=== PATIENT | female | born 1930 | race Caucasian/White ===

== ENCOUNTER 2017-12-24 19:10 | Inpatient (IN) | payer OTHER, MEDICAID ==
[2017-12-24] MEDS ORDERED: Pantoprazole 80 MG in Sodium Chloride 0.9% 100 ML IV ONE (19:31)
--- NOTE | 2017-12-24 19:54 | ED Physician Chart ---
ED Chief Complaint/HPI - Patient Information Date Seen:: 12/24/17 Time Seen:: 19:45 Chief Complaint:: coffee ground emesis History of Present Illness:: coffee ground emesis Allergies:: Allergies Allergy/AdvReac Type Severity Reaction Status Date / Time No Known Allergies Allergy Verified 12/24/17 19:30 Vitals:: Vital Signs - 8 hr 12/24/17 19:45 Temp 98.6 F HR 124 RR 26 BP 199/97 O2 Sat % 95 Historian:: Medical Records Review:: Nurse's Note Reviewed, Transfer documents Reviewed ED Review of Systems - Review of Systems General/Constitutional: No fever, No chills, No weight loss, No weakness, No diaphoresis, No edema, No loss of appetite Skin: No skin lesions, No rash, No bruising Head: No headache, No light-headedness Eyes: No loss of vision, No pain, No diplopia ENT: No earache, No nasal drainage, No sore throat, No tinnitus Neck: No neck pain, No swelling, No thyromegaly, No stiffness, No mass noted Cardio Vascular: No chest pain, No palpitations, No PND, No orthopnea, No edema Pulmonary: No SOB, No cough, No sputum, No wheezing GI: Vomiting, Hematemesis G/U: No dysuria, No frequency, No hematuria Musculoskeletal: No bone or joint pain, No back pain, No muscle pain Endocrine: No polyuria, No polydipsia Psychiatric: No prior psych history, No depression, No anxiety, No suicidal ideation Hematopoietic: No bruising, No lymphadenopathy Allergic/Immuno: No urticaria, No angioedema Neurological: No syncope, No focal symptoms, No weakness, No paresthesia, No headache, No seizure, No dizziness, No confusion, No vertigo ED Past Medical History - Past Medical History Obtainable: No Past Medical History: HTN, DM, Dyslipidemia, Dementia (anemia), Other (muscle weakness) Psychiatricy History: Dementia ED Physical Exam - Physical Examination General/Constitutional: Awake, Well-developed, well-nourished, Alert, No distress, Non-toxic appearing, Ambulatory Head: Atraumatic Eyes: Lids, conjuctiva normal, PERRL, EOMI Skin: Nl inspection, No rash, No skin lesions, No ecchymosis, Well hydrated, No lymphadenopathy ENMT: External ears, nose nl Neck: Nontender, No stridor Other Respiratory comments:: rhonchi in the right lower lung base only. Cardio Vascular: RRR, No murmur, gallop, rubs, NL S1 S2 GI: No tenderness/rebounding/guarding, No organomegaly, No hernia, Normal BS's, Nondistended, No mass/bruits, No McBurney tenderness Extremities: No tenderness or effusion, Full ROM, normal strength in all extremities, No edema Neuro/Psych: Normal motor strength, Mood normal, No focal deficits Misc: Normal back ED Assessment - Assessment General Assessment: sign out given to Dr. Zhou at 7:45 p.m. ED Septic Shock - . Is Septic Shock (SBP<90, OR Lactate>4 mmol\L) present?: No - <6hrs of presentation: Vital Signs: Vital Signs - 8 hr 12/24/17 19:45 Temp 98.6 F HR 124 RR 26 BP 199/97 O2 Sat % 95 ED Reassessment (Disposition) - Reassessment Reassessment Condition:: Unchanged - Diagnosis Diagnosis:: Coffee ground emesis. - Patient Disposition Discharge/Transfer:: Acute Care w/in this hosp Condition at Disposition:: Stable, Unchanged
[2017-12-24 20:03] LABS: HEMATOCRIT 30.5 % (41.0-60); MEAN CORPUSCULAR HEMOGLOBIN 28.8 pg (27.0-31.0); MEAN CORPUSCULAR HGB CONC 32.7 pg (28.0-36.0); MEAN PLATELET VOLUME 9.4 fl; PLATELET COUNT 282 Th/cmm (150-400); RED BLOOD COUNT 3.47 Mil/cmm (3.80-5.20); RED CELL DISTRIBUTION WIDTH 12.7 % (11.5-20.0)
[2017-12-24 20:06] LABS: PROTHROMBIN TIME (TEST) 10.4 SECONDS (9.5-11.5); WHITE BLOOD COUNT 16.1 Th/cmm (4.8-10.8)
[2017-12-24 20:12] LABS: ALKALINE PHOSPHATASE 89 U/L (34-104); ANION GAP 17.5 (7.0-16.0); BILIRUBIN,TOTAL 0.2 mg/dL (0.3-1.0); BUN - UREA NITROGEN 69 mg/dL (7-25); CALCIUM SERUM 9.3 mg/dL (8.6-10.3); CARBON DIOXIDE 24.6 mEq/L (21.0-31.0); CHLORIDE 97 mEq/L (98-107); CREATININE - SERUM 1.2 mg/dL (0.6-1.2); MAGNESIUM 2.2 mg/dL (1.9-2.7); PHOSPHOROUS 3.5 mg/dL (2.5-5.0); POTASSIUM SERUM 5.1 mEq/L (3.5-5.1); SGOT 9 U/L (13-39); SGPT/ALT 8 U/L (7-52); SODIUM SERUM 134 mEq/L (136-145); TOTAL PROTEIN,SERUM 5.9 gm/dL (6.0-8.3)
[2017-12-24 20:16] LABS: GLUCOSE 547 mg/dL (70-105)
[2017-12-24 20:22] LABS: BAND NEUTROPHILE 5 % (0-10); LYMPHOCYTE 8 % (20-50); MONOCYTE 3 % (2-10); NEUTROPHILS 84 % (40-80)
[2017-12-24] MEDS ORDERED: Sodium Chloride 0.9% 1,000 ML IV ONE ×2 (20:23→21:27)
[2017-12-24] MEDS ORDERED: INSULIN HUMAN REGULAR 100 UNITS/ML UNIT IVP ONE (20:26)
[2017-12-24] MEDS ORDERED: INSULIN HUMAN REGULAR 100 UNITS/ML UNIT SUBQ ONE (20:26)
[2017-12-24] MEDS ORDERED: cefTRIAXone 2 GM in Sodium Chloride 0.9% 100 ML IV SCH (20:30)
[2017-12-24] MEDS ORDERED: INSULIN HUMAN REGULAR 100 UNITS/ML UNIT ONE ×2 (21:52→23:06)
[2017-12-24] MEDS: Pantoprazole 80 MG in Sodium Chloride 0.9% 100 ML IV SCH (22:57)
[2017-12-24] MEDS: Azithromycin 500 MG in Sodium Chloride 0.9% 250 ML IV SCH (23:15)
[2017-12-25] MEDS: INSULIN ASPART SLIDING SCALE 100 UNITS/ML UNIT SUBQ SCH ×5 (01:11→23:36)
[2017-12-25 01:18] VITALS: BP 145/65
[2017-12-25] MEDS ORDERED: Pneumococcal Vaccine 0.5 mL Vial IM ONE (03:00)
[2017-12-25 05:10] LABS: ALB/GLOB RATIO 1.1 (1.0-1.8); ALBUMIN 2.9 gm/dL (3.7-5.3); ALKALINE PHOSPHATASE 74 U/L (34-104); ANION GAP 11.9 (7.0-16.0); BILIRUBIN,TOTAL 0.2 mg/dL (0.3-1.0); BUN - UREA NITROGEN 78 mg/dL (7-25); CALCIUM SERUM 8.7 mg/dL (8.6-10.3); CARBON DIOXIDE 26.6 mEq/L (21.0-31.0); CHLORIDE 110 mEq/L (98-107); CHOLESTEROL 124 mg/dL (<200); CREATININE - SERUM 1.1 mg/dL (0.6-1.2); HDL -HIGH DENSITY LIPOPROTEIN 30 mg/dL (23-92); MAGNESIUM 2.3 mg/dL (1.9-2.7); POTASSIUM SERUM 4.5 mEq/L (3.5-5.1); SGOT 8 U/L (13-39); SGPT/ALT 7 U/L (7-52); SODIUM SERUM 144 mEq/L (136-145); TOTAL PROTEIN,SERUM 5.6 gm/dL (6.0-8.3); TRIGLYCERIDES 126 mg/dL (<150)
[2017-12-25 05:18] LABS: HEMATOCRIT 26.3 % (41.0-60); HEMOGLOBIN 8.7 gm/dL (12-16); MEAN CELL VOLUME 88.2 fl (81-100); MEAN CORPUSCULAR HEMOGLOBIN 29.3 pg (27.0-31.0); MEAN CORPUSCULAR HGB CONC 33.3 pg (28.0-36.0); MEAN PLATELET VOLUME 9.5 fl; PLATELET COUNT 241 Th/cmm (150-400); RED BLOOD COUNT 2.98 Mil/cmm (3.80-5.20); RED CELL DISTRIBUTION WIDTH 12.1 % (11.5-20.0)
[2017-12-25 05:27] LABS: WHITE BLOOD COUNT 16.8 Th/cmm (4.8-10.8)
[2017-12-25 05:36] LABS: GLUCOSE 392 mg/dL (70-105)
[2017-12-25] MEDS: Sodium Chloride 0.9% 1,000 ML IV SCH ×2 (06:11→12:20)
[2017-12-25 06:47] LABS: BAND NEUTROPHILE 0 % (0-10); LYMPHOCYTE 16 % (20-50); NEUTROPHILS 78 % (40-80)
[2017-12-25 06:48] LABS: MONOCYTE 6 % (2-10)
--- NOTE | 2017-12-25 08:40 | Diagnostic Imaging Report ---
CT Chest without IV contrast HISTORY: Pneumonia COMPARISON: CT abdomen and pelvis the same day. Technique: Axial images were obtained from the base of the neck to the upper abdomen without IV contrast. Reconstructions were made. Total DLP 276, CTDI 8.4 Findings: Exam is limited due to lack of IV contrast. No evidence of mediastinal lymphadenopathy. Motion also limits exam. Extensive atherosclerosis is noted with coronary artery calcifications. No aneurysm. Heart size is at the upper limits of normal. No pericardial effusion. There is a large retrocardiac hiatal hernia. The lung padilla demonstrate chronic lung changes with hypoventilatory and atelectatic changes. There is focal area of consolidative change involving the posterior aspect of the right lung base. Small focal left basal consolidative changes noted. No pleural effusions. Degenerative changes of the spine are noted with marked scoliosis and rightward convexity of the thoracic spine. IMPRESSION: Focal right posterior basal consolidative changes probably related to pneumonia. Short-term follow-up is recommended to ensure resolution and rule out left leg neoplastic process Additional minimal left basal consolidative changes which may also be related to focal infiltrate/pneumonia. Again follow-up is needed to ensure resolution. Large retrocardiac hiatal hernia Heavy atherosclerotic vascular disease.
--- NOTE | 2017-12-25 08:43 | Diagnostic Imaging Report ---
CT abdomen and pelvis without intravenous contrast Indication: Hematemesis Comparison: CT chest the same day, Technique: Axial images were obtained from the lung bases to the bilateral proximal femurs without IV contrast. Coronal reconstructions were made. total DLP: 4 97, CTDI10.6 FINDINGS: Hypoventilatory and atelectatic changes of the lungs are noted. Evaluation of the solid organs is limited due to lack of IV contrast. Large retrocardiac hiatal hernia is noted. Evaluation of the solid organs is limited due to lack of IV contrast. Exam is also mildly limited due to motion. No focal hepatic or splenic lesions. There is a 4 mm stone along the neck of the gallbladder. No focal pancreatic or adrenal lesions. Exophytic right renal cysts are noted measuring up to 1.1 cm. No hydronephrosis or renal stones. Uterine calcifications are noted. There is marked distal fecal impaction with mass effect upon the uterus and urinary bladder. There is copious amount of stool throughout the colon. Minimal diverticulosis is noted without evidence of diverticulitis. No appendicitis. No free fluid or free air. Heavy atherosclerotic vascular disease is noted. Severe degenerative changes of the spine are noted with severe spinal scoliosis. IMPRESSION: Large retrocardiac hernia. Marked distal fecal impaction with mass effect upon the uterus and urinary bladder. There is also copious stool throughout the colon. Correlate clinically for constipation. Minimal diverticulosis without evidence of diverticulitis 4 mm stone along the gallbladder neck. No evidence of surrounding inflammatory changes. Consider further assessment with ultrasound. Severe degenerative changes and spinal scoliosis Atherosclerotic vascular disease.
[2017-12-25] MEDS: Pantoprazole 80 MG in Sodium Chloride 0.9% 100 ML IV SCH ×2 (09:00→19:42)
[2017-12-25] MEDS: Morphine Sulfate 2 mg/mL 1mL Syr IVP PRN ×2 (10:25→15:45)
--- NOTE | 2017-12-25 10:43 | General Progress Note ---
Subjective - Review of Systems Service Date: 12/25/17 Events since last encounter: 12/25/[address] scan noted need GI evaluation, NGT and esophagram and UGI study to determine degree to hernia incarceration, EGD Objective - Results Result Diagrams: 12/25/17 04:10 12/25/17 04:10 Recent Labs: Laboratory Last Values WBC 16.8 Th/cmm (4.8-10.8) H 12/25/17 04:10 RBC 2.98 Mil/cmm (3.80-5.20) L 12/25/17 04:10 Hgb 8.7 gm/dL (12-16) L 12/25/17 04:10 Hct 26.3 % (41.0-60) L 12/25/17 04:10 MCV 88.2 fl (81-100) 12/25/17 04:10 MCH 29.3 pg (27.0-31.0) 12/25/17 04:10 MCHC Differential 33.3 pg (28.0-36.0) 12/25/17 04:10 RDW 12.1 % (11.5-20.0) 12/25/17 04:10 Plt Count 241 Th/cmm (150-400) 12/25/17 04:10 MPV 9.5 fl 12/25/17 04:10 Add Manual Diff YES 12/25/17 04:10 Neutrophils % SOLVENT MIXER 12/24/17 19:40 Band Neutrophils % 0 % (0-10) 12/25/17 04:10 Lymphocytes % SOLVENT MIXER 12/24/17 19:40 Monocytes % SOLVENT MIXER 12/24/17 19:40 Eosinophils % SOLVENT MIXER 12/24/17 19:40 Basophils % SOLVENT MIXER 12/24/17 19:40 Neutrophils (Manual) 78 % (40-80) 12/25/17 04:10 Lymphocytes 16 % (20-50) L 12/25/17 04:10 Monocytes 6 % (2-10) 12/25/17 04:10 PT 10.4 SECONDS (9.5-11.5) 12/24/17 19:40 INR 1.00 (0.5-1.4) 12/24/17 19:40 PTT (Actin FS) 22.1 SECONDS (26.0-38.0) L 12/24/17 19:40 Sodium 144 mEq/L (136-145) 12/25/17 04:10 Potassium 4.5 mEq/L (3.5-5.1) 12/25/17 04:10 Chloride 110 mEq/L (98-107) H 12/25/17 04:10 Carbon Dioxide 26.6 mEq/L (21.0-31.0) 12/25/17 04:10 Anion Gap 11.9 (7.0-16.0) 12/25/17 04:10 BUN 78 mg/dL (7-25) H 12/25/17 04:10 Creatinine 1.1 mg/dL (0.6-1.2) 12/25/17 04:10 Est GFR ( Amer) TNP 12/25/17 04:10 Est GFR (Non-Af Amer) TNP 12/25/17 04:10 BUN/Creatinine Ratio 70.9 12/25/17 04:10 Glucose 392 mg/dL (70-105) H D 12/25/17 04:10 POC Glucose 304 MG/DL (70 - 105) H 12/25/17 06:07 Whole Bld Lactic Acid 2.46 mmol/L (0.60-1.99) H* 12/25/17 10:07 Calcium 8.7 mg/dL (8.6-10.3) 12/25/17 04:10 Phosphorus 3.5 mg/dL (2.5-5.0) 12/24/17 19:40 Magnesium 2.3 mg/dL (1.9-2.7) 12/25/17 04:10 Total Bilirubin 0.2 mg/dL (0.3-1.0) L 12/25/17 04:10 AST 8 U/L (13-39) L 12/25/17 04:10 ALT 7 U/L (7-52) 12/25/17 04:10 Alkaline Phosphatase 74 U/L (34-104) 12/25/17 04:10 Total Protein 5.6 gm/dL (6.0-8.3) L 12/25/17 04:10 Albumin 2.9 gm/dL (3.7-5.3) L 12/25/17 04:10 Globulin 2.7 gm/dL 12/25/17 04:10 Albumin/Globulin Ratio 1.1 (1.0-1.8) 12/25/17 04:10 Triglycerides 126 mg/dL (<150) 12/25/17 04:10 Cholesterol 124 mg/dL (<200) 12/25/17 04:10 LDL Cholesterol Direct 84 mg/dL (75-193) 12/25/17 04:10 HDL Cholesterol 30 mg/dL (23-92) 12/25/17 04:10 TSH 0.75 uIU/ml (0.34-5.60) 12/25/17 04:10 Blood Type O POSITIVE 12/24/17 19:40 Antibody Screen NEGATIVE 12/24/17 19:40 - Physical Exam Vitals and I&O: Vital Signs Temp 96.9 F 12/25/17 10:00 Pulse 84 12/25/17 10:00 Resp 18 12/25/17 10:00 BP 160/58 12/25/17 10:00 Pulse Ox 100 12/25/17 10:00 Intake & Output 12/24/17 12/25/17 12/25/17 18:59 06:59 18:59 Intake Total 250 Balance 250 Weight (lbs) 64.682 kg Intake: Intake, IV Amount 250 Azithromycin 500 mg In 250 Sodium Chloride 0.9% 250 ml @ 250 mls/hr IV Q24HR [facility] Rx#:[id number] Other: # Voids 2 Stool Characteristics Brown Brown Weight Source Bedscale Active Medications: Current Medications Pantoprazole Sodium 80 mg/ (Sodium Chloride) 100 mls @ 10 mls/hr IV Q10H [facility] Stop: 02/22/18 19:44 Last Admin: 12/24/17 22:57 Dose: 10 mls/hr Azithromycin 500 mg/ Sodium (Chloride) 250 mls @ 250 mls/hr IV Q24HR [facility] Stop: 02/22/18 22:29 Last Infusion: 12/25/17 00:30 Dose: Infused Ceftriaxone Sodium 1 gm/ (Sodium Chloride) 50 mls @ 100 mls/hr IV Q24HR [facility] Stop: 02/23/18 20:59 Sodium Chloride (Nacl 0.9%) 1,000 mls @ 150 mls/hr IV .Q6H40M [facility] Stop: 02/23/18 05:59 Last Admin: 12/25/17 06:11 Dose: 150 mls/hr Insulin Aspart (Novolog Insulin Sliding Scale) 0 units SUBQ Q6HR [facility]; Protocol Stop: 02/23/18 01:14 Last Admin: 12/25/17 06:09 Dose: 9 units Morphine Sulfate (Morphine) 1 mg IVP Q4HR PRN PRN Reason: Pain (Moderate) Stop: 02/23/18 10:04 Assessment/Plan - Problem List Patient Problems: All Active Problems COFFEE GROUND EMESIS (Acute)
--- NOTE | 2017-12-25 11:14 | Diagnostic Imaging Report ---
CHEST X-RAY: AP view INDICATION: aspiration COMPARISON: None FINDINGS: Retrocardiac density is noted. No focal consolidation or effusions. Cardiomegaly is noted with atherosclerosis. Degenerative changes of the spine are noted with scoliosis. IMPRESSION: Retrocardiac density probably representing a large hiatal hernia. Please refer to follow-up CT examination the same day for further details Cardiomegaly and atherosclerotic vascular disease.
[2017-12-25] MEDS ORDERED: Meperidine 25 mg/mL 1mL Syr ONE (11:39)
--- NOTE | 2017-12-25 12:28 | Diagnostic Imaging Report ---
CHEST X-RAY: AP view INDICATION: NG tube placement COMPARISON: Chest x-ray and chest CT on 12/24/2018 FINDINGS: An NG tube is seen curled in a large hiatal hernia. No focal consolidation or effusions. Cardiomegaly is noted with atherosclerosis. IMPRESSION: NG tube curled in the large retrocardiac hiatal hernia. Clinical correlation is needed. No focal consolidation identified.
[2017-12-25] MEDS: D5-0.45NS 1,000 ML IV SCH (13:45)
[2017-12-25] MEDS ORDERED: Probiotic Screen MC PRN (15:30)
[2017-12-25] MEDS: cefTRIAXone 1 GM in Sodium Chloride 0.9% 50 ML IV SCH (20:32)
--- NOTE | 2017-12-25 20:44 | History and Physical ---
History of Present Illness - HPI Chief Complaint: coffee ground emesis HPI: 87 y/o female long-term resident admitted to the ICU due to 1 day hx of coffee ground emesis. In the ER patient was found to have elevated lactic acid, sepsis protocol initiated. Vital Signs: Last Vital Signs Temp 98.3 F 12/25/17 20:00 Pulse 84 12/25/17 20:00 Resp 20 12/25/17 20:00 BP 119/86 12/25/17 20:00 Pulse Ox 100 12/25/17 20:00 Past Medical History Other History: HTN, DM, Dyslipidemia, Dementia (anemia), Other (muscle weakness) Family Medical History - Family Member Mother History Unknown: Yes Social History Smoke: No Alcohol: None Drugs: None Lives: Assisted - Medications Home Medications: Home Medication Medication Instructions Recorded Type Acetaminophen [Tylenol] 650 mg PO Q4H PRN 12/24/17 History Acetaminophen [Tylenol] 650 mg PO Q4H PRN 12/24/17 History Amlodipine Besylate 5 mg PO DAILY 12/24/17 History Ascorbic Acid 500 mg PO DAILY 12/24/17 History Bisacodyl [Dulcolax 10 Mg Supp] 10 mg RC DAILY PRN 12/24/17 History Calcium Carbonate/Vitamin D3 1 each PO DAILY 12/24/17 History [Calcium 500-Vit D3 200 Caplet] Clonidine HCl [Catapres] 0.1 mg PO Q8H PRN 12/24/17 History Clopidogrel [Plavix] 75 mg PO DAILY 12/24/17 History Dextrose [Glucose Gel] 15 gm PO PRN PRN 12/24/17 History Docusate Sodium [Colace] 100 mg PO BID 12/24/17 History Ferrous Sulfate 325 mg PO DAILY 12/24/17 History Fleet Enema 135 ml RC DAILY PRN 12/24/17 History Glucagon,Human Recombinant 1 mg IJ PRN PRN 12/24/17 History [Glucagon Emergency Kit] Insulin Human Regular [NovoLIN R] 0 units SUBQ DAILY 12/24/17 History Isosorbide Mononitrate [Isosorbide 60 mg PO DAILY 12/24/17 History Mononitrate ER] L. Acidophilus/L.bulgaricus 1 each PO DAILY 12/24/17 History [Floranex Granules Packet] Lactulose 20 gm PO BID 12/24/17 History Magnesium Hydroxide [Milk of 30 ml PO DAILY PRN 12/24/17 History Magnesia] Memantine [Namenda] 5 mg PO DAILY 12/24/17 History Metoprolol Tartrate 25 mg PO DAILY 12/24/17 History Multivitamin w/ Minerals 1 tab PO DAILY 12/24/17 History [Theragran M] Mylanta Ultimate Strenght 30 ml PO Q6H PRN 12/24/17 History Nitroglycerin [Nitrostat] 0.4 mg SL Q5MIN PRN 12/24/17 History Pantoprazole [Protonix] 40 mg PO DAILY 12/24/17 History Polyethylene Glycol 3350 17 gm PO DAILY 12/24/17 History Sitagliptin Phosphate [Januvia] 100 mg PO DAILY 12/24/17 History - Allergies Allergies/Adverse Reactions: Allergies Allergy/AdvReac Type Severity Reaction Status Date / Time No Known Allergies Allergy Verified 12/24/17 19:30 Review of Systems - Review of Systems Constitutional: Report: Weakness Eyes: Report: No Significant Respiratory: Report: Cough Cardiovascular: Report: No Significant Gastrointestinal: Report: Vomiting Neurological: Report: Weakness Physical Exam - Physical Exam HEENT: Report: Ears Nose Throat within normal limits Neck: Report: Within normal limits Cardiovascular Systems: Report: Regular, Rate and Rhythm Respiratory: Report: Breath Sounds are within normal limits Abdomen: Report: Non-tender to palpation Extremities: Report: Non-tender to palpation. Skin: Report: Color of skin is within normal limits, Warm, Dry Neuro/Psych: Report: Weakness or sensory loss noted. - Lab Results All Lab Results last 24 hours: Laboratory Results - last 24 hr 12/24/17 12/24/17 12/24/17 22:32 22:36 22:40 WBC RBC Hgb Hct MCV MCH MCHC Differential RDW Plt Count MPV Add Manual Diff Band Neutrophils % Neutrophils (Manual) Lymphocytes Monocytes Sodium Potassium Chloride Carbon Dioxide Anion Gap BUN Creatinine Est GFR ( Amer) Est GFR (Non-Af Amer) BUN/Creatinine Ratio Glucose POC Glucose 485 H* 441 H Whole Bld Lactic Acid 2.89 H* Calcium Magnesium Total Bilirubin AST ALT Alkaline Phosphatase Total Protein Albumin Globulin Albumin/Globulin Ratio Triglycerides Cholesterol LDL Cholesterol Direct HDL Cholesterol TSH 12/25/17 12/25/17 12/25/17 00:09 01:00 04:10 WBC 16.8 H RBC 2.98 L Hgb 8.7 L Hct 26.3 L MCV 88.2 MCH 29.3 MCHC Differential 33.3 RDW 12.1 Plt Count 241 MPV 9.5 Add Manual Diff YES Band Neutrophils % 0 Neutrophils (Manual) 78 Lymphocytes 16 L Monocytes 6 Sodium Potassium Chloride Carbon Dioxide Anion Gap BUN Creatinine Est GFR ( Amer) Est GFR (Non-Af Amer) BUN/Creatinine Ratio Glucose POC Glucose 423 H 403 H Whole Bld Lactic Acid Calcium Magnesium Total Bilirubin AST ALT Alkaline Phosphatase Total Protein Albumin Globulin Albumin/Globulin Ratio Triglycerides Cholesterol LDL Cholesterol Direct HDL Cholesterol TSH 12/25/17 12/25/17 12/25/17 04:10 04:10 06:07 WBC RBC Hgb Hct MCV MCH MCHC Differential RDW Plt Count MPV Add Manual Diff Band Neutrophils % Neutrophils (Manual) Lymphocytes Monocytes Sodium 144 Potassium 4.5 Chloride 110 H Carbon Dioxide 26.6 Anion Gap 11.9 BUN 78 H Creatinine 1.1 Est GFR ( Amer) TNP Est GFR (Non-Af Amer) TNP BUN/Creatinine Ratio 70.9 Glucose 392 H D POC Glucose 304 H Whole Bld Lactic Acid Calcium 8.7 Magnesium 2.3 Total Bilirubin 0.2 L AST 8 L ALT 7 Alkaline Phosphatase 74 Total Protein 5.6 L Albumin 2.9 L Globulin 2.7 Albumin/Globulin Ratio 1.1 Triglycerides 126 Cholesterol 124 LDL Cholesterol Direct 84 HDL Cholesterol 30 TSH 0.75 12/25/17 12/25/17 12/25/17 07:50 10:07 19:06 WBC RBC Hgb Hct MCV MCH MCHC Differential RDW Plt Count MPV Add Manual Diff Band Neutrophils % Neutrophils (Manual) Lymphocytes Monocytes Sodium Potassium Chloride Carbon Dioxide Anion Gap BUN Creatinine Est GFR ( Amer) Est GFR (Non-Af Amer) BUN/Creatinine Ratio Glucose POC Glucose 236 H Whole Bld Lactic Acid 2.88 H* 2.46 H* Calcium Magnesium Total Bilirubin AST ALT Alkaline Phosphatase Total Protein Albumin Globulin Albumin/Globulin Ratio Triglycerides Cholesterol LDL Cholesterol Direct HDL Cholesterol TSH Microbiology 12/24/17 19:40 - Preliminary Blood NO GROWTH AFTER 24 HOURS - Assessment Assessment: Current Active Problems Problem Status Onset COFFEE GROUND EMESIS Acute r/o gi bleed Large hiatal hernia lactic acidosis possible sepsis htn DM Dyslipidemia Dementia - Plan Plan: id consult surgical consult ivabx as ordered gi consult cpm
[2017-12-25] MEDS: Azithromycin 500 MG in Sodium Chloride 0.9% 250 ML IV SCH (21:51)
--- NOTE | 2017-12-25 23:32 | Consultation ---
DATE OF CONSULTATION: 12/25/2017 INFECTIOUS DISEASE CONSULTATION REFERRING PHYSICIAN: Ruiz Mcallister MD REASON FOR CONSULTATION: Sepsis, pneumonia. HISTORY OF PRESENT ILLNESS: The patient is an 87-year-old female with a past medical history of hypertension, muscle weakness, dysphagia, and diabetes mellitus type 2, brought in from [facility] for vomiting coffee-ground emesis. On initial evaluation, the patient's temperature was 98.6 degrees Fahrenheit and WBC count was 16,000. Sepsis workup was performed and lactic acid was elevated. ID consult was called for further evaluation and management. Meanwhile, CT scan of the chest reveal a large hiatal hernia along with bilateral pneumonia. Antibiotic milian, the patient was started on Rocephin and Zithromax. PAST MEDICAL HISTORY: As mentioned above, hypertension, diabetes mellitus type 2, muscle weakness, dysphagia. ALLERGIES: NKDA. MEDICATIONS: As per medication reconciliation sheet. Antibiotic milian, the patient is receiving Rocephin and Zithromax. FAMILY HISTORY: Not available. SOCIAL HISTORY: The patient lives in a nursing facility. No history of smoking, alcohol or drug use. REVIEW OF SYSTEMS: The patient is a poor historian, unable to give any history. The patient might have dementia. PHYSICAL EXAMINATION: VITAL SIGNS: Shows temperature is 96.9, pulse 84, respirations 18, blood pressure 160/58. GENERAL: The patient is comfortable, lying in the bed, not in acute distress. HEENT: Head is normocephalic and atraumatic. Oral cavity moist, pink tongue. Eyes: Pallor is present, no icterus. PERRLA, EOMI. NECK: Supple, no JVD, no carotid bruit. Trachea in midline. CHEST: Bilateral breath sounds. No crackles or wheezing. Decreased breath sounds. HEART: S1, S2 within normal limits. Regular rhythm. No murmur, no gallop. ABDOMEN: Soft, nontender, nondistended. Bowel sounds present. EXTREMITIES: No cyanosis, no clubbing, no edema. NEUROLOGIC: Arousable, but unable to communicate at this time. LABORATORY DATA: Current lab shows WBC count is 16,800, hemoglobin 8.7, hematocrit 26.3, platelets are 241,000, neutrophils 78%, lymphocytes 16%. Sodium 144, potassium 4.5, chloride 110, bicarbonate is 26.6, BUN is 78, creatinine 1.1, glucose is 392. Lactic acid is 2.46. CT scan of the chest, abdomen and pelvis are reviewed and it showed bilateral consolidation and large left retrocardiac hiatal hernia. The patient has a 4 mm stone along the gallbladder neck. No evidence of surrounding inflammatory changes. Marked distal fecal impaction with mass effect. IMPRESSION: 1. Severe sepsis. 2. Pneumonia. 3. Fecal impaction. 4. Gallbladder stone in bladder neck. 5. Diabetes mellitus type 2. 6. Hypertension. 7. Dementia. 8. Anemia. RECOMMENDATIONS: Continue Zithromax. Change Rocephin to Zosyn. Depending on the culture report and available data, define further antibiotic therapy. Thank you, Dr. Mcallister for involving me in taking care of this patient. JOB# [id number] SARAH
[2017-12-26] MEDS: D5-0.45NS 1,000 ML IV SCH ×3 (01:19→17:34)
[2017-12-26 05:09] LABS: HEMATOCRIT 21.1 % (41.0-60); MEAN CORPUSCULAR HGB CONC 33.5 pg (28.0-36.0)
[2017-12-26 05:13] LABS: MEAN CELL VOLUME 87.7 fl (81-100); MEAN CORPUSCULAR HEMOGLOBIN 29.3 pg (27.0-31.0); MEAN PLATELET VOLUME 8.7 fl; PLATELET COUNT 257 Th/cmm (150-400); RED CELL DISTRIBUTION WIDTH 12.7 % (11.5-20.0); WHITE BLOOD COUNT 14.9 Th/cmm (4.8-10.8)
[2017-12-26 05:31] LABS: ALB/GLOB RATIO 1.1 (1.0-1.8); ALBUMIN 2.6 gm/dL (3.7-5.3); ALKALINE PHOSPHATASE 55 U/L (34-104); ANION GAP 9.8 (7.0-16.0); BILIRUBIN,TOTAL 0.2 mg/dL (0.3-1.0); BUN - UREA NITROGEN 45 mg/dL (7-25); CALCIUM SERUM 8.4 mg/dL (8.6-10.3); CARBON DIOXIDE 26.1 mEq/L (21.0-31.0); CHLORIDE 115 mEq/L (98-107); CREATININE - SERUM 1.1 mg/dL (0.6-1.2); GLUCOSE 287 mg/dL (70-105); HEMOGLOBIN 7.1 gm/dL (12-16); MAGNESIUM 2.2 mg/dL (1.9-2.7); PHOSPHOROUS 2.3 mg/dL (2.5-5.0); POTASSIUM SERUM 3.9 mEq/L (3.5-5.1); SGOT 28 U/L (13-39); SGPT/ALT 8 U/L (7-52); SODIUM SERUM 147 mEq/L (136-145)
[2017-12-26 05:38] LABS: INR 1.02 (0.5-1.4); PROTHROMBIN TIME (TEST) 10.6 SECONDS (9.5-11.5)
[2017-12-26 05:58] LABS: BAND NEUTROPHILE 5 % (0-10); BASOPHIL 1 % (0-3); EOSINOPHIL 3 % (0-5); LYMPHOCYTE 27 % (20-50); MONOCYTE 6 % (2-10); NEUTROPHILS 58 % (40-80)
[2017-12-26] MEDS: Pantoprazole 80 MG in Sodium Chloride 0.9% 100 ML IV SCH ×2 (05:58→18:07)
[2017-12-26 05:59] LABS: PLATELET ESTIMATE ADEQUATE (NORMAL)
[2017-12-26] MEDS: INSULIN ASPART SLIDING SCALE 100 UNITS/ML UNIT SUBQ SCH ×3 (06:10→17:35)
[2017-12-26] MEDS ORDERED: Propofol 10 mg/mL 20mL Vial **SURGERY USE ONLY IV ONE (07:40)
[2017-12-26] MEDS ORDERED: Lidocaine 2% Gel 5 mL TP ONE (07:40)
[2017-12-26] MEDS: Lactobacillus Rhamnosus GG 15 Billion CFU CAP.SPRINK PO SCH (09:00)
[2017-12-26] MEDS ORDERED: Albuterol/Ipratropium Neb 3 ML AERS HHN ONE (09:20)
--- NOTE | 2017-12-26 11:54 | Diagnostic Imaging Report ---
CHEST X-RAY: AP view INDICATION: NG tube placement COMPARISON: Chest x-ray 12/25/2017 FINDINGS: NG tube is in place with tip in the stomach. Congestive changes seen small left effusion. Cardiomegaly is noted. Copious stool is seen throughout the colon with distal fecal impaction and gas-filled loops of bowel. IMPRESSION: NG tube within the stomach. Copious stool with gas-filled bowel loops. Distal fecal impaction is noted.. Please correlate clinically for constipation and ileus. Congestive changes and small left effusion. Pneumonia of the left base cannot be excluded.
--- NOTE | 2017-12-26 12:23 | Consultation ---
DATE OF CONSULTATION: 12/26/2017 INPATIENT GASTROINTESTINAL CONSULTATION CONSULTING PHYSICIANS: Dr. Mcallister and Dr. Herrera. REASON FOR CONSULTATION: Coffee-ground emesis and hiatal hernia. HISTORY OF PRESENT ILLNESS: The patient is an 87-year-old female with past medical history significant for hypertension, dysphasia, type 2 diabetes, dementia, permanent resident of a nursing facility, admitted to the hospital for coffee-ground emesis. The patient was witnessed to have vomiting, coffee-ground emesis at her nursing facility and thus was admitted to the hospital. She is not a reliable historian at the moment and is unable to give me much history. She did have a CT scan on admission that showed a large hiatal hernia as well as bilateral pneumonia. The patient has been admitted to the ICU and started on antibiotics. Dr. Herrera has seen the patient of surgery and thinks that she makes a rather poor surgical candidate for hernia repair and thus is asked for an upper endoscopy to further clarify the hernia as well as the NG tube insertion for feeding purposes. PAST MEDICAL HISTORY: Hypertension, type 2 diabetes, dysphagia, hypertension, dementia. PAST SURGICAL HISTORY: Unknown. FAMILY HISTORY: Noncontributory. SOCIAL HISTORY: The patient lives at a nursing facility. There is no documented history of alcoholism, illicit drug use. REVIEW OF SYSTEMS: Not possible given the patient's inability to participate in the interview process. CURRENT MEDICATIONS: Include Tylenol, amlodipine, vitamin C, azithromycin, Dulcolax, ceftriaxone, insulin, lactobacillus, morphine, Protonix. PHYSICAL EXAMINATION: VITAL SIGNS: Blood pressure is 166/71, pulse 104 beats per minute, temperature 97.6, oxygenation is 100%. GENERAL: The patient is lying on her side in bed, alert and oriented x 0. There is no apparent distress. HEAD, EARS, EYES, NOSE AND THROAT: Normocephalic and atraumatic appearing head. Pupils are equal and reactive to light. Extraocular muscles appear to be intact. There are dry mucous membranes. NECK: There is JVD. There is no thyromegaly or lymphadenopathy. CHEST: Crackles are heard bilaterally. CARDIOVASCULAR: S1 and S2 are present, tachycardic. ABDOMEN: Soft and obese. There is no tenderness to palpation. No guarding or rebound. No fluid distention. EXTREMITIES: 1+ pitting edema bilaterally. Pulses are not present. SKIN: There is no obvious jaundice. LABORATORY DATA: White blood cell count is 14.9, hemoglobin 7.1, platelet count is 257. INR is 1.02. Sodium is 147, BUN 45, creatinine 1.1. Total bilirubin 0.2, AST 28, ALT 8. IMAGING REPORTS: Abdomen and pelvis CT scan was performed and shows large retrocardiac hernia as well as bilateral pneumonia, distal fecal impaction, diverticulosis. IMPRESSION: This is an 87-year-old female with dementia, hypertension, dysphagia and hiatal hernia, admitted to the hospital with pneumonia and coffee-ground emesis. 1. Coffee-ground emesis. 2. Anemia. 3. Hiatal hernia. 4. Dementia. 5. Hypertension and dysphagia. DISCUSSION: It is likely that the patient's hiatal hernia contributed to the coffee-ground emesis that was observed at the nursing facility. An upper endoscopy is indicated for further evaluation and possible therapeutic options. Upper endoscopy would not be able to fix this hernia however and this would only need to be done surgically if the patient is a surgical candidate. We will plan for EGD for clarification on the hernia and any possible active bleeding. Additionally, if the patient has a distal fecal impaction, she likely should have enemas to help clear this, which may also contribute to the patient's nausea and vomiting. RECOMMENDATIONS: 1. We will plan for EGD with the anesthesia support. 2. We will also plan to insert an NG tube at the time of the EGD as the nursing staff has been unable to insert an NG tube at bedside given coiling in the hernia. 3. Protonix drip at the current time, this can be adjusted after the procedure. 4. Feeding can be started through the NG tube if it is confirmed to be in place after the procedure. 5. Antibiotics as per ID. 6. Correction of the hiatal hernia as per Dr. Herrera. 7. Tap water enemas given distal fecal impaction. Thank you for allowing me participate in her care. Please call with any further questions. JOB# [id number]
[2017-12-26] MEDS: Morphine Sulfate 2 mg/mL 1mL Syr IVP PRN (12:24)
--- NOTE | 2017-12-26 12:31 | Internal Medicine Prog Note ---
Internal Medicine Subjective - Subjective Patient seen and examined:: chart reviewed Patient is:: other (weak) Per staff patient has:: no adverse event, tolerating meds Internal Medicine Objective - Results Result Diagrams: 12/26/17 04:45 12/26/17 04:45 Recent Labs: Laboratory Last Values WBC 14.9 Th/cmm (4.8-10.8) H 12/26/17 04:45 RBC 2.40 Mil/cmm (3.80-5.20) L 12/26/17 04:45 Hgb 7.1 gm/dL (12-16) L* 12/26/17 04:45 Hct 21.1 % (41.0-60) L 12/26/17 04:45 MCV 87.7 fl (81-100) 12/26/17 04:45 MCH 29.3 pg (27.0-31.0) 12/26/17 04:45 MCHC Differential 33.5 pg (28.0-36.0) 12/26/17 04:45 RDW 12.7 % (11.5-20.0) 12/26/17 04:45 Plt Count 257 Th/cmm (150-400) 12/26/17 04:45 MPV 8.7 fl 12/26/17 04:45 Add Manual Diff YES 12/26/17 04:45 Neutrophils % DECK OFFICER 12/24/17 19:40 Band Neutrophils % 5 % (0-10) 12/26/17 04:45 Lymphocytes % DECK OFFICER 12/24/17 19:40 Monocytes % DECK OFFICER 12/24/17 19:40 Eosinophils % DECK OFFICER 12/24/17 19:40 Basophils % DECK OFFICER 12/24/17 19:40 Neutrophils (Manual) 58 % (40-80) 12/26/17 04:45 Lymphocytes 27 % (20-50) 12/26/17 04:45 Monocytes 6 % (2-10) 12/26/17 04:45 Eosinophils 3 % (0-5) 12/26/17 04:45 Basophils 1 % (0-3) 12/26/17 04:45 Platelet Estimate ADEQUATE (NORMAL) 12/26/17 04:45 PT 10.6 SECONDS (9.5-11.5) 12/26/17 04:45 INR 1.02 (0.5-1.4) 12/26/17 04:45 PTT (Actin FS) 22.1 SECONDS (26.0-38.0) L 12/24/17 19:40 Sodium 147 mEq/L (136-145) H 12/26/17 04:45 Potassium 3.9 mEq/L (3.5-5.1) 12/26/17 04:45 Chloride 115 mEq/L (98-107) H 12/26/17 04:45 Carbon Dioxide 26.1 mEq/L (21.0-31.0) 12/26/17 04:45 Anion Gap 9.8 (7.0-16.0) 12/26/17 04:45 BUN 45 mg/dL (7-25) H 12/26/17 04:45 Creatinine 1.1 mg/dL (0.6-1.2) 12/26/17 04:45 Est GFR ( Amer) TNP 12/26/17 04:45 Est GFR (Non-Af Amer) TNP 12/26/17 04:45 BUN/Creatinine Ratio 40.9 12/26/17 04:45 Glucose 287 mg/dL (70-105) H 12/26/17 04:45 POC Glucose 270 MG/DL (70 - 105) H 12/26/17 06:09 Whole Bld Lactic Acid 2.46 mmol/L (0.60-1.99) H* 12/25/17 10:07 Calcium 8.4 mg/dL (8.6-10.3) L 12/26/17 04:45 Phosphorus 2.3 mg/dL (2.5-5.0) L 12/26/17 04:45 Magnesium 2.2 mg/dL (1.9-2.7) 12/26/17 04:45 Total Bilirubin 0.2 mg/dL (0.3-1.0) L 12/26/17 04:45 AST 28 U/L (13-39) 12/26/17 04:45 ALT 8 U/L (7-52) 12/26/17 04:45 Alkaline Phosphatase 55 U/L (34-104) 12/26/17 04:45 Total Protein 5.0 gm/dL (6.0-8.3) L 12/26/17 04:45 Albumin 2.6 gm/dL (3.7-5.3) L 12/26/17 04:45 Globulin 2.4 gm/dL 12/26/17 04:45 Albumin/Globulin Ratio 1.1 (1.0-1.8) 12/26/17 04:45 Triglycerides 126 mg/dL (<150) 12/25/17 04:10 Cholesterol 124 mg/dL (<200) 12/25/17 04:10 LDL Cholesterol Direct 84 mg/dL (75-193) 12/25/17 04:10 HDL Cholesterol 30 mg/dL (23-92) 12/25/17 04:10 TSH 0.75 uIU/ml (0.34-5.60) 12/25/17 04:10 Blood Type O POSITIVE 12/24/17 19:40 Antibody Screen NEGATIVE 12/24/17 19:40 - Physical Exam Vitals and I&O: Vital Signs Temp 97.6 F 12/26/17 08:00 Pulse 111 12/26/17 11:00 Resp 16 12/26/17 11:00 BP 148/55 12/26/17 11:00 Pulse Ox 100 12/26/17 11:00 Intake & Output 12/25/17 12/26/17 12/26/17 18:59 06:59 18:59 Intake Total 1022.5 1968.333 420.333 Output Total 600 850 Balance 422.5 1118.333 420.333 Weight (lbs) 65.005 kg 65.181 kg Intake: Intake, IV Amount 1022.5 1968.333 420.333 Azithromycin 500 mg In 250 Sodium Chloride 0.9% 250 ml @ 250 mls/hr IV Q24HR [facility] Rx#:[id number] D5-0.45NS 1,000 ml @ 100 1468.333 400 mls/hr IV .Q10H [facility] Rx#: [id number] Pantoprazole 80 mg In 100 200 20.333 Sodium Chloride 0.9% 100 ml @ 10 mls/hr IV Q10H [facility] Rx#:[id number] Sodium Chloride 0.9% 1, 922.5 000 ml @ 150 mls/hr IV . Q6H40M [facility] Rx#:[id number] cefTRIAXone 1 gm In 50 Sodium Chloride 0.9% 50 ml @ 100 mls/hr IV Q24HR [facility] Rx#:[id number] Output: Urine 600 850 Other: # Bowel Movements 1 Stool Characteristics Brown Weight Source Bedscale Bedscale Active Medications: Current Medications Acetaminophen (Tylenol) 650 mg PO Q4HR PRN PRN Reason: MILD PAIN 1-3 Stop: 02/23/18 17:58 Acetaminophen (Tylenol) 650 mg PO Q4HR PRN PRN Reason: TEMP >100.4 Stop: 02/23/18 17:58 Amlodipine Besylate (Norvasc) 5 mg PO DAILY [facility] Stop: 02/24/18 08:59 Ascorbic Acid (Vitamin C) 500 mg PO DAILY [facility] Stop: 02/24/18 08:59 Bisacodyl (Dulcolax 10 Mg Supp) 10 mg RC DAILY PRN PRN Reason: IF MOM INEFFECTIVE Stop: 02/23/18 17:58 Pantoprazole Sodium 80 mg/ (Sodium Chloride) 100 mls @ 10 mls/hr IV Q10H [facility] Stop: 02/22/18 19:44 Last Infusion: 12/26/17 10:00 Dose: 10 mls/hr Azithromycin 500 mg/ Sodium (Chloride) 250 mls @ 250 mls/hr IV Q24HR [facility] Stop: 02/22/18 22:29 Last Infusion: 12/25/17 22:51 Dose: Infused Ceftriaxone Sodium 1 gm/ (Sodium Chloride) 50 mls @ 100 mls/hr IV Q24HR [facility] Stop: 02/23/18 20:59 Last Infusion: 12/25/17 21:03 Dose: Infused Dextrose/Sodium Chloride (D5-0.45ns) 1,000 mls @ 100 mls/hr IV .Q10H [facility] Stop: 02/23/18 13:44 Last Admin: 12/26/17 11:39 Dose: 100 mls/hr Insulin Aspart (Novolog Insulin Sliding Scale) 0 units SUBQ Q6HR [facility]; Protocol Stop: 02/23/18 01:14 Last Admin: 12/26/17 06:10 Dose: Not Given Lactobacillus Rhamnosus (Culturelle 15b) 1 each PO DAILY [facility] Stop: 02/24/18 08:59 Miscellaneous (Probiotic Screen) 1 ea MC PRN PRN PRN Reason: PROTOCOL Stop: 02/23/18 15:29 Morphine Sulfate (Morphine) 1 mg IVP Q4HR PRN PRN Reason: Pain (Moderate) Stop: 02/23/18 10:04 Last Admin: 12/26/17 12:24 Dose: 1 mg General: weak HEENT: NC/AT Neck: Supple Lungs: CTAB Cardiovascular: Normal S1, Normal S2 Abdomen: non-tender Extremities: clear, edema Neurological: no change Internal Medicine Assmt/Plan - Assessment Assessment: Current Active Problems Problem Status Onset COFFEE GROUND EMESIS Acute r/o gi bleed Large hiatal hernia lactic acidosis possible sepsis htn DM Dyslipidemia Dementia - Plan Plan: id consult surgical consult ivabx as ordered gi consult cpm Nutritional Asmnt/Malnutr-PDOC - Dietary Evaluation Malnutrition Findings (Please click <Entered> for more info): Nutritional Asmnt/Malnutrition Start: 12/25/17 15: 21 Text: Status: Complete Freq: Protocol: Document 12/25/17 15:22 ESTIVENBRITANY (Rec: 12/25/17 15:44 ARSH [id number]) Nutritional Asmnt/Malnutrition Patient General Information Nutritional Screening High Risk Diagnosis sepsis, dehydration, pneumonia Pertinent Medical Hx/Surgical Hx HTN, DM, dyslipidemia, dementia, anemia, muscle weakness Subjective Information Pt receiving care from RN at time of visit. Per nurse notes , pt had coffee ground emesis, NGT was unable to be inserted d/t large retro cardiac hiatal hernia, and will have EGD tomorrow. Spoke w/ BELA Duran by phone who verfied the nurse notes and states pt will continue to be NPO. Current Diet Order/ Nutrition Support NPO Pertinent Medications D5-0.45ns, novolog, culturelle , pantoprazole Pertinent Labs 12/25: glucose 392, Na 144, Cl 110, BUN 78, Alb 2.9, POC 304 -423 12/24: glucose 547, Na 134, Cl 97, BUN 69, Alb 3.0, POC 441- 485 Nutritional Hx/Data Height 1.63 m Height (Calculated Centimeters) 162.6 Current Weight (lbs) 64.682 kg Weight (Calculated Kilograms) 64.7 Weight (Calculated Grams) 60733.3 [place] Body Weight 120 lb Body Mass Index (BMI) 24.5 Weight Status Approriate GI Symptoms GI Symptoms Nausea Vomitting Last BM none noted Difficult in: None Food Allergies No Skin Integrity/Comment: saji, pasquale 13 Current %PO Negligible < 25% Estimated Nutritional Goals BEE in Kcals: Using Current wt Calories/Kcals/Kg 30-35 Kcals Calculated 9769-3958 Protein: Using Current wt Protein g/k.2-1.5 Protein Calculated 78-97 g Fluid: ml per MD Nutritional Problem 2. Problem Problem Altered nutrition related lab values Etiology dehydration, endocrine dysfunction Signs/Symptoms: Cl 110, BUN 78, glucose 392, POC 304-423 1. Problem Problem Increased nutrient needs Etiology metabolic stress Signs/Symptoms: dx of sepsis and pneumonia Malnutrition Related to Morbid Obesity Malnutrition related to morbid obesity No Intervention/Recommendation Comments 1. Monitor NPO status and advance diet when medically appropriate 2. Consider alternative nutrition route if pt unable to tolerate PO intake 3. Monitor wt, nutrition related labs, and skin integrity 4. F/U as high risk in 2-3 days, 12/27- Expected Outcomes/Goals Expected Outcomes/Goals 1. Pt to start oral intake or alternate nutrition route if necessary 2. Wt stability, skin to remain intact, nutrition related labs to approach normal limits Reveiwed by Yesenia Jennings RD
--- NOTE | 2017-12-26 12:35 | Operative Report ---
DATE OF SURGERY: 12/26/2017 PROCEDURE PERFORMED: EGD with biopsy, EGD with control of bleeding, and EGD with NG tube insertion. ENDOSCOPIST: Grover Remy M.D. PREOPERATIVE DIAGNOSES: Hiatal hernia, coffee-ground emesis, dysphagia. POSTOPERATIVE DIAGNOSES: Hiatal hernia, possible Holland's erosions versus ulcer within the hernia sac, status post clips. INDICATION: The patient is an 87-year-old female admitted from her nursing facility for coffee-ground emesis as well as pneumonia. NG tube was tried to be inserted at bedside, but it was coiling in the hiatal hernia and this EGD is desired for both evaluation of the coffee ground emesis and insert an NG tube. CONSENT: Informed consent was obtained from the patient's conservator. The risks and benefits of the procedure were discussed including but not limited to infection, bleeding, perforation, need for surgery, cardiopulmonary complications, missed pathology and . The patient's healthcare proxy indicate that they understood these risks, which go for the procedure and signed the consent form. ANESTHESIA: Anesthesia was provided by the anesthesiologist in the main operating room. Intubation was not performed during this procedure. PROCEDURE IN DETAIL: The patient was hooked up to the appropriate monitoring devices including blood pressure, pulse and pulse oximetry. An IV was in place. Anesthesia was then administered by an anesthesiologist. The patient was in the left lateral decubitus position and a mouthpiece inserted and secured. Next, a gastroscope introduced in the mouth and guided under direct visualization into the esophagus, stomach and duodenum. The scope was slowly and carefully withdrawn, making sure to examine mucosa and careful and systematic fashion. Retroflexion was performed in the stomach prior to scope straightening and withdrawal from the body. No obvious sign of complication was observed within the procedure. FINDINGS: ESOPHAGUS: The diaphragmatic pinch was located at 43 cm from the incisors while the endogastric fold was located at 35 cm from the incisors. This indicates a 7-8 cm hiatal hernia. Within the hernia sac itself, there did appear to be a tear or possible ulcer. This may be from previous NG tube insertion attempts. I did clip this with 2 clips and seemed to close the defect. There was no active bleeding at the end of the clipping. Additionally, I was able to endoscopically place an NG tube into the stomach. This was difficult and the NG tube had to be snared and then guided endoscopically through the hernia sac, which was quite large end of the stomach. At the end of the procedure, the NG tube was within the stomach. STOMACH: There is no ulcer or mass lesion within the stomach. The GE junction showed Hill grade 4 anatomy on retroflexed view. A biopsy was taken from the antrum for CRISTIN testing. DUODENUM: The duodenal bulb and second portion appeared endoscopically normal. IMPRESSION: 1. A 7-8 cm hiatal hernia, which had a mucosal tear that was clipped. 2. Insertion of an NG tube endoscopically into the stomach. RECOMMENDATIONS: 1. We can start the feedings, although I would prefer to get a KUB to confirm the NG tube is in the stomach after the procedure and the patient returned to her room. 2. Continue the Protonix drip for one more day and then can be adjusted to twice daily dosing. 3. If the patient does not regain ability to swallow in the future, we may consider a G-tube insertion as I do not think this could be possible given the anatomy of what I saw today on this EGD. 4. Defer correction of the patient's hernia to Dr. James if the patient is a surgical candidate. Thank you for allowing me to participate in her care. Please call with any further questions. JOB# [id number]
[2017-12-26] MEDS: Albuterol/Ipratropium Neb 3 ML AERS HHN SCH ×3 (14:46→22:38)
[2017-12-26] MEDS: cefTRIAXone 1 GM in Sodium Chloride 0.9% 50 ML IV SCH (21:34)
[2017-12-26] MEDS: Azithromycin 500 MG in Sodium Chloride 0.9% 250 ML IV SCH (22:59)
--- NOTE | 2017-12-26 23:33 | Infectious Disease Prog Note ---
Infectious Disease Subjective - Review of Systems Service Date: 12/26/17 Subjective: NO new change, no fever. Infectious Disease Objective - Results Result Diagrams: 12/26/17 04:45 12/26/17 04:45 Recent Labs: Laboratory Last Values WBC 14.9 Th/cmm (4.8-10.8) H 12/26/17 04:45 RBC 2.40 Mil/cmm (3.80-5.20) L 12/26/17 04:45 Hgb 7.1 gm/dL (12-16) L* 12/26/17 04:45 Hct 21.1 % (41.0-60) L 12/26/17 04:45 MCV 87.7 fl (81-100) 12/26/17 04:45 MCH 29.3 pg (27.0-31.0) 12/26/17 04:45 MCHC Differential 33.5 pg (28.0-36.0) 12/26/17 04:45 RDW 12.7 % (11.5-20.0) 12/26/17 04:45 Plt Count 257 Th/cmm (150-400) 12/26/17 04:45 MPV 8.7 fl 12/26/17 04:45 Add Manual Diff YES 12/26/17 04:45 Neutrophils % [employer] PROGRAM DIRECTOR 12/24/17 19:40 Band Neutrophils % 5 % (0-10) 12/26/17 04:45 Lymphocytes % AFTER SCHOOL PROGRAM DIRECTOR 12/24/17 19:40 Monocytes % AFTER SCHOOL PROGRAM DIRECTOR 12/24/17 19:40 Eosinophils % AFTER SCHOOL PROGRAM DIRECTOR 12/24/17 19:40 Basophils % AFTER SCHOOL PROGRAM DIRECTOR 12/24/17 19:40 Neutrophils (Manual) 58 % (40-80) 12/26/17 04:45 Lymphocytes 27 % (20-50) 12/26/17 04:45 Monocytes 6 % (2-10) 12/26/17 04:45 Eosinophils 3 % (0-5) 12/26/17 04:45 Basophils 1 % (0-3) 12/26/17 04:45 Platelet Estimate ADEQUATE (NORMAL) 12/26/17 04:45 PT 10.6 SECONDS (9.5-11.5) 12/26/17 04:45 INR 1.02 (0.5-1.4) 12/26/17 04:45 PTT (Actin FS) 22.1 SECONDS (26.0-38.0) L 12/24/17 19:40 Sodium 147 mEq/L (136-145) H 12/26/17 04:45 Potassium 3.9 mEq/L (3.5-5.1) 12/26/17 04:45 Chloride 115 mEq/L (98-107) H 12/26/17 04:45 Carbon Dioxide 26.1 mEq/L (21.0-31.0) 12/26/17 04:45 Anion Gap 9.8 (7.0-16.0) 12/26/17 04:45 BUN 45 mg/dL (7-25) H 12/26/17 04:45 Creatinine 1.1 mg/dL (0.6-1.2) 12/26/17 04:45 Est GFR ( Amer) TNP 12/26/17 04:45 Est GFR (Non-Af Amer) TNP 12/26/17 04:45 BUN/Creatinine Ratio 40.9 12/26/17 04:45 Glucose 287 mg/dL (70-105) H 12/26/17 04:45 POC Glucose 314 MG/DL (70 - 105) H 12/26/17 17:00 Whole Bld Lactic Acid 2.46 mmol/L (0.60-1.99) H* 12/25/17 10:07 Calcium 8.4 mg/dL (8.6-10.3) L 12/26/17 04:45 Phosphorus 2.3 mg/dL (2.5-5.0) L 12/26/17 04:45 Magnesium 2.2 mg/dL (1.9-2.7) 12/26/17 04:45 Total Bilirubin 0.2 mg/dL (0.3-1.0) L 12/26/17 04:45 AST 28 U/L (13-39) 12/26/17 04:45 ALT 8 U/L (7-52) 12/26/17 04:45 Alkaline Phosphatase 55 U/L (34-104) 12/26/17 04:45 Total Protein 5.0 gm/dL (6.0-8.3) L 12/26/17 04:45 Albumin 2.6 gm/dL (3.7-5.3) L 12/26/17 04:45 Globulin 2.4 gm/dL 12/26/17 04:45 Albumin/Globulin Ratio 1.1 (1.0-1.8) 12/26/17 04:45 Triglycerides 126 mg/dL (<150) 12/25/17 04:10 Cholesterol 124 mg/dL (<200) 12/25/17 04:10 LDL Cholesterol Direct 84 mg/dL (75-193) 12/25/17 04:10 HDL Cholesterol 30 mg/dL (23-92) 12/25/17 04:10 TSH 0.75 uIU/ml (0.34-5.60) 12/25/17 04:10 Blood Type O POSITIVE 12/24/17 19:40 Antibody Screen NEGATIVE 12/24/17 19:40 - Physical Exam Vitals and I&O: Vital Signs Temp 98.3 F 12/26/17 20:00 Pulse 98 12/26/17 22:38 Resp 13 12/26/17 22:38 BP 151/59 12/26/17 22:00 Pulse Ox 97 12/26/17 22:38 Intake & Output 12/26/17 12/26/17 12/27/17 06:59 18:59 06:59 Intake Total 1968.333 500.000 50 Output Total 850 1000 Balance 1118.333 -500.000 50 Weight (lbs) 65.181 kg 64.864 kg Intake: Intake, IV Amount 1968.333 500.000 50 Azithromycin 500 mg In 250 Sodium Chloride 0.9% 250 ml @ 250 mls/hr IV Q24HR [facility] Rx#:[id number] D5-0.45NS 1,000 ml @ 100 1468.333 400 mls/hr IV .Q10H [facility] Rx#: [id number] Pantoprazole 80 mg In 200 100.000 Sodium Chloride 0.9% 100 ml @ 10 mls/hr IV Q10H [facility] Rx#:[id number] cefTRIAXone 1 gm In 50 50 Sodium Chloride 0.9% 50 ml @ 100 mls/hr IV Q24HR [facility] Rx#:[id number] Output: Urine 850 1000 Other: # Bowel Movements 2 Weight Source Bedscale Bedscale Active Medications: Current Medications Acetaminophen (Tylenol) 650 mg PO Q4HR PRN PRN Reason: MILD PAIN 1-3 Stop: 02/23/18 17:58 Acetaminophen (Tylenol) 650 mg PO Q4HR PRN PRN Reason: TEMP >100.4 Stop: 02/23/18 17:58 Albuterol/Ipratropium (Duoneb Neb) 3 ml HHN Q4HRT [facility] Stop: 02/24/18 14:59 Last Admin: 12/26/17 22:38 Dose: 3 ml Amlodipine Besylate (Norvasc) 5 mg PO DAILY [facility] Stop: 02/24/18 08:59 Last Admin: 12/26/17 09:00 Dose: Not Given Ascorbic Acid (Vitamin C) 500 mg PO DAILY [facility] Stop: 02/24/18 08:59 Last Admin: 12/26/17 09:00 Dose: Not Given Bisacodyl (Dulcolax 10 Mg Supp) 10 mg RC DAILY PRN PRN Reason: IF MOM INEFFECTIVE Stop: 02/23/18 17:58 Pantoprazole Sodium 80 mg/ (Sodium Chloride) 100 mls @ 10 mls/hr IV Q10H [facility] Stop: 02/22/18 19:44 Last Admin: 12/26/17 18:07 Dose: 10 mls/hr Azithromycin 500 mg/ Sodium (Chloride) 250 mls @ 250 mls/hr IV Q24HR [facility] Stop: 02/22/18 22:29 Last Admin: 12/26/17 22:59 Dose: 250 mls/hr Ceftriaxone Sodium 1 gm/ (Sodium Chloride) 50 mls @ 100 mls/hr IV Q24HR [facility] Stop: 02/23/18 20:59 Last Infusion: 12/26/17 22:05 Dose: Infused Dextrose/Sodium Chloride (D5-0.45ns) 1,000 mls @ 50 mls/hr IV .Q20H [facility] Stop: 02/24/18 17:29 Last Admin: 12/26/17 17:34 Dose: 50 mls/hr Insulin Aspart (Novolog Insulin Sliding Scale) 0 units SUBQ Q6HR [facility]; Protocol Stop: 02/23/18 01:14 Last Admin: 12/26/17 17:35 Dose: 9 units Lactobacillus Rhamnosus (Culturelle 15b) 1 each PO DAILY [facility] Stop: 02/24/18 08:59 Last Admin: 12/26/17 09:00 Dose: Not Given Miscellaneous (Probiotic Screen) 1 ea MC PRN PRN PRN Reason: PROTOCOL Stop: 02/23/18 15:29 Morphine Sulfate (Morphine) 1 mg IVP Q4HR PRN PRN Reason: Pain (Moderate) Stop: 02/23/18 10:04 Last Admin: 12/26/17 12:24 Dose: 1 mg Mupirocin (Bactroban Oint) 1 appl NS BID [facility] Stop: 12/31/17 17:01 General: no acute distress, well developed, well nourished HEENT: atraumatic, normocephalic, PERRLA Neck: supple, no thyromegaly Cardiovascular: S1S2, regular Lungs: clear to auscultation bilaterally, clear to percussion Abdomen: soft, no tender, no distended Extremities: no cyanosis, no clubbing, no edema Neurological: awake, alert, oriented Skin: intact Infectious Disease Assmt/Plan - Problem List Patient Problems: All Active Problems COFFEE GROUND EMESIS (Acute) - Assessment Assessment: 1. Severe sepsis. 2. Pneumonia. 3. Fecal impaction. 4. Gallbladder stone at bladder neck. 5. Diabetes mellitus type 2. 6. Hypertension. 7. Dementia. 8. Anemia. 9. Large hiatal hernia. 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 11. GI bleed 2/2 PUD. - Plan Plan: Conintue zosyn and zithromax Start vancomycin IV Bactroban nasal ointment. Nutritional Asmnt/Malnutr-PDOC - Dietary Evaluation Malnutrition Findings (Please click <Entered> for more info): Nutritional Asmnt/Malnutrition Start: 12/25/17 15: 21 Text: Status: Complete Freq: Protocol: Document 12/25/17 15:22 ARSH (Rec: 12/25/17 15:44 ARSH [email or web address]) Nutritional Asmnt/Malnutrition Patient General Information Nutritional Screening High Risk Diagnosis sepsis, dehydration, pneumonia Pertinent Medical Hx/Surgical Hx HTN, DM, dyslipidemia, dementia, anemia, muscle weakness Subjective Information Pt receiving care from RN at time of visit. Per nurse notes , pt had coffee ground emesis, NGT was unable to be inserted d/t large retro cardiac hiatal hernia, and will have EGD tomorrow. Spoke w/ BELA Duran by phone who verfied the nurse notes and states pt will continue to be NPO. Current Diet Order/ Nutrition Support NPO Pertinent Medications D5-0.45ns, novolog, culturelle , pantoprazole Pertinent Labs 12/25: glucose 392, Na 144, Cl 110, BUN 78, Alb 2.9, POC 304 -423 12/24: glucose 547, Na 134, Cl 97, BUN 69, Alb 3.0, POC 441- 485 Nutritional Hx/Data Height 1.63 m Height (Calculated Centimeters) 162.6 Current Weight (lbs) 64.682 kg Weight (Calculated Kilograms) 64.7 Weight (Calculated Grams) 49177.3 [place] Body Weight 120 lb Body Mass Index (BMI) 24.5 Weight Status Approriate GI Symptoms GI Symptoms Nausea Vomitting Last BM none noted Difficult in: None Food Allergies No Skin Integrity/Comment: intact, pasquale 13 Current %PO Negligible < 25% Estimated Nutritional Goals BEE in Kcals: Using Current wt Calories/Kcals/Kg 30-35 Kcals Calculated 3620-2026 Protein: Using Current wt Protein g/k.2-1.5 Protein Calculated 78-97 g Fluid: ml per MD Nutritional Problem 2. Problem Problem Altered nutrition related lab values Etiology dehydration, endocrine dysfunction Signs/Symptoms: Cl 110, BUN 78, glucose 392, POC 304-423 1. Problem Problem Increased nutrient needs Etiology metabolic stress Signs/Symptoms: dx of sepsis and pneumonia Malnutrition Related to Morbid Obesity Malnutrition related to morbid obesity No Intervention/Recommendation Comments 1. Monitor NPO status and advance diet when medically appropriate 2. Consider alternative nutrition route if pt unable to tolerate PO intake 3. Monitor wt, nutrition related labs, and skin integrity 4. F/U as high risk in 2-3 days, 12/27- Expected Outcomes/Goals Expected Outcomes/Goals 1. Pt to start oral intake or alternate nutrition route if necessary 2. Wt stability, skin to remain intact, nutrition related labs to approach normal limits Reveiwed by Yesenia Jennings RD
--- NOTE | 2017-12-26 23:53 | Infectious Disease Prog Note ---
Infectious Disease Subjective - Review of Systems Service Date: 12/26/17 Events since last encounter: EGD performed today. Subjective: NO new change, no fever. Infectious Disease Objective - Results Result Diagrams: 12/26/17 04:45 12/26/17 04:45 Recent Labs: Laboratory Last Values WBC 14.9 Th/cmm (4.8-10.8) H 12/26/17 04:45 RBC 2.40 Mil/cmm (3.80-5.20) L 12/26/17 04:45 Hgb 7.1 gm/dL (12-16) L* 12/26/17 04:45 Hct 21.1 % (41.0-60) L 12/26/17 04:45 MCV 87.7 fl (81-100) 12/26/17 04:45 MCH 29.3 pg (27.0-31.0) 12/26/17 04:45 MCHC Differential 33.5 pg (28.0-36.0) 12/26/17 04:45 RDW 12.7 % (11.5-20.0) 12/26/17 04:45 Plt Count 257 Th/cmm (150-400) 12/26/17 04:45 MPV 8.7 fl 12/26/17 04:45 Add Manual Diff YES 12/26/17 04:45 Neutrophils % CASE RESOURCE MANAGER 12/24/17 19:40 Band Neutrophils % 5 % (0-10) 12/26/17 04:45 Lymphocytes % CASE RESOURCE MANAGER 12/24/17 19:40 Monocytes % CASE RESOURCE MANAGER 12/24/17 19:40 Eosinophils % CASE RESOURCE MANAGER 12/24/17 19:40 Basophils % CASE RESOURCE MANAGER 12/24/17 19:40 Neutrophils (Manual) 58 % (40-80) 12/26/17 04:45 Lymphocytes 27 % (20-50) 12/26/17 04:45 Monocytes 6 % (2-10) 12/26/17 04:45 Eosinophils 3 % (0-5) 12/26/17 04:45 Basophils 1 % (0-3) 12/26/17 04:45 Platelet Estimate ADEQUATE (NORMAL) 12/26/17 04:45 PT 10.6 SECONDS (9.5-11.5) 12/26/17 04:45 INR 1.02 (0.5-1.4) 12/26/17 04:45 PTT (Actin FS) 22.1 SECONDS (26.0-38.0) L 12/24/17 19:40 Sodium 147 mEq/L (136-145) H 12/26/17 04:45 Potassium 3.9 mEq/L (3.5-5.1) 12/26/17 04:45 Chloride 115 mEq/L (98-107) H 12/26/17 04:45 Carbon Dioxide 26.1 mEq/L (21.0-31.0) 12/26/17 04:45 Anion Gap 9.8 (7.0-16.0) 12/26/17 04:45 BUN 45 mg/dL (7-25) H 12/26/17 04:45 Creatinine 1.1 mg/dL (0.6-1.2) 12/26/17 04:45 Est GFR ( Amer) TNP 12/26/17 04:45 Est GFR (Non-Af Amer) TNP 12/26/17 04:45 BUN/Creatinine Ratio 40.9 12/26/17 04:45 Glucose 287 mg/dL (70-105) H 12/26/17 04:45 POC Glucose 314 MG/DL (70 - 105) H 12/26/17 17:00 Whole Bld Lactic Acid 2.46 mmol/L (0.60-1.99) H* 12/25/17 10:07 Calcium 8.4 mg/dL (8.6-10.3) L 12/26/17 04:45 Phosphorus 2.3 mg/dL (2.5-5.0) L 12/26/17 04:45 Magnesium 2.2 mg/dL (1.9-2.7) 12/26/17 04:45 Total Bilirubin 0.2 mg/dL (0.3-1.0) L 12/26/17 04:45 AST 28 U/L (13-39) 12/26/17 04:45 ALT 8 U/L (7-52) 12/26/17 04:45 Alkaline Phosphatase 55 U/L (34-104) 12/26/17 04:45 Total Protein 5.0 gm/dL (6.0-8.3) L 12/26/17 04:45 Albumin 2.6 gm/dL (3.7-5.3) L 12/26/17 04:45 Globulin 2.4 gm/dL 12/26/17 04:45 Albumin/Globulin Ratio 1.1 (1.0-1.8) 12/26/17 04:45 Triglycerides 126 mg/dL (<150) 12/25/17 04:10 Cholesterol 124 mg/dL (<200) 12/25/17 04:10 LDL Cholesterol Direct 84 mg/dL (75-193) 12/25/17 04:10 HDL Cholesterol 30 mg/dL (23-92) 12/25/17 04:10 TSH 0.75 uIU/ml (0.34-5.60) 12/25/17 04:10 Blood Type O POSITIVE 12/24/17 19:40 Antibody Screen NEGATIVE 12/24/17 19:40 - Physical Exam Vitals and I&O: Vital Signs Temp 98.3 F 12/26/17 20:00 Pulse 98 12/26/17 22:38 Resp 13 12/26/17 22:38 BP 151/59 12/26/17 22:00 Pulse Ox 97 12/26/17 22:38 Intake & Output 12/26/17 12/26/17 12/27/17 06:59 18:59 06:59 Intake Total 1968.333 500.000 50 Output Total 850 1000 Balance 1118.333 -500.000 50 Weight (lbs) 65.181 kg 64.864 kg Intake: Intake, IV Amount 1968.333 500.000 50 Azithromycin 500 mg In 250 Sodium Chloride 0.9% 250 ml @ 250 mls/hr IV Q24HR [facility] Rx#:[id number] D5-0.45NS 1,000 ml @ 100 1468.333 400 mls/hr IV .Q10H [facility] Rx#: [id number] Pantoprazole 80 mg In 200 100.000 Sodium Chloride 0.9% 100 ml @ 10 mls/hr IV Q10H [facility] Rx#:[id number] cefTRIAXone 1 gm In 50 50 Sodium Chloride 0.9% 50 ml @ 100 mls/hr IV Q24HR [facility] Rx#:[id number] Output: Urine 850 1000 Other: # Bowel Movements 2 Weight Source Bedscale Bedscale Active Medications: Current Medications Acetaminophen (Tylenol) 650 mg PO Q4HR PRN PRN Reason: MILD PAIN 1-3 Stop: 02/23/18 17:58 Acetaminophen (Tylenol) 650 mg PO Q4HR PRN PRN Reason: TEMP >100.4 Stop: 02/23/18 17:58 Albuterol/Ipratropium (Duoneb Neb) 3 ml HHN Q4HRT [facility] Stop: 02/24/18 14:59 Last Admin: 12/26/17 22:38 Dose: 3 ml Amlodipine Besylate (Norvasc) 5 mg PO DAILY [facility] Stop: 02/24/18 08:59 Last Admin: 12/26/17 09:00 Dose: Not Given Ascorbic Acid (Vitamin C) 500 mg PO DAILY [facility] Stop: 02/24/18 08:59 Last Admin: 12/26/17 09:00 Dose: Not Given Bisacodyl (Dulcolax 10 Mg Supp) 10 mg RC DAILY PRN PRN Reason: IF MOM INEFFECTIVE Stop: 02/23/18 17:58 Pantoprazole Sodium 80 mg/ (Sodium Chloride) 100 mls @ 10 mls/hr IV Q10H [facility] Stop: 02/22/18 19:44 Last Admin: 12/26/17 18:07 Dose: 10 mls/hr Azithromycin 500 mg/ Sodium (Chloride) 250 mls @ 250 mls/hr IV Q24HR [facility] Stop: 02/22/18 22:29 Last Admin: 12/26/17 22:59 Dose: 250 mls/hr Ceftriaxone Sodium 1 gm/ (Sodium Chloride) 50 mls @ 100 mls/hr IV Q24HR [facility] Stop: 02/23/18 20:59 Last Infusion: 12/26/17 22:05 Dose: Infused Dextrose/Sodium Chloride (D5-0.45ns) 1,000 mls @ 50 mls/hr IV .Q20H [facility] Stop: 02/24/18 17:29 Last Admin: 12/26/17 17:34 Dose: 50 mls/hr Insulin Aspart (Novolog Insulin Sliding Scale) 0 units SUBQ Q6HR [facility]; Protocol Stop: 02/23/18 01:14 Last Admin: 12/26/17 17:35 Dose: 9 units Lactobacillus Rhamnosus (Culturelle 15b) 1 each PO DAILY [facility] Stop: 02/24/18 08:59 Last Admin: 12/26/17 09:00 Dose: Not Given Miscellaneous (Probiotic Screen) 1 ea MC PRN PRN PRN Reason: PROTOCOL Stop: 02/23/18 15:29 Miscellaneous (Vancomycin Iv Per Pharmacy) 1 ea MC PRN [facility] Stop: 02/24/18 23:44 Morphine Sulfate (Morphine) 1 mg IVP Q4HR PRN PRN Reason: Pain (Moderate) Stop: 02/23/18 10:04 Last Admin: 12/26/17 12:24 Dose: 1 mg Mupirocin (Bactroban Oint) 1 appl NS BID [facility] Stop: 12/31/17 17:01 General: no acute distress, well developed, well nourished HEENT: atraumatic, normocephalic, PERRLA, EOMI Neck: supple, no thyromegaly Cardiovascular: S1S2, regular Lungs: clear to percussion, rhonchi Abdomen: soft, no tender, no distended, no mass Extremities: no cyanosis, no clubbing, no edema Neurological: awake, other (unable to communicate.) Skin: intact Infectious Disease Assmt/Plan - Problem List Patient Problems: All Active Problems COFFEE GROUND EMESIS (Acute) - Assessment Assessment: 1. Severe sepsis. 2. Pneumonia. 3. Fecal impaction. 4. Gallbladder stone at bladder neck. 5. Diabetes mellitus type 2. 6. Hypertension. 7. Dementia. 8. Anemia. 9. Large hiatal hernia. 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 11. GI bleed 2/2 PUD. - Plan Plan: Continue zosyn and zithromax Start vancomycin IV Bactroban nasal ointment. Nutritional Asmnt/Malnutr-PDOC - Dietary Evaluation Malnutrition Findings (Please click <Entered> for more info): Nutritional Asmnt/Malnutrition Start: 12/25/17 15: 21 Text: Status: Complete Freq: Protocol: Document 12/25/17 15:22 ARSH (Rec: 12/25/17 15:44 ARSH [email or web address]) Nutritional Asmnt/Malnutrition Patient General Information Nutritional Screening High Risk Diagnosis sepsis, dehydration, pneumonia Pertinent Medical Hx/Surgical Hx HTN, DM, dyslipidemia, dementia, anemia, muscle weakness Subjective Information Pt receiving care from RN at time of visit. Per nurse notes , pt had coffee ground emesis, NGT was unable to be inserted d/t large retro cardiac hiatal hernia, and will have EGD tomorrow. Spoke w/ BELA Duran by phone who verfied the nurse notes and states pt will continue to be NPO. Current Diet Order/ Nutrition Support NPO Pertinent Medications D5-0.45ns, novolog, culturelle , pantoprazole Pertinent Labs 12/25: glucose 392, Na 144, Cl 110, BUN 78, Alb 2.9, POC 304 -423 12/24: glucose 547, Na 134, Cl 97, BUN 69, Alb 3.0, POC 441- 485 Nutritional Hx/Data Height 1.63 m Height (Calculated Centimeters) 162.6 Current Weight (lbs) 64.682 kg Weight (Calculated Kilograms) 64.7 Weight (Calculated Grams) 20865.3 [place] Body Weight 120 lb Body Mass Index (BMI) 24.5 Weight Status Approriate GI Symptoms GI Symptoms Nausea Vomitting Last BM none noted Difficult in: None Food Allergies No Skin Integrity/Comment: intact, pasquale 13 Current %PO Negligible < 25% Estimated Nutritional Goals BEE in Kcals: Using Current wt Calories/Kcals/Kg 30-35 Kcals Calculated 6685-2136 Protein: Using Current wt Protein g/k.2-1.5 Protein Calculated 78-97 g Fluid: ml per MD Nutritional Problem 2. Problem Problem Altered nutrition related lab values Etiology dehydration, endocrine dysfunction Signs/Symptoms: Cl 110, BUN 78, glucose 392, POC 304-423 1. Problem Problem Increased nutrient needs Etiology metabolic stress Signs/Symptoms: dx of sepsis and pneumonia Malnutrition Related to Morbid Obesity Malnutrition related to morbid obesity No Intervention/Recommendation Comments 1. Monitor NPO status and advance diet when medically appropriate 2. Consider alternative nutrition route if pt unable to tolerate PO intake 3. Monitor wt, nutrition related labs, and skin integrity 4. F/U as high risk in 2-3 days, 12/27- Expected Outcomes/Goals Expected Outcomes/Goals 1. Pt to start oral intake or alternate nutrition route if necessary 2. Wt stability, skin to remain intact, nutrition related labs to approach normal limits Reveiwed by Yesenia Jennings RD
[2017-12-27] MEDS: INSULIN ASPART SLIDING SCALE 100 UNITS/ML UNIT SUBQ SCH ×4 (00:05→18:35)
[2017-12-27] MEDS: Pantoprazole 80 MG in Sodium Chloride 0.9% 100 ML IV SCH ×3 (03:35→22:07)
[2017-12-27] MEDS: Albuterol/Ipratropium Neb 3 ML AERS HHN SCH ×4 (03:36→15:11)
[2017-12-27] MEDS: Morphine Sulfate 2 mg/mL 1mL Syr IVP PRN ×2 (06:06→11:40)
[2017-12-27 06:52] LABS: MEAN CELL VOLUME 88.1 fl (81-100); MEAN CORPUSCULAR HGB CONC 32.9 pg (28.0-36.0); PLATELET COUNT 254 Th/cmm (150-400); RED BLOOD COUNT 2.21 Mil/cmm (3.80-5.20); RED CELL DISTRIBUTION WIDTH 13.2 % (11.5-20.0); WHITE BLOOD COUNT 13.9 Th/cmm (4.8-10.8)
[2017-12-27 07:06] LABS: HEMATOCRIT 19.5 % (41.0-60); HEMOGLOBIN 6.4 gm/dL (12-16)
[2017-12-27 07:07] LABS: ALB/GLOB RATIO 1.1 (1.0-1.8); ALBUMIN 2.6 gm/dL (3.7-5.3); ALKALINE PHOSPHATASE 65 U/L (34-104); ANION GAP 13.5 (7.0-16.0); BILIRUBIN,TOTAL 0.2 mg/dL (0.3-1.0); BUN - UREA NITROGEN 31 mg/dL (7-25); CALCIUM SERUM 8.4 mg/dL (8.6-10.3); CARBON DIOXIDE 22.1 mEq/L (21.0-31.0); CHLORIDE 114 mEq/L (98-107); CREATININE - SERUM 1.1 mg/dL (0.6-1.2); GLUCOSE 316 mg/dL (70-105); POTASSIUM SERUM 3.6 mEq/L (3.5-5.1); SGOT 40 U/L (13-39); SGPT/ALT 13 U/L (7-52); SODIUM SERUM 146 mEq/L (136-145)
[2017-12-27] MEDS ORDERED: Diltiazem 5 mg/mL 5mL Vial IVP STA (07:10)
[2017-12-27] MEDS ORDERED: Diltiazem 5 mg/mL 5mL Vial IVP ONE (07:21)
--- NOTE | 2017-12-27 07:51 | GI Progress Note ---
Subjective - Review of Systems Service Date: 12/27/17 Subjective: Hgb dropped this morning, although nothing actively bleeding. Remains confused Objective - Results Result Diagrams: 12/27/17 06:10 12/27/17 06:10 Recent Labs: Laboratory Last Values WBC 13.9 Th/cmm (4.8-10.8) H 12/27/17 06:10 RBC 2.21 Mil/cmm (3.80-5.20) L 12/27/17 06:10 Hgb 6.4 gm/dL (12-16) L* 12/27/17 06:10 Hct 19.5 % (41.0-60) L* 12/27/17 06:10 MCV 88.1 fl (81-100) 12/27/17 06:10 MCH 29.0 pg (27.0-31.0) 12/27/17 06:10 MCHC Differential 32.9 pg (28.0-36.0) 12/27/17 06:10 RDW 13.2 % (11.5-20.0) 12/27/17 06:10 Plt Count 254 Th/cmm (150-400) 12/27/17 06:10 MPV 9.0 fl 12/27/17 06:10 Add Manual Diff YES 12/26/17 04:45 Neutrophils % 77.8 % (40.0-80.0) 12/27/17 06:10 Band Neutrophils % 5 % (0-10) 12/26/17 04:45 Lymphocytes % 14.7 % (20.0-50.0) L 12/27/17 06:10 Monocytes % 6.7 % (2.0-10.0) 12/27/17 06:10 Eosinophils % 0.5 % (0.0-5.0) 12/27/17 06:10 Basophils % 0.3 % (0.0-2.0) 12/27/17 06:10 Neutrophils (Manual) 58 % (40-80) 12/26/17 04:45 Lymphocytes 27 % (20-50) 12/26/17 04:45 Monocytes 6 % (2-10) 12/26/17 04:45 Eosinophils 3 % (0-5) 12/26/17 04:45 Basophils 1 % (0-3) 12/26/17 04:45 Platelet Estimate ADEQUATE (NORMAL) 12/26/17 04:45 PT 10.6 SECONDS (9.5-11.5) 12/26/17 04:45 INR 1.02 (0.5-1.4) 12/26/17 04:45 PTT (Actin FS) 22.1 SECONDS (26.0-38.0) L 12/24/17 19:40 Sodium 146 mEq/L (136-145) H 12/27/17 06:10 Potassium 3.6 mEq/L (3.5-5.1) 12/27/17 06:10 Chloride 114 mEq/L (98-107) H 12/27/17 06:10 Carbon Dioxide 22.1 mEq/L (21.0-31.0) 12/27/17 06:10 Anion Gap 13.5 (7.0-16.0) 12/27/17 06:10 BUN 31 mg/dL (7-25) H 12/27/17 06:10 Creatinine 1.1 mg/dL (0.6-1.2) 12/27/17 06:10 Est GFR ( Amer) TNP 12/27/17 06:10 Est GFR (Non-Af Amer) TNP 12/27/17 06:10 BUN/Creatinine Ratio 28.2 12/27/17 06:10 Glucose 316 mg/dL (70-105) H 12/27/17 06:10 POC Glucose 289 MG/DL (70 - 105) H 12/27/17 05:51 Whole Bld Lactic Acid 2.46 mmol/L (0.60-1.99) H* 12/25/17 10:07 Calcium 8.4 mg/dL (8.6-10.3) L 12/27/17 06:10 Phosphorus 2.3 mg/dL (2.5-5.0) L 12/26/17 04:45 Magnesium 2.2 mg/dL (1.9-2.7) 12/26/17 04:45 Total Bilirubin 0.2 mg/dL (0.3-1.0) L 12/27/17 06:10 AST 40 U/L (13-39) H 12/27/17 06:10 ALT 13 U/L (7-52) 12/27/17 06:10 Alkaline Phosphatase 65 U/L (34-104) 12/27/17 06:10 Total Protein 5.0 gm/dL (6.0-8.3) L 12/27/17 06:10 Albumin 2.6 gm/dL (3.7-5.3) L 12/27/17 06:10 Globulin 2.4 gm/dL 12/27/17 06:10 Albumin/Globulin Ratio 1.1 (1.0-1.8) 12/27/17 06:10 Triglycerides 126 mg/dL (<150) 12/25/17 04:10 Cholesterol 124 mg/dL (<200) 12/25/17 04:10 LDL Cholesterol Direct 84 mg/dL (75-193) 12/25/17 04:10 HDL Cholesterol 30 mg/dL (23-92) 12/25/17 04:10 TSH 0.75 uIU/ml (0.34-5.60) 12/25/17 04:10 Blood Type O POSITIVE 12/24/17 19:40 Antibody Screen NEGATIVE 12/24/17 19:40 - Physical Exam Vitals and I&O: Vital Signs Temp 97.7 F 12/27/17 04:00 Pulse 165 12/27/17 07:25 Resp 22 12/27/17 07:15 BP 146/74 12/27/17 06:00 Pulse Ox 96 12/27/17 07:15 Intake & Output 12/26/17 12/27/17 12/27/17 18:59 06:59 18:59 Intake Total 500.000 644.667 Output Total 1000 Balance -500.000 644.667 Weight (lbs) 64.864 kg Intake: Intake, IV Amount 500.000 644.667 Azithromycin 500 mg In 250 Sodium Chloride 0.9% 250 ml @ 250 mls/hr IV Q24HR [facility] Rx#:[id number] D5-0.45NS 1,000 ml @ 100 400 mls/hr IV .Q10H [facility] Rx#: [id number] Pantoprazole 80 mg In 100.000 94.667 Sodium Chloride 0.9% 100 ml @ 10 mls/hr IV Q10H [facility] Rx#:[id number] cefTRIAXone 1 gm In 50 Sodium Chloride 0.9% 50 ml @ 100 mls/hr IV Q24HR [facility] Rx#:[id number] Output: Urine 1000 Other: # Bowel Movements 2 Weight Source Bedscale Active Medications: Current Medications Acetaminophen (Tylenol) 650 mg PO Q4HR PRN PRN Reason: MILD PAIN 1-3 Stop: 02/23/18 17:58 Acetaminophen (Tylenol) 650 mg PO Q4HR PRN PRN Reason: TEMP >100.4 Stop: 02/23/18 17:58 Albuterol/Ipratropium (Duoneb Neb) 3 ml HHN Q4HRT [facility] Stop: 02/24/18 14:59 Last Admin: 12/27/17 07:16 Dose: Not Given Amlodipine Besylate (Norvasc) 5 mg PO DAILY [facility] Stop: 02/24/18 08:59 Last Admin: 12/26/17 09:00 Dose: Not Given Ascorbic Acid (Vitamin C) 500 mg PO DAILY [facility] Stop: 02/24/18 08:59 Last Admin: 12/26/17 09:00 Dose: Not Given Bisacodyl (Dulcolax 10 Mg Supp) 10 mg RC DAILY PRN PRN Reason: IF MOM INEFFECTIVE Stop: 02/23/18 17:58 Pantoprazole Sodium 80 mg/ (Sodium Chloride) 100 mls @ 10 mls/hr IV Q10H [facility] Stop: 02/22/18 19:44 Last Admin: 12/27/17 03:35 Dose: 10 mls/hr Azithromycin 500 mg/ Sodium (Chloride) 250 mls @ 250 mls/hr IV Q24HR [facility] Stop: 02/22/18 22:29 Last Infusion: 12/27/17 00:00 Dose: Infused Ceftriaxone Sodium 1 gm/ (Sodium Chloride) 50 mls @ 100 mls/hr IV Q24HR [facility] Stop: 02/23/18 20:59 Last Infusion: 12/26/17 22:05 Dose: Infused Dextrose/Sodium Chloride (D5-0.45ns) 1,000 mls @ 50 mls/hr IV .Q20H [facility] Stop: 02/24/18 17:29 Last Admin: 12/26/17 17:34 Dose: 50 mls/hr Insulin Aspart (Novolog Insulin Sliding Scale) 0 units SUBQ Q6HR [facility]; Protocol Stop: 02/23/18 01:14 Last Admin: 12/27/17 06:03 Dose: 7 units Lactobacillus Rhamnosus (Culturelle 15b) 1 each PO DAILY [facility] Stop: 02/24/18 08:59 Last Admin: 12/26/17 09:00 Dose: Not Given Lorazepam (Ativan) 1 mg IVP Q4HR PRN; Protocol PRN Reason: Agitation Stop: 02/25/18 07:12 Miscellaneous (Probiotic Screen) 1 ea PRN PRN PRN Reason: PROTOCOL Stop: 02/23/18 15:29 Miscellaneous (Vancomycin Iv Per Pharmacy) 1 ea MC PRN [facility] Stop: 02/24/18 23:44 Morphine Sulfate (Morphine) 1 mg IVP Q4HR PRN PRN Reason: Pain (Moderate) Stop: 02/23/18 10:04 Last Admin: 12/27/17 06:06 Dose: 1 mg Mupirocin (Bactroban Oint) 1 appl NS BID [facility] Stop: 12/31/17 17:01 General: Alert HEENT: Atraumatic Neck: Supple Cardiovascular: no Regular rate Abdomen: Bowel sounds, Soft, no Tender, no Hepatomegaly, no Splenomegaly, no Distended, no Rebound Assessment/Plan - Problem List Patient Problems: All Active Problems COFFEE GROUND EMESIS (Acute) - Assessment Assessment: # Coffee ground emesis # hiatal hernia # Pneumonia # Severe sepsis # Fecal impaction EGD on 12/26 showed 7cm hiatal hernia, with evidence of mucosal tear there from previous NG tube insertion attempts. 2 clips placed to this area. With some difficulty, an NG tube was endoscopically placed into the stomach. No stomach ulcer or mass. Hgb down today, possibly reflecting bleeding she incurred during EGD on 12/26. Plan: - transfuse 2u pRBC now. Post transfusion CBC - cont PPI drip - NPO until more stable - cont IVF - cont Abx - 500cc tap water enema q12 for fecal impaction - can consider G tube insertion in the future, but she would need to be more stable for this from a respiratory standpoint
--- NOTE | 2017-12-27 09:18 | Diagnostic Imaging Report ---
CHEST X-RAY: AP view INDICATION: Shortness of breath COMPARISON: 12/26/2017 FINDINGS: NG tube is visualized to the stomach with distal tip not seen. Congestive changes are seen with small effusions. Cardiomegaly is noted atherosclerosis. Retrocardiac hiatal hernia is noted. IMPRESSION: Congestive changes and small effusions. Pneumonia of the lung bases cannot be excluded. Cardiomegaly and atherosclerotic vascular disease. Retrocardiac hiatal hernia.
[2017-12-27] MEDS: Lactobacillus Rhamnosus GG 15 Billion CFU CAP.SPRINK PO SCH (09:42)
--- NOTE | 2017-12-27 09:43 | Consultation ---
DATE OF CONSULTATION: 12/26/[address] Mcallister for this consultation. This is an 87-year-old female who presented with hematemesis, underwent EGD, showed hiatal hernia and some ulceration. According to nursing staff, the patient is having some shortness of breath and congestion and wheezing, has improved after suctioning and breathing treatment, oxygen supplementation, doing a little bit better now, some congestion on and off. No other history can be obtained at this time. PAST MEDICAL HISTORY: Dysphagia, hypertension, diabetes, dyslipidemia, dementia. REVIEW OF SYSTEMS: Unable to obtain because of the patient's condition. PHYSICAL EXAMINATION: GENERAL: The patient is lethargic, not in acute distress, congested on and off. VITAL SIGNS: Temperature 97.7, pulse 111, respirations 22, blood pressure 114/32, saturation 95%. HEENT: Atraumatic, normocephalic. Pupils react to light and accommodation. Ears, nose and throat normal. NECK: Supple. No JVD. CHEST: There is rhonchi in bases. HEART: Regular in rate and rhythm. ABDOMEN: Soft. EXTREMITIES: No edema. LABORATORY AND DIAGNOSTIC DATA: Chest x-ray has infiltrate in the left lower lobe area. Some fecal impaction on the KUB. CT chest area critical in nature. Other labs: The WBC is 14.9, hemoglobin 7.1, hematocrit 21.1, platelets is 257. Sodium 147, potassium 3.9, BUN is 45, creatinine 1.1. IMPRESSION: An 87-year-old female with: 1. Hematemesis/hiatal hernia. 2. Aspiration pneumonia. 3. Respiratory failure. 4. Some bronchospasm. 5. Dysphagia. PLAN: 1. I would hold off on feeding for now. 2. Start feeding tomorrow. 3. Aggressive IV fluids. 4. Nebulizer treatments. 5. Follow up chest x-ray. I will follow the patient with you. Thank you very much for this consultation. JOB# [id number] MTDD
--- NOTE | 2017-12-27 10:55 | Consultation ---
DATE OF CONSULTATION: 12/24/2017 SURGICAL CONSULT REFERRING PHYSICIAN: Dr. Mcallister. REASON FOR CONSULTATION: Hematemesis. Thank you for referring this patient to me. The chart is reviewed as the patient is unable to give any information and this is the only source available. She came in because of coffee-ground emesis. Past history includes hypertension, type 2 diabetes, dysphagia, and dementia. The laboratory studies showed hemoglobin very low at 7.1 and the chemistry: Blood sugar was high at 287, BUN at 45, protein low at 2.8. Liver function tests normal. She underwent a CT scan of the abdomen and this showed large retrocardiac hiatal hernia with most of the gastric content above the diaphragm. Attempt at placement of NG tube was unsuccessful and GI evaluation was done by Dr. Remy who did EGD on her, which showed a large part of the stomach in the chest. He was able to place an NG tube. Following discussion with him, he plans to do possible PEG placement and after wait of several weeks, might introduce a jejunostomy tube. Otherwise, the patient is a very poor surgical candidate and unless pushed into the surgery, would recommend outlined plan by GI websphere consultant. [facility]# [id number]
[2017-12-27] MEDS ORDERED: Fleet Enema 135 mL RC ONE (11:18)
[2017-12-27 11:40] LABS: LYMPHOCYTE 19 % (20-50); MONOCYTE 6 % (2-10); NEUTROPHILS 75 % (40-80)
[2017-12-27 11:41] LABS: ANISOCYTOSIS 1+; PLATELET ESTIMATE ADEQUATE (NORMAL)
--- NOTE | 2017-12-27 12:57 | Infectious Disease Prog Note ---
Infectious Disease Subjective - Review of Systems Service Date: 12/27/17 Events since last encounter: low HB , blood transfusion provided. Tachycardia, cardizem drip started. Protnix drip conitued. Subjective: NO fever. Infectious Disease Objective - Results Result Diagrams: 12/27/17 06:10 12/27/17 06:10 Recent Labs: Laboratory Last Values WBC 13.9 Th/cmm (4.8-10.8) H 12/27/17 06:10 RBC 2.21 Mil/cmm (3.80-5.20) L 12/27/17 06:10 Hgb 6.4 gm/dL (12-16) L* 12/27/17 06:10 Hct 19.5 % (41.0-60) L* 12/27/17 06:10 MCV 88.1 fl (81-100) 12/27/17 06:10 MCH 29.0 pg (27.0-31.0) 12/27/17 06:10 MCHC Differential 32.9 pg (28.0-36.0) 12/27/17 06:10 RDW 13.2 % (11.5-20.0) 12/27/17 06:10 Plt Count 254 Th/cmm (150-400) 12/27/17 06:10 MPV 9.0 fl 12/27/17 06:10 Add Manual Diff YES 12/27/17 06:10 Neutrophils % [employer]IR [employer] 12/27/17 06:10 Band Neutrophils % 5 % (0-10) 12/26/17 04:45 Lymphocytes % [employer] 12/27/17 06:10 Monocytes % [employer] 12/27/17 06:10 Eosinophils % [employer]IR [employer] 12/27/17 06:10 Basophils % [employer] 12/27/17 06:10 Neutrophils (Manual) 75 % (40-80) 12/27/17 06:10 Lymphocytes 19 % (20-50) L 12/27/17 06:10 Monocytes 6 % (2-10) 12/27/17 06:10 Eosinophils 3 % (0-5) 12/26/17 04:45 Basophils 1 % (0-3) 12/26/17 04:45 Platelet Estimate ADEQUATE (NORMAL) 12/27/17 06:10 Anisocytosis 1+ 12/27/17 06:10 PT 10.6 SECONDS (9.5-11.5) 12/26/17 04:45 INR 1.02 (0.5-1.4) 12/26/17 04:45 PTT (Actin FS) 22.1 SECONDS (26.0-38.0) L 12/24/17 19:40 Sodium 146 mEq/L (136-145) H 12/27/17 06:10 Potassium 3.6 mEq/L (3.5-5.1) 12/27/17 06:10 Chloride 114 mEq/L (98-107) H 12/27/17 06:10 Carbon Dioxide 22.1 mEq/L (21.0-31.0) 12/27/17 06:10 Anion Gap 13.5 (7.0-16.0) 12/27/17 06:10 BUN 31 mg/dL (7-25) H 12/27/17 06:10 Creatinine 1.1 mg/dL (0.6-1.2) 12/27/17 06:10 Est GFR ( Amer) TNP 12/27/17 06:10 Est GFR (Non-Af Amer) TNP 12/27/17 06:10 BUN/Creatinine Ratio 28.2 12/27/17 06:10 Glucose 316 mg/dL (70-105) H 12/27/17 06:10 POC Glucose 234 MG/DL (70 - 105) H 12/27/17 11:44 Whole Bld Lactic Acid 2.46 mmol/L (0.60-1.99) H* 12/25/17 10:07 Calcium 8.4 mg/dL (8.6-10.3) L 12/27/17 06:10 Phosphorus 2.3 mg/dL (2.5-5.0) L 12/26/17 04:45 Magnesium 2.2 mg/dL (1.9-2.7) 12/26/17 04:45 Total Bilirubin 0.2 mg/dL (0.3-1.0) L 12/27/17 06:10 AST 40 U/L (13-39) H 12/27/17 06:10 ALT 13 U/L (7-52) 12/27/17 06:10 Alkaline Phosphatase 65 U/L (34-104) 12/27/17 06:10 Total Protein 5.0 gm/dL (6.0-8.3) L 12/27/17 06:10 Albumin 2.6 gm/dL (3.7-5.3) L 12/27/17 06:10 Globulin 2.4 gm/dL 12/27/17 06:10 Albumin/Globulin Ratio 1.1 (1.0-1.8) 12/27/17 06:10 Triglycerides 126 mg/dL (<150) 12/25/17 04:10 Cholesterol 124 mg/dL (<200) 12/25/17 04:10 LDL Cholesterol Direct 84 mg/dL (75-193) 12/25/17 04:10 HDL Cholesterol 30 mg/dL (23-92) 12/25/17 04:10 TSH 0.75 uIU/ml (0.34-5.60) 12/25/17 04:10 Blood Type O POSITIVE 12/24/17 19:40 Antibody Screen NEGATIVE 12/24/17 19:40 Crossmatch See Detail 12/24/17 19:40 - Physical Exam Vitals and I&O: Vital Signs Temp 98.2 F 12/27/17 12:00 Pulse 85 12/27/17 12:15 Resp 26 12/27/17 12:00 BP 113/72 12/27/17 12:15 Pulse Ox 99 12/27/17 12:00 Intake & Output 12/26/17 12/27/17 12/27/17 18:59 06:59 18:59 Intake Total 500.000 644.667 69.167 Output Total 1000 350 Balance -500.000 644.667 -280.833 Weight (lbs) 64.864 kg 67.449 kg Intake: Intake, IV Amount 500.000 644.667 69.167 Azithromycin 500 mg In 250 Sodium Chloride 0.9% 250 ml @ 250 mls/hr IV Q24HR [facility] Rx#:[id number] D5-0.45NS 1,000 ml @ 100 400 mls/hr IV .Q10H [facility] Rx#: [id number] Pantoprazole 80 mg In 100.000 94.667 69.167 Sodium Chloride 0.9% 100 ml @ 10 mls/hr IV Q10H [facility] Rx#:[id number] cefTRIAXone 1 gm In 50 Sodium Chloride 0.9% 50 ml @ 100 mls/hr IV Q24HR [facility] Rx#:[id number] Output: Urine 1000 350 Other: # Bowel Movements 2 0 Weight Source Bedscale Bedscale Active Medications: Current Medications Acetaminophen (Tylenol) 650 mg PO Q4HR PRN PRN Reason: MILD PAIN 1-3 Stop: 02/23/18 17:58 Acetaminophen (Tylenol) 650 mg PO Q4HR PRN PRN Reason: TEMP >100.4 Stop: 02/23/18 17:58 Acetylcysteine (Mucomyst 20%) 3 ml HHN Q4HRT [facility] Stop: 02/25/18 14:59 Albuterol/Ipratropium (Duoneb Neb) 3 ml HHN Q4HRT [facility] Stop: 02/24/18 14:59 Last Admin: 12/27/17 10:57 Dose: 3 ml Amlodipine Besylate (Norvasc) 5 mg PO DAILY [facility] Stop: 02/24/18 08:59 Last Admin: 12/27/17 09:43 Dose: Not Given Ascorbic Acid (Vitamin C) 500 mg PO DAILY [facility] Stop: 02/24/18 08:59 Last Admin: 12/27/17 09:43 Dose: Not Given Bisacodyl (Dulcolax 10 Mg Supp) 10 mg RC DAILY PRN PRN Reason: IF MOM INEFFECTIVE Stop: 02/23/18 17:58 Pantoprazole Sodium 80 mg/ (Sodium Chloride) 100 mls @ 10 mls/hr IV Q10H [facility] Stop: 02/22/18 19:44 Last Admin: 12/27/17 10:30 Dose: 10 mls/hr Azithromycin 500 mg/ Sodium (Chloride) 250 mls @ 250 mls/hr IV Q24HR [facility] Stop: 02/22/18 22:29 Last Infusion: 12/27/17 00:00 Dose: Infused Dextrose/Sodium Chloride (D5-0.45ns) 1,000 mls @ 50 mls/hr IV .Q20H [facility] Stop: 02/24/18 17:29 Last Admin: 12/26/17 17:34 Dose: 50 mls/hr Diltiazem HCl 125 mg/ Dextrose 100 mls @ 0 mls/hr IV Q8H PRN; Protocol PRN Reason: blood pressure Stop: 02/25/18 07:48 Last Admin: 12/27/17 09:00 Dose: 6.25 mg/hr, 5 mls/hr Vancomycin HCl 1 gm/ Sodium (Chloride) 250 mls @ 165 mls/hr IV Q24H [facility] Stop: 02/25/18 09:59 Last Admin: 12/27/17 09:55 Dose: 165 mls/hr Piperacillin Sod/Tazobactam (Sod 2.25 gm/ Sodium Chloride) 50 mls @ 100 mls/hr IV Q6H [facility] Stop: 02/25/18 13:59 Insulin Aspart (Novolog Insulin Sliding Scale) 0 units SUBQ Q6HR [facility]; Protocol Stop: 02/23/18 01:14 Last Admin: 12/27/17 11:46 Dose: 5 units Lactobacillus Rhamnosus (Culturelle 15b) 1 each PO DAILY [facility] Stop: 02/24/18 08:59 Last Admin: 12/27/17 09:42 Dose: Not Given Lorazepam (Ativan) 1 mg IVP Q4HR PRN; Protocol PRN Reason: Agitation Stop: 02/25/18 07:12 Last Admin: 12/27/17 09:00 Dose: 1 mg Miscellaneous (Probiotic Screen) 1 ea PRN PRN PRN Reason: PROTOCOL Stop: 02/23/18 15:29 Miscellaneous (Vancomycin Iv Per Pharmacy) 1 ea MC PRN [facility] Stop: 02/24/18 23:44 Miscellaneous (Zosyn Iv Per Pharmacy) 1 ea PRN PRN PRN Reason: PROTOCOL Stop: 02/25/18 12:03 Morphine Sulfate (Morphine) 1 mg IVP Q4HR PRN PRN Reason: Pain (Moderate) Stop: 02/23/18 10:04 Last Admin: 12/27/17 11:40 Dose: 1 mg Mupirocin (Bactroban Oint) 1 appl NS BID [facility] Stop: 12/31/17 17:01 Last Admin: 12/27/17 09:44 Dose: 1 appl General: no acute distress, well developed, well nourished HEENT: atraumatic, normocephalic, PERRLA, EOMI Neck: supple, no thyromegaly Cardiovascular: S1S2, regular Lungs: clear to auscultation bilaterally, clear to percussion Abdomen: soft, no tender, no distended, no mass Extremities: no cyanosis, no clubbing, no edema Neurological: awake Skin: intact Infectious Disease Assmt/Plan - Problem List Patient Problems: All Active Problems COFFEE GROUND EMESIS (Acute) - Assessment Assessment: 1. Severe sepsis. 2. Pneumonia. 3. Fecal impaction. 4. Gallbladder stone at bladder neck. 5. Diabetes mellitus type 2. 6. Hypertension. 7. Dementia. 8. Anemia. 9. Large hiatal hernia. 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 11. GI bleed 2/2 PUD. 12. SVT - Plan Plan: Continue zosyn and zithromax Continue vancomycin IV Bactroban nasal ointment. Nutritional Asmnt/Malnutr-PDOC - Dietary Evaluation Malnutrition Findings (Please click <Entered> for more info): Nutritional Asmnt/Malnutrition Start: 12/25/17 15: 21 Text: Status: Complete Freq: Protocol: Document 12/25/17 15:22 ESTIVENBRITANY (Rec: 12/25/17 15:44 [email or web address] [email or web address]) Nutritional Asmnt/Malnutrition Patient General Information Nutritional Screening High Risk Diagnosis sepsis, dehydration, pneumonia Pertinent Medical Hx/Surgical Hx HTN, DM, dyslipidemia, dementia, anemia, muscle weakness Subjective Information Pt receiving care from RN at time of visit. Per nurse notes , pt had coffee ground emesis, NGT was unable to be inserted d/t large retro cardiac hiatal hernia, and will have EGD tomorrow. Spoke w/ BELA Duran by phone who verfied the nurse notes and states pt will continue to be NPO. Current Diet Order/ Nutrition Support NPO Pertinent Medications D5-0.45ns, novolog, culturelle , pantoprazole Pertinent Labs 12/25: glucose 392, Na 144, Cl 110, BUN 78, Alb 2.9, POC 304 -423 12/24: glucose 547, Na 134, Cl 97, BUN 69, Alb 3.0, POC 441- 485 Nutritional Hx/Data Height 1.63 m Height (Calculated Centimeters) 162.6 Current Weight (lbs) 64.682 kg Weight (Calculated Kilograms) 64.7 Weight (Calculated Grams) 80128.3 [place] Body Weight 120 lb Body Mass Index (BMI) 24.5 Weight Status Approriate GI Symptoms GI Symptoms Nausea Vomitting Last BM none noted Difficult in: None Food Allergies No Skin Integrity/Comment: intact, pasquale 13 Current %PO Negligible < 25% Estimated Nutritional Goals BEE in Kcals: Using Current wt Calories/Kcals/Kg 30-35 Kcals Calculated 6987-5992 Protein: Using Current wt Protein g/k.2-1.5 Protein Calculated 78-97 g Fluid: ml per MD Nutritional Problem 2. Problem Problem Altered nutrition related lab values Etiology dehydration, endocrine dysfunction Signs/Symptoms: Cl 110, BUN 78, glucose 392, POC 304-423 1. Problem Problem Increased nutrient needs Etiology metabolic stress Signs/Symptoms: dx of sepsis and pneumonia Malnutrition Related to Morbid Obesity Malnutrition related to morbid obesity No Intervention/Recommendation Comments 1. Monitor NPO status and advance diet when medically appropriate 2. Consider alternative nutrition route if pt unable to tolerate PO intake 3. Monitor wt, nutrition related labs, and skin integrity 4. F/U as high risk in 2-3 days, 12/27- Expected Outcomes/Goals Expected Outcomes/Goals 1. Pt to start oral intake or alternate nutrition route if necessary 2. Wt stability, skin to remain intact, nutrition related labs to approach normal limits Reveiwed by Yesenia Jennings RD
[2017-12-27] MEDS: D5-0.45NS 1,000 ML IV SCH (13:50)
[2017-12-27] MEDS: Piperacillin/Tazobact 2.25 gm in 0.9% NS 50 ML IV SCH ×2 (14:00→20:15)
[2017-12-27 17:23] LABS: pH 7.19 (7.35-7.45)
[2017-12-27 18:45] LABS: % BASOPHILS 0.3 % (0.0-2.0); % EOSINOPHILS 0.2 % (0.0-5.0); % LYMPHOCYTES 11.9 % (20.0-50.0); % MONOCYTES 9.2 % (2.0-10.0); % NEUTROPHILS 78.4 % (40.0-80.0); LYMPHOCYTE ABSOLUTE 1.9 Th/cmm (1.5-3.0); MEAN CELL VOLUME 87.5 fl (81-100); MEAN CORPUSCULAR HEMOGLOBIN 28.6 pg (27.0-31.0); MEAN CORPUSCULAR HGB CONC 32.7 pg (28.0-36.0); MEAN PLATELET VOLUME 8.9 fl; MONOCYTE ABSOLUTE 1.4 Th/cmm (0.3-1.0); NEUTROPHILE ABSOLUTE 12.4 Th/cmm (1.8-8.0); PLATELET COUNT 254 Th/cmm (150-400); RED BLOOD COUNT 3.29 Mil/cmm (3.80-5.20); RED CELL DISTRIBUTION WIDTH 13.6 % (11.5-20.0)
[2017-12-27 18:55] LABS: HEMATOCRIT 28.8 % (41.0-60); HEMOGLOBIN 9.4 gm/dL (12-16); WHITE BLOOD COUNT 15.7 Th/cmm (4.8-10.8)
[2017-12-27 19:57] LABS: ALLEN TEST Positive; pH 7.36 (7.35-7.45)
[2017-12-27] MEDS: Chlorhexidine Gluconate 0.12% 15mL Mouthwash MM SCH (20:16)
[2017-12-27] MEDS: Azithromycin 500 MG in Sodium Chloride 0.9% 250 ML IV SCH (22:14)
[2017-12-28] MEDS: Albuterol/Ipratropium Neb 3 ML AERS HHN SCH ×7 (00:30→23:20)
[2017-12-28] MEDS: INSULIN ASPART SLIDING SCALE 100 UNITS/ML UNIT SUBQ SCH ×4 (00:58→17:44)
[2017-12-28] MEDS: D5-0.45NS 1,000 ML IV SCH ×2 (01:02→10:25)
[2017-12-28] MEDS: Piperacillin/Tazobact 2.25 gm in 0.9% NS 50 ML IV SCH ×4 (02:13→20:40)
[2017-12-28 04:42] LABS: % BASOPHILS 0.1 % (0.0-2.0); % EOSINOPHILS 0.5 % (0.0-5.0); % LYMPHOCYTES 12.9 % (20.0-50.0); % MONOCYTES 6.6 % (2.0-10.0); % NEUTROPHILS 79.9 % (40.0-80.0); EOSINOPHILE ABSOLUTE 0.1 Th/cmm (0.1-0.4); HEMATOCRIT 27.1 % (41.0-60); HEMOGLOBIN 9.2 gm/dL (12-16); LYMPHOCYTE ABSOLUTE 2.4 Th/cmm (1.5-3.0); MEAN CELL VOLUME 86.8 fl (81-100); MEAN CORPUSCULAR HEMOGLOBIN 29.3 pg (27.0-31.0); MEAN CORPUSCULAR HGB CONC 33.8 pg (28.0-36.0); MEAN PLATELET VOLUME 8.9 fl; MONOCYTE ABSOLUTE 1.2 Th/cmm (0.3-1.0); PLATELET COUNT 222 Th/cmm (150-400); RED BLOOD COUNT 3.12 Mil/cmm (3.80-5.20); RED CELL DISTRIBUTION WIDTH 13.5 % (11.5-20.0)
[2017-12-28 05:22] LABS: WHITE BLOOD COUNT 18.7 Th/cmm (4.8-10.8)
[2017-12-28 05:26] LABS: ALB/GLOB RATIO 1.1 (1.0-1.8); ALBUMIN 2.5 gm/dL (3.7-5.3); ALKALINE PHOSPHATASE 63 U/L (34-104); ANION GAP 13.1 (7.0-16.0); BILIRUBIN,TOTAL 0.5 mg/dL (0.3-1.0); BUN - UREA NITROGEN 34 mg/dL (7-25); CALCIUM SERUM 8.3 mg/dL (8.6-10.3); CARBON DIOXIDE 21.3 mEq/L (21.0-31.0); CHLORIDE 116 mEq/L (98-107); CREATININE - SERUM 1.5 mg/dL (0.6-1.2); GLUCOSE 293 mg/dL (70-105); PHOSPHOROUS 2.1 mg/dL (2.5-5.0); POTASSIUM SERUM 3.4 mEq/L (3.5-5.1); SGOT 35 U/L (13-39); SGPT/ALT 13 U/L (7-52); SODIUM SERUM 147 mEq/L (136-145); TOTAL PROTEIN,SERUM 4.7 gm/dL (6.0-8.3)
[2017-12-28] MEDS ORDERED: Potassium Phosphate 20 MMOLE in Sodium Chloride 0.9% 250 ML IV ONE (07:32)
--- NOTE | 2017-12-28 07:59 | GI Progress Note ---
Subjective - Review of Systems Service Date: 12/28/17 Subjective: Intubated yesterday for continued respiratory distress, no further GI bleed Objective - Results Result Diagrams: 12/28/17 04:05 12/28/17 04:05 Recent Labs: Laboratory Last Values WBC 18.7 Th/cmm (4.8-10.8) H 12/28/17 04:05 RBC 3.12 Mil/cmm (3.80-5.20) L 12/28/17 04:05 Hgb 9.2 gm/dL (12-16) L 12/28/17 04:05 Hct 27.1 % (41.0-60) L 12/28/17 04:05 MCV 86.8 fl (81-100) 12/28/17 04:05 MCH 29.3 pg (27.0-31.0) 12/28/17 04:05 MCHC Differential 33.8 pg (28.0-36.0) 12/28/17 04:05 RDW 13.5 % (11.5-20.0) 12/28/17 04:05 Plt Count 222 Th/cmm (150-400) 12/28/17 04:05 MPV 8.9 fl 12/28/17 04:05 Add Manual Diff YES 12/27/17 06:10 Neutrophils % 79.9 % (40.0-80.0) 12/28/17 04:05 Band Neutrophils % 5 % (0-10) 12/26/17 04:45 Lymphocytes % 12.9 % (20.0-50.0) L 12/28/17 04:05 Monocytes % 6.6 % (2.0-10.0) 12/28/17 04:05 Eosinophils % 0.5 % (0.0-5.0) 12/28/17 04:05 Basophils % 0.1 % (0.0-2.0) 12/28/17 04:05 Neutrophils (Manual) 75 % (40-80) 12/27/17 06:10 Lymphocytes 19 % (20-50) L 12/27/17 06:10 Monocytes 6 % (2-10) 12/27/17 06:10 Eosinophils 3 % (0-5) 12/26/17 04:45 Basophils 1 % (0-3) 12/26/17 04:45 Platelet Estimate ADEQUATE (NORMAL) 12/27/17 06:10 Anisocytosis 1+ 12/27/17 06:10 PT 10.6 SECONDS (9.5-11.5) 12/26/17 04:45 INR 1.02 (0.5-1.4) 12/26/17 04:45 PTT (Actin FS) 22.1 SECONDS (26.0-38.0) L 12/24/17 19:40 Specimen Source Arterial 12/27/17 17:39 Sample Site Right Radial 12/27/17 17:39 pH 7.36 (7.35-7.45) 12/27/17 17:39 pCO2 41.0 mmHg (35.0-45.0) 12/27/17 17:39 pO2 227.0 mmHg (80.0-100.0) H 12/27/17 17:39 HCO3 23.3 mEq/L (20.0-26.0) 12/27/17 17:39 Base Excess -2.2 mEq/L (-3.0-3.0) 12/27/17 17:39 O2 Saturation 100.0 % (92.0-100.0) 12/27/17 17:39 Pradeep Test Positive 12/27/17 17:39 Vent Rate 18 12/27/17 17:39 Inspired O2 100 12/27/17 17:39 Tidal Volume 450 12/27/17 17:39 PEEP 5 12/27/17 17:39 Pressure (ins/psv/peep) NA 12/27/17 17:39 Critical Value SC 12/27/17 17:39 Sodium 147 mEq/L (136-145) H 12/28/17 04:05 Potassium 3.4 mEq/L (3.5-5.1) L 12/28/17 04:05 Chloride 116 mEq/L (98-107) H 12/28/17 04:05 Carbon Dioxide 21.3 mEq/L (21.0-31.0) 12/28/17 04:05 Anion Gap 13.1 (7.0-16.0) 12/28/17 04:05 BUN 34 mg/dL (7-25) H 12/28/17 04:05 Creatinine 1.5 mg/dL (0.6-1.2) H 12/28/17 04:05 Est GFR ( Amer) TNP 12/28/17 04:05 Est GFR (Non-Af Amer) TNP 12/28/17 04:05 BUN/Creatinine Ratio 22.7 12/28/17 04:05 Glucose 293 mg/dL (70-105) H 12/28/17 04:05 POC Glucose 204 MG/DL (70 - 105) H 12/28/17 07:33 Whole Bld Lactic Acid 2.46 mmol/L (0.60-1.99) H* 12/25/17 10:07 Calcium 8.3 mg/dL (8.6-10.3) L 12/28/17 04:05 Phosphorus 2.1 mg/dL (2.5-5.0) L 12/28/17 04:05 Magnesium 2.2 mg/dL (1.9-2.7) 12/26/17 04:45 Total Bilirubin 0.5 mg/dL (0.3-1.0) 12/28/17 04:05 AST 35 U/L (13-39) 12/28/17 04:05 ALT 13 U/L (7-52) 12/28/17 04:05 Alkaline Phosphatase 63 U/L (34-104) 12/28/17 04:05 Total Protein 4.7 gm/dL (6.0-8.3) L 12/28/17 04:05 Albumin 2.5 gm/dL (3.7-5.3) L 12/28/17 04:05 Globulin 2.2 gm/dL 12/28/17 04:05 Albumin/Globulin Ratio 1.1 (1.0-1.8) 12/28/17 04:05 Triglycerides 126 mg/dL (<150) 12/25/17 04:10 Cholesterol 124 mg/dL (<200) 12/25/17 04:10 LDL Cholesterol Direct 84 mg/dL (75-193) 12/25/17 04:10 HDL Cholesterol 30 mg/dL (23-92) 12/25/17 04:10 TSH 0.75 uIU/ml (0.34-5.60) 12/25/17 04:10 Helicobacter pylori Ab NEGATIVE (NEGATIVE) 12/26/17 08:35 Blood Type O POSITIVE 12/24/17 19:40 Antibody Screen NEGATIVE 12/24/17 19:40 Crossmatch See Detail 12/24/17 19:40 - Physical Exam Vitals and I&O: Vital Signs Temp 98.4 F 12/28/17 06:00 Pulse 85 12/28/17 06:45 Resp 18 12/28/17 06:42 BP 157/59 12/28/17 06:45 Pulse Ox 100 12/28/17 06:42 Intake & Output 12/27/17 12/28/17 12/28/17 18:59 06:59 18:59 Intake Total 2249.167 1381.167 Output Total 550 200 Balance 4987.291 3857.167 -200 Weight (lbs) 67.812 kg 68.13 kg Intake: Intake, IV Amount 4492.696 8360.167 Azithromycin 500 mg In 250 Sodium Chloride 0.9% 250 ml @ 250 mls/hr IV Q24HR [facility] Rx#:[id number] D5-0.45NS 1,000 ml @ 50 1000 845 mls/hr IV .Q20H [facility] Rx#: [id number] Pantoprazole 80 mg In 69.167 186.167 Sodium Chloride 0.9% 100 ml @ 10 mls/hr IV Q10H [facility] Rx#:[id number] Piperacillin Sodium/ 50 100 Tazobact 2.25 gm In Sodium Chloride 0.9% 50 ml @ 100 mls/hr IV Q6H [facility] Rx#:[id number] Vancomycin HCl 1 gm In 250 Sodium Chloride 0.9% 250 ml @ 165 mls/hr IV Q24H [facility] Rx#:[id number] Blood Product 500 Other 380 Output: Urine 550 200 Other: # Bowel Movements 0 1 Weight Source Bedscale Bedscale Active Medications: Current Medications Acetaminophen (Tylenol) 650 mg PO Q4HR PRN PRN Reason: MILD PAIN 1-3 Stop: 02/23/18 17:58 Acetaminophen (Tylenol) 650 mg PO Q4HR PRN PRN Reason: TEMP >100.4 Stop: 02/23/18 17:58 Acetylcysteine (Mucomyst 20%) 3 ml HHN Q4HRT [facility] Stop: 02/25/18 14:59 Last Admin: 12/28/17 06:42 Dose: 3 ml Albuterol/Ipratropium (Duoneb Neb) 3 ml HHN Q4HRT [facility] Stop: 02/24/18 14:59 Last Admin: 12/28/17 06:42 Dose: 3 ml Amlodipine Besylate (Norvasc) 5 mg PO DAILY [facility] Stop: 02/24/18 08:59 Last Admin: 12/27/17 09:43 Dose: Not Given Ascorbic Acid (Vitamin C) 500 mg PO DAILY [facility] Stop: 02/24/18 08:59 Last Admin: 12/27/17 09:43 Dose: Not Given Bisacodyl (Dulcolax 10 Mg Supp) 10 mg RC DAILY PRN PRN Reason: IF MOM INEFFECTIVE Stop: 02/23/18 17:58 Chlorhexidine Gluconate (Peridex) 15 ml MM 0800,2000 [facility] Stop: 02/25/18 19:59 Last Admin: 12/27/17 20:16 Dose: 15 ml Azithromycin 500 mg/ Sodium (Chloride) 250 mls @ 250 mls/hr IV Q24HR [facility] Stop: 02/22/18 22:29 Last Infusion: 12/27/17 23:23 Dose: Infused Dextrose/Sodium Chloride (D5-0.45ns) 1,000 mls @ 50 mls/hr IV .Q20H [facility] Stop: 02/24/18 17:29 Last Infusion: 12/28/17 06:44 Dose: 50 mls/hr Diltiazem HCl 125 mg/ Dextrose 100 mls @ 0 mls/hr IV Q8H PRN; Protocol PRN Reason: blood pressure Stop: 02/25/18 07:48 Last Admin: 12/27/17 09:00 Dose: 6.25 mg/hr, 5 mls/hr Vancomycin HCl 1 gm/ Sodium (Chloride) 250 mls @ 165 mls/hr IV Q24H [facility] Stop: 02/25/18 09:59 Last Infusion: 12/27/17 11:30 Dose: Infused Piperacillin Sod/Tazobactam (Sod 2.25 gm/ Sodium Chloride) 50 mls @ 100 mls/hr IV Q6H [facility] Stop: 02/25/18 13:59 Last Infusion: 12/28/17 02:45 Dose: Infused Potassium Phosphate 20 mmole/ (Sodium Chloride) 256.6667 mls @ 42.5 mls/hr IV X1 ONE Stop: 12/28/17 13:34 Insulin Aspart (Novolog Insulin Sliding Scale) 0 units SUBQ Q6HR [facility]; Protocol Stop: 02/23/18 01:14 Last Admin: 12/28/17 07:36 Dose: 5 units Lactobacillus Rhamnosus (Culturelle 15b) 1 each PO DAILY [facility] Stop: 02/24/18 08:59 Last Admin: 12/27/17 09:42 Dose: Not Given Lorazepam (Ativan) 1 mg IVP Q4HR PRN; Protocol PRN Reason: Agitation Stop: 02/25/18 07:12 Last Admin: 12/28/17 03:24 Dose: 1 mg Miscellaneous (Probiotic Screen) 1 ea PRN PRN PRN Reason: PROTOCOL Stop: 02/23/18 15:29 Miscellaneous (Vancomycin Iv Per Pharmacy) 1 ea [facility] PRN [facility] Stop: 02/24/18 23:44 Miscellaneous (Zosyn Iv Per Pharmacy) 1 ea PRN PRN PRN Reason: PROTOCOL Stop: 02/25/18 12:03 Morphine Sulfate (Morphine) 1 mg IVP Q4HR PRN PRN Reason: Pain (Moderate) Stop: 02/23/18 10:04 Last Admin: 12/27/17 11:40 Dose: 1 mg Mupirocin (Bactroban Oint) 1 appl NS BID [facility] Stop: 12/31/17 17:01 Last Admin: 12/27/17 16:22 Dose: 1 appl Pantoprazole Sodium (Protonix) 40 mg IVP BID [facility] Stop: 02/26/18 08:59 Polyethylene Glycol (Miralax) 17 gm PO BID [facility] Stop: 02/26/18 08:59 General: Alert HEENT: Atraumatic Neck: Supple Cardiovascular: no Regular rate Abdomen: Bowel sounds, Soft, no Tender, no Hepatomegaly, no Splenomegaly, no Distended, no Rebound Assessment/Plan - Problem List Patient Problems: All Active Problems COFFEE GROUND EMESIS (Acute) - Assessment Assessment: # Coffee ground emesis # hiatal hernia # Pneumonia # Severe sepsis # Fecal impaction EGD on 12/26 showed 7cm hiatal hernia, with evidence of mucosal tear there from previous NG tube insertion attempts. 2 clips placed to this area. With some difficulty, an NG tube was endoscopically placed into the stomach. No stomach ulcer or mass. Now intubated, but no longer having GI bleed. Fecal impaction noted on KUB. Plan: - start NG tube feeding with glucerna, titrate up to goal slowly - change ppi drip to bid - tap water enema q 12, and miralax bid po - cont IVF - cont Abx - can consider G tube insertion in the future, but she would need to be more stable for this from a respiratory standpoint
[2017-12-28] MEDS: Chlorhexidine Gluconate 0.12% 15mL Mouthwash MM SCH ×2 (08:05→20:39)
[2017-12-28] MEDS: Lactobacillus Rhamnosus GG 15 Billion CFU CAP.SPRINK PO SCH (08:11)
[2017-12-28] MEDS: Pantoprazole 80 MG in Sodium Chloride 0.9% 100 ML IV SCH (08:30)
--- NOTE | 2017-12-28 08:39 | Internal Medicine Prog Note ---
Internal Medicine Subjective - Subjective Patient seen and examined:: chart reviewed Patient is:: other (weak Intubated for continued respiratory distress) Per staff patient has:: no adverse event, tolerating meds Internal Medicine Objective - Results Result Diagrams: 12/28/17 04:05 12/28/17 04:05 Recent Labs: Laboratory Last Values WBC 18.7 Th/cmm (4.8-10.8) H 12/28/17 04:05 RBC 3.12 Mil/cmm (3.80-5.20) L 12/28/17 04:05 Hgb 9.2 gm/dL (12-16) L 12/28/17 04:05 Hct 27.1 % (41.0-60) L 12/28/17 04:05 MCV 86.8 fl (81-100) 12/28/17 04:05 MCH 29.3 pg (27.0-31.0) 12/28/17 04:05 MCHC Differential 33.8 pg (28.0-36.0) 12/28/17 04:05 RDW 13.5 % (11.5-20.0) 12/28/17 04:05 Plt Count 222 Th/cmm (150-400) 12/28/17 04:05 MPV 8.9 fl 12/28/17 04:05 Add Manual Diff YES 12/27/17 06:10 Neutrophils % 79.9 % (40.0-80.0) 12/28/17 04:05 Band Neutrophils % 5 % (0-10) 12/26/17 04:45 Lymphocytes % 12.9 % (20.0-50.0) L 12/28/17 04:05 Monocytes % 6.6 % (2.0-10.0) 12/28/17 04:05 Eosinophils % 0.5 % (0.0-5.0) 12/28/17 04:05 Basophils % 0.1 % (0.0-2.0) 12/28/17 04:05 Neutrophils (Manual) 75 % (40-80) 12/27/17 06:10 Lymphocytes 19 % (20-50) L 12/27/17 06:10 Monocytes 6 % (2-10) 12/27/17 06:10 Eosinophils 3 % (0-5) 12/26/17 04:45 Basophils 1 % (0-3) 12/26/17 04:45 Platelet Estimate ADEQUATE (NORMAL) 12/27/17 06:10 Anisocytosis 1+ 12/27/17 06:10 PT 10.6 SECONDS (9.5-11.5) 12/26/17 04:45 INR 1.02 (0.5-1.4) 12/26/17 04:45 PTT (Actin FS) 22.1 SECONDS (26.0-38.0) L 12/24/17 19:40 Specimen Source Arterial 12/27/17 17:39 Sample Site Right Radial 12/27/17 17:39 pH 7.36 (7.35-7.45) 12/27/17 17:39 pCO2 41.0 mmHg (35.0-45.0) 12/27/17 17:39 pO2 227.0 mmHg (80.0-100.0) H 12/27/17 17:39 HCO3 23.3 mEq/L (20.0-26.0) 12/27/17 17:39 Base Excess -2.2 mEq/L (-3.0-3.0) 12/27/17 17:39 O2 Saturation 100.0 % (92.0-100.0) 12/27/17 17:39 Pradeep Test Positive 12/27/17 17:39 Vent Rate 18 12/27/17 17:39 Inspired O2 100 12/27/17 17:39 Tidal Volume 450 12/27/17 17:39 PEEP 5 12/27/17 17:39 Pressure (ins/psv/peep) NA 12/27/17 17:39 Critical Value SC 12/27/17 17:39 Sodium 147 mEq/L (136-145) H 12/28/17 04:05 Potassium 3.4 mEq/L (3.5-5.1) L 12/28/17 04:05 Chloride 116 mEq/L (98-107) H 12/28/17 04:05 Carbon Dioxide 21.3 mEq/L (21.0-31.0) 12/28/17 04:05 Anion Gap 13.1 (7.0-16.0) 12/28/17 04:05 BUN 34 mg/dL (7-25) H 12/28/17 04:05 Creatinine 1.5 mg/dL (0.6-1.2) H 12/28/17 04:05 Est GFR ( Amer) TNP 12/28/17 04:05 Est GFR (Non-Af Amer) TNP 12/28/17 04:05 BUN/Creatinine Ratio 22.7 12/28/17 04:05 Glucose 293 mg/dL (70-105) H 12/28/17 04:05 POC Glucose 204 MG/DL (70 - 105) H 12/28/17 07:33 Whole Bld Lactic Acid 2.46 mmol/L (0.60-1.99) H* 12/25/17 10:07 Calcium 8.3 mg/dL (8.6-10.3) L 12/28/17 04:05 Phosphorus 2.1 mg/dL (2.5-5.0) L 12/28/17 04:05 Magnesium 2.2 mg/dL (1.9-2.7) 12/26/17 04:45 Total Bilirubin 0.5 mg/dL (0.3-1.0) 12/28/17 04:05 AST 35 U/L (13-39) 12/28/17 04:05 ALT 13 U/L (7-52) 12/28/17 04:05 Alkaline Phosphatase 63 U/L (34-104) 12/28/17 04:05 Total Protein 4.7 gm/dL (6.0-8.3) L 12/28/17 04:05 Albumin 2.5 gm/dL (3.7-5.3) L 12/28/17 04:05 Globulin 2.2 gm/dL 12/28/17 04:05 Albumin/Globulin Ratio 1.1 (1.0-1.8) 12/28/17 04:05 Triglycerides 126 mg/dL (<150) 12/25/17 04:10 Cholesterol 124 mg/dL (<200) 12/25/17 04:10 LDL Cholesterol Direct 84 mg/dL (75-193) 12/25/17 04:10 HDL Cholesterol 30 mg/dL (23-92) 12/25/17 04:10 TSH 0.75 uIU/ml (0.34-5.60) 12/25/17 04:10 Helicobacter pylori Ab NEGATIVE (NEGATIVE) 12/26/17 08:35 Blood Type O POSITIVE 12/24/17 19:40 Antibody Screen NEGATIVE 12/24/17 19:40 Crossmatch See Detail 12/24/17 19:40 - Physical Exam Vitals and I&O: Vital Signs Temp 98.4 F 12/28/17 06:00 Pulse 83 12/28/17 08:11 Resp 18 12/28/17 06:42 BP 147/64 12/28/17 08:11 Pulse Ox 100 12/28/17 06:42 Intake & Output 12/27/17 12/28/17 12/28/17 18:59 06:59 18:59 Intake Total 2249.167 1381.167 13.833 Output Total 550 200 Balance 9303.411 5929.167 -186.167 Weight (lbs) 67.812 kg 68.13 kg Intake: Intake, IV Amount 6077.332 7332.167 13.833 Azithromycin 500 mg In 250 Sodium Chloride 0.9% 250 ml @ 250 mls/hr IV Q24HR [facility] Rx#:[id number] D5-0.45NS 1,000 ml @ 50 1000 845 mls/hr IV .Q20H [facility] Rx#: [id number] Pantoprazole 80 mg In 69.167 186.167 13.833 Sodium Chloride 0.9% 100 ml @ 10 mls/hr IV Q10H [facility] Rx#:[id number] Piperacillin Sodium/ 50 100 Tazobact 2.25 gm In Sodium Chloride 0.9% 50 ml @ 100 mls/hr IV Q6H [facility] Rx#:[id number] Vancomycin HCl 1 gm In 250 Sodium Chloride 0.9% 250 ml @ 165 mls/hr IV Q24H [facility] Rx#:[id number] Blood Product 500 Other 380 Output: Urine 550 200 Other: # Bowel Movements 0 1 Weight Source Bedscale Bedscale Active Medications: Current Medications Acetaminophen (Tylenol) 650 mg PO Q4HR PRN PRN Reason: MILD PAIN 1-3 Stop: 02/23/18 17:58 Acetaminophen (Tylenol) 650 mg PO Q4HR PRN PRN Reason: TEMP >100.4 Stop: 02/23/18 17:58 Acetylcysteine (Mucomyst 20%) 3 ml HHN Q4HRT [facility] Stop: 02/25/18 14:59 Last Admin: 12/28/17 06:42 Dose: 3 ml Albuterol/Ipratropium (Duoneb Neb) 3 ml HHN Q4HRT [facility] Stop: 02/24/18 14:59 Last Admin: 12/28/17 06:42 Dose: 3 ml Amlodipine Besylate (Norvasc) 5 mg PO DAILY [facility] Stop: 02/24/18 08:59 Last Admin: 12/28/17 08:11 Dose: 5 mg Ascorbic Acid (Vitamin C) 500 mg PO DAILY [facility] Stop: 02/24/18 08:59 Last Admin: 12/28/17 08:11 Dose: 500 mg Bisacodyl (Dulcolax 10 Mg Supp) 10 mg RC DAILY PRN PRN Reason: IF MOM INEFFECTIVE Stop: 02/23/18 17:58 Chlorhexidine Gluconate (Peridex) 15 ml MM 0800,1999 [facility] Stop: 02/25/18 19:59 Last Admin: 12/28/17 08:05 Dose: 15 ml Azithromycin 500 mg/ Sodium (Chloride) 250 mls @ 250 mls/hr IV Q24HR [facility] Stop: 02/22/18 22:29 Last Infusion: 12/27/17 23:23 Dose: Infused Dextrose/Sodium Chloride (D5-0.45ns) 1,000 mls @ 50 mls/hr IV .Q20H [facility] Stop: 02/24/18 17:29 Last Infusion: 12/28/17 06:44 Dose: 50 mls/hr Diltiazem HCl 125 mg/ Dextrose 100 mls @ 0 mls/hr IV Q8H PRN; Protocol PRN Reason: blood pressure Stop: 02/25/18 07:48 Last Admin: 12/27/17 09:00 Dose: 6.25 mg/hr, 5 mls/hr Vancomycin HCl 1 gm/ Sodium (Chloride) 250 mls @ 165 mls/hr IV Q24H [facility] Stop: 02/25/18 09:59 Last Infusion: 12/27/17 11:30 Dose: Infused Piperacillin Sod/Tazobactam (Sod 2.25 gm/ Sodium Chloride) 50 mls @ 100 mls/hr IV Q6H [facility] Stop: 02/25/18 13:59 Last Admin: 12/28/17 08:03 Dose: 100 mls/hr Potassium Phosphate 20 mmole/ (Sodium Chloride) 256.6667 mls @ 42.5 mls/hr IV X1 ONE Stop: 12/28/17 13:34 Last Admin: 12/28/17 08:02 Dose: 42.5 mls/hr Insulin Aspart (Novolog Insulin Sliding Scale) 0 units SUBQ Q6HR [facility]; Protocol Stop: 02/23/18 01:14 Last Admin: 12/28/17 07:36 Dose: 5 units Lactobacillus Rhamnosus (Culturelle 15b) 1 each PO DAILY [facility] Stop: 02/24/18 08:59 Last Admin: 12/28/17 08:11 Dose: 1 each Lorazepam (Ativan) 1 mg IVP Q4HR PRN; Protocol PRN Reason: Agitation Stop: 02/25/18 07:12 Last Admin: 12/28/17 08:29 Dose: 1 mg Miscellaneous (Probiotic Screen) 1 ea PRN PRN PRN Reason: PROTOCOL Stop: 02/23/18 15:29 Miscellaneous (Vancomycin Iv Per Pharmacy) 1 [facility] PRN [facility] Stop: 02/24/18 23:44 Miscellaneous (Zosyn Iv Per Pharmacy) 1 [facility] PRN PRN PRN Reason: PROTOCOL Stop: 02/25/18 12:03 Morphine Sulfate (Morphine) 1 mg IVP Q4HR PRN PRN Reason: Pain (Moderate) Stop: 02/23/18 10:04 Last Admin: 12/27/17 11:40 Dose: 1 mg Mupirocin (Bactroban Oint) 1 appl NS BID [facility] Stop: 12/31/17 17:01 Last Admin: 12/28/17 08:13 Dose: 1 appl Pantoprazole Sodium (Protonix) 40 mg IVP BID [facility] Stop: 02/26/18 08:59 Polyethylene Glycol (Miralax) 17 gm PO BID [facility] Stop: 02/26/18 08:59 General: weak HEENT: NC/AT Neck: Supple Lungs: CTAB Cardiovascular: Normal S1, Normal S2 Abdomen: non-tender Extremities: clear, edema Neurological: no change Internal Medicine Assmt/Plan - Assessment Assessment: Current Active Problems Problem Status Onset COFFEE GROUND EMESIS Acute r/o gi bleed Large hiatal hernia lactic acidosis possible sepsis htn DM Dyslipidemia Dementia - Plan Plan: id consult surgical consult ivabx as ordered gi consult cpm Nutritional Asmnt/Malnutr-PDOC - Dietary Evaluation Malnutrition Findings (Please click <Entered> for more info): Nutritional Asmnt/Malnutrition Start: 12/25/17 15: 21 Text: Status: Complete Freq: Protocol: Document 12/25/17 15:22 ARSH (Rec: 12/25/17 15:44 [email or web address] [email or web address]) Nutritional Asmnt/Malnutrition Patient General Information Nutritional Screening High Risk Diagnosis sepsis, dehydration, pneumonia Pertinent Medical Hx/Surgical Hx HTN, DM, dyslipidemia, dementia, anemia, muscle weakness Subjective Information Pt receiving care from RN at time of visit. Per nurse notes , pt had coffee ground emesis, NGT was unable to be inserted d/t large retro cardiac hiatal hernia, and will have EGD tomorrow. Spoke w/ BELA Duran by phone who verfied the nurse notes and states pt will continue to be NPO. Current Diet Order/ Nutrition Support NPO Pertinent Medications D5-0.45ns, novolog, culturelle , pantoprazole Pertinent Labs 12/25: glucose 392, Na 144, Cl 110, BUN 78, Alb 2.9, POC 304 -423 12/24: glucose 547, Na 134, Cl 97, BUN 69, Alb 3.0, POC 441- 485 Nutritional Hx/Data Height 1.63 m Height (Calculated Centimeters) 162.6 Current Weight (lbs) 64.682 kg Weight (Calculated Kilograms) 64.7 Weight (Calculated Grams) 43489.3 [place] Body Weight 120 lb Body Mass Index (BMI) 24.5 Weight Status Approriate GI Symptoms GI Symptoms Nausea Vomitting Last BM none noted Difficult in: None Food Allergies No Skin Integrity/Comment: saji, pasquale 13 Current %PO Negligible < 25% Estimated Nutritional Goals BEE in Kcals: Using Current wt Calories/Kcals/Kg 30-35 Kcals Calculated 6325-9969 Protein: Using Current wt Protein g/k.2-1.5 Protein Calculated 78-97 g Fluid: ml per MD Nutritional Problem 2. Problem Problem Altered nutrition related lab values Etiology dehydration, endocrine dysfunction Signs/Symptoms: Cl 110, BUN 78, glucose 392, POC 304-423 1. Problem Problem Increased nutrient needs Etiology metabolic stress Signs/Symptoms: dx of sepsis and pneumonia Malnutrition Related to Morbid Obesity Malnutrition related to morbid obesity No Intervention/Recommendation Comments 1. Monitor NPO status and advance diet when medically appropriate 2. Consider alternative nutrition route if pt unable to tolerate PO intake 3. Monitor wt, nutrition related labs, and skin integrity 4. F/U as high risk in 2-3 days, 12/27- Expected Outcomes/Goals Expected Outcomes/Goals 1. Pt to start oral intake or alternate nutrition route if necessary 2. Wt stability, skin to remain intact, nutrition related labs to approach normal limits Reveiwed by Yesenia Jennings RD
--- NOTE | 2017-12-28 08:39 | Diagnostic Imaging Report ---
Exam: Portable chest x-ray HISTORY: Intubation. Prior exam of 12/26 2017 I needs: Portable semierect examination of the chest reviewed the study demonstrates endotracheal tube in the right mainstem bronchus should be pulled back 9 cm. There is evidence of basilar pneumonia superimposed small left pleural effusion. Mediastinal structures midline the heart is enlarged. The aortic arch calcified. IMPRESSION: Endotracheal tube in the right mainstem bronchus should be pulled back at least 9 cm. Right lower lobe pneumonia Peribronchial infiltrate left base with left pleural effusion. NG tube passes into the stomach.
--- NOTE | 2017-12-28 08:40 | Diagnostic Imaging Report ---
Exam: Portable chest x-ray HISTORY: Repositioning of the endotracheal tube Prior exam: Same day earlier Findings: Portable examination of the chest at 0801 hours reviewed compared to prior study same day earlier demonstrates repositioning of endotracheal tube with the tip of the tube 3 cm above the yolie. IMPRESSION: Satisfactory position endotracheal tube 3 cm above the yolie.
[2017-12-28] MEDS: POLYETHYLENE GLYCOL 3350 17 GM PACK PO SCH ×2 (09:50→16:20)
--- NOTE | 2017-12-28 10:26 | General Progress Note ---
Subjective - Review of Systems Events since last encounter: 12/28/17 started on NGT feedings Objective - Results Result Diagrams: 12/28/17 04:05 12/28/17 04:05 Recent Labs: Laboratory Last Values WBC 18.7 Th/cmm (4.8-10.8) H 12/28/17 04:05 RBC 3.12 Mil/cmm (3.80-5.20) L 12/28/17 04:05 Hgb 9.2 gm/dL (12-16) L 12/28/17 04:05 Hct 27.1 % (41.0-60) L 12/28/17 04:05 MCV 86.8 fl (81-100) 12/28/17 04:05 MCH 29.3 pg (27.0-31.0) 12/28/17 04:05 MCHC Differential 33.8 pg (28.0-36.0) 12/28/17 04:05 RDW 13.5 % (11.5-20.0) 12/28/17 04:05 Plt Count 222 Th/cmm (150-400) 12/28/17 04:05 MPV 8.9 fl 12/28/17 04:05 Add Manual Diff YES 12/27/17 06:10 Neutrophils % 79.9 % (40.0-80.0) 12/28/17 04:05 Band Neutrophils % 5 % (0-10) 12/26/17 04:45 Lymphocytes % 12.9 % (20.0-50.0) L 12/28/17 04:05 Monocytes % 6.6 % (2.0-10.0) 12/28/17 04:05 Eosinophils % 0.5 % (0.0-5.0) 12/28/17 04:05 Basophils % 0.1 % (0.0-2.0) 12/28/17 04:05 Neutrophils (Manual) 75 % (40-80) 12/27/17 06:10 Lymphocytes 19 % (20-50) L 12/27/17 06:10 Monocytes 6 % (2-10) 12/27/17 06:10 Eosinophils 3 % (0-5) 12/26/17 04:45 Basophils 1 % (0-3) 12/26/17 04:45 Platelet Estimate ADEQUATE (NORMAL) 12/27/17 06:10 Anisocytosis 1+ 12/27/17 06:10 PT 10.6 SECONDS (9.5-11.5) 12/26/17 04:45 INR 1.02 (0.5-1.4) 12/26/17 04:45 PTT (Actin FS) 22.1 SECONDS (26.0-38.0) L 12/24/17 19:40 Specimen Source Arterial 12/27/17 17:39 Sample Site Right Radial 12/27/17 17:39 pH 7.36 (7.35-7.45) 12/27/17 17:39 pCO2 41.0 mmHg (35.0-45.0) 12/27/17 17:39 pO2 227.0 mmHg (80.0-100.0) H 12/27/17 17:39 HCO3 23.3 mEq/L (20.0-26.0) 12/27/17 17:39 Base Excess -2.2 mEq/L (-3.0-3.0) 12/27/17 17:39 O2 Saturation 100.0 % (92.0-100.0) 12/27/17 17:39 Pradeep Test Positive 12/27/17 17:39 Vent Rate 18 12/27/17 17:39 Inspired O2 100 12/27/17 17:39 Tidal Volume 450 12/27/17 17:39 PEEP 5 12/27/17 17:39 Pressure (ins/psv/peep) NA 12/27/17 17:39 Critical Value SC 12/27/17 17:39 Sodium 147 mEq/L (136-145) H 12/28/17 04:05 Potassium 3.4 mEq/L (3.5-5.1) L 12/28/17 04:05 Chloride 116 mEq/L (98-107) H 12/28/17 04:05 Carbon Dioxide 21.3 mEq/L (21.0-31.0) 12/28/17 04:05 Anion Gap 13.1 (7.0-16.0) 12/28/17 04:05 BUN 34 mg/dL (7-25) H 12/28/17 04:05 Creatinine 1.5 mg/dL (0.6-1.2) H 12/28/17 04:05 Est GFR ( Amer) TNP 12/28/17 04:05 Est GFR (Non-Af Amer) TNP 12/28/17 04:05 BUN/Creatinine Ratio 22.7 12/28/17 04:05 Glucose 293 mg/dL (70-105) H 12/28/17 04:05 POC Glucose 204 MG/DL (70 - 105) H 12/28/17 07:33 Whole Bld Lactic Acid 2.46 mmol/L (0.60-1.99) H* 12/25/17 10:07 Calcium 8.3 mg/dL (8.6-10.3) L 12/28/17 04:05 Phosphorus 2.1 mg/dL (2.5-5.0) L 12/28/17 04:05 Magnesium 2.2 mg/dL (1.9-2.7) 12/26/17 04:45 Total Bilirubin 0.5 mg/dL (0.3-1.0) 12/28/17 04:05 AST 35 U/L (13-39) 12/28/17 04:05 ALT 13 U/L (7-52) 12/28/17 04:05 Alkaline Phosphatase 63 U/L (34-104) 12/28/17 04:05 Total Protein 4.7 gm/dL (6.0-8.3) L 12/28/17 04:05 Albumin 2.5 gm/dL (3.7-5.3) L 12/28/17 04:05 Globulin 2.2 gm/dL 12/28/17 04:05 Albumin/Globulin Ratio 1.1 (1.0-1.8) 12/28/17 04:05 Triglycerides 126 mg/dL (<150) 12/25/17 04:10 Cholesterol 124 mg/dL (<200) 12/25/17 04:10 LDL Cholesterol Direct 84 mg/dL (75-193) 12/25/17 04:10 HDL Cholesterol 30 mg/dL (23-92) 12/25/17 04:10 TSH 0.75 uIU/ml (0.34-5.60) 12/25/17 04:10 Helicobacter pylori Ab NEGATIVE (NEGATIVE) 12/26/17 08:35 Blood Type O POSITIVE 12/24/17 19:40 Antibody Screen NEGATIVE 12/24/17 19:40 Crossmatch See Detail 11/19/18 19:40 - Physical Exam Vitals and I&O: Vital Signs Temp 98.4 F 12/28/17 06:00 Pulse 82 12/28/17 09:40 Resp 18 12/28/17 06:42 BP 147/64 12/28/17 08:11 Pulse Ox 100 12/28/17 09:40 Intake & Output 12/27/17 12/28/17 12/28/17 18:59 06:59 18:59 Intake Total 2249.167 1381.167 13.833 Output Total 550 200 Balance 2046.106 3026.167 -186.167 Weight (lbs) 67.812 kg 68.13 kg Intake: Intake, IV Amount 1906.587 3994.167 13.833 Azithromycin 500 mg In 250 Sodium Chloride 0.9% 250 ml @ 250 mls/hr IV Q24HR [facility] Rx#:[id number] D5-0.45NS 1,000 ml @ 50 1000 845 mls/hr IV .Q20H [facility] Rx#: [id number] Pantoprazole 80 mg In 69.167 186.167 13.833 Sodium Chloride 0.9% 100 ml @ 10 mls/hr IV Q10H [facility] Rx#:[id number] Piperacillin Sodium/ 50 100 Tazobact 2.25 gm In Sodium Chloride 0.9% 50 ml @ 100 mls/hr IV Q6H [facility] Rx#:[id number] Vancomycin HCl 1 gm In 250 Sodium Chloride 0.9% 250 ml @ 165 mls/hr IV Q24H [facility] Rx#:[id number] Blood Product 500 Other 380 Output: Urine 550 200 Other: # Bowel Movements 0 1 Weight Source Bedscale Bedscale Active Medications: Current Medications Acetaminophen (Tylenol) 650 mg PO Q4HR PRN PRN Reason: MILD PAIN 1-3 Stop: 02/23/18 17:58 Acetaminophen (Tylenol) 650 mg PO Q4HR PRN PRN Reason: TEMP >100.4 Stop: 02/23/18 17:58 Acetylcysteine (Mucomyst 20%) 3 ml HHN Q4HRT [facility] Stop: 02/25/18 14:59 Last Admin: 12/28/17 06:42 Dose: 3 ml Albuterol/Ipratropium (Duoneb Neb) 3 ml HHN Q4HRT [facility] Stop: 02/24/18 14:59 Last Admin: 12/28/17 06:42 Dose: 3 ml Amlodipine Besylate (Norvasc) 5 mg PO DAILY [facility] Stop: 02/24/18 08:59 Last Admin: 12/28/17 08:11 Dose: 5 mg Ascorbic Acid (Vitamin C) 500 mg PO DAILY [facility] Stop: 02/24/18 08:59 Last Admin: 12/28/17 08:11 Dose: 500 mg Bisacodyl (Dulcolax 10 Mg Supp) 10 mg RC DAILY PRN PRN Reason: IF MOM INEFFECTIVE Stop: 02/23/18 17:58 Chlorhexidine Gluconate (Peridex) 15 ml MM 0800,1999 [facility] Stop: 02/25/18 19:59 Last Admin: 12/28/17 08:05 Dose: 15 ml Azithromycin 500 mg/ Sodium (Chloride) 250 mls @ 250 mls/hr IV Q24HR [facility] Stop: 02/22/18 22:29 Last Infusion: 12/27/17 23:23 Dose: Infused Dextrose/Sodium Chloride (D5-0.45ns) 1,000 mls @ 50 mls/hr IV .Q20H [facility] Stop: 02/24/18 17:29 Last Infusion: 12/28/17 06:44 Dose: 50 mls/hr Diltiazem HCl 125 mg/ Dextrose 100 mls @ 0 mls/hr IV Q8H PRN; Protocol PRN Reason: blood pressure Stop: 02/25/18 07:48 Last Admin: 12/27/17 09:00 Dose: 6.25 mg/hr, 5 mls/hr Vancomycin HCl 1 gm/ Sodium (Chloride) 250 mls @ 165 mls/hr IV Q24H [facility] Stop: 02/25/18 09:59 Last Admin: 12/28/17 10:25 Dose: 165 mls/hr Piperacillin Sod/Tazobactam (Sod 2.25 gm/ Sodium Chloride) 50 mls @ 100 mls/hr IV Q6H [facility] Stop: 02/25/18 13:59 Last Admin: 12/28/17 08:03 Dose: 100 mls/hr Potassium Phosphate 20 mmole/ (Sodium Chloride) 256.6667 mls @ 42.5 mls/hr IV X1 ONE Stop: 12/28/17 13:34 Last Admin: 12/28/17 08:02 Dose: 42.5 mls/hr Insulin Aspart (Novolog Insulin Sliding Scale) 0 units SUBQ Q6HR [facility]; Protocol Stop: 02/23/18 01:14 Last Admin: 12/28/17 07:36 Dose: 5 units Lactobacillus Rhamnosus (Culturelle 15b) 1 each PO DAILY [facility] Stop: 02/24/18 08:59 Last Admin: 12/28/17 08:11 Dose: 1 each Lorazepam (Ativan) 1 mg IVP Q4HR PRN; Protocol PRN Reason: Agitation Stop: 02/25/18 07:12 Last Admin: 12/28/17 08:29 Dose: 1 mg Miscellaneous (Probiotic Screen) 1 ea PRN PRN PRN Reason: PROTOCOL Stop: 02/23/18 15:29 Miscellaneous (Vancomycin Iv Per Pharmacy) 1 ea PRN [facility] Stop: 02/24/18 23:44 Miscellaneous (Zosyn Iv Per Pharmacy) 1 [facility] PRN PRN PRN Reason: PROTOCOL Stop: 02/25/18 12:03 Morphine Sulfate (Morphine) 1 mg IVP Q4HR PRN PRN Reason: Pain (Moderate) Stop: 02/23/18 10:04 Last Admin: 12/27/17 11:40 Dose: 1 mg Mupirocin (Bactroban Oint) 1 appl NS BID [facility] Stop: 12/31/17 17:01 Last Admin: 12/28/17 08:13 Dose: 1 appl Pantoprazole Sodium (Protonix) 40 mg IVP BID [facility] Stop: 02/26/18 08:59 Polyethylene Glycol (Miralax) 17 gm PO BID [facility] Stop: 02/26/18 08:59 General: Alert HEENT: Atraumatic Neck: Supple Cardiovascular: no Regular rate Abdomen: Bowel sounds, Soft, no Tender, no Hepatomegaly, no Splenomegaly, no Distended, no Rebound Assessment/Plan - Problem List Patient Problems: All Active Problems COFFEE GROUND EMESIS (Acute) Nutritional Asmnt/Malnutr-PDOC - Dietary Evaluation Malnutrition Findings (Please click <Entered> for more info): Nutritional Asmnt/Malnutrition Start: 12/25/17 15: 21 Text: Status: Complete Freq: Protocol: Document 12/25/17 15:22 ARSH (Rec: 12/25/17 15:44 [email or web address]) Nutritional Asmnt/Malnutrition Patient General Information Nutritional Screening High Risk Diagnosis sepsis, dehydration, pneumonia Pertinent Medical Hx/Surgical Hx HTN, DM, dyslipidemia, dementia, anemia, muscle weakness Subjective Information Pt receiving care from RN at time of visit. Per nurse notes , pt had coffee ground emesis, NGT was unable to be inserted d/t large retro cardiac hiatal hernia, and will have EGD tomorrow. Spoke w/ RN Renee by phone who verfied the nurse notes and states pt will continue to be NPO. Current Diet Order/ Nutrition Support NPO Pertinent Medications D5-0.45ns, novolog, culturelle , pantoprazole Pertinent Labs 12/25: glucose 392, Na 144, Cl 110, BUN 78, Alb 2.9, POC 304 -423 12/24: glucose 547, Na 134, Cl 97, BUN 69, Alb 3.0, POC 441- 485 Nutritional Hx/Data Height 1.63 m Height (Calculated Centimeters) 162.6 Current Weight (lbs) 64.682 kg Weight (Calculated Kilograms) 64.7 Weight (Calculated Grams) 64546.3 [place] Body Weight 120 lb Body Mass Index (BMI) 24.5 Weight Status Approriate GI Symptoms GI Symptoms Nausea Vomitting Last BM none noted Difficult in: None Food Allergies No Skin Integrity/Comment: pasquale lennon 13 Current %PO Negligible < 25% Estimated Nutritional Goals BEE in Kcals: Using Current wt Calories/Kcals/Kg 30-35 Kcals Calculated 9405-9569 Protein: Using Current wt Protein g/k.2-1.5 Protein Calculated 78-97 g Fluid: ml per MD Nutritional Problem 2. Problem Problem Altered nutrition related lab values Etiology dehydration, endocrine dysfunction Signs/Symptoms: Cl 110, BUN 78, glucose 392, POC 304-423 1. Problem Problem Increased nutrient needs Etiology metabolic stress Signs/Symptoms: dx of sepsis and pneumonia Malnutrition Related to Morbid Obesity Malnutrition related to morbid obesity No Intervention/Recommendation Comments 1. Monitor NPO status and advance diet when medically appropriate 2. Consider alternative nutrition route if pt unable to tolerate PO intake 3. Monitor wt, nutrition related labs, and skin integrity 4. F/U as high risk in 2-3 days, 12/27- Expected Outcomes/Goals Expected Outcomes/Goals 1. Pt to start oral intake or alternate nutrition route if necessary 2. Wt stability, skin to remain intact, nutrition related labs to approach normal limits Reveiwed by Yesenia Jennings RD
[2017-12-28] MEDS: Morphine Sulfate 2 mg/mL 1mL Syr IVP PRN (10:58)
[2017-12-28] MEDS: Azithromycin 500 MG in Sodium Chloride 0.9% 250 ML IV SCH (22:45)
[2017-12-29] MEDS: INSULIN ASPART SLIDING SCALE 100 UNITS/ML UNIT SUBQ SCH ×4 (01:00→17:32)
[2017-12-29] MEDS: Piperacillin/Tazobact 2.25 gm in 0.9% NS 50 ML IV SCH ×4 (02:10→20:57)
[2017-12-29] MEDS: Albuterol/Ipratropium Neb 3 ML AERS HHN SCH ×6 (03:00→23:20)
[2017-12-29 05:15] LABS: % BASOPHILS 0.6 % (0.0-2.0); % EOSINOPHILS 0.5 % (0.0-5.0); % LYMPHOCYTES 11.4 % (20.0-50.0); % MONOCYTES 6.7 % (2.0-10.0); % NEUTROPHILS 80.8 % (40.0-80.0); BASOPHILE ABSOLUTE 0.1 Th/cumm (0-0.2); EOSINOPHILE ABSOLUTE 0.1 Th/cmm (0.1-0.4); HEMATOCRIT 27.4 % (41.0-60); HEMOGLOBIN 9.2 gm/dL (12-16); LYMPHOCYTE ABSOLUTE 1.9 Th/cmm (1.5-3.0); MEAN CELL VOLUME 88.9 fl (81-100); MEAN CORPUSCULAR HEMOGLOBIN 29.8 pg (27.0-31.0); MEAN CORPUSCULAR HGB CONC 33.5 pg (28.0-36.0); MEAN PLATELET VOLUME 9.1 fl; MONOCYTE ABSOLUTE 1.1 Th/cmm (0.3-1.0); NEUTROPHILE ABSOLUTE 13.5 Th/cmm (1.8-8.0); PLATELET COUNT 195 Th/cmm (150-400); RED BLOOD COUNT 3.09 Mil/cmm (3.80-5.20); RED CELL DISTRIBUTION WIDTH 13.4 % (11.5-20.0)
[2017-12-29 05:16] LABS: WHITE BLOOD COUNT 16.7 Th/cmm (4.8-10.8)
[2017-12-29] MEDS: D5-0.45NS 1,000 ML IV SCH (05:41)
[2017-12-29 07:09] LABS: ANION GAP 13.5 (7.0-16.0); BUN - UREA NITROGEN 37 mg/dL (7-25); CALCIUM SERUM 8.1 mg/dL (8.6-10.3); CARBON DIOXIDE 20.1 mEq/L (21.0-31.0); CHLORIDE 116 mEq/L (98-107); CREATININE - SERUM 1.6 mg/dL (0.6-1.2); GLUCOSE 288 mg/dL (70-105); PHOSPHOROUS 2.8 mg/dL (2.5-5.0); POTASSIUM SERUM 3.6 mEq/L (3.5-5.1); SODIUM SERUM 146 mEq/L (136-145)
--- NOTE | 2017-12-29 07:44 | GI Progress Note ---
Subjective - Review of Systems Service Date: 12/29/17 Subjective: No new events, had BM yesterday with enema Objective - Results Result Diagrams: 12/29/17 04:35 12/29/17 04:35 Recent Labs: Laboratory Last Values WBC 16.7 Th/cmm (4.8-10.8) H 12/29/17 04:35 RBC 3.09 Mil/cmm (3.80-5.20) L 12/29/17 04:35 Hgb 9.2 gm/dL (12-16) L 12/29/17 04:35 Hct 27.4 % (41.0-60) L 12/29/17 04:35 MCV 88.9 fl (81-100) 12/29/17 04:35 MCH 29.8 pg (27.0-31.0) 12/29/17 04:35 MCHC Differential 33.5 pg (28.0-36.0) 12/29/17 04:35 RDW 13.4 % (11.5-20.0) 12/29/17 04:35 Plt Count 195 Th/cmm (150-400) 12/29/17 04:35 MPV 9.1 fl 12/29/17 04:35 Add Manual Diff YES 12/27/17 06:10 Neutrophils % 80.8 % (40.0-80.0) H 12/29/17 04:35 Band Neutrophils % 5 % (0-10) 12/26/17 04:45 Lymphocytes % 11.4 % (20.0-50.0) L 12/29/17 04:35 Monocytes % 6.7 % (2.0-10.0) 12/29/17 04:35 Eosinophils % 0.5 % (0.0-5.0) 12/29/17 04:35 Basophils % 0.6 % (0.0-2.0) 12/29/17 04:35 Neutrophils (Manual) 75 % (40-80) 12/27/17 06:10 Lymphocytes 19 % (20-50) L 12/27/17 06:10 Monocytes 6 % (2-10) 12/27/17 06:10 Eosinophils 3 % (0-5) 12/26/17 04:45 Basophils 1 % (0-3) 12/26/17 04:45 Platelet Estimate ADEQUATE (NORMAL) 12/27/17 06:10 Anisocytosis 1+ 12/27/17 06:10 PT 10.6 SECONDS (9.5-11.5) 12/26/17 04:45 INR 1.02 (0.5-1.4) 12/26/17 04:45 PTT (Actin FS) 22.1 SECONDS (26.0-38.0) L 12/24/17 19:40 Specimen Source Arterial 12/27/17 17:39 Sample Site Right Radial 12/27/17 17:39 pH 7.36 (7.35-7.45) 12/27/17 17:39 pCO2 41.0 mmHg (35.0-45.0) 12/27/17 17:39 pO2 227.0 mmHg (80.0-100.0) H 12/27/17 17:39 HCO3 23.3 mEq/L (20.0-26.0) 12/27/17 17:39 Base Excess -2.2 mEq/L (-3.0-3.0) 12/27/17 17:39 O2 Saturation 100.0 % (92.0-100.0) 12/27/17 17:39 Pradeep Test Positive 12/27/17 17:39 Vent Rate 18 12/27/17 17:39 Inspired O2 100 12/27/17 17:39 Tidal Volume 450 12/27/17 17:39 PEEP 5 12/27/17 17:39 Pressure (ins/psv/peep) NA 12/27/17 17:39 Critical Value SC 12/27/17 17:39 Sodium 146 mEq/L (136-145) H 12/29/17 04:35 Potassium 3.6 mEq/L (3.5-5.1) 12/29/17 04:35 Chloride 116 mEq/L (98-107) H 12/29/17 04:35 Carbon Dioxide 20.1 mEq/L (21.0-31.0) L 12/29/17 04:35 Anion Gap 13.5 (7.0-16.0) 12/29/17 04:35 BUN 37 mg/dL (7-25) H 12/29/17 04:35 Creatinine 1.6 mg/dL (0.6-1.2) H 12/29/17 04:35 Est GFR ( Amer) TNP 12/29/17 04:35 Est GFR (Non-Af Amer) TNP 12/29/17 04:35 BUN/Creatinine Ratio 23.1 12/29/17 04:35 Glucose 288 mg/dL (70-105) H 12/29/17 04:35 POC Glucose 269 MG/DL (70 - 105) H 12/29/17 06:38 Whole Bld Lactic Acid 2.46 mmol/L (0.60-1.99) H* 12/25/17 10:07 Calcium 8.1 mg/dL (8.6-10.3) L 12/29/17 04:35 Phosphorus 2.8 mg/dL (2.5-5.0) 12/29/17 04:35 Magnesium 2.2 mg/dL (1.9-2.7) 12/26/17 04:45 Total Bilirubin 0.5 mg/dL (0.3-1.0) 12/28/17 04:05 AST 35 U/L (13-39) 12/28/17 04:05 ALT 13 U/L (7-52) 12/28/17 04:05 Alkaline Phosphatase 63 U/L (34-104) 12/28/17 04:05 Total Protein 4.7 gm/dL (6.0-8.3) L 12/28/17 04:05 Albumin 2.5 gm/dL (3.7-5.3) L 12/28/17 04:05 Globulin 2.2 gm/dL 12/28/17 04:05 Albumin/Globulin Ratio 1.1 (1.0-1.8) 12/28/17 04:05 Triglycerides 126 mg/dL (<150) 12/25/17 04:10 Cholesterol 124 mg/dL (<200) 12/25/17 04:10 LDL Cholesterol Direct 84 mg/dL (75-193) 12/25/17 04:10 HDL Cholesterol 30 mg/dL (23-92) 12/25/17 04:10 TSH 0.75 uIU/ml (0.34-5.60) 12/25/17 04:10 Helicobacter pylori Ab NEGATIVE (NEGATIVE) 12/26/17 08:35 Blood Type O POSITIVE 12/24/17 19:40 Antibody Screen NEGATIVE 12/24/17 19:40 Crossmatch See Detail 12/24/17 19:40 - Physical Exam Vitals and I&O: Vital Signs Temp 98.4 F 12/29/17 06:00 Pulse 91 12/29/17 07:09 Resp 22 12/29/17 06:00 BP 161/69 12/29/17 06:00 Pulse Ox 98 12/29/17 07:09 Intake & Output 12/28/17 12/29/17 12/29/17 18:59 06:59 18:59 Intake Total 289.562 8024.333 510 Output Total 400 250 Balance 039.666 6613.333 260 Weight (lbs) 68.294 kg 75.342 kg Intake: Intake, IV Amount 598.137 5781.333 Azithromycin 500 mg In 250 Sodium Chloride 0.9% 250 ml @ 250 mls/hr IV Q24HR [facility] Rx#:[id number] D5-0.45NS 1,000 ml @ 50 184.167 963.333 mls/hr IV .Q20H [facility] Rx#: [id number] Pantoprazole 80 mg In 13.833 Sodium Chloride 0.9% 100 ml @ 10 mls/hr IV Q10H [facility] Rx#:[id number] Piperacillin Sodium/ 100 50 Tazobact 2.25 gm In Sodium Chloride 0.9% 50 ml @ 100 mls/hr IV Q6H [facility] Rx#:[id number] Vancomycin HCl 1 gm In 250 Sodium Chloride 0.9% 250 ml @ 165 mls/hr IV Q24H [facility] Rx#:[id number] Tube Feeding 160 360 Other 250 150 Output: Urine 400 250 Other: # Bowel Movements 1 0 Stool Characteristics Soft Liquid Weight Source Bedscale Bedscale Active Medications: Current Medications Acetaminophen (Tylenol) 650 mg PO Q4HR PRN PRN Reason: MILD PAIN 1-3 Stop: 02/23/18 17:58 Acetaminophen (Tylenol) 650 mg PO Q4HR PRN PRN Reason: TEMP >100.4 Stop: 02/23/18 17:58 Acetylcysteine (Mucomyst 20%) 3 ml HHN Q4HRT [facility] Stop: 02/25/18 14:59 Last Admin: 12/29/17 07:09 Dose: 3 ml Albuterol/Ipratropium (Duoneb Neb) 3 ml HHN Q4HRT [facility] Stop: 02/24/18 14:59 Last Admin: 12/29/17 07:09 Dose: 3 ml Amlodipine Besylate (Norvasc) 5 mg PO DAILY [facility] Stop: 02/24/18 08:59 Last Admin: 12/28/17 08:11 Dose: 5 mg Ascorbic Acid (Vitamin C) 500 mg PO DAILY [facility] Stop: 02/24/18 08:59 Last Admin: 12/28/17 08:11 Dose: 500 mg Bisacodyl (Dulcolax 10 Mg Supp) 10 mg RC DAILY PRN PRN Reason: IF MOM INEFFECTIVE Stop: 02/23/18 17:58 Chlorhexidine Gluconate (Peridex) 15 ml MM 0800,2000 [facility] Stop: 02/25/18 19:59 Last Admin: 12/28/17 20:39 Dose: 15 ml Azithromycin 500 mg/ Sodium (Chloride) 250 mls @ 250 mls/hr IV Q24HR [facility] Stop: 02/22/18 22:29 Last Infusion: 12/28/17 23:45 Dose: Infused Dextrose/Sodium Chloride (D5-0.45ns) 1,000 mls @ 50 mls/hr IV .Q20H [facility] Stop: 02/24/18 17:29 Last Admin: 12/29/17 05:41 Dose: 50 mls/hr Diltiazem HCl 125 mg/ Dextrose 100 mls @ 0 mls/hr IV Q8H PRN; Protocol PRN Reason: blood pressure Stop: 02/25/18 07:48 Last Admin: 12/27/17 09:00 Dose: 6.25 mg/hr, 5 mls/hr Vancomycin HCl 1 gm/ Sodium (Chloride) 250 mls @ 165 mls/hr IV Q24H [facility] Stop: 02/25/18 09:59 Last Infusion: 12/28/17 12:00 Dose: Infused Piperacillin Sod/Tazobactam (Sod 2.25 gm/ Sodium Chloride) 50 mls @ 100 mls/hr IV Q6H [facility] Stop: 02/25/18 13:59 Last Admin: 12/29/17 02:10 Dose: 100 mls/hr Insulin Aspart (Novolog Insulin Sliding Scale) 0 units SUBQ Q6HR [facility]; Protocol Stop: 02/23/18 01:14 Last Admin: 12/29/17 06:48 Dose: 7 units Lactobacillus Rhamnosus (Culturelle 15b) 1 each PO DAILY [facility] Stop: 02/24/18 08:59 Last Admin: 12/28/17 08:11 Dose: 1 each Lorazepam (Ativan) 1 mg IVP Q4HR PRN; Protocol PRN Reason: Agitation Stop: 02/25/18 07:12 Last Admin: 12/28/17 08:29 Dose: 1 mg Miscellaneous (Probiotic Screen) 1 ea PRN PRN PRN Reason: PROTOCOL Stop: 02/23/18 15:29 Miscellaneous (Vancomycin Iv Per Pharmacy) 1 ea [facility] PRN [facility] Stop: 02/24/18 23:44 Miscellaneous (Zosyn Iv Per Pharmacy) 1 ea PRN PRN PRN Reason: PROTOCOL Stop: 02/25/18 12:03 Morphine Sulfate (Morphine) 1 mg IVP Q4HR PRN PRN Reason: Pain (Moderate) Stop: 02/23/18 10:04 Last Admin: 12/28/17 10:58 Dose: 1 mg Mupirocin (Bactroban Oint) 1 appl NS BID [facility] Stop: 12/31/17 17:01 Last Admin: 12/28/17 16:22 Dose: 1 appl Pantoprazole Sodium (Protonix) 40 mg IVP BID [facility] Stop: 02/26/18 08:59 Last Admin: 12/28/17 16:20 Dose: 40 mg Polyethylene Glycol (Miralax) 17 gm PO BID [facility] Stop: 02/26/18 08:59 Last Admin: 12/28/17 16:20 Dose: 17 gm General: Alert HEENT: Atraumatic Neck: Supple Cardiovascular: no Regular rate Abdomen: Bowel sounds, Soft, no Tender, no Hepatomegaly, no Splenomegaly, no Distended, no Rebound Assessment/Plan - Problem List Patient Problems: All Active Problems COFFEE GROUND EMESIS (Acute) - Assessment Assessment: # Coffee ground emesis # hiatal hernia # Pneumonia # Severe sepsis # Fecal impaction EGD on 12/26 showed 7cm hiatal hernia, with evidence of mucosal tear there from previous NG tube insertion attempts. 2 clips placed to this area. With some difficulty, an NG tube was endoscopically placed into the stomach. No stomach ulcer or mass. Now intubated, but no longer having GI bleed. Fecal impaction noted on KUB. Plan: - start NG tube feeding with glucerna, titrate up to goal slowly - change ppi drip to bid - tap water enema q 12, and miralax bid po - cont IVF - cont Abx - can consider G tube insertion in the future. Can do this next week while she is intubated - KATIB
[2017-12-29 07:55] LABS: pH 7.46 (7.35-7.45)
[2017-12-29] MEDS: POLYETHYLENE GLYCOL 3350 17 GM PACK PO SCH ×2 (08:42→17:29)
[2017-12-29] MEDS: Lactobacillus Rhamnosus GG 15 Billion CFU CAP.SPRINK PO SCH (08:42)
[2017-12-29] MEDS: Chlorhexidine Gluconate 0.12% 15mL Mouthwash MM SCH ×2 (08:43→21:00)
--- NOTE | 2017-12-29 09:28 | Diagnostic Imaging Report ---
Exam: KUB of the abdomen HISTORY constipation Findings: 2 views of the abdomen reviewed. The study demonstrates nonspecific bowel gas pattern. There is evidence for fecal impaction in the rectum.. Severe deformity of the lower lumbar spine appreciated. NG tube is in stomach. IMPRESSION: Nonspecific bowel gas pattern. Large amount of fecal content in the rectum.
--- NOTE | 2017-12-29 09:30 | Diagnostic Imaging Report ---
Exam: Chest x-ray HISTORY shortness of breath. COMPARISON: 12/28 2017 Findings: Frontal examination of the chest was reviewed compared to prior study the early demonstrates left lower lobe pneumonia. The costophrenic angles are clear bony thorax intact. Endotracheal tube NG tube unchanged position. The aortic arch calcified. Bony thorax is intact. IMPRESSION: Mild left basilar infiltrate.
--- NOTE | 2017-12-29 16:01 | Progress Notes ---
DATE: 12/29/2017 SUBJECTIVE: The patient was seen in ICU. The patient is currently orally intubated. The patient is asleep, easily arousable. Otherwise, the patient appears to be in no acute distress. OBJECTIVE: VITAL SIGNS: Temperature 97.3, heart rate of 93, blood pressure 122/56, 97% oxygen saturation, respiration of 20. HEENT: Head is atraumatic and normocephalic. Eyes: Bilateral conjunctivae are clear, but pupils are equally round and reactive. NECK: Supple. No JVD. CARDIOVASCULAR: S1 and S2, without murmur. PULMONARY: Decreased breath sounds with fine scattered rhonchi. GASTROINTESTINAL: Soft and nontender without guarding. Hypoactive bowel sounds. MUSCULOSKELETAL: No clubbing. No cyanosis. Positive muscle weakness. ASSESSMENT: 1. Sepsis. 2. Pneumonia. 3. Hiatal hernia. 4. Status post EGD. PLAN: We will continue current antibiotics. We will try to wean off patient from ventilator. The patient may be a good candidate for G-tube insertion. Treatment plans were discussed with the patient's nurse. Treatment plans were discussed with Dr. Mcallister. JOB# [id number]
--- NOTE | 2017-12-29 16:12 | Infectious Disease Prog Note ---
Infectious Disease Subjective - Review of Systems Service Date: 12/29/17 Events since last encounter: Patient was very congested and her saturation was dropping. She went into respiratory failure and intubated orally, and put on ventilator day before yesterday. Subjective: NO fever. Infectious Disease Objective - Results Result Diagrams: 12/29/17 04:35 12/29/17 04:35 Recent Labs: Laboratory Last Values WBC 16.7 Th/cmm (4.8-10.8) H 12/29/17 04:35 RBC 3.09 Mil/cmm (3.80-5.20) L 12/29/17 04:35 Hgb 9.2 gm/dL (12-16) L 12/29/17 04:35 Hct 27.4 % (41.0-60) L 12/29/17 04:35 MCV 88.9 fl (81-100) 12/29/17 04:35 MCH 29.8 pg (27.0-31.0) 12/29/17 04:35 MCHC Differential 33.5 pg (28.0-36.0) 12/29/17 04:35 RDW 13.4 % (11.5-20.0) 12/29/17 04:35 Plt Count 195 Th/cmm (150-400) 12/29/17 04:35 MPV 9.1 fl 12/29/17 04:35 Add Manual Diff YES 12/27/17 06:10 Neutrophils % 80.8 % (40.0-80.0) H 12/29/17 04:35 Band Neutrophils % 5 % (0-10) 12/26/17 04:45 Lymphocytes % 11.4 % (20.0-50.0) L 12/29/17 04:35 Monocytes % 6.7 % (2.0-10.0) 12/29/17 04:35 Eosinophils % 0.5 % (0.0-5.0) 12/29/17 04:35 Basophils % 0.6 % (0.0-2.0) 12/29/17 04:35 Neutrophils (Manual) 75 % (40-80) 12/27/17 06:10 Lymphocytes 19 % (20-50) L 12/27/17 06:10 Monocytes 6 % (2-10) 12/27/17 06:10 Eosinophils 3 % (0-5) 12/26/17 04:45 Basophils 1 % (0-3) 12/26/17 04:45 Platelet Estimate ADEQUATE (NORMAL) 12/27/17 06:10 Anisocytosis 1+ 12/27/17 06:10 PT 10.6 SECONDS (9.5-11.5) 12/26/17 04:45 INR 1.02 (0.5-1.4) 12/26/17 04:45 PTT (Actin FS) 22.1 SECONDS (26.0-38.0) L 12/24/17 19:40 Specimen Source Arterial 12/29/17 07:35 Sample Site RB 12/29/17 07:35 pH 7.46 (7.35-7.45) H 12/29/17 07:35 pCO2 34.0 mmHg (35.0-45.0) L 12/29/17 07:35 pO2 62.0 mmHg (80.0-100.0) L 12/29/17 07:35 HCO3 25.5 mEq/L (20.0-26.0) 12/29/17 07:35 Base Excess 0.8 mEq/L (-3.0-3.0) 12/29/17 07:35 O2 Saturation 93.0 % (92.0-100.0) 12/29/17 07:35 Pradeep Test N/A 12/29/17 07:35 Vent Rate 18 12/29/17 07:35 Inspired O2 28 12/29/17 07:35 Tidal Volume 450 12/29/17 07:35 PEEP 5 12/29/17 07:35 Pressure (ins/psv/peep) N/A 12/29/17 07:35 Critical Value DM 12/29/17 07:35 Sodium 146 mEq/L (136-145) H 12/29/17 04:35 Potassium 3.6 mEq/L (3.5-5.1) 12/29/17 04:35 Chloride 116 mEq/L (98-107) H 12/29/17 04:35 Carbon Dioxide 20.1 mEq/L (21.0-31.0) L 12/29/17 04:35 Anion Gap 13.5 (7.0-16.0) 12/29/17 04:35 BUN 37 mg/dL (7-25) H 12/29/17 04:35 Creatinine 1.6 mg/dL (0.6-1.2) H 12/29/17 04:35 Est GFR ( Amer) TNP 12/29/17 04:35 Est GFR (Non-Af Amer) TNP 12/29/17 04:35 BUN/Creatinine Ratio 23.1 12/29/17 04:35 Glucose 288 mg/dL (70-105) H 12/29/17 04:35 POC Glucose 260 MG/DL (70 - 105) H 12/29/17 11:49 Whole Bld Lactic Acid 2.46 mmol/L (0.60-1.99) H* 12/25/17 10:07 Calcium 8.1 mg/dL (8.6-10.3) L 12/29/17 04:35 Phosphorus 2.8 mg/dL (2.5-5.0) 12/29/17 04:35 Magnesium 2.2 mg/dL (1.9-2.7) 12/26/17 04:45 Total Bilirubin 0.5 mg/dL (0.3-1.0) 12/28/17 04:05 AST 35 U/L (13-39) 12/28/17 04:05 ALT 13 U/L (7-52) 12/28/17 04:05 Alkaline Phosphatase 63 U/L (34-104) 12/28/17 04:05 Total Protein 4.7 gm/dL (6.0-8.3) L 12/28/17 04:05 Albumin 2.5 gm/dL (3.7-5.3) L 12/28/17 04:05 Globulin 2.2 gm/dL 12/28/17 04:05 Albumin/Globulin Ratio 1.1 (1.0-1.8) 12/28/17 04:05 Triglycerides 126 mg/dL (<150) 12/25/17 04:10 Cholesterol 124 mg/dL (<200) 12/25/17 04:10 LDL Cholesterol Direct 84 mg/dL (75-193) 12/25/17 04:10 HDL Cholesterol 30 mg/dL (23-92) 12/25/17 04:10 TSH 0.75 uIU/ml (0.34-5.60) 12/25/17 04:10 Vancomycin Trough 19.0 ug/mL (5-10) H 12/29/17 10:16 Helicobacter pylori Ab NEGATIVE (NEGATIVE) 12/26/17 08:35 Blood Type O POSITIVE 12/24/17 19:40 Antibody Screen NEGATIVE 12/24/17 19:40 Crossmatch See Detail 12/24/17 19:40 - Physical Exam Vitals and I&O: Vital Signs Temp 98.2 F 12/29/17 14:00 Pulse 100 12/29/17 15:51 Resp 24 12/29/17 15:00 BP 161/67 12/29/17 15:00 Pulse Ox 99 12/29/17 15:35 Intake & Output 12/28/17 12/29/17 12/29/17 18:59 06:59 18:59 Intake Total 724.067 6689.333 610 Output Total 400 250 Balance 208.180 5501.333 360 Weight (lbs) 68.294 kg 75.342 kg Intake: Intake, IV Amount 881.603 3507.333 100 Azithromycin 500 mg In 250 Sodium Chloride 0.9% 250 ml @ 250 mls/hr IV Q24HR [facility] Rx#:[id number] D5-0.45NS 1,000 ml @ 50 184.167 963.333 mls/hr IV .Q20H [facility] Rx#: [id number] Pantoprazole 80 mg In 13.833 Sodium Chloride 0.9% 100 ml @ 10 mls/hr IV Q10H [facility] Rx#:[id number] Piperacillin Sodium/ 100 100 100 Tazobact 2.25 gm In Sodium Chloride 0.9% 50 ml @ 100 mls/hr IV Q6H [facility] Rx#:[id number] Vancomycin HCl 1 gm In 250 Sodium Chloride 0.9% 250 ml @ 165 mls/hr IV Q24H [facility] Rx#:[id number] Tube Feeding 160 360 Other 250 150 Output: Urine 400 250 Other: # Bowel Movements 1 0 Stool Characteristics Soft Liquid Weight Source Bedscale Bedscale Active Medications: Current Medications Acetaminophen (Tylenol) 650 mg PO Q4HR PRN PRN Reason: MILD PAIN 1-3 Stop: 02/23/18 17:58 Acetaminophen (Tylenol) 650 mg PO Q4HR PRN PRN Reason: TEMP >100.4 Stop: 02/23/18 17:58 Acetylcysteine (Mucomyst 20%) 3 ml HHN Q4HRT [facility] Stop: 02/25/18 14:59 Last Admin: 12/29/17 15:35 Dose: 3 ml Albuterol/Ipratropium (Duoneb Neb) 3 ml HHN Q4HRT [facility] Stop: 02/24/18 14:59 Last Admin: 12/29/17 15:35 Dose: 3 ml Amlodipine Besylate (Norvasc) 5 mg PO DAILY [facility] Stop: 02/24/18 08:59 Last Admin: 12/29/17 08:42 Dose: 5 mg Ascorbic Acid (Vitamin C) 500 mg PO DAILY [facility] Stop: 02/24/18 08:59 Last Admin: 12/29/17 08:42 Dose: 500 mg Bisacodyl (Dulcolax 10 Mg Supp) 10 mg RC DAILY PRN PRN Reason: IF MOM INEFFECTIVE Stop: 02/23/18 17:58 Chlorhexidine Gluconate (Peridex) 15 ml MM 0800,2000 [facility] Stop: 02/25/18 19:59 Last Admin: 12/29/17 08:43 Dose: 15 ml Azithromycin 500 mg/ Sodium (Chloride) 250 mls @ 250 mls/hr IV Q24HR [facility] Stop: 02/22/18 22:29 Last Infusion: 12/28/17 23:45 Dose: Infused Dextrose/Sodium Chloride (D5-0.45ns) 1,000 mls @ 50 mls/hr IV .Q20H [facility] Stop: 02/24/18 17:29 Last Admin: 12/29/17 05:41 Dose: 50 mls/hr Diltiazem HCl 125 mg/ Dextrose 100 mls @ 0 mls/hr IV Q8H PRN; Protocol PRN Reason: blood pressure Stop: 02/25/18 07:48 Last Admin: 12/27/17 09:00 Dose: 6.25 mg/hr, 5 mls/hr Piperacillin Sod/Tazobactam (Sod 2.25 gm/ Sodium Chloride) 50 mls @ 100 mls/hr IV Q6H [facility] Stop: 02/25/18 13:59 Last Infusion: 12/29/17 14:30 Dose: Infused Vancomycin HCl 0.75 gm/ Sodium (Chloride) 250 mls @ 165 mls/hr IV Q24H [facility] Stop: 02/28/18 09:59 Insulin Aspart (Novolog Insulin Sliding Scale) 0 units SUBQ Q6HR [facility]; Protocol Stop: 02/23/18 01:14 Last Admin: 12/29/17 12:31 Dose: 7 units Lactobacillus Rhamnosus (Culturelle 15b) 1 each PO DAILY [facility] Stop: 02/24/18 08:59 Last Admin: 12/29/17 08:42 Dose: 1 each Lorazepam (Ativan) 1 mg IVP Q4HR PRN; Protocol PRN Reason: Agitation Stop: 02/25/18 07:12 Last Admin: 12/28/17 08:29 Dose: 1 mg Miscellaneous (Probiotic Screen) 1 ea PRN PRN PRN Reason: PROTOCOL Stop: 02/23/18 15:29 Miscellaneous (Vancomycin Iv Per Pharmacy) 1 ea PRN [facility] Stop: 02/24/18 23:44 Miscellaneous (Zosyn Iv Per Pharmacy) 1 ea PRN PRN PRN Reason: PROTOCOL Stop: 02/25/18 12:03 Morphine Sulfate (Morphine) 1 mg IVP Q4HR PRN PRN Reason: Pain (Moderate) Stop: 02/23/18 10:04 Last Admin: 12/28/17 10:58 Dose: 1 mg Mupirocin (Bactroban Oint) 1 appl NS BID [facility] Stop: 12/31/17 17:01 Last Admin: 12/29/17 09:00 Dose: 1 appl Pantoprazole Sodium (Protonix) 40 mg IVP BID [facility] Stop: 02/26/18 08:59 Last Admin: 12/29/17 08:42 Dose: 40 mg Polyethylene Glycol (Miralax) 17 gm PO BID [facility] Stop: 02/26/18 08:59 Last Admin: 12/29/17 08:42 Dose: 17 gm General: no acute distress, well developed, well nourished, other (Intubated orally. on the ventilator support.) HEENT: atraumatic, normocephalic, PERRLA, EOMI Neck: supple, no thyromegaly Cardiovascular: S1S2, regular Lungs: clear to auscultation bilaterally, clear to percussion Abdomen: soft, no tender, no distended Extremities: no cyanosis, no clubbing, no edema Neurological: other (confused) Skin: intact Infectious Disease Assmt/Plan - Problem List Patient Problems: All Active Problems COFFEE GROUND EMESIS (Acute) - Assessment Assessment: 1. Severe sepsis. 2. Pneumonia. 3. Fecal impaction. 4. Gallbladder stone at bladder neck. 5. Diabetes mellitus type 2. 6. Hypertension. 7. Dementia. 8. Anemia. 9. Large hiatal hernia. 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 11. GI bleed 2/2 PUD. 12. SVT 12. VDRF. - Plan Plan: Continue zosyn and dc zithromax. Continue vancomycin IV Bactroban nasal ointment. Nutritional Asmnt/Malnutr-PDOC - Dietary Evaluation Malnutrition Findings (Please click <Entered> for more info): Nutritional Asmnt/Malnutrition Start: 12/25/17 15: 21 Text: Status: Complete Freq: Protocol: Document 12/25/17 15:22 ESTIVENBRITANY (Rec: 12/25/17 15:44 [email or web address] [email or web address]) Nutritional Asmnt/Malnutrition Patient General Information Nutritional Screening High Risk Diagnosis sepsis, dehydration, pneumonia Pertinent Medical Hx/Surgical Hx HTN, DM, dyslipidemia, dementia, anemia, muscle weakness Subjective Information Pt receiving care from RN at time of visit. Per nurse notes , pt had coffee ground emesis, NGT was unable to be inserted d/t large retro cardiac hiatal hernia, and will have EGD tomorrow. Spoke w/ BELA Duran by phone who verfied the nurse notes and states pt will continue to be NPO. Current Diet Order/ Nutrition Support NPO Pertinent Medications D5-0.45ns, novolog, culturelle , pantoprazole Pertinent Labs 12/25: glucose 392, Na 144, Cl 110, BUN 78, Alb 2.9, POC 304 -423 12/24: glucose 547, Na 134, Cl 97, BUN 69, Alb 3.0, POC 441- 485 Nutritional Hx/Data Height 1.63 m Height (Calculated Centimeters) 162.6 Current Weight (lbs) 64.682 kg Weight (Calculated Kilograms) 64.7 Weight (Calculated Grams) 52636.3 [place] Body Weight 120 lb Body Mass Index (BMI) 24.5 Weight Status Approriate GI Symptoms GI Symptoms Nausea Vomitting Last BM none noted Difficult in: None Food Allergies No Skin Integrity/Comment: intact, pasquale 13 Current %PO Negligible < 25% Estimated Nutritional Goals BEE in Kcals: Using Current wt Calories/Kcals/Kg 30-35 Kcals Calculated 5881-0976 Protein: Using Current wt Protein g/k.2-1.5 Protein Calculated 78-97 g Fluid: ml per MD Nutritional Problem 2. Problem Problem Altered nutrition related lab values Etiology dehydration, endocrine dysfunction Signs/Symptoms: Cl 110, BUN 78, glucose 392, POC 304-423 1. Problem Problem Increased nutrient needs Etiology metabolic stress Signs/Symptoms: dx of sepsis and pneumonia Malnutrition Related to Morbid Obesity Malnutrition related to morbid obesity No Intervention/Recommendation Comments 1. Monitor NPO status and advance diet when medically appropriate 2. Consider alternative nutrition route if pt unable to tolerate PO intake 3. Monitor wt, nutrition related labs, and skin integrity 4. F/U as high risk in 2-3 days, 12/27- Expected Outcomes/Goals Expected Outcomes/Goals 1. Pt to start oral intake or alternate nutrition route if necessary 2. Wt stability, skin to remain intact, nutrition related labs to approach normal limits Reveiwed by Yesenia Jennings RD
[2017-12-29] MEDS: Azithromycin 500 MG in Sodium Chloride 0.9% 250 ML IV SCH (22:31)
[2017-12-30] MEDS: INSULIN ASPART SLIDING SCALE 100 UNITS/ML UNIT SUBQ SCH ×5 (00:14→23:53)
[2017-12-30] MEDS: Piperacillin/Tazobact 2.25 gm in 0.9% NS 50 ML IV SCH ×4 (01:59→20:00)
[2017-12-30] MEDS: Albuterol/Ipratropium Neb 3 ML AERS HHN SCH ×6 (02:16→23:01)
[2017-12-30] MEDS: D5-0.45NS 1,000 ML IV SCH (06:14)
[2017-12-30 07:50] LABS: % BASOPHILS 0.8 % (0.0-2.0); % EOSINOPHILS 1.1 % (0.0-5.0); % LYMPHOCYTES 12.2 % (20.0-50.0); % MONOCYTES 4.7 % (2.0-10.0); % NEUTROPHILS 81.2 % (40.0-80.0); BASOPHILE ABSOLUTE 0.1 Th/cumm (0-0.2); EOSINOPHILE ABSOLUTE 0.2 Th/cmm (0.1-0.4); HEMATOCRIT 25.8 % (41.0-60); HEMOGLOBIN 8.5 gm/dL (12-16); LYMPHOCYTE ABSOLUTE 1.9 Th/cmm (1.5-3.0); MEAN CELL VOLUME 87.6 fl (81-100); MEAN CORPUSCULAR HEMOGLOBIN 28.8 pg (27.0-31.0); MEAN CORPUSCULAR HGB CONC 32.9 pg (28.0-36.0); MEAN PLATELET VOLUME 8.9 fl; MONOCYTE ABSOLUTE 0.7 Th/cmm (0.3-1.0); NEUTROPHILE ABSOLUTE 12.3 Th/cmm (1.8-8.0); PLATELET COUNT 170 Th/cmm (150-400); RED BLOOD COUNT 2.94 Mil/cmm (3.80-5.20); RED CELL DISTRIBUTION WIDTH 13.3 % (11.5-20.0)
[2017-12-30 08:05] LABS: WHITE BLOOD COUNT 15.2 Th/cmm (4.8-10.8)
[2017-12-30 08:19] LABS: ALB/GLOB RATIO 1.1 (1.0-1.8); ALBUMIN 2.3 gm/dL (3.7-5.3); ALKALINE PHOSPHATASE 70 U/L (34-104); ANION GAP 12.2 (7.0-16.0); BILIRUBIN,TOTAL 0.4 mg/dL (0.3-1.0); BUN - UREA NITROGEN 37 mg/dL (7-25); CALCIUM SERUM 7.7 mg/dL (8.6-10.3); CARBON DIOXIDE 20.9 mEq/L (21.0-31.0); CHLORIDE 116 mEq/L (98-107); CREATININE - SERUM 1.6 mg/dL (0.6-1.2); GLUCOSE 329 mg/dL (70-105); POTASSIUM SERUM 4.1 mEq/L (3.5-5.1); SGOT 11 U/L (13-39); SGPT/ALT 9 U/L (7-52); SODIUM SERUM 145 mEq/L (136-145); TOTAL PROTEIN,SERUM 4.4 gm/dL (6.0-8.3)
--- NOTE | 2017-12-30 08:24 | GI Progress Note ---
Subjective - Review of Systems Service Date: 12/30/17 Subjective: Large stool yesterday after enema, no bleeding Objective - Results Result Diagrams: 12/30/17 07:42 12/30/17 07:42 Recent Labs: Laboratory Last Values WBC 15.2 Th/cmm (4.8-10.8) H 12/30/17 07:42 RBC 2.94 Mil/cmm (3.80-5.20) L 12/30/17 07:42 Hgb 8.5 gm/dL (12-16) L 12/30/17 07:42 Hct 25.8 % (41.0-60) L 12/30/17 07:42 MCV 87.6 fl (81-100) 12/30/17 07:42 MCH 28.8 pg (27.0-31.0) 12/30/17 07:42 MCHC Differential 32.9 pg (28.0-36.0) 12/30/17 07:42 RDW 13.3 % (11.5-20.0) 12/30/17 07:42 Plt Count 170 Th/cmm (150-400) 12/30/17 07:42 MPV 8.9 fl 12/30/17 07:42 Add Manual Diff YES 12/27/17 06:10 Neutrophils % 81.2 % (40.0-80.0) H 12/30/17 07:42 Band Neutrophils % 5 % (0-10) 12/26/17 04:45 Lymphocytes % 12.2 % (20.0-50.0) L 12/30/17 07:42 Monocytes % 4.7 % (2.0-10.0) 12/30/17 07:42 Eosinophils % 1.1 % (0.0-5.0) 12/30/17 07:42 Basophils % 0.8 % (0.0-2.0) 12/30/17 07:42 Neutrophils (Manual) 75 % (40-80) 12/27/17 06:10 Lymphocytes 19 % (20-50) L 12/27/17 06:10 Monocytes 6 % (2-10) 12/27/17 06:10 Eosinophils 3 % (0-5) 12/26/17 04:45 Basophils 1 % (0-3) 12/26/17 04:45 Platelet Estimate ADEQUATE (NORMAL) 12/27/17 06:10 Anisocytosis 1+ 12/27/17 06:10 PT 10.6 SECONDS (9.5-11.5) 12/26/17 04:45 INR 1.02 (0.5-1.4) 12/26/17 04:45 PTT (Actin FS) 22.1 SECONDS (26.0-38.0) L 12/24/17 19:40 Specimen Source Arterial 12/29/17 07:35 Sample Site RB 12/29/17 07:35 pH 7.46 (7.35-7.45) H 12/29/17 07:35 pCO2 34.0 mmHg (35.0-45.0) L 12/29/17 07:35 pO2 62.0 mmHg (80.0-100.0) L 12/29/17 07:35 HCO3 25.5 mEq/L (20.0-26.0) 12/29/17 07:35 Base Excess 0.8 mEq/L (-3.0-3.0) 12/29/17 07:35 O2 Saturation 93.0 % (92.0-100.0) 12/29/17 07:35 Pradeep Test N/A 12/29/17 07:35 Vent Rate 18 12/29/17 07:35 Inspired O2 28 12/29/17 07:35 Tidal Volume 450 12/29/17 07:35 PEEP 5 12/29/17 07:35 Pressure (ins/psv/peep) N/A 12/29/17 07:35 Critical Value DM 12/29/17 07:35 Sodium 145 mEq/L (136-145) 12/30/17 07:42 Potassium 4.1 mEq/L (3.5-5.1) 12/30/17 07:42 Chloride 116 mEq/L (98-107) H 12/30/17 07:42 Carbon Dioxide 20.9 mEq/L (21.0-31.0) L 12/30/17 07:42 Anion Gap 12.2 (7.0-16.0) 12/30/17 07:42 BUN 37 mg/dL (7-25) H 12/30/17 07:42 Creatinine 1.6 mg/dL (0.6-1.2) H 12/30/17 07:42 Est GFR ( Amer) TNP 11/25/18 07:42 Est GFR (Non-Af Amer) TNP 12/30/17 07:42 BUN/Creatinine Ratio 23.1 12/30/17 07:42 Glucose 329 mg/dL (70-105) H 12/30/17 07:42 POC Glucose 311 MG/DL (70 - 105) H 12/30/17 06:06 Whole Bld Lactic Acid 2.46 mmol/L (0.60-1.99) H* 12/25/17 10:07 Calcium 7.7 mg/dL (8.6-10.3) L 12/30/17 07:42 Phosphorus 2.8 mg/dL (2.5-5.0) 12/29/17 04:35 Magnesium 2.2 mg/dL (1.9-2.7) 12/26/17 04:45 Total Bilirubin 0.4 mg/dL (0.3-1.0) 12/30/17 07:42 AST 11 U/L (13-39) L 12/30/17 07:42 ALT 9 U/L (7-52) 12/30/17 07:42 Alkaline Phosphatase 70 U/L (34-104) 12/30/17 07:42 B-Natriuretic Peptide 1250.0 pg/mL (5.0-100.0) H 12/30/17 07:42 Total Protein 4.4 gm/dL (6.0-8.3) L 12/30/17 07:42 Albumin 2.3 gm/dL (3.7-5.3) L 12/30/17 07:42 Globulin 2.1 gm/dL 12/30/17 07:42 Albumin/Globulin Ratio 1.1 (1.0-1.8) 12/30/17 07:42 Triglycerides 126 mg/dL (<150) 12/25/17 04:10 Cholesterol 124 mg/dL (<200) 12/25/17 04:10 LDL Cholesterol Direct 84 mg/dL (75-193) 12/25/17 04:10 HDL Cholesterol 30 mg/dL (23-92) 12/25/17 04:10 TSH 0.75 uIU/ml (0.34-5.60) 12/25/17 04:10 Vancomycin Trough 19.0 ug/mL (5-10) H 12/29/17 10:16 Helicobacter pylori Ab NEGATIVE (NEGATIVE) 12/26/17 08:35 Blood Type O POSITIVE 12/24/17 19:40 Antibody Screen NEGATIVE 12/24/17 19:40 Crossmatch See Detail 12/24/17 19:40 - Physical Exam Vitals and I&O: Vital Signs Temp 98.1 F 12/30/17 06:00 Pulse 78 12/30/17 06:58 Resp 18 12/30/17 06:00 BP 163/53 12/30/17 06:00 Pulse Ox 100 12/30/17 06:58 Intake & Output 12/29/17 12/30/17 12/30/17 18:59 06:59 18:59 Intake Total 1230 1900 Output Total 500 225 Balance 730 1675 Weight (lbs) 75.296 kg 75.523 kg Intake: Intake, IV Amount 100 1350 Azithromycin 500 mg In 250 Sodium Chloride 0.9% 250 ml @ 250 mls/hr IV Q24HR [facility] Rx#:[id number] D5-0.45NS 1,000 ml @ 50 1000 mls/hr IV .Q20H [facility] Rx#: [id number] Piperacillin Sodium/ 100 100 Tazobact 2.25 gm In Sodium Chloride 0.9% 50 ml @ 100 mls/hr IV Q6H [facility] Rx#:[id number] Tube Feeding 780 490 Other 350 60 Output: Urine 500 225 Other: # Bowel Movements 1 0 Stool Characteristics Hard Weight Source Bedscale Bedscale Active Medications: Current Medications Acetaminophen (Tylenol) 650 mg PO Q4HR PRN PRN Reason: MILD PAIN 1-3 Stop: 02/23/18 17:58 Acetaminophen (Tylenol) 650 mg PO Q4HR PRN PRN Reason: TEMP >100.4 Stop: 02/23/18 17:58 Acetylcysteine (Mucomyst 20%) 3 ml HHN Q4HRT [facility] Stop: 02/25/18 14:59 Last Admin: 12/30/17 06:57 Dose: 3 ml Albuterol/Ipratropium (Duoneb Neb) 3 ml HHN Q4HRT [facility] Stop: 02/24/18 14:59 Last Admin: 12/30/17 06:57 Dose: 3 ml Amlodipine Besylate (Norvasc) 5 mg PO DAILY [facility] Stop: 02/24/18 08:59 Last Admin: 12/29/17 08:42 Dose: 5 mg Ascorbic Acid (Vitamin C) 500 mg PO DAILY [facility] Stop: 02/24/18 08:59 Last Admin: 12/29/17 08:42 Dose: 500 mg Bisacodyl (Dulcolax 10 Mg Supp) 10 mg RC DAILY PRN PRN Reason: IF MOM INEFFECTIVE Stop: 02/23/18 17:58 Chlorhexidine Gluconate (Peridex) 15 ml MM 0800,1999 [facility] Stop: 02/25/18 19:59 Last Admin: 12/29/17 21:00 Dose: 15 ml Azithromycin 500 mg/ Sodium (Chloride) 250 mls @ 250 mls/hr IV Q24HR [facility] Stop: 02/22/18 22:29 Last Infusion: 12/29/17 23:36 Dose: Infused Dextrose/Sodium Chloride (D5-0.45ns) 1,000 mls @ 50 mls/hr IV .Q20H [facility] Stop: 02/24/18 17:29 Last Admin: 12/30/17 06:14 Dose: 50 mls/hr Diltiazem HCl 125 mg/ Dextrose 100 mls @ 0 mls/hr IV Q8H PRN; Protocol PRN Reason: blood pressure Stop: 02/25/18 07:48 Last Admin: 12/27/17 09:00 Dose: 6.25 mg/hr, 5 mls/hr Piperacillin Sod/Tazobactam (Sod 2.25 gm/ Sodium Chloride) 50 mls @ 100 mls/hr IV Q6H [facility] Stop: 02/25/18 13:59 Last Infusion: 12/30/17 02:30 Dose: Infused Vancomycin HCl 0.75 gm/ Sodium (Chloride) 250 mls @ 165 mls/hr IV Q24H [facility] Stop: 02/28/18 09:59 Insulin Aspart (Novolog Insulin Sliding Scale) 0 units SUBQ Q6HR [facility]; Protocol Stop: 02/23/18 01:14 Last Admin: 12/30/17 06:13 Dose: 9 units Lactobacillus Rhamnosus (Culturelle 15b) 1 each PO DAILY [facility] Stop: 02/24/18 08:59 Last Admin: 12/29/17 08:42 Dose: 1 each Lorazepam (Ativan) 1 mg IVP Q4HR PRN; Protocol PRN Reason: Agitation Stop: 02/25/18 07:12 Last Admin: 12/28/17 08:29 Dose: 1 mg Miscellaneous (Probiotic Screen) 1 ea PRN PRN PRN Reason: PROTOCOL Stop: 02/23/18 15:29 Miscellaneous (Vancomycin Iv Per Pharmacy) 1 ea PRN [facility] Stop: 02/24/18 23:44 Miscellaneous (Zosyn Iv Per Pharmacy) 1 ea PRN PRN PRN Reason: PROTOCOL Stop: 02/25/18 12:03 Morphine Sulfate (Morphine) 1 mg IVP Q4HR PRN PRN Reason: Pain (Moderate) Stop: 02/23/18 10:04 Last Admin: 12/28/17 10:58 Dose: 1 mg Mupirocin (Bactroban Oint) 1 appl NS BID [facility] Stop: 12/31/17 17:01 Last Admin: 12/29/17 17:29 Dose: 1 appl Pantoprazole Sodium (Protonix) 40 mg IVP BID [facility] Stop: 02/26/18 08:59 Last Admin: 12/29/17 17:29 Dose: 40 mg Polyethylene Glycol (Miralax) 17 gm PO BID [facility] Stop: 02/26/18 08:59 Last Admin: 12/29/17 17:29 Dose: 17 gm General: Alert HEENT: Atraumatic Neck: Supple Cardiovascular: no Regular rate Abdomen: Bowel sounds, Soft, no Tender, no Hepatomegaly, no Splenomegaly, no Distended, no Rebound Assessment/Plan - Problem List Patient Problems: All Active Problems COFFEE GROUND EMESIS (Acute) - Assessment Assessment: # Coffee ground emesis # hiatal hernia # Pneumonia # Severe sepsis # Fecal impaction EGD on 12/26 showed 7cm hiatal hernia, with evidence of mucosal tear there from previous NG tube insertion attempts. 2 clips placed to this area. With some difficulty, an NG tube was endoscopically placed into the stomach. No stomach ulcer or mass. Now intubated, but no longer having GI bleed. Fecal impaction noted on KUB, but pt did have large stool on 12/29 with enema Plan: - start NG tube feeding with glucerna, titrate up to goal slowly - change ppi drip to bid - tap water enema q 12, and miralax bid po - cont IVF - cont Abx - Plan for G tube insertion on 01/01 in AM - KUB today. If still impacted, will get another tap water enema
[2017-12-30] MEDS: Lactobacillus Rhamnosus GG 15 Billion CFU CAP.SPRINK PO SCH (08:28)
[2017-12-30] MEDS: POLYETHYLENE GLYCOL 3350 17 GM PACK PO SCH ×2 (08:28→17:03)
[2017-12-30] MEDS: Chlorhexidine Gluconate 0.12% 15mL Mouthwash MM SCH ×2 (08:39→20:07)
--- NOTE | 2017-12-30 09:50 | Diagnostic Imaging Report ---
Exam: KUB of the abdomen HISTORY constipation. Findings: Frontal examination the abdomen was reviewed. The study demonstrates severe scoliosis of lumbar spine. NG tube in stomach. There is no evidence for fecal impaction. The bowel gas is nonspecific. IMPRESSION: No evidence for fecal impaction.
--- NOTE | 2017-12-30 09:54 | Diagnostic Imaging Report ---
Exam: Portable chest x-ray HISTORY: Shortness of breath. Findings: Portable upright examination of the chest at 0911 hours reviewed the study compared to prior examination day earlier essentially unchanged in appearance with slightly better aeration left base Endotracheal tube and NG tube unchanged position. Mediastinal structures midline the heart is not enlarged. The costophrenic angles are clear. Mild atelectasis left base appreciated. IMPRESSION: Improved aeration left base mild left basilar atelectasis.
--- NOTE | 2017-12-30 11:27 | Internal Medicine Prog Note ---
Internal Medicine Subjective - Subjective Patient seen and examined:: chart reviewed Patient is:: other (weak , in no distress ,as per gi no ative bleeding) Per staff patient has:: no adverse event, tolerating meds Internal Medicine Objective - Results Result Diagrams: 12/30/17 07:42 12/30/17 07:42 Recent Labs: Laboratory Last Values WBC 15.2 Th/cmm (4.8-10.8) H 12/30/17 07:42 RBC 2.94 Mil/cmm (3.80-5.20) L 12/30/17 07:42 Hgb 8.5 gm/dL (12-16) L 12/30/17 07:42 Hct 25.8 % (41.0-60) L 12/30/17 07:42 MCV 87.6 fl (81-100) 12/30/17 07:42 MCH 28.8 pg (27.0-31.0) 12/30/17 07:42 MCHC Differential 32.9 pg (28.0-36.0) 12/30/17 07:42 RDW 13.3 % (11.5-20.0) 12/30/17 07:42 Plt Count 170 Th/cmm (150-400) 12/30/17 07:42 MPV 8.9 fl 12/30/17 07:42 Add Manual Diff YES 12/27/17 06:10 Neutrophils % 81.2 % (40.0-80.0) H 12/30/17 07:42 Band Neutrophils % 5 % (0-10) 12/26/17 04:45 Lymphocytes % 12.2 % (20.0-50.0) L 12/30/17 07:42 Monocytes % 4.7 % (2.0-10.0) 12/30/17 07:42 Eosinophils % 1.1 % (0.0-5.0) 12/30/17 07:42 Basophils % 0.8 % (0.0-2.0) 12/30/17 07:42 Neutrophils (Manual) 75 % (40-80) 12/27/17 06:10 Lymphocytes 19 % (20-50) L 12/27/17 06:10 Monocytes 6 % (2-10) 12/27/17 06:10 Eosinophils 3 % (0-5) 12/26/17 04:45 Basophils 1 % (0-3) 12/26/17 04:45 Platelet Estimate ADEQUATE (NORMAL) 12/27/17 06:10 Anisocytosis 1+ 12/27/17 06:10 PT 10.6 SECONDS (9.5-11.5) 12/26/17 04:45 INR 1.02 (0.5-1.4) 12/26/17 04:45 PTT (Actin FS) 22.1 SECONDS (26.0-38.0) L 12/24/17 19:40 Specimen Source Arterial 12/29/17 07:35 Sample Site RB 12/29/17 07:35 pH 7.46 (7.35-7.45) H 12/29/17 07:35 pCO2 34.0 mmHg (35.0-45.0) L 12/29/17 07:35 pO2 62.0 mmHg (80.0-100.0) L 12/29/17 07:35 HCO3 25.5 mEq/L (20.0-26.0) 12/29/17 07:35 Base Excess 0.8 mEq/L (-3.0-3.0) 12/29/17 07:35 O2 Saturation 93.0 % (92.0-100.0) 12/29/17 07:35 Pradeep Test N/A 12/29/17 07:35 Vent Rate 18 12/29/17 07:35 Inspired O2 28 12/29/17 07:35 Tidal Volume 450 12/29/17 07:35 PEEP 5 12/29/17 07:35 Pressure (ins/psv/peep) N/A 12/29/17 07:35 Critical Value DM 12/29/17 07:35 Sodium 145 mEq/L (136-145) 12/30/17 07:42 Potassium 4.1 mEq/L (3.5-5.1) 12/30/17 07:42 Chloride 116 mEq/L (98-107) H 12/30/17 07:42 Carbon Dioxide 20.9 mEq/L (21.0-31.0) L 12/30/17 07:42 Anion Gap 12.2 (7.0-16.0) 12/30/17 07:42 BUN 37 mg/dL (7-25) H 12/30/17 07:42 Creatinine 1.6 mg/dL (0.6-1.2) H 12/30/17 07:42 Est GFR ( Amer) TNP 12/30/17 07:42 Est GFR (Non-Af Amer) TNP 12/30/17 07:42 BUN/Creatinine Ratio 23.1 12/30/17 07:42 Glucose 329 mg/dL (70-105) H 12/30/17 07:42 POC Glucose 311 MG/DL (70 - 105) H 12/30/17 06:06 Whole Bld Lactic Acid 2.46 mmol/L (0.60-1.99) H* 12/25/17 10:07 Calcium 7.7 mg/dL (8.6-10.3) L 12/30/17 07:42 Phosphorus 2.8 mg/dL (2.5-5.0) 12/29/17 04:35 Magnesium 2.2 mg/dL (1.9-2.7) 12/26/17 04:45 Total Bilirubin 0.4 mg/dL (0.3-1.0) 12/30/17 07:42 AST 11 U/L (13-39) L 12/30/17 07:42 ALT 9 U/L (7-52) 12/30/17 07:42 Alkaline Phosphatase 70 U/L (34-104) 12/30/17 07:42 B-Natriuretic Peptide 1250.0 pg/mL (5.0-100.0) H 12/30/17 07:42 Total Protein 4.4 gm/dL (6.0-8.3) L 12/30/17 07:42 Albumin 2.3 gm/dL (3.7-5.3) L 12/30/17 07:42 Globulin 2.1 gm/dL 12/30/17 07:42 Albumin/Globulin Ratio 1.1 (1.0-1.8) 12/30/17 07:42 Triglycerides 126 mg/dL (<150) 12/25/17 04:10 Cholesterol 124 mg/dL (<200) 12/25/17 04:10 LDL Cholesterol Direct 84 mg/dL (75-193) 12/25/17 04:10 HDL Cholesterol 30 mg/dL (23-92) 12/25/17 04:10 TSH 0.75 uIU/ml (0.34-5.60) 12/25/17 04:10 Vancomycin Trough 19.0 ug/mL (5-10) H 12/29/17 10:16 Helicobacter pylori Ab NEGATIVE (NEGATIVE) 12/26/17 08:35 Blood Type O POSITIVE 12/24/17 19:40 Antibody Screen NEGATIVE 12/24/17 19:40 Crossmatch See Detail 12/24/17 19:40 - Physical Exam Vitals and I&O: Vital Signs Temp 98.2 F 12/30/17 10:00 Pulse 71 12/30/17 11:00 Resp 18 12/30/17 11:00 BP 162/43 12/30/17 11:00 Pulse Ox 99 12/30/17 11:00 Intake & Output 12/29/17 12/30/17 12/30/17 18:59 06:59 18:59 Intake Total 1230 1900 50 Output Total 500 225 Balance 730 1675 50 Weight (lbs) 75.296 kg 75.523 kg Intake: Intake, IV Amount 100 1350 50 Azithromycin 500 mg In 250 Sodium Chloride 0.9% 250 ml @ 250 mls/hr IV Q24HR [facility] Rx#:[id number] D5-0.45NS 1,000 ml @ 50 1000 mls/hr IV .Q20H [facility] Rx#: [id number] Piperacillin Sodium/ 100 100 50 Tazobact 2.25 gm In Sodium Chloride 0.9% 50 ml @ 100 mls/hr IV Q6H [facility] Rx#:[id number] Tube Feeding 780 490 Other 350 60 Output: Urine 500 225 Other: # Bowel Movements 1 0 Stool Characteristics Hard Weight Source Bedscale Bedscale Active Medications: Current Medications Acetaminophen (Tylenol) 650 mg PO Q4HR PRN PRN Reason: MILD PAIN 1-3 Stop: 02/23/18 17:58 Acetaminophen (Tylenol) 650 mg PO Q4HR PRN PRN Reason: TEMP >100.4 Stop: 02/23/18 17:58 Acetylcysteine (Mucomyst 20%) 3 ml HHN Q4HRT [facility] Stop: 02/25/18 14:59 Last Admin: 12/30/17 06:57 Dose: 3 ml Albuterol/Ipratropium (Duoneb Neb) 3 ml HHN Q4HRT [facility] Stop: 02/24/18 14:59 Last Admin: 12/30/17 06:57 Dose: 3 ml Amlodipine Besylate (Norvasc) 5 mg PO DAILY [facility] Stop: 02/24/18 08:59 Last Admin: 12/30/17 08:28 Dose: 5 mg Ascorbic Acid (Vitamin C) 500 mg PO DAILY [facility] Stop: 02/24/18 08:59 Last Admin: 12/30/17 08:27 Dose: 500 mg Bisacodyl (Dulcolax 10 Mg Supp) 10 mg RC DAILY PRN PRN Reason: IF MOM INEFFECTIVE Stop: 02/23/18 17:58 Chlorhexidine Gluconate (Peridex) 15 ml MM 0800,2000 [facility] Stop: 02/25/18 19:59 Last Admin: 12/30/17 08:39 Dose: 15 ml Azithromycin 500 mg/ Sodium (Chloride) 250 mls @ 250 mls/hr IV Q24HR [facility] Stop: 02/22/18 22:29 Last Infusion: 12/29/17 23:36 Dose: Infused Dextrose/Sodium Chloride (D5-0.45ns) 1,000 mls @ 50 mls/hr IV .Q20H [facility] Stop: 02/24/18 17:29 Last Admin: 12/30/17 06:14 Dose: 50 mls/hr Diltiazem HCl 125 mg/ Dextrose 100 mls @ 0 mls/hr IV Q8H PRN; Protocol PRN Reason: blood pressure Stop: 02/25/18 07:48 Last Admin: 12/27/17 09:00 Dose: 6.25 mg/hr, 5 mls/hr Piperacillin Sod/Tazobactam (Sod 2.25 gm/ Sodium Chloride) 50 mls @ 100 mls/hr IV Q6H [facility] Stop: 02/25/18 13:59 Last Infusion: 12/30/17 09:00 Dose: Infused Vancomycin HCl 0.75 gm/ Sodium (Chloride) 250 mls @ 165 mls/hr IV Q24H [facility] Stop: 02/28/18 09:59 Last Admin: 12/30/17 10:49 Dose: 165 mls/hr Insulin Aspart (Novolog Insulin Sliding Scale) 0 units SUBQ Q6HR [facility]; Protocol Stop: 02/23/18 01:14 Last Admin: 12/30/17 06:13 Dose: 9 units Lactobacillus Rhamnosus (Culturelle 15b) 1 each PO DAILY [facility] Stop: 02/24/18 08:59 Last Admin: 12/30/17 08:28 Dose: 1 each Lorazepam (Ativan) 1 mg IVP Q4HR PRN; Protocol PRN Reason: Agitation Stop: 02/25/18 07:12 Last Admin: 12/28/17 08:29 Dose: 1 mg Miscellaneous (Probiotic Screen) 1 ea PRN PRN PRN Reason: PROTOCOL Stop: 02/23/18 15:29 Miscellaneous (Vancomycin Iv Per Pharmacy) 1 ea MC PRN GIOVANNA Stop: 02/24/18 23:44 Miscellaneous (Zosyn Iv Per Pharmacy) 1 ea PRN PRN PRN Reason: PROTOCOL Stop: 02/25/18 12:03 Morphine Sulfate (Morphine) 1 mg IVP Q4HR PRN PRN Reason: Pain (Moderate) Stop: 02/23/18 10:04 Last Admin: 12/28/17 10:58 Dose: 1 mg Mupirocin (Bactroban Oint) 1 appl NS BID [facility] Stop: 12/31/17 17:01 Last Admin: 12/30/17 08:28 Dose: 1 appl Pantoprazole Sodium (Protonix) 40 mg IVP BID [facility] Stop: 02/26/18 08:59 Last Admin: 12/30/17 08:27 Dose: 40 mg Polyethylene Glycol (Miralax) 17 gm PO BID [facility] Stop: 02/26/18 08:59 Last Admin: 12/30/17 08:28 Dose: 17 gm General: weak HEENT: NC/AT Neck: Supple Lungs: CTAB Cardiovascular: Normal S1, Normal S2 Abdomen: non-tender Extremities: clear, edema Neurological: no change Internal Medicine Assmt/Plan - Assessment Assessment: Current Active Problems Problem Status Onset COFFEE GROUND EMESIS Acute r/o gi bleed Large hiatal hernia lactic acidosis possible sepsis htn DM Dyslipidemia Dementia - Plan Plan: id consult surgical consult ivabx as ordered gi consult cpm Nutritional Asmnt/Malnutr-PDOC - Dietary Evaluation Malnutrition Findings (Please click <Entered> for more info): Nutritional Asmnt/Malnutrition Start: 12/25/17 15: 21 Text: Status: Complete Freq: Protocol: Document 12/25/17 15:22 DYANG (Rec: 12/25/17 15:44 [email or web address]) Nutritional Asmnt/Malnutrition Patient General Information Nutritional Screening High Risk Diagnosis sepsis, dehydration, pneumonia Pertinent Medical Hx/Surgical Hx HTN, DM, dyslipidemia, dementia, anemia, muscle weakness Subjective Information Pt receiving care from RN at time of visit. Per nurse notes , pt had coffee ground emesis, NGT was unable to be inserted d/t large retro cardiac hiatal hernia, and will have EGD tomorrow. Spoke w/ RN Renee by phone who verfied the nurse notes and states pt will continue to be NPO. Current Diet Order/ Nutrition Support NPO Pertinent Medications D5-0.45ns, novolog, culturelle , pantoprazole Pertinent Labs 12/25: glucose 392, Na 144, Cl 110, BUN 78, Alb 2.9, POC 304 -423 12/24: glucose 547, Na 134, Cl 97, BUN 69, Alb 3.0, POC 441- 485 Nutritional Hx/Data Height 1.63 m Height (Calculated Centimeters) 162.6 Current Weight (lbs) 64.682 kg Weight (Calculated Kilograms) 64.7 Weight (Calculated Grams) [address].3 [place] Body Weight 120 lb Body Mass Index (BMI) 24.5 Weight Status Approriate GI Symptoms GI Symptoms Nausea Vomitting Last BM none noted Difficult in: None Food Allergies No Skin Integrity/Comment: pasquale lennon 13 Current %PO Negligible < 25% Estimated Nutritional Goals BEE in Kcals: Using Current wt Calories/Kcals/Kg 30-35 Kcals Calculated 0695-7273 Protein: Using Current wt Protein g/k.2-1.5 Protein Calculated 78-97 g Fluid: ml per MD Nutritional Problem 2. Problem Problem Altered nutrition related lab values Etiology dehydration, endocrine dysfunction Signs/Symptoms: Cl 110, BUN 78, glucose 392, POC 304-423 1. Problem Problem Increased nutrient needs Etiology metabolic stress Signs/Symptoms: dx of sepsis and pneumonia Malnutrition Related to Morbid Obesity Malnutrition related to morbid obesity No Intervention/Recommendation Comments 1. Monitor NPO status and advance diet when medically appropriate 2. Consider alternative nutrition route if pt unable to tolerate PO intake 3. Monitor wt, nutrition related labs, and skin integrity 4. F/U as high risk in 2-3 days, 12/27- Expected Outcomes/Goals Expected Outcomes/Goals 1. Pt to start oral intake or alternate nutrition route if necessary 2. Wt stability, skin to remain intact, nutrition related labs to approach normal limits Reveiwed by Yesenia Jennings RD
[2017-12-30] MEDS: Azithromycin 500 MG in Sodium Chloride 0.9% 250 ML IV SCH (22:23)
[2017-12-30] MEDS: Morphine Sulfate 2 mg/mL 1mL Syr IVP PRN (23:56)
[2017-12-31] MEDS: Piperacillin/Tazobact 2.25 gm in 0.9% NS 50 ML IV SCH ×4 (02:00→20:22)
[2017-12-31] MEDS: Albuterol/Ipratropium Neb 3 ML AERS HHN SCH ×6 (03:12→22:45)
--- NOTE | 2017-12-31 04:56 | Consultation ---
DATE OF CONSULTATION: 12/30/2017 HISTORY OF PRESENT ILLNESS: This 87-year-old female was seen and examined on date 12/30/2017. The patient was admitted here to ICU with the GI bleeding and having coffee-ground emesis, has had history of GI bleeding in the past. There is no history available from the patient. The patient also had respiratory failure, was intubated. Right now, she is in ICU on ventilator. She also has a history of diabetes type 2, hypertension, hyperlipidemia, were as found to meet sepsis. Lactic acid was high. She has history of large hiatal hernia and dementia. She was also found to be in sinus tachycardia. When she was admitted, diabetes was out of control. There is no other history available from the patient as the patient is vented and has dementia from the chart that obtained. FAMILY HISTORY: Not significant. SOCIAL HISTORY: The patient is not a smoker, does not drink alcohol, no drug abuse. REVIEW OF SYSTEMS: Not available from the patient. PHYSICAL EXAMINATION: VITAL SIGNS: Heart rate was 89, blood pressure was 137/49. The patient in sinus, respirations 18, O2 saturation 98%, temperature 98.5. SKIN: Normal. HEAD: Normocephalic. EYES: Conjunctivae were pink. There is no icterus in the eyes. Pupils reactive to light. NECK: There were no increased jugular venous distention, no thyromegaly, no lymphadenopathy. Carotids equal both sides. CHEST: Bilaterally symmetrical, moved well with respiration. Respiratory movements equal both sides. Trachea is central. There is note to percussion. Breath sounds, few basilar rales. Occasional rhonchi. CARDIOVASCULAR SYSTEM: PMI not well localized and no positional thrill. No parasternal heave. S1 normal, S2 physiologic. There were no S3, no rub. ABDOMEN: Soft, no tenderness, no rigidity, no guarding, no organomegaly. Bowel sounds normal. There was no rebound. EXTREMITIES: No calf tenderness. Peripheral pulses diminished. EKG shows sinus tachycardia, possible LVH. LABORATORY DATA: On looking at the lab, WBC count was 15.2, hemoglobin 8.5, hematocrit 25.8. BNP was 1250. Sodium 145, potassium 4.1, chloride 116, CO2 of 20.9, glucose 329, BUN 37, creatinine 1.6, SGOT 31, SGPT 9, alkaline phosphatase 70. Last blood gases done that was on 12/25/2017, pH was 7.190, pCO2 of 67, pO2 of 43. The patient received 2 units of packed cells also. Cholesterol was 124, triglyceride 126, HDL 30, LDL 84, magnesium 2.3. TSH 0.75. Last lactic acid on was 2.89. INR was 1, PTT 22.1. IMPRESSION: Sinus tachycardia; respiratory failure, on vent; gastrointestinal bleeding; anemia, status post transfusion; diabetes type 2; hyperlipidemia; hypertension; sepsis; lactic acidosis; large hiatal hernia and dementia and chronic kidney disease, plus we will continue present management. Her BUN is also high along the mucosa. CAD ____ is high, but part of the BUN elevation related to gastrointestinal bleed, may be primary doctor might get a renal ultrasound to evaluate for chronic kidney problems. Her blood pressure seems to be under control. Sinus tachycardia is probably related to being on ventilator as well as anemia. Other problem is ongoing sepsis. We should repeat lactic acid. He is already on IV antibiotics and to keep a close watch on BMP and magnesium and may be a small dose of diuretic with a very close watch on BMP may be beneficial to the patient, may be echocardiogram if not done recently should be done also. We will follow with you, probably Dr. Lazo will be following from the morning. JOB# [id number]
[2017-12-31 05:09] LABS: % BASOPHILS 0.5 % (0.0-2.0); % EOSINOPHILS 0.8 % (0.0-5.0); % MONOCYTES 5.3 % (2.0-10.0); % NEUTROPHILS 85.4 % (40.0-80.0); BASOPHILE ABSOLUTE 0.1 Th/cumm (0-0.2); EOSINOPHILE ABSOLUTE 0.1 Th/cmm (0.1-0.4); HEMATOCRIT 26.2 % (41.0-60); HEMOGLOBIN 8.6 gm/dL (12-16); LYMPHOCYTE ABSOLUTE 1.3 Th/cmm (1.5-3.0); MEAN CELL VOLUME 87.2 fl (81-100); MEAN CORPUSCULAR HEMOGLOBIN 28.8 pg (27.0-31.0); MEAN PLATELET VOLUME 9.5 fl; MONOCYTE ABSOLUTE 0.9 Th/cmm (0.3-1.0); NEUTROPHILE ABSOLUTE 13.7 Th/cmm (1.8-8.0); PLATELET COUNT 187 Th/cmm (150-400); RED BLOOD COUNT 3.01 Mil/cmm (3.80-5.20); RED CELL DISTRIBUTION WIDTH 13.3 % (11.5-20.0)
[2017-12-31 05:14] LABS: WHITE BLOOD COUNT 16.1 Th/cmm (4.8-10.8)
[2017-12-31 05:27] LABS: ANION GAP 14.3 (7.0-16.0); BUN - UREA NITROGEN 37 mg/dL (7-25); CARBON DIOXIDE 23.8 mEq/L (21.0-31.0); CHLORIDE 112 mEq/L (98-107); CREATININE - SERUM 1.7 mg/dL (0.6-1.2); GLUCOSE 399 mg/dL (70-105); POTASSIUM SERUM 4.1 mEq/L (3.5-5.1); SODIUM SERUM 146 mEq/L (136-145)
[2017-12-31 05:57] LABS: BAND NEUTROPHILE 3 % (0-10); EOSINOPHIL 1 % (0-5); LYMPHOCYTE 18 % (20-50); MONOCYTE 3 % (2-10); NEUTROPHILS 75 % (40-80); PLATELET ESTIMATE ADEQUATE (NORMAL)
[2017-12-31] MEDS: INSULIN ASPART SLIDING SCALE 100 UNITS/ML UNIT SUBQ SCH ×3 (06:55→18:28)
[2017-12-31] MEDS: POLYETHYLENE GLYCOL 3350 17 GM PACK PO SCH ×2 (08:24→17:05)
[2017-12-31] MEDS: Lactobacillus Rhamnosus GG 15 Billion CFU CAP.SPRINK PO SCH (08:24)
[2017-12-31] MEDS: Morphine Sulfate 2 mg/mL 1mL Syr IVP PRN ×3 (08:24→20:22)
--- NOTE | 2017-12-31 08:32 | Diagnostic Imaging Report ---
Portable chest x-ray HISTORY: Shortness of breath Patient is rotated. The heart appears enlarged. Endotracheal tube tip is approximately 2.5 cm above the yolie. No definite focal pulmonary parenchymal processes. IMPRESSION: 1. No definite focal pulmonary parenchymal processes 2. Cardiomegaly 3. Endotracheal tube placement as noted above
[2017-12-31] MEDS: Chlorhexidine Gluconate 0.12% 15mL Mouthwash MM SCH ×2 (08:35→20:23)
[2017-12-31] MEDS ORDERED: Atorvastatin Calcium 10 MG TAB PO SCH (09:00)
--- NOTE | 2017-12-31 09:03 | GI Progress Note ---
Subjective - Review of Systems Service Date: 12/31/17 Subjective: More awake today, no further BM Objective - Results Result Diagrams: 12/31/17 04:45 12/31/17 04:45 Recent Labs: Laboratory Last Values WBC 16.1 Th/cmm (4.8-10.8) H 12/31/17 04:45 RBC 3.01 Mil/cmm (3.80-5.20) L 12/31/17 04:45 Hgb 8.6 gm/dL (12-16) L 12/31/17 04:45 Hct 26.2 % (41.0-60) L 12/31/17 04:45 MCV 87.2 fl (81-100) 12/31/17 04:45 MCH 28.8 pg (27.0-31.0) 12/31/17 04:45 MCHC Differential 33.0 pg (28.0-36.0) 12/31/17 04:45 RDW 13.3 % (11.5-20.0) 12/31/17 04:45 Plt Count 187 Th/cmm (150-400) 12/31/17 04:45 MPV 9.5 fl 12/31/17 04:45 Add Manual Diff YES 12/27/17 06:10 Neutrophils % 85.4 % (40.0-80.0) H 12/31/17 04:45 Band Neutrophils % 3 % (0-10) 12/31/17 04:45 Lymphocytes % 8.0 % (20.0-50.0) L 12/31/17 04:45 Monocytes % 5.3 % (2.0-10.0) 12/31/17 04:45 Eosinophils % 0.8 % (0.0-5.0) 12/31/17 04:45 Basophils % 0.5 % (0.0-2.0) 12/31/17 04:45 Neutrophils (Manual) 75 % (40-80) 12/31/17 04:45 Lymphocytes 18 % (20-50) L 12/31/17 04:45 Monocytes 3 % (2-10) 12/31/17 04:45 Eosinophils 1 % (0-5) 12/31/17 04:45 Basophils 1 % (0-3) 12/26/17 04:45 Platelet Estimate ADEQUATE (NORMAL) 12/31/17 04:45 Anisocytosis 1+ 12/27/17 06:10 PT 10.6 SECONDS (9.5-11.5) 12/26/17 04:45 INR 1.02 (0.5-1.4) 12/26/17 04:45 PTT (Actin FS) 22.1 SECONDS (26.0-38.0) L 12/24/17 19:40 Specimen Source Arterial 12/29/17 07:35 Sample Site RB 12/29/17 07:35 pH 7.46 (7.35-7.45) H 12/29/17 07:35 pCO2 34.0 mmHg (35.0-45.0) L 12/29/17 07:35 pO2 62.0 mmHg (80.0-100.0) L 12/29/17 07:35 HCO3 25.5 mEq/L (20.0-26.0) 12/29/17 07:35 Base Excess 0.8 mEq/L (-3.0-3.0) 12/29/17 07:35 O2 Saturation 93.0 % (92.0-100.0) 12/29/17 07:35 Pradeep Test N/A 12/29/17 07:35 Vent Rate 18 12/29/17 07:35 Inspired O2 28 12/29/17 07:35 Tidal Volume 450 12/29/17 07:35 PEEP 5 12/29/17 07:35 Pressure (ins/psv/peep) N/A 12/29/17 07:35 Critical Value DM 12/29/17 07:35 Sodium 146 mEq/L (136-145) H 12/31/17 04:45 Potassium 4.1 mEq/L (3.5-5.1) 12/31/17 04:45 Chloride 112 mEq/L (98-107) H 12/31/17 04:45 Carbon Dioxide 23.8 mEq/L (21.0-31.0) 12/31/17 04:45 Anion Gap 14.3 (7.0-16.0) 12/31/17 04:45 BUN 37 mg/dL (7-25) H 12/31/17 04:45 Creatinine 1.7 mg/dL (0.6-1.2) H 12/31/17 04:45 Est GFR ( Amer) TNP 12/31/17 04:45 Est GFR (Non-Af Amer) TNP 12/31/17 04:45 BUN/Creatinine Ratio 21.8 12/31/17 04:45 Glucose 399 mg/dL (70-105) H 12/31/17 04:45 POC Glucose 379 MG/DL (70 - 105) H 12/31/17 06:41 Whole Bld Lactic Acid 2.46 mmol/L (0.60-1.99) H* 12/25/17 10:07 Calcium 8.0 mg/dL (8.6-10.3) L 12/31/17 04:45 Phosphorus 2.8 mg/dL (2.5-5.0) 12/29/17 04:35 Magnesium 2.2 mg/dL (1.9-2.7) 12/26/17 04:45 Total Bilirubin 0.4 mg/dL (0.3-1.0) 12/30/17 07:42 AST 11 U/L (13-39) L 12/30/17 07:42 ALT 9 U/L (7-52) 12/30/17 07:42 Alkaline Phosphatase 70 U/L (34-104) 12/30/17 07:42 B-Natriuretic Peptide 1390.0 pg/mL (5.0-100.0) H 12/31/17 04:45 Total Protein 4.4 gm/dL (6.0-8.3) L 12/30/17 07:42 Albumin 2.3 gm/dL (3.7-5.3) L 12/30/17 07:42 Globulin 2.1 gm/dL 12/30/17 07:42 Albumin/Globulin Ratio 1.1 (1.0-1.8) 12/30/17 07:42 Triglycerides 126 mg/dL (<150) 12/25/17 04:10 Cholesterol 124 mg/dL (<200) 12/25/17 04:10 LDL Cholesterol Direct 84 mg/dL (75-193) 12/25/17 04:10 HDL Cholesterol 30 mg/dL (23-92) 12/25/17 04:10 TSH 0.75 uIU/ml (0.34-5.60) 12/25/17 04:10 Vancomycin Trough 19.0 ug/mL (5-10) H 12/29/17 10:16 Helicobacter pylori Ab NEGATIVE (NEGATIVE) 12/26/17 08:35 Blood Type O POSITIVE 12/24/17 19:40 Antibody Screen NEGATIVE 12/24/17 19:40 Crossmatch See Detail 12/24/17 19:40 - Physical Exam Vitals and I&O: Vital Signs Temp 98.5 F 12/31/17 04:00 Pulse 95 12/31/17 08:23 Resp 28 12/31/17 06:00 BP 150/48 12/31/17 08:37 Pulse Ox 100 12/31/17 07:38 Intake & Output 12/30/17 12/31/17 12/31/17 18:59 06:59 18:59 Intake Total 1050 950 Output Total 1400 750 Balance -350 200 Weight (lbs) 78.562 kg 74.843 kg Intake: Intake, IV Amount 350 350 Azithromycin 500 mg In 250 Sodium Chloride 0.9% 250 ml @ 250 mls/hr IV Q24HR [facility] Rx#:[id number] Piperacillin Sodium/ 100 100 Tazobact 2.25 gm In Sodium Chloride 0.9% 50 ml @ 100 mls/hr IV Q6H [facility] Rx#:[id number] Vancomycin HCl 0.75 gm In 250 Sodium Chloride 0.9% 250 ml @ 165 mls/hr IV Q24H [facility] Rx#:[id number] Oral 0 Tube Feeding 500 500 Other 200 100 Output: Urine 1400 750 Other: # Bowel Movements 0 Weight Source Bedscale Bedscale Active Medications: Current Medications Acetaminophen (Tylenol) 650 mg PO Q4HR PRN PRN Reason: MILD PAIN 1-3 Stop: 02/23/18 17:58 Acetaminophen (Tylenol) 650 mg PO Q4HR PRN PRN Reason: TEMP >100.4 Stop: 02/23/18 17:58 Acetylcysteine (Mucomyst 20%) 3 ml HHN Q4HRT [facility] Stop: 02/25/18 14:59 Last Admin: 12/31/17 07:37 Dose: 3 ml Albuterol/Ipratropium (Duoneb Neb) 3 ml HHN Q4HRT [facility] Stop: 02/24/18 14:59 Last Admin: 12/31/17 07:36 Dose: 3 ml Amlodipine Besylate (Norvasc) 5 mg PO DAILY [facility] Stop: 02/24/18 08:59 Last Admin: 12/31/17 08:23 Dose: 5 mg Ascorbic Acid (Vitamin C) 500 mg PO DAILY [facility] Stop: 02/24/18 08:59 Last Admin: 12/31/17 08:23 Dose: 500 mg Atorvastatin Calcium (Lipitor) 10 mg PO HS [facility]; Protocol Stop: 03/01/18 20:59 Bisacodyl (Dulcolax 10 Mg Supp) 10 mg RC DAILY PRN PRN Reason: IF MOM INEFFECTIVE Stop: 02/23/18 17:58 Chlorhexidine Gluconate (Peridex) 15 ml MM 08,1999 [facility] Stop: 02/25/18 19:59 Last Admin: 12/31/17 08:35 Dose: 15 ml Azithromycin 500 mg/ Sodium (Chloride) 250 mls @ 250 mls/hr IV Q24HR [facility] Stop: 02/22/18 22:29 Last Infusion: 12/30/17 23:23 Dose: Infused Diltiazem HCl 125 mg/ Dextrose 100 mls @ 0 mls/hr IV Q8H PRN; Protocol PRN Reason: blood pressure Stop: 02/25/18 07:48 Last Admin: 12/27/17 09:00 Dose: 6.25 mg/hr, 5 mls/hr Piperacillin Sod/Tazobactam (Sod 2.25 gm/ Sodium Chloride) 50 mls @ 100 mls/hr IV Q6H [facility] Stop: 02/25/18 13:59 Last Admin: 12/31/17 08:26 Dose: 100 mls/hr Vancomycin HCl 0.75 gm/ Sodium (Chloride) 250 mls @ 165 mls/hr IV Q24H [facility] Stop: 02/28/18 09:59 Last Infusion: 12/30/17 12:20 Dose: Infused Insulin Aspart (Novolog Insulin Sliding Scale) 0 units SUBQ Q6HR [facility]; Protocol Stop: 02/23/18 01:14 Last Admin: 12/31/17 06:55 Dose: 11 units Lactobacillus Rhamnosus (Culturelle 15b) 1 each PO DAILY [facility] Stop: 02/24/18 08:59 Last Admin: 12/31/17 08:24 Dose: 1 each Lorazepam (Ativan) 1 mg IVP Q4HR PRN; Protocol PRN Reason: Agitation Stop: 02/25/18 07:12 Last Admin: 12/28/17 08:29 Dose: 1 mg Miscellaneous (Probiotic Screen) 1 ea MC PRN PRN PRN Reason: PROTOCOL Stop: 02/23/18 15:29 Miscellaneous (Vancomycin Iv Per Pharmacy) 1 ea MC PRN GIOVANNA Stop: 02/24/18 23:44 Miscellaneous (Zosyn Iv Per Pharmacy) 1 ea MC PRN PRN PRN Reason: PROTOCOL Stop: 02/25/18 12:03 Morphine Sulfate (Morphine) 1 mg IVP Q4HR PRN PRN Reason: Pain (Moderate) Stop: 02/23/18 10:04 Last Admin: 12/31/17 08:24 Dose: 1 mg Mupirocin (Bactroban Oint) 1 appl NS BID [facility] Stop: 12/31/17 17:01 Last Admin: 12/31/17 08:39 Dose: 1 appl Pantoprazole Sodium (Protonix) 40 mg IVP BID [facility] Stop: 02/26/18 08:59 Last Admin: 12/31/17 08:23 Dose: 40 mg Polyethylene Glycol (Miralax) 17 gm PO BID GIOVAN[facility] Stop: 02/26/18 08:59 Last Admin: 12/31/17 08:24 Dose: 17 gm General: Alert HEENT: Atraumatic Neck: Supple Cardiovascular: no Regular rate Abdomen: Bowel sounds, Soft, no Tender, no Hepatomegaly, no Splenomegaly, no Distended, no Rebound Assessment/Plan - Problem List Patient Problems: All Active Problems COFFEE GROUND EMESIS (Acute) - Assessment Assessment: # Coffee ground emesis # hiatal hernia # Pneumonia # Severe sepsis # Fecal impaction EGD on 12/26 showed 7cm hiatal hernia, with evidence of mucosal tear there from previous NG tube insertion attempts. 2 clips placed to this area. With some difficulty, an NG tube was endoscopically placed into the stomach. No stomach ulcer or mass. Now intubated, but no longer having GI bleed. Fecal impaction noted on KUB, but pt did have large stool on 12/29 with enema. Plan: - cont ppi bid - cont IVF - cont Abx - Plan for G tube insertion on 01/01 in AM. This may be challenging given large hernia - KUB today given abdomen appears distended - NPO midnight
--- NOTE | 2017-12-31 10:25 | Diagnostic Imaging Report ---
KUB abdominal film HISTORY: Pain, constipation The exam demonstrates nondilated large and slightly dilated small bowel. Overall appearance is nonspecific. No free intraperitoneal air. Severe scoliosis throughout the spine. Nasogastric tube projects over the mid abdomen. IMPRESSION: Nonspecific bowel gas pattern
--- NOTE | 2017-12-31 10:58 | Infectious Disease Prog Note ---
Infectious Disease Subjective - Review of Systems Service Date: 12/31/17 Subjective: NO fever. intubated orally, on the vent support. Infectious Disease Objective - Results Result Diagrams: 12/31/17 04:45 12/31/17 04:45 Recent Labs: Laboratory Last Values WBC 16.1 Th/cmm (4.8-10.8) H 12/31/17 04:45 RBC 3.01 Mil/cmm (3.80-5.20) L 12/31/17 04:45 Hgb 8.6 gm/dL (12-16) L 12/31/17 04:45 Hct 26.2 % (41.0-60) L 12/31/17 04:45 MCV 87.2 fl (81-100) 12/31/17 04:45 MCH 28.8 pg (27.0-31.0) 12/31/17 04:45 MCHC Differential 33.0 pg (28.0-36.0) 12/31/17 04:45 RDW 13.3 % (11.5-20.0) 12/31/17 04:45 Plt Count 187 Th/cmm (150-400) 12/31/17 04:45 MPV 9.5 fl 12/31/17 04:45 Add Manual Diff YES 12/27/17 06:10 Neutrophils % 85.4 % (40.0-80.0) H 12/31/17 04:45 Band Neutrophils % 3 % (0-10) 12/31/17 04:45 Lymphocytes % 8.0 % (20.0-50.0) L 12/31/17 04:45 Monocytes % 5.3 % (2.0-10.0) 12/31/17 04:45 Eosinophils % 0.8 % (0.0-5.0) 12/31/17 04:45 Basophils % 0.5 % (0.0-2.0) 12/31/17 04:45 Neutrophils (Manual) 75 % (40-80) 12/31/17 04:45 Lymphocytes 18 % (20-50) L 12/31/17 04:45 Monocytes 3 % (2-10) 12/31/17 04:45 Eosinophils 1 % (0-5) 12/31/17 04:45 Basophils 1 % (0-3) 12/26/17 04:45 Platelet Estimate ADEQUATE (NORMAL) 12/31/17 04:45 Anisocytosis 1+ 12/27/17 06:10 PT 10.6 SECONDS (9.5-11.5) 12/26/17 04:45 INR 1.02 (0.5-1.4) 12/26/17 04:45 PTT (Actin FS) 22.1 SECONDS (26.0-38.0) L 12/24/17 19:40 Specimen Source Arterial 12/29/17 07:35 Sample Site RB 12/29/17 07:35 pH 7.46 (7.35-7.45) H 12/29/17 07:35 pCO2 34.0 mmHg (35.0-45.0) L 12/29/17 07:35 pO2 62.0 mmHg (80.0-100.0) L 12/29/17 07:35 HCO3 25.5 mEq/L (20.0-26.0) 12/29/17 07:35 Base Excess 0.8 mEq/L (-3.0-3.0) 12/29/17 07:35 O2 Saturation 93.0 % (92.0-100.0) 12/29/17 07:35 Pradeep Test N/A 12/29/17 07:35 Vent Rate 18 12/29/17 07:35 Inspired O2 28 12/29/17 07:35 Tidal Volume 450 12/29/17 07:35 PEEP 5 12/29/17 07:35 Pressure (ins/psv/peep) N/A 12/29/17 07:35 Critical Value DM 12/29/17 07:35 Sodium 146 mEq/L (136-145) H 12/31/17 04:45 Potassium 4.1 mEq/L (3.5-5.1) 12/31/17 04:45 Chloride 112 mEq/L (98-107) H 12/31/17 04:45 Carbon Dioxide 23.8 mEq/L (21.0-31.0) 12/31/17 04:45 Anion Gap 14.3 (7.0-16.0) 12/31/17 04:45 BUN 37 mg/dL (7-25) H 12/31/17 04:45 Creatinine 1.7 mg/dL (0.6-1.2) H 12/31/17 04:45 Est GFR ( Amer) TNP 12/31/17 04:45 Est GFR (Non-Af Amer) TNP 12/31/17 04:45 BUN/Creatinine Ratio 21.8 12/31/17 04:45 Glucose 399 mg/dL (70-105) H 12/31/17 04:45 POC Glucose 379 MG/DL (70 - 105) H 12/31/17 06:41 Whole Bld Lactic Acid 2.46 mmol/L (0.60-1.99) H* 12/25/17 10:07 Calcium 8.0 mg/dL (8.6-10.3) L 12/31/17 04:45 Phosphorus 2.8 mg/dL (2.5-5.0) 12/29/17 04:35 Magnesium 2.2 mg/dL (1.9-2.7) 12/26/17 04:45 Total Bilirubin 0.4 mg/dL (0.3-1.0) 12/30/17 07:42 AST 11 U/L (13-39) L 12/30/17 07:42 ALT 9 U/L (7-52) 12/30/17 07:42 Alkaline Phosphatase 70 U/L (34-104) 12/30/17 07:42 B-Natriuretic Peptide 1390.0 pg/mL (5.0-100.0) H 12/31/17 04:45 Total Protein 4.4 gm/dL (6.0-8.3) L 12/30/17 07:42 Albumin 2.3 gm/dL (3.7-5.3) L 12/30/17 07:42 Globulin 2.1 gm/dL 12/30/17 07:42 Albumin/Globulin Ratio 1.1 (1.0-1.8) 12/30/17 07:42 Triglycerides 126 mg/dL (<150) 12/25/17 04:10 Cholesterol 124 mg/dL (<200) 12/25/17 04:10 LDL Cholesterol Direct 84 mg/dL (75-193) 12/25/17 04:10 HDL Cholesterol 30 mg/dL (23-92) 12/25/17 04:10 TSH 0.75 uIU/ml (0.34-5.60) 12/25/17 04:10 Vancomycin Trough 15.3 ug/mL (5-10) H 12/31/17 09:30 Helicobacter pylori Ab NEGATIVE (NEGATIVE) 12/26/17 08:35 Blood Type O POSITIVE 12/24/17 19:40 Antibody Screen NEGATIVE 12/24/17 19:40 Crossmatch See Detail 12/24/17 19:40 - Physical Exam Vitals and I&O: Vital Signs Temp 98.5 F 12/31/17 08:00 Pulse 95 12/31/17 10:00 Resp 26 12/31/17 10:00 BP 183/76 12/31/17 10:00 Pulse Ox 96 12/31/17 10:00 Intake & Output 12/30/17 12/31/17 12/31/17 18:59 06:59 18:59 Intake Total 1050 950 Output Total 1400 750 Balance -350 200 Weight (lbs) 78.562 kg 74.843 kg Intake: Intake, IV Amount 350 350 Azithromycin 500 mg In 250 Sodium Chloride 0.9% 250 ml @ 250 mls/hr IV Q24HR [facility] Rx#:[id number] Piperacillin Sodium/ 100 100 Tazobact 2.25 gm In Sodium Chloride 0.9% 50 ml @ 100 mls/hr IV Q6H [facility] Rx#:[id number] Vancomycin HCl 0.75 gm In 250 Sodium Chloride 0.9% 250 ml @ 165 mls/hr IV Q24H [facility] Rx#:[id number] Oral 0 Tube Feeding 500 500 Other 200 100 Output: Urine 1400 750 Other: # Bowel Movements 0 Weight Source Bedscale Bedscale Active Medications: Current Medications Acetaminophen (Tylenol) 650 mg PO Q4HR PRN PRN Reason: MILD PAIN 1-3 Stop: 02/23/18 17:58 Acetaminophen (Tylenol) 650 mg PO Q4HR PRN PRN Reason: TEMP >100.4 Stop: 02/23/18 17:58 Acetylcysteine (Mucomyst 20%) 3 ml HHN Q4HRT [facility] Stop: 02/25/18 14:59 Last Admin: 12/31/17 07:37 Dose: 3 ml Albuterol/Ipratropium (Duoneb Neb) 3 ml HHN Q4HRT [facility] Stop: 02/24/18 14:59 Last Admin: 12/31/17 07:36 Dose: 3 ml Amlodipine Besylate (Norvasc) 5 mg PO DAILY [facility] Stop: 02/24/18 08:59 Last Admin: 12/31/17 08:23 Dose: 5 mg Ascorbic Acid (Vitamin C) 500 mg PO DAILY [facility] Stop: 02/24/18 08:59 Last Admin: 12/31/17 08:23 Dose: 500 mg Atorvastatin Calcium (Lipitor) 10 mg PO HS [facility]; Protocol Stop: 03/01/18 20:59 Bisacodyl (Dulcolax 10 Mg Supp) 10 mg RC DAILY PRN PRN Reason: IF MOM INEFFECTIVE Stop: 02/23/18 17:58 Chlorhexidine Gluconate (Peridex) 15 ml MM 0800,1999 [facility] Stop: 02/25/18 19:59 Last Admin: 12/31/17 08:35 Dose: 15 ml Azithromycin 500 mg/ Sodium (Chloride) 250 mls @ 250 mls/hr IV Q24HR [facility] Stop: 02/22/18 22:29 Last Infusion: 12/30/17 23:23 Dose: Infused Diltiazem HCl 125 mg/ Dextrose 100 mls @ 0 mls/hr IV Q8H PRN; Protocol PRN Reason: blood pressure Stop: 02/25/18 07:48 Last Admin: 12/27/17 09:00 Dose: 6.25 mg/hr, 5 mls/hr Piperacillin Sod/Tazobactam (Sod 2.25 gm/ Sodium Chloride) 50 mls @ 100 mls/hr IV Q6H [facility] Stop: 02/25/18 13:59 Last Admin: 12/31/17 08:26 Dose: 100 mls/hr Vancomycin HCl 0.75 gm/ Sodium (Chloride) 250 mls @ 165 mls/hr IV Q24H [facility] Stop: 02/28/18 09:59 Last Admin: 12/31/17 10:50 Dose: 165 mls/hr Insulin Aspart (Novolog Insulin Sliding Scale) 0 units SUBQ Q6HR [facility]; Protocol Stop: 02/23/18 01:14 Last Admin: 12/31/17 06:55 Dose: 11 units Lactobacillus Rhamnosus (Culturelle 15b) 1 each PO DAILY [facility] Stop: 02/24/18 08:59 Last Admin: 12/31/17 08:24 Dose: 1 each Lorazepam (Ativan) 1 mg IVP Q4HR PRN; Protocol PRN Reason: Agitation Stop: 02/25/18 07:12 Last Admin: 12/28/17 08:29 Dose: 1 mg Miscellaneous (Probiotic Screen) 1 ea PRN PRN PRN Reason: PROTOCOL Stop: 02/23/18 15:29 Miscellaneous (Vancomycin Iv Per Pharmacy) 1 ea MC PRN GIOVANNA Stop: 02/24/18 23:44 Miscellaneous (Zosyn Iv Per Pharmacy) 1 ea PRN PRN PRN Reason: PROTOCOL Stop: 02/25/18 12:03 Morphine Sulfate (Morphine) 1 mg IVP Q4HR PRN PRN Reason: Pain (Moderate) Stop: 02/23/18 10:04 Last Admin: 12/31/17 08:24 Dose: 1 mg Mupirocin (Bactroban Oint) 1 appl NS BID [facility] Stop: 12/31/17 17:01 Last Admin: 12/31/17 08:39 Dose: 1 appl Pantoprazole Sodium (Protonix) 40 mg IVP BID [facility] Stop: 02/26/18 08:59 Last Admin: 12/31/17 08:23 Dose: 40 mg Polyethylene Glycol (Miralax) 17 gm PO BID [facility] Stop: 02/26/18 08:59 Last Admin: 12/31/17 08:24 Dose: 17 gm General: no acute distress, well developed, well nourished HEENT: atraumatic, normocephalic, PERRLA, EOMI Neck: supple, no thyromegaly Cardiovascular: S1S2, regular Lungs: clear to auscultation bilaterally, clear to percussion Abdomen: soft, no tender, no distended Extremities: no cyanosis, no clubbing, no edema Neurological: awake, alert, oriented Skin: intact Infectious Disease Assmt/Plan - Problem List Patient Problems: All Active Problems COFFEE GROUND EMESIS (Acute) - Assessment Assessment: 1. Severe sepsis. 2. Pneumonia. 3. Fecal impaction. 4. Gallbladder stone at bladder neck. 5. Diabetes mellitus type 2. 6. Hypertension. 7. Dementia. 8. Anemia. 9. Large hiatal hernia. 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 11. GI bleed 2/2 PUD. 12. SVT 12. VDRF. - Plan Plan: Continue zosyn. Continue vancomycin IV Bactroban nasal ointment. Nutritional Asmnt/Malnutr-PDOC - Dietary Evaluation Malnutrition Findings (Please click <Entered> for more info): Nutritional Asmnt/Malnutrition Start: 12/25/17 15: 21 Text: Status: Complete Freq: Protocol: Document 12/25/17 15:22 ARSH (Rec: 12/25/17 15:44 [email or web address]) Nutritional Asmnt/Malnutrition Patient General Information Nutritional Screening High Risk Diagnosis sepsis, dehydration, pneumonia Pertinent Medical Hx/Surgical Hx HTN, DM, dyslipidemia, dementia, anemia, muscle weakness Subjective Information Pt receiving care from RN at time of visit. Per nurse notes , pt had coffee ground emesis, NGT was unable to be inserted d/t large retro cardiac hiatal hernia, and will have EGD tomorrow. Spoke w/ BELA Duran by phone who verfied the nurse notes and states pt will continue to be NPO. Current Diet Order/ Nutrition Support NPO Pertinent Medications D5-0.45ns, novolog, culturelle , pantoprazole Pertinent Labs 12/25: glucose 392, Na 144, Cl 110, BUN 78, Alb 2.9, POC 304 -423 12/24: glucose 547, Na 134, Cl 97, BUN 69, Alb 3.0, POC 441- 485 Nutritional Hx/Data Height 1.63 m Height (Calculated Centimeters) 162.6 Current Weight (lbs) 64.682 kg Weight (Calculated Kilograms) 64.7 Weight (Calculated Grams) 08619.3 [place] Body Weight 120 lb Body Mass Index (BMI) 24.5 Weight Status Approriate GI Symptoms GI Symptoms Nausea Vomitting Last BM none noted Difficult in: None Food Allergies No Skin Integrity/Comment: intact, pasquale 13 Current %PO Negligible < 25% Estimated Nutritional Goals BEE in Kcals: Using Current wt Calories/Kcals/Kg 30-35 Kcals Calculated 1857-5411 Protein: Using Current wt Protein g/k.2-1.5 Protein Calculated 78-97 g Fluid: ml per MD Nutritional Problem 2. Problem Problem Altered nutrition related lab values Etiology dehydration, endocrine dysfunction Signs/Symptoms: Cl 110, BUN 78, glucose 392, POC 304-423 1. Problem Problem Increased nutrient needs Etiology metabolic stress Signs/Symptoms: dx of sepsis and pneumonia Malnutrition Related to Morbid Obesity Malnutrition related to morbid obesity No Intervention/Recommendation Comments 1. Monitor NPO status and advance diet when medically appropriate 2. Consider alternative nutrition route if pt unable to tolerate PO intake 3. Monitor wt, nutrition related labs, and skin integrity 4. F/U as high risk in 2-3 days, 12/27- Expected Outcomes/Goals Expected Outcomes/Goals 1. Pt to start oral intake or alternate nutrition route if necessary 2. Wt stability, skin to remain intact, nutrition related labs to approach normal limits Reveiwed by Yesenia Jennings RD
--- NOTE | 2017-12-31 15:41 | Cardiology ---
12/31/[address] Mcallister. PROCEDURE: Echocardiogram. M-MODE ECHOCARDIOGRAM: Mitral valve, anterior leaflet of mitral valve shows normal excursion, EF velocity. Posterior leaflet of the mitral valve shows normal excursion. Left ventricular posterior wall shows increased thickness, normal excursion. Interventricular septum shows increased thickness, normal excursion, hypertrophy of the left ventricle, ejection fraction 60%. Left atrium normal. Aortic root shows normal dimension, normal excursion of aortic leaflets. CONCLUSION: Hypertrophy of the left ventricle, ejection fraction 60%. 2D ECHO: Long axis view showed normal sized left ventricle with hypertrophy of the left ventricle. Left atrium normal. Aortic root shows normal dimension, normal excursion of aortic leaflets. Short axis view of mitral valve normal. Short axis view of aortic valve normal. Apical four chamber view shows normal sized left ventricle with hypertrophy of the left ventricle. Left atrium normal. Right ventricular cavity, right atrium normal, no pericardial effusion. CONCLUSION: Hypertrophy of the left ventricle, ejection fraction 60%. Doppler study shows severe mitral regurgitation, moderate tricuspid regurgitation, moderate pulmonary regurgitation, right ventricular systolic pressure 72 mmHg with severe pulmonary hypertension. JOB# [id number]
[2017-12-31] MEDS: Atorvastatin Calcium 10 MG TAB PO SCH (20:22)
[2018-01-01] MEDS: D5-0.45NS 1,000 ML IV SCH (00:15)
[2018-01-01] MEDS: INSULIN ASPART SLIDING SCALE 100 UNITS/ML UNIT SUBQ SCH ×4 (00:17→19:03)
[2018-01-01] MEDS: Morphine Sulfate 2 mg/mL 1mL Syr IVP PRN ×2 (02:07→17:13)
[2018-01-01] MEDS: Piperacillin/Tazobact 2.25 gm in 0.9% NS 50 ML IV SCH ×4 (02:07→20:25)
[2018-01-01] MEDS: Albuterol/Ipratropium Neb 3 ML AERS HHN SCH ×6 (03:30→23:06)
[2018-01-01 04:45] LABS: % BASOPHILS 0.5 % (0.0-2.0); BASOPHILE ABSOLUTE 0.1 Th/cumm (0-0.2); EOSINOPHILE ABSOLUTE 0.5 Th/cmm (0.1-0.4); HEMOGLOBIN 8.5 gm/dL (12-16); NEUTROPHILE ABSOLUTE 10.2 Th/cmm (1.8-8.0); RED CELL DISTRIBUTION WIDTH 13.7 % (11.5-20.0)
[2018-01-01 04:49] LABS: % EOSINOPHILS 3.8 % (0.0-5.0); % LYMPHOCYTES 13.7 % (20.0-50.0); HEMATOCRIT 25.3 % (41.0-60); LYMPHOCYTE ABSOLUTE 1.9 Th/cmm (1.5-3.0); MEAN CELL VOLUME 87.3 fl (81-100); MEAN CORPUSCULAR HEMOGLOBIN 29.4 pg (27.0-31.0); MEAN CORPUSCULAR HGB CONC 33.7 pg (28.0-36.0); PLATELET COUNT 196 Th/cmm (150-400); RED BLOOD COUNT 2.89 Mil/cmm (3.80-5.20); WHITE BLOOD COUNT 13.7 Th/cmm (4.8-10.8)
[2018-01-01 05:25] LABS: ANION GAP 14.1 (7.0-16.0); BUN - UREA NITROGEN 34 mg/dL (7-25); CALCIUM SERUM 8.4 mg/dL (8.6-10.3); CARBON DIOXIDE 26.4 mEq/L (21.0-31.0); CHLORIDE 110 mEq/L (98-107); CREATININE - SERUM 1.7 mg/dL (0.6-1.2); POTASSIUM SERUM 3.5 mEq/L (3.5-5.1); SODIUM SERUM 147 mEq/L (136-145)
[2018-01-01 05:26] LABS: GLUCOSE 172 mg/dL (70-105)
[2018-01-01] MEDS: Chlorhexidine Gluconate 0.12% 15mL Mouthwash MM SCH (08:10)
[2018-01-01] MEDS ORDERED: Propofol 10 mg/mL 20mL Vial **SURGERY USE ONLY IV ONE (08:30)
[2018-01-01 08:47] LABS: ALLEN TEST PASS; pH 7.53 (7.35-7.45)
--- NOTE | 2018-01-01 08:59 | Diagnostic Imaging Report ---
CHEST X-RAY: AP view INDICATION: Shortness of breath COMPARISON: 12/31/2017 FINDINGS: Support devices are stable. Cardiomegaly is noted with atherosclerosis. Small effusions are noted. IMPRESSION: Small bilateral effusions. Faint infiltrates of the lung bases cannot be excluded. Cardiomegaly and atherosclerotic vascular disease.
[2018-01-01] MEDS: Lactobacillus Rhamnosus GG 15 Billion CFU CAP.SPRINK PO SCH (09:00)
[2018-01-01] MEDS: POLYETHYLENE GLYCOL 3350 17 GM PACK PO SCH ×2 (09:00→17:14)
--- NOTE | 2018-01-01 09:53 | Operative Report ---
DATE OF SURGERY: 01/01/2018 PROCEDURE PERFORMED: EGD with G-tube placement. ENDOSCOPIST: Grover Remy M.D. PREOPERATIVE DIAGNOSES: Dysphagia, aspiration pneumonia. POSTOPERATIVE DIAGNOSIS: G-tube placement. INDICATION: The patient is an 87-year-old female who has been admitted to the hospital for about a week now with aspiration pneumonia and coffee-ground emesis. She was found to have a large hiatal hernia about 6-7 cm that was bleeding with an ulcer within the hernia sac. At the time of the endoscopy, two clips were placed along this ulcer and an NG tube was placed into the stomach endoscopically as bedside NG tube placement was not successful. Since that time, the patient was intubated and has been improving from a pneumonia standpoint and now GI has asked for a G-tube given the dysphagia and aspiration pneumonia, initially suffered, this is reasonable given the size of the hiatal hernia, I doubt the patient has much of a swallowing ability at this point. If she does regain her swallowing function later on, the G-tube can be removed. Consent was obtained from the patient's daughter. CONSENT: Informed consent was obtained from the patient's daughter. The risks and benefits of the procedure were discussed include but not limited to infection, bleeding, perforation, need for surgery, cardiopulmonary complications, missed pathology, G-tube related bleeding, G-tube insertion related bowel perforation, premature G-tube removal by the patient, and . The patient's daughter indicated her understanding of these risks, wished to go forward with the procedure, and signed a consent form. ANESTHESIA: Propofol was admitted by anesthesiologist, Dr. Lara, who is at bedside during the procedure in ICU. PROCEDURE IN DETAIL: The patient was hooked up the appropriate monitoring devices at bedside in the ICU including blood pressure, pulse, and pulse oximetry. An IV was in place. Oxygen was delivered via the patient's endotracheal tube throughout the procedure and anesthesia was administered by Dr. Lara of anesthesia. The patient was in the supine position. A mouthpiece was inserted and secured. Next, a gastroscope was introduced into the mouth and guided under direct visualization into the esophagus, stomach, and duodenum. Again seen in the esophagus, was a 5-6 cm hiatal hernia. The diaphragmatic pinch was at 41 cm while the end of gastric fold was at 35 cm. The two endoclips that were placed previously were still in place within the hernia sac itself and there was no active bleeding. At this point, the NG tube was removed within the stomach. There was no ulcer or mass lesion and the duodenum appeared endoscopically normal as well. An appropriate position for the G-tube was then found along the lesser curve of the gastric body, which was confirmed by transillumination as well as single poke method providing good 1:1 correlation on the gastric mucosa. A 22 gauge needle was then used to inject subcutaneous lidocaine into this area. The same needle was then used to puncture the stomach under direct visualization from the scope without much resistance observed. A small incision was made along the skin here and a trocar was placed through the incision and directly observed to puncture the stomach without any resistance. At this point, the trocar was secured in place using a snare device and the needle was removed. A guidewire was inserted through the trocar and grasped with the snare. The guidewire and the scope were then pulled out of the patient's mouth and a 20-Turkish G-tube was affixed securely to the guidewire. Using standard pull technique, the guidewire and G-tube were then pulled back down through the mouth, through the esophagus, and snugged to the abdominal wall. Antibiotic ointment was put onto the skin at this point and the external bumper was put in the correct location. The scope was reintroduced into the mouth and guided under direct visualization into the esophagus and stomach and confirmed the appropriate location of the internal bumper along the lesser curve of the gastric body. This bumper freely moved and twisted upon manipulation. At this point, the procedure was complete and the scope was withdrawn. Of note, the patient did receive Zosyn prior to the procedure start. RECOMMENDATIONS: 1. The new G-tube can be used immediately for medications and water flushes. 2. Tube feeds can be started in 8 hours with the previous feed formula. The feeds can be started at 10 mL an hour and increase by 10 mL per hour until goal rate is reached. 3. Hold for any gastric residual greater than 100 mL. 4. Flush the G-tube with 100 mL of water every 6 hours. 5. Abdominal binder is recommended. 6. If the patient does regain her swallowing function enough to the point where she may not need this G-tube, it can be removed in 4 weeks' time. Thank you for allowing me to participate in this patient's care. Please call with any further questions. JOB# [id number]
--- NOTE | 2018-01-01 11:06 | General Progress Note ---
Subjective - Review of Systems Events since last encounter: 01/01/18 PEG placement Objective - Results Result Diagrams: 01/01/18 04:20 01/01/18 04:20 Recent Labs: Laboratory Last Values WBC 13.7 Th/cmm (4.8-10.8) H 01/01/18 04:20 RBC 2.89 Mil/cmm (3.80-5.20) L 01/01/18 04:20 Hgb 8.5 gm/dL (12-16) L 01/01/18 04:20 Hct 25.3 % (41.0-60) L 01/01/18 04:20 MCV 87.3 fl (81-100) 01/01/18 04:20 MCH 29.4 pg (27.0-31.0) 01/01/18 04:20 MCHC Differential 33.7 pg (28.0-36.0) 01/01/18 04:20 RDW 13.7 % (11.5-20.0) 01/01/18 04:20 Plt Count 196 Th/cmm (150-400) 01/01/18 04:20 MPV 9.0 fl 01/01/18 04:20 Add Manual Diff YES 12/27/17 06:10 Neutrophils % 75.0 % (40.0-80.0) 01/01/18 04:20 Band Neutrophils % 3 % (0-10) 12/31/17 04:45 Lymphocytes % 13.7 % (20.0-50.0) L 01/01/18 04:20 Monocytes % 7.0 % (2.0-10.0) 01/01/18 04:20 Eosinophils % 3.8 % (0.0-5.0) 01/01/18 04:20 Basophils % 0.5 % (0.0-2.0) 01/01/18 04:20 Neutrophils (Manual) 75 % (40-80) 12/31/17 04:45 Lymphocytes 18 % (20-50) L 12/31/17 04:45 Monocytes 3 % (2-10) 12/31/17 04:45 Eosinophils 1 % (0-5) 12/31/17 04:45 Basophils 1 % (0-3) 12/26/17 04:45 Platelet Estimate ADEQUATE (NORMAL) 12/31/17 04:45 Anisocytosis 1+ 11/22/18 06:10 PT 10.6 SECONDS (9.5-11.5) 12/26/17 04:45 INR 1.02 (0.5-1.4) 12/26/17 04:45 PTT (Actin FS) 22.1 SECONDS (26.0-38.0) L 12/24/17 19:40 Specimen Source Arterial 01/01/18 08:36 Sample Site Right Radial 01/01/18 08:36 pH 7.53 (7.35-7.45) H 01/01/18 08:36 pCO2 35.0 mmHg (35.0-45.0) 01/01/18 08:36 pO2 78.0 mmHg (80.0-100.0) L 01/01/18 08:36 HCO3 29.9 mEq/L (20.0-26.0) H 01/01/18 08:36 Base Excess 6.4 mEq/L (-3.0-3.0) H 01/01/18 08:36 O2 Saturation 97.0 % (92.0-100.0) 01/01/18 08:36 Pradeep Test PASS 01/01/18 08:36 Vent Rate 6 01/01/18 08:36 Inspired O2 28 01/01/18 08:36 Tidal Volume 450 01/01/18 08:36 PEEP 5 01/01/18 08:36 Pressure (ins/psv/peep) 10 01/01/18 08:36 Critical Value RN 01/01/18 08:36 Sodium 147 mEq/L (136-145) H 01/01/18 04:20 Potassium 3.5 mEq/L (3.5-5.1) 01/01/18 04:20 Chloride 110 mEq/L (98-107) H 01/01/18 04:20 Carbon Dioxide 26.4 mEq/L (21.0-31.0) 01/01/18 04:20 Anion Gap 14.1 (7.0-16.0) 01/01/18 04:20 BUN 34 mg/dL (7-25) H 01/01/18 04:20 Creatinine 1.7 mg/dL (0.6-1.2) H 01/01/18 04:20 Est GFR ( Amer) TNP 01/01/18 04:20 Est GFR (Non-Af Amer) TNP 01/01/18 04:20 BUN/Creatinine Ratio 20.0 01/01/18 04:20 Glucose 172 mg/dL (70-105) H D 01/01/18 04:20 POC Glucose 194 MG/DL (70 - 105) H 01/01/18 06:37 Whole Bld Lactic Acid 2.46 mmol/L (0.60-1.99) H* 12/25/17 10:07 Calcium 8.4 mg/dL (8.6-10.3) L 01/01/18 04:20 Phosphorus 2.8 mg/dL (2.5-5.0) 12/29/17 04:35 Magnesium 2.2 mg/dL (1.9-2.7) 12/26/17 04:45 Total Bilirubin 0.4 mg/dL (0.3-1.0) 12/30/17 07:42 AST 11 U/L (13-39) L 12/30/17 07:42 ALT 9 U/L (7-52) 12/30/17 07:42 Alkaline Phosphatase 70 U/L (34-104) 12/30/17 07:42 B-Natriuretic Peptide 1920.0 pg/mL (5.0-100.0) H 01/01/18 04:20 Total Protein 4.4 gm/dL (6.0-8.3) L 12/30/17 07:42 Albumin 2.3 gm/dL (3.7-5.3) L 12/30/17 07:42 Globulin 2.1 gm/dL 12/30/17 07:42 Albumin/Globulin Ratio 1.1 (1.0-1.8) 12/30/17 07:42 Triglycerides 126 mg/dL (<150) 12/25/17 04:10 Cholesterol 124 mg/dL (<200) 12/25/17 04:10 LDL Cholesterol Direct 84 mg/dL (75-193) 12/25/17 04:10 HDL Cholesterol 30 mg/dL (23-92) 12/25/17 04:10 TSH 0.75 uIU/ml (0.34-5.60) 12/25/17 04:10 Vancomycin Trough 15.3 ug/mL (5-10) H 12/31/17 09:30 Helicobacter pylori Ab NEGATIVE (NEGATIVE) 12/26/17 08:35 Blood Type O POSITIVE 12/24/17 19:40 Antibody Screen NEGATIVE 12/24/17 19:40 Crossmatch See Detail 12/24/17 19:40 - Physical Exam Vitals and I&O: Vital Signs Temp 97.5 F 01/01/18 10:00 Pulse 79 01/01/18 10:00 Resp 25 01/01/18 10:00 BP 146/70 01/01/18 10:00 Pulse Ox 100 01/01/18 10:00 Intake & Output 12/31/17 01/01/18 01/01/18 18:59 06:59 18:59 Intake Total 830 682.667 50 Output Total 1550 900 Balance -720 -217.333 50 Weight (lbs) 74.843 kg 75.614 kg Intake: Intake, IV Amount 350 362.667 50 D5-0.45NS 1,000 ml @ 40 262.667 mls/hr IV .Q24H [facility] Rx#: [id number] Piperacillin Sodium/ 100 100 50 Tazobact 2.25 gm In Sodium Chloride 0.9% 50 ml @ 100 mls/hr IV Q6H [facility] Rx#:[id number] Vancomycin HCl 0.75 gm In 250 Sodium Chloride 0.9% 250 ml @ 165 mls/hr IV Q24H [facility] Rx#:[id number] Oral 120 Tube Feeding 360 200 Other 120 Output: Urine 1550 900 Other: # Bowel Movements 0 1 Stool Characteristics Soft Formed Weight Source Bedscale Bedscale Active Medications: Current Medications Acetaminophen (Tylenol) 650 mg PO Q4HR PRN PRN Reason: MILD PAIN 1-3 Stop: 02/23/18 17:58 Acetaminophen (Tylenol) 650 mg PO Q4HR PRN PRN Reason: TEMP >100.4 Stop: 02/23/18 17:58 Acetylcysteine (Mucomyst 20%) 3 ml HHN Q4HRT [facility] Stop: 02/25/18 14:59 Last Admin: 01/01/18 07:09 Dose: 3 ml Albuterol/Ipratropium (Duoneb Neb) 3 ml HHN Q4HRT [facility] Stop: 02/24/18 14:59 Last Admin: 01/01/18 07:09 Dose: 3 ml Amlodipine Besylate (Norvasc) 5 mg PO DAILY [facility] Stop: 02/24/18 08:59 Last Admin: 01/01/18 09:00 Dose: Not Given Ascorbic Acid (Vitamin C) 500 mg PO DAILY [facility] Stop: 02/24/18 08:59 Last Admin: 01/01/18 09:00 Dose: Not Given Atorvastatin Calcium (Lipitor) 10 mg PO HS [facility]; Protocol Stop: 03/01/18 20:59 Last Admin: 12/31/17 20:22 Dose: 10 mg Bisacodyl (Dulcolax 10 Mg Supp) 10 mg RC DAILY PRN PRN Reason: IF MOM INEFFECTIVE Stop: 02/23/18 17:58 Chlorhexidine Gluconate (Peridex) 15 ml MM 0800,1999 [facility] Stop: 02/25/18 19:59 Last Admin: 01/01/18 08:10 Dose: 15 ml Furosemide (Lasix) 40 mg IVP DAILY [facility] Stop: 03/02/18 08:59 Last Admin: 01/01/18 08:04 Dose: 40 mg Diltiazem HCl 125 mg/ Dextrose 100 mls @ 0 mls/hr IV Q8H PRN; Protocol PRN Reason: blood pressure Stop: 02/25/18 07:48 Last Admin: 12/27/17 09:00 Dose: 6.25 mg/hr, 5 mls/hr Piperacillin Sod/Tazobactam (Sod 2.25 gm/ Sodium Chloride) 50 mls @ 100 mls/hr IV Q6H [facility] Stop: 02/25/18 13:59 Last Infusion: 01/01/18 08:35 Dose: Infused Dextrose/Sodium Chloride (D5-0.45ns) 1,000 mls @ 40 mls/hr IV .Q24H [facility] Stop: 03/02/18 00:00 Last Infusion: 01/01/18 06:49 Dose: 40 mls/hr Vancomycin HCl 1.25 gm/ Sodium (Chloride) 250 mls @ 165 mls/hr IV Q36H [facility] Stop: 03/02/18 08:59 Last Admin: 01/01/18 10:18 Dose: 165 mls/hr Insulin Aspart (Novolog Insulin Sliding Scale) 0 units SUBQ Q6HR [facility]; Protocol Stop: 02/23/18 01:14 Last Admin: 01/01/18 07:47 Dose: 3 units Lactobacillus Rhamnosus (Culturelle 15b) 1 each PO DAILY [facility] Stop: 02/24/18 08:59 Last Admin: 01/01/18 09:00 Dose: Not Given Lorazepam (Ativan) 1 mg IVP Q4HR PRN; Protocol PRN Reason: Agitation Stop: 02/25/18 07:12 Last Admin: 12/28/17 08:29 Dose: 1 mg Miscellaneous (Probiotic Screen) 1 ea PRN PRN PRN Reason: PROTOCOL Stop: 02/23/18 15:29 Miscellaneous (Vancomycin Iv Per Pharmacy) 1 ea PRN GIOVANNA Stop: 02/24/18 23:44 Miscellaneous (Zosyn Iv Per Pharmacy) 1 ea PRN PRN PRN Reason: PROTOCOL Stop: 02/25/18 12:03 Morphine Sulfate (Morphine) 1 mg IVP Q4HR PRN PRN Reason: Pain (Moderate) Stop: 02/23/18 10:04 Last Admin: 01/01/18 02:07 Dose: 1 mg Pantoprazole Sodium (Protonix) 40 mg IVP BID [facility] Stop: 02/26/18 08:59 Last Admin: 01/01/18 08:04 Dose: 40 mg Polyethylene Glycol (Miralax) 17 gm PO BID [facility] Stop: 02/26/18 08:59 Last Admin: 01/01/18 09:00 Dose: Not Given General: Alert HEENT: Atraumatic Neck: Supple Cardiovascular: no Regular rate Abdomen: Bowel sounds, Soft, no Tender, no Hepatomegaly, no Splenomegaly, no Distended, no Rebound - Procedures Procedures: Procedures Procedure Code Date EXCISION OF STOMACH, PYLORUS, ENDO, DIAGN [id number] 12/24/17 INSERTION OF FEEDING DEVICE INTO STOMACH, ENDO [id number] 12/24/17 RESPIRATORY VENTILATION, GREATER THAN 96 CONSECUTIVE HOURS [id number] 12/24/17 Assessment/Plan - Problem List Patient Problems: All Active Problems COFFEE GROUND EMESIS (Acute) Nutritional Asmnt/Malnutr-PDOC - Dietary Evaluation Malnutrition Findings (Please click <Entered> for more info): Nutritional Asmnt/Malnutrition Start: 12/25/17 15: 21 Text: Status: Complete Freq: Protocol: Document 12/25/17 15:22 DYANG (Rec: 12/25/17 15:44 [email or web address]) Nutritional Asmnt/Malnutrition Patient General Information Nutritional Screening High Risk Diagnosis sepsis, dehydration, pneumonia Pertinent Medical Hx/Surgical Hx HTN, DM, dyslipidemia, dementia, anemia, muscle weakness Subjective Information Pt receiving care from RN at time of visit. Per nurse notes , pt had coffee ground emesis, NGT was unable to be inserted d/t large retro cardiac hiatal hernia, and will have EGD tomorrow. Spoke w/ RN Renee by phone who verfied the nurse notes and states pt will continue to be NPO. Current Diet Order/ Nutrition Support NPO Pertinent Medications D5-0.45ns, novolog, culturelle , pantoprazole Pertinent Labs 12/25: glucose 392, Na 144, Cl 110, BUN 78, Alb 2.9, POC 304 -423 12/24: glucose 547, Na 134, Cl 97, BUN 69, Alb 3.0, POC 441- 485 Nutritional Hx/Data Height 1.63 m Height (Calculated Centimeters) 162.6 Current Weight (lbs) 64.682 kg Weight (Calculated Kilograms) 64.7 Weight (Calculated Grams) 45123.3 Check Body Weight 120 lb Body Mass Index (BMI) 24.5 Weight Status Approriate GI Symptoms GI Symptoms Nausea Vomitting Last BM none noted Difficult in: None Food Allergies No Skin Integrity/Comment: pasquale lennon 13 Current %PO Negligible < 25% Estimated Nutritional Goals BEE in Kcals: Using Current wt Calories/Kcals/Kg 30-35 Kcals Calculated 0190-5263 Protein: Using Current wt Protein g/k.2-1.5 Protein Calculated 78-97 g Fluid: ml per MD Nutritional Problem 2. Problem Problem Altered nutrition related lab values Etiology dehydration, endocrine dysfunction Signs/Symptoms: Cl 110, BUN 78, glucose 392, POC 304-423 1. Problem Problem Increased nutrient needs Etiology metabolic stress Signs/Symptoms: dx of sepsis and pneumonia Malnutrition Related to Morbid Obesity Malnutrition related to morbid obesity No Intervention/Recommendation Comments 1. Monitor NPO status and advance diet when medically appropriate 2. Consider alternative nutrition route if pt unable to tolerate PO intake 3. Monitor wt, nutrition related labs, and skin integrity 4. F/U as high risk in 2-3 days, 12/27- Expected Outcomes/Goals Expected Outcomes/Goals 1. Pt to start oral intake or alternate nutrition route if necessary 2. Wt stability, skin to remain intact, nutrition related labs to approach normal limits Reveiwed by Yesenia Jennings RD
--- NOTE | 2018-01-01 11:39 | Infectious Disease Prog Note ---
Infectious Disease Subjective - Review of Systems Service Date: 01/01/18 Events since last encounter: extubated yday Subjective: NO fever. Infectious Disease Objective - Results Result Diagrams: 01/02/18 04:45 01/02/18 04:45 Recent Labs: Laboratory Last Values WBC 13.7 Th/cmm (4.8-10.8) H 01/01/18 04:20 RBC 2.89 Mil/cmm (3.80-5.20) L 01/01/18 04:20 Hgb 8.5 gm/dL (12-16) L 01/01/18 04:20 Hct 25.3 % (41.0-60) L 01/01/18 04:20 MCV 87.3 fl (81-100) 01/01/18 04:20 MCH 29.4 pg (27.0-31.0) 01/01/18 04:20 MCHC Differential 33.7 pg (28.0-36.0) 01/01/18 04:20 RDW 13.7 % (11.5-20.0) 01/01/18 04:20 Plt Count 196 Th/cmm (150-400) 01/01/18 04:20 MPV 9.0 fl 01/01/18 04:20 Add Manual Diff YES 12/27/17 06:10 Neutrophils % 75.0 % (40.0-80.0) 01/01/18 04:20 Band Neutrophils % 3 % (0-10) 12/31/17 04:45 Lymphocytes % 13.7 % (20.0-50.0) L 01/01/18 04:20 Monocytes % 7.0 % (2.0-10.0) 01/01/18 04:20 Eosinophils % 3.8 % (0.0-5.0) 01/01/18 04:20 Basophils % 0.5 % (0.0-2.0) 01/01/18 04:20 Neutrophils (Manual) 75 % (40-80) 12/31/17 04:45 Lymphocytes 18 % (20-50) L 12/31/17 04:45 Monocytes 3 % (2-10) 12/31/17 04:45 Eosinophils 1 % (0-5) 12/31/17 04:45 Basophils 1 % (0-3) 12/26/17 04:45 Platelet Estimate ADEQUATE (NORMAL) 12/31/17 04:45 Anisocytosis 1+ 12/27/17 06:10 PT 10.6 SECONDS (9.5-11.5) 12/26/17 04:45 INR 1.02 (0.5-1.4) 12/26/17 04:45 PTT (Actin FS) 22.1 SECONDS (26.0-38.0) L 12/24/17 19:40 Specimen Source Arterial 01/01/18 08:36 Sample Site Right Radial 01/01/18 08:36 pH 7.53 (7.35-7.45) H 01/01/18 08:36 pCO2 35.0 mmHg (35.0-45.0) 01/01/18 08:36 pO2 78.0 mmHg (80.0-100.0) L 01/01/18 08:36 HCO3 29.9 mEq/L (20.0-26.0) H 01/01/18 08:36 Base Excess 6.4 mEq/L (-3.0-3.0) H 01/01/18 08:36 O2 Saturation 97.0 % (92.0-100.0) 01/01/18 08:36 Pradeep Test PASS 01/01/18 08:36 Vent Rate 6 01/01/18 08:36 Inspired O2 28 01/01/18 08:36 Tidal Volume 450 01/01/18 08:36 PEEP 5 01/01/18 08:36 Pressure (ins/psv/peep) 10 01/01/18 08:36 Critical Value RN 01/01/18 08:36 Sodium 147 mEq/L (136-145) H 01/01/18 04:20 Potassium 3.5 mEq/L (3.5-5.1) 01/01/18 04:20 Chloride 110 mEq/L (98-107) H 01/01/18 04:20 Carbon Dioxide 26.4 mEq/L (21.0-31.0) 01/01/18 04:20 Anion Gap 14.1 (7.0-16.0) 01/01/18 04:20 BUN 34 mg/dL (7-25) H 01/01/18 04:20 Creatinine 1.7 mg/dL (0.6-1.2) H 01/01/18 04:20 Est GFR ( Amer) TNP 01/01/18 04:20 Est GFR (Non-Af Amer) TNP 01/01/18 04:20 BUN/Creatinine Ratio 20.0 01/01/18 04:20 Glucose 172 mg/dL (70-105) H D 01/01/18 04:20 POC Glucose 194 MG/DL (70 - 105) H 01/01/18 06:37 Whole Bld Lactic Acid 2.46 mmol/L (0.60-1.99) H* 12/25/17 10:07 Calcium 8.4 mg/dL (8.6-10.3) L 01/01/18 04:20 Phosphorus 2.8 mg/dL (2.5-5.0) 12/29/17 04:35 Magnesium 2.2 mg/dL (1.9-2.7) 12/26/17 04:45 Total Bilirubin 0.4 mg/dL (0.3-1.0) 12/30/17 07:42 AST 11 U/L (13-39) L 12/30/17 07:42 ALT 9 U/L (7-52) 12/30/17 07:42 Alkaline Phosphatase 70 U/L (34-104) 12/30/17 07:42 B-Natriuretic Peptide 1920.0 pg/mL (5.0-100.0) H 01/01/18 04:20 Total Protein 4.4 gm/dL (6.0-8.3) L 12/30/17 07:42 Albumin 2.3 gm/dL (3.7-5.3) L 12/30/17 07:42 Globulin 2.1 gm/dL 12/30/17 07:42 Albumin/Globulin Ratio 1.1 (1.0-1.8) 12/30/17 07:42 Triglycerides 126 mg/dL (<150) 12/25/17 04:10 Cholesterol 124 mg/dL (<200) 12/25/17 04:10 LDL Cholesterol Direct 84 mg/dL (75-193) 12/25/17 04:10 HDL Cholesterol 30 mg/dL (23-92) 12/25/17 04:10 TSH 0.75 uIU/ml (0.34-5.60) 12/25/17 04:10 Vancomycin Trough 15.3 ug/mL (5-10) H 12/31/17 09:30 Helicobacter pylori Ab NEGATIVE (NEGATIVE) 12/26/17 08:35 Blood Type O POSITIVE 12/24/17 19:40 Antibody Screen NEGATIVE 12/24/17 19:40 Crossmatch See Detail 12/24/17 19:40 - Physical Exam Vitals and I&O: Vital Signs Temp 97.5 F 01/01/18 10:00 Pulse 85 01/01/18 11:11 Resp 28 01/01/18 11:11 BP 146/70 01/01/18 10:00 Pulse Ox 97 01/01/18 11:11 Intake & Output 12/31/17 01/01/18 01/01/18 18:59 06:59 18:59 Intake Total 830 682.667 50 Output Total 1550 900 Balance -720 -217.333 50 Weight (lbs) 74.843 kg 75.614 kg Intake: Intake, IV Amount 350 362.667 50 D5-0.45NS 1,000 ml @ 40 262.667 mls/hr IV .Q24H [facility] Rx#: [id number] Piperacillin Sodium/ 100 100 50 Tazobact 2.25 gm In Sodium Chloride 0.9% 50 ml @ 100 mls/hr IV Q6H [facility] Rx#:[id number] Vancomycin HCl 0.75 gm In 250 Sodium Chloride 0.9% 250 ml @ 165 mls/hr IV Q24H [facility] Rx#:[id number] Oral 120 Tube Feeding 360 200 Other 120 Output: Urine 1550 900 Other: # Bowel Movements 0 1 Stool Characteristics Soft Formed Weight Source Bedscale Bedscale Active Medications: Current Medications Acetaminophen (Tylenol) 650 mg PO Q4HR PRN PRN Reason: MILD PAIN 1-3 Stop: 02/23/18 17:58 Acetaminophen (Tylenol) 650 mg PO Q4HR PRN PRN Reason: TEMP >100.4 Stop: 02/23/18 17:58 Acetylcysteine (Mucomyst 20%) 3 ml HHN Q4HRT [facility] Stop: 02/25/18 14:59 Last Admin: 01/01/18 11:11 Dose: 3 ml Albuterol/Ipratropium (Duoneb Neb) 3 ml HHN Q4HRT [facility] Stop: 02/24/18 14:59 Last Admin: 01/01/18 11:11 Dose: 3 ml Amlodipine Besylate (Norvasc) 5 mg PO DAILY [facility] Stop: 02/24/18 08:59 Last Admin: 01/01/18 09:00 Dose: Not Given Ascorbic Acid (Vitamin C) 500 mg PO DAILY [facility] Stop: 02/24/18 08:59 Last Admin: 01/01/18 09:00 Dose: Not Given Atorvastatin Calcium (Lipitor) 10 mg PO HS [facility]; Protocol Stop: 03/01/18 20:59 Last Admin: 12/31/17 20:22 Dose: 10 mg Bisacodyl (Dulcolax 10 Mg Supp) 10 mg RC DAILY PRN PRN Reason: IF MOM INEFFECTIVE Stop: 02/23/18 17:58 Chlorhexidine Gluconate (Peridex) 15 ml MM 0800,1999 [facility] Stop: 02/25/18 19:59 Last Admin: 01/01/18 08:10 Dose: 15 ml Furosemide (Lasix) 40 mg IVP DAILY [facility] Stop: 03/02/18 08:59 Last Admin: 01/01/18 08:04 Dose: 40 mg Diltiazem HCl 125 mg/ Dextrose 100 mls @ 0 mls/hr IV Q8H PRN; Protocol PRN Reason: blood pressure Stop: 02/25/18 07:48 Last Admin: 12/27/17 09:00 Dose: 6.25 mg/hr, 5 mls/hr Piperacillin Sod/Tazobactam (Sod 2.25 gm/ Sodium Chloride) 50 mls @ 100 mls/hr IV Q6H [facility] Stop: 02/25/18 13:59 Last Infusion: 01/01/18 08:35 Dose: Infused Dextrose/Sodium Chloride (D5-0.45ns) 1,000 mls @ 40 mls/hr IV .Q24H [facility] Stop: 03/02/18 00:00 Last Infusion: 01/01/18 06:49 Dose: 40 mls/hr Vancomycin HCl 1.25 gm/ Sodium (Chloride) 250 mls @ 165 mls/hr IV Q36H [facility] Stop: 03/02/18 08:59 Last Admin: 01/01/18 10:18 Dose: 165 mls/hr Insulin Aspart (Novolog Insulin Sliding Scale) 0 units SUBQ Q6HR [facility]; Protocol Stop: 02/23/18 01:14 Last Admin: 01/01/18 07:47 Dose: 3 units Lactobacillus Rhamnosus (Culturelle 15b) 1 each PO DAILY [facility] Stop: 02/24/18 08:59 Last Admin: 01/01/18 09:00 Dose: Not Given Lorazepam (Ativan) 1 mg IVP Q4HR PRN; Protocol PRN Reason: Agitation Stop: 02/25/18 07:12 Last Admin: 12/28/17 08:29 Dose: 1 mg Miscellaneous (Probiotic Screen) 1 ea PRN PRN PRN Reason: PROTOCOL Stop: 02/23/18 15:29 Miscellaneous (Vancomycin Iv Per Pharmacy) 1 ea PRN GIOVANNA Stop: 02/24/18 23:44 Miscellaneous (Zosyn Iv Per Pharmacy) 1 [facility] PRN PRN PRN Reason: PROTOCOL Stop: 02/25/18 12:03 Morphine Sulfate (Morphine) 1 mg IVP Q4HR PRN PRN Reason: Pain (Moderate) Stop: 02/23/18 10:04 Last Admin: 01/01/18 02:07 Dose: 1 mg Pantoprazole Sodium (Protonix) 40 mg IVP BID [facility] Stop: 02/26/18 08:59 Last Admin: 01/01/18 08:04 Dose: 40 mg Polyethylene Glycol (Miralax) 17 gm PO BID [facility] Stop: 02/26/18 08:59 Last Admin: 01/01/18 09:00 Dose: Not Given General: no acute distress, well developed, well nourished HEENT: atraumatic, normocephalic, PERRLA, EOMI Neck: supple, no thyromegaly Cardiovascular: S1S2, regular Lungs: clear to percussion, crackles, rhonchi Abdomen: soft, other (G tube.), no tender, no distended, no mass Extremities: clubbing, no cyanosis, no edema Skin: intact - Procedures Procedures: Procedures Procedure Code Date EXCISION OF STOMACH, PYLORUS, ENDO, DIAGN [id number] 12/24/17 INSERTION OF FEEDING DEVICE INTO STOMACH, ENDO [id number] 12/24/17 RESPIRATORY VENTILATION, GREATER THAN 96 CONSECUTIVE HOURS [id number] 12/24/17 Infectious Disease Assmt/Plan - Problem List Patient Problems: All Active Problems COFFEE GROUND EMESIS (Acute) - Assessment Assessment: 1. Severe sepsis. 2. Pneumonia. 3. Fecal impaction. 4. Gallbladder stone at bladder neck. 5. Diabetes mellitus type 2. 6. Hypertension. 7. Dementia. 8. Anemia. 9. Large hiatal hernia. 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 11. GI bleed 2/2 PUD. 12. SVT 13. VDRF. 14. S/p PEG placement, POD #1. 15. Hypokalemia. - Plan Plan: Continue zosyn. Continue vancomycin IV Bactroban nasal ointment. K supplementaion. Will ask for LTAC eval. Nutritional Asmnt/Malnutr-PDOC - Dietary Evaluation Malnutrition Findings (Please click <Entered> for more info): Nutritional Asmnt/Malnutrition Start: 12/25/17 15: 21 Text: Status: Complete Freq: Protocol: Document 12/25/17 15:22 ARSH (Rec: 12/25/17 15:44 ARSH [email or web address]) Nutritional Asmnt/Malnutrition Patient General Information Nutritional Screening High Risk Diagnosis sepsis, dehydration, pneumonia Pertinent Medical Hx/Surgical Hx HTN, DM, dyslipidemia, dementia, anemia, muscle weakness Subjective Information Pt receiving care from RN at time of visit. Per nurse notes , pt had coffee ground emesis, NGT was unable to be inserted d/t large retro cardiac hiatal hernia, and will have EGD tomorrow. Spoke w/ BELA Duran by phone who verfied the nurse notes and states pt will continue to be NPO. Current Diet Order/ Nutrition Support NPO Pertinent Medications D5-0.45ns, novolog, culturelle , pantoprazole Pertinent Labs 12/25: glucose 392, Na 144, Cl 110, BUN 78, Alb 2.9, POC 304 -423 12/24: glucose 547, Na 134, Cl 97, BUN 69, Alb 3.0, POC 441- 485 Nutritional Hx/Data Height 1.63 m Height (Calculated Centimeters) 162.6 Current Weight (lbs) 64.682 kg Weight (Calculated Kilograms) 64.7 Weight (Calculated Grams) 55029.3 [place] Body Weight 120 lb Body Mass Index (BMI) 24.5 Weight Status Approriate GI Symptoms GI Symptoms Nausea Vomitting Last BM none noted Difficult in: None Food Allergies No Skin Integrity/Comment: intact, pasquale 13 Current %PO Negligible < 25% Estimated Nutritional Goals BEE in Kcals: Using Current wt Calories/Kcals/Kg 30-35 Kcals Calculated 2452-0546 Protein: Using Current wt Protein g/k.2-1.5 Protein Calculated 78-97 g Fluid: ml per MD Nutritional Problem 2. Problem Problem Altered nutrition related lab values Etiology dehydration, endocrine dysfunction Signs/Symptoms: Cl 110, BUN 78, glucose 392, POC 304-423 1. Problem Problem Increased nutrient needs Etiology metabolic stress Signs/Symptoms: dx of sepsis and pneumonia Malnutrition Related to Morbid Obesity Malnutrition related to morbid obesity No Intervention/Recommendation Comments 1. Monitor NPO status and advance diet when medically appropriate 2. Consider alternative nutrition route if pt unable to tolerate PO intake 3. Monitor wt, nutrition related labs, and skin integrity 4. F/U as high risk in 2-3 days, 12/27- Expected Outcomes/Goals Expected Outcomes/Goals 1. Pt to start oral intake or alternate nutrition route if necessary 2. Wt stability, skin to remain intact, nutrition related labs to approach normal limits Reveiwed by Yesenia Jennings RD
[2018-01-01 12:52] LABS: ALLEN TEST pos; pH 7.46 (7.35-7.45)
--- NOTE | 2018-01-01 14:00 | Internal Medicine Prog Note ---
Internal Medicine Subjective - Subjective Service Date: 01/01/18 (s/p extubation) Patient is:: awake, other Per staff patient has:: no adverse event, tolerating meds Internal Medicine Objective - Results Result Diagrams: 01/01/18 04:20 01/01/18 04:20 Recent Labs: Laboratory Last Values WBC 13.7 Th/cmm (4.8-10.8) H 01/01/18 04:20 RBC 2.89 Mil/cmm (3.80-5.20) L 01/01/18 04:20 Hgb 8.5 gm/dL (12-16) L 01/01/18 04:20 Hct 25.3 % (41.0-60) L 01/01/18 04:20 MCV 87.3 fl (81-100) 01/01/18 04:20 MCH 29.4 pg (27.0-31.0) 01/01/18 04:20 MCHC Differential 33.7 pg (28.0-36.0) 01/01/18 04:20 RDW 13.7 % (11.5-20.0) 01/01/18 04:20 Plt Count 196 Th/cmm (150-400) 01/01/18 04:20 MPV 9.0 fl 01/01/18 04:20 Add Manual Diff YES 12/27/17 06:10 Neutrophils % 75.0 % (40.0-80.0) 01/01/18 04:20 Band Neutrophils % 3 % (0-10) 12/31/17 04:45 Lymphocytes % 13.7 % (20.0-50.0) L 01/01/18 04:20 Monocytes % 7.0 % (2.0-10.0) 01/01/18 04:20 Eosinophils % 3.8 % (0.0-5.0) 01/01/18 04:20 Basophils % 0.5 % (0.0-2.0) 01/01/18 04:20 Neutrophils (Manual) 75 % (40-80) 12/31/17 04:45 Lymphocytes 18 % (20-50) L 12/31/17 04:45 Monocytes 3 % (2-10) 12/31/17 04:45 Eosinophils 1 % (0-5) 12/31/17 04:45 Basophils 1 % (0-3) 12/26/17 04:45 Platelet Estimate ADEQUATE (NORMAL) 12/31/17 04:45 Anisocytosis 1+ 12/27/17 06:10 PT 10.6 SECONDS (9.5-11.5) 12/26/17 04:45 INR 1.02 (0.5-1.4) 12/26/17 04:45 PTT (Actin FS) 22.1 SECONDS (26.0-38.0) L 12/24/17 19:40 Specimen Source arterial 01/01/18 11:45 Sample Site rr 01/01/18 11:45 pH 7.46 (7.35-7.45) H 01/01/18 11:45 pCO2 43.0 mmHg (35.0-45.0) 01/01/18 11:45 pO2 81.0 mmHg (80.0-100.0) 01/01/18 11:45 HCO3 29.7 mEq/L (20.0-26.0) H 01/01/18 11:45 Base Excess 6.1 mEq/L (-3.0-3.0) H 01/01/18 11:45 O2 Saturation 96.0 % (92.0-100.0) 01/01/18 11:45 Pradeep Test pos 01/01/18 11:45 Vent Rate na 01/01/18 11:45 Inspired O2 40 01/01/18 11:45 Tidal Volume na 01/01/18 11:45 PEEP na 01/01/18 11:45 Pressure (ins/psv/peep) na 01/01/18 11:45 Critical Value 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 01/01/18 11:45 Sodium 147 mEq/L (136-145) H 01/01/18 04:20 Potassium 3.5 mEq/L (3.5-5.1) 01/01/18 04:20 Chloride 110 mEq/L (98-107) H 01/01/18 04:20 Carbon Dioxide 26.4 mEq/L (21.0-31.0) 01/01/18 04:20 Anion Gap 14.1 (7.0-16.0) 01/01/18 04:20 BUN 34 mg/dL (7-25) H 01/01/18 04:20 Creatinine 1.7 mg/dL (0.6-1.2) H 01/01/18 04:20 Est GFR ( Amer) TNP 01/01/18 04:20 Est GFR (Non-Af Amer) TNP 01/01/18 04:20 BUN/Creatinine Ratio 20.0 01/01/18 04:20 Glucose 172 mg/dL (70-105) H D 01/01/18 04:20 POC Glucose 224 MG/DL (70 - 105) H 01/01/18 11:47 Whole Bld Lactic Acid 2.46 mmol/L (0.60-1.99) H* 12/25/17 10:07 Calcium 8.4 mg/dL (8.6-10.3) L 01/01/18 04:20 Phosphorus 2.8 mg/dL (2.5-5.0) 12/29/17 04:35 Magnesium 2.2 mg/dL (1.9-2.7) 12/26/17 04:45 Total Bilirubin 0.4 mg/dL (0.3-1.0) 12/30/17 07:42 AST 11 U/L (13-39) L 12/30/17 07:42 ALT 9 U/L (7-52) 12/30/17 07:42 Alkaline Phosphatase 70 U/L (34-104) 12/30/17 07:42 B-Natriuretic Peptide 1920.0 pg/mL (5.0-100.0) H 01/01/18 04:20 Total Protein 4.4 gm/dL (6.0-8.3) L 12/30/17 07:42 Albumin 2.3 gm/dL (3.7-5.3) L 12/30/17 07:42 Globulin 2.1 gm/dL 12/30/17 07:42 Albumin/Globulin Ratio 1.1 (1.0-1.8) 12/30/17 07:42 Triglycerides 126 mg/dL (<150) 12/25/17 04:10 Cholesterol 124 mg/dL (<200) 12/25/17 04:10 LDL Cholesterol Direct 84 mg/dL (75-193) 12/25/17 04:10 HDL Cholesterol 30 mg/dL (23-92) 12/25/17 04:10 TSH 0.75 uIU/ml (0.34-5.60) 12/25/17 04:10 Vancomycin Trough 15.3 ug/mL (5-10) H 12/31/17 09:30 Helicobacter pylori Ab NEGATIVE (NEGATIVE) 12/26/17 08:35 Blood Type O POSITIVE 12/24/17 19:40 Antibody Screen NEGATIVE 12/24/17 19:40 Crossmatch See Detail 12/24/17 19:40 - Physical Exam Vitals and I&O: Vital Signs Temp 97.5 F 01/01/18 12:00 Pulse 88 01/01/18 13:17 Resp 26 01/01/18 13:00 BP 181/62 01/01/18 13:17 Pulse Ox 96 01/01/18 13:00 Intake & Output 12/31/17 01/01/18 01/01/18 18:59 06:59 18:59 Intake Total 830 682.667 300 Output Total 1550 900 Balance -720 -217.333 300 Weight (lbs) 165 lb 166 lb 11.2 oz Intake: Intake, IV Amount 350 362.667 300 D5-0.45NS 1,000 ml @ 40 262.667 mls/hr IV .Q24H [facility] Rx#: [id number] Piperacillin Sodium/ 100 100 50 Tazobact 2.25 gm In Sodium Chloride 0.9% 50 ml @ 100 mls/hr IV Q6H [facility] Rx#:[id number] Vancomycin HCl 0.75 gm In 250 Sodium Chloride 0.9% 250 ml @ 165 mls/hr IV Q24H [facility] Rx#:[id number] Vancomycin HCl 1.25 gm In 250 Sodium Chloride 0.9% 250 ml @ 165 mls/hr IV Q36H [facility] Rx#:[id number] Oral 120 Tube Feeding 360 200 Other 120 Output: Urine 1550 900 Other: # Bowel Movements 0 1 Stool Characteristics Soft Formed Weight Source Bedscale Bedscale Active Medications: Current Medications Acetaminophen (Tylenol) 650 mg PO Q4HR PRN PRN Reason: MILD PAIN 1-3 Stop: 02/23/18 17:58 Acetaminophen (Tylenol) 650 mg PO Q4HR PRN PRN Reason: TEMP >100.4 Stop: 02/23/18 17:58 Acetylcysteine (Mucomyst 20%) 3 ml HHN Q4HRT [facility] Stop: 02/25/18 14:59 Last Admin: 01/01/18 11:11 Dose: 3 ml Albuterol/Ipratropium (Duoneb Neb) 3 ml HHN Q4HRT [facility] Stop: 02/24/18 14:59 Last Admin: 01/01/18 11:11 Dose: 3 ml Amlodipine Besylate (Norvasc) 5 mg PO DAILY [facility] Stop: 02/24/18 08:59 Last Admin: 01/01/18 13:17 Dose: 5 mg Ascorbic Acid (Vitamin C) 500 mg PO DAILY [facility] Stop: 02/24/18 08:59 Last Admin: 01/01/18 09:00 Dose: Not Given Atorvastatin Calcium (Lipitor) 10 mg PO HS [facility]; Protocol Stop: 03/01/18 20:59 Last Admin: 12/31/17 20:22 Dose: 10 mg Bisacodyl (Dulcolax 10 Mg Supp) 10 mg RC DAILY PRN PRN Reason: IF MOM INEFFECTIVE Stop: 02/23/18 17:58 Chlorhexidine Gluconate (Peridex) 15 ml MM 0800,2000 [facility] Stop: 02/25/18 19:59 Last Admin: 01/01/18 08:10 Dose: 15 ml Furosemide (Lasix) 40 mg IVP DAILY [facility] Stop: 03/02/18 08:59 Last Admin: 01/01/18 08:04 Dose: 40 mg Diltiazem HCl 125 mg/ Dextrose 100 mls @ 0 mls/hr IV Q8H PRN; Protocol PRN Reason: blood pressure Stop: 02/25/18 07:48 Last Admin: 12/27/17 09:00 Dose: 6.25 mg/hr, 5 mls/hr Piperacillin Sod/Tazobactam (Sod 2.25 gm/ Sodium Chloride) 50 mls @ 100 mls/hr IV Q6H [facility] Stop: 02/25/18 13:59 Last Infusion: 01/01/18 08:35 Dose: Infused Dextrose/Sodium Chloride (D5-0.45ns) 1,000 mls @ 40 mls/hr IV .Q24H [facility] Stop: 03/02/18 00:00 Last Infusion: 01/01/18 06:49 Dose: 40 mls/hr Vancomycin HCl 1.25 gm/ Sodium (Chloride) 250 mls @ 165 mls/hr IV Q36H [facility] Stop: 03/02/18 08:59 Last Infusion: 01/01/18 11:50 Dose: Infused Insulin Aspart (Novolog Insulin Sliding Scale) 0 units SUBQ Q6HR [facility]; Protocol Stop: 02/23/18 01:14 Last Admin: 01/01/18 12:23 Dose: 5 units Lactobacillus Rhamnosus (Culturelle 15b) 1 each PO DAILY [facility] Stop: 02/24/18 08:59 Last Admin: 01/01/18 09:00 Dose: Not Given Lorazepam (Ativan) 1 mg IVP Q4HR PRN; Protocol PRN Reason: Agitation Stop: 02/25/18 07:12 Last Admin: 12/28/17 08:29 Dose: 1 mg Miscellaneous (Probiotic Screen) 1 ea PRN PRN PRN Reason: PROTOCOL Stop: 02/23/18 15:29 Miscellaneous (Vancomycin Iv Per Pharmacy) 1 ea PRN [facility] Stop: 02/24/18 23:44 Miscellaneous (Zosyn Iv Per Pharmacy) 1 [facility] PRN PRN PRN Reason: PROTOCOL Stop: 02/25/18 12:03 Morphine Sulfate (Morphine) 1 mg IVP Q4HR PRN PRN Reason: Pain (Moderate) Stop: 02/23/18 10:04 Last Admin: 01/01/18 02:07 Dose: 1 mg Pantoprazole Sodium (Protonix) 40 mg IVP BID [facility] Stop: 02/26/18 08:59 Last Admin: 01/01/18 08:04 Dose: 40 mg Polyethylene Glycol (Miralax) 17 gm PO BID [facility] Stop: 02/26/18 08:59 Last Admin: 01/01/18 09:00 Dose: Not Given General: weak HEENT: NC/AT Neck: Supple Lungs: CTAB Cardiovascular: Normal S1, Normal S2 Abdomen: non-tender Extremities: clear, edema Neurological: no change - Procedures Procedures: Procedures Procedure Code Date EXCISION OF STOMACH, PYLORUS, ENDO, DIAGN [id number] 12/24/17 INSERTION OF FEEDING DEVICE INTO STOMACH, ENDO [id number] 12/24/17 RESPIRATORY VENTILATION, GREATER THAN 96 CONSECUTIVE HOURS [id number] 12/24/17 Internal Medicine Assmt/Plan - Assessment Assessment: s/p extubation Severe sepsis. Pneumonia. Fecal impaction. Gallbladder stone at bladder neck. Diabetes mellitus type 2. Hypertension. Dementia. Anemia. Large hiatal hernia. - - Plan Plan: monitor respiratory effort follow up labs in am LTAC eval cpm Nutritional Asmnt/Malnutr-PDOC - Dietary Evaluation Malnutrition Findings (Please click <Entered> for more info): Nutritional Asmnt/Malnutrition Start: 12/25/17 15: 21 Text: Status: Complete Freq: Protocol: Document 12/25/17 15:22 ARSH (Rec: 12/25/17 15:44 [email or web address] [email or web address]) Nutritional Asmnt/Malnutrition Patient General Information Nutritional Screening High Risk Diagnosis sepsis, dehydration, pneumonia Pertinent Medical Hx/Surgical Hx HTN, DM, dyslipidemia, dementia, anemia, muscle weakness Subjective Information Pt receiving care from RN at time of visit. Per nurse notes , pt had coffee ground emesis, NGT was unable to be inserted d/t large retro cardiac hiatal hernia, and will have EGD tomorrow. Spoke w/ BELA Duran by phone who verfied the nurse notes and states pt will continue to be NPO. Current Diet Order/ Nutrition Support NPO Pertinent Medications D5-0.45ns, novolog, culturelle , pantoprazole Pertinent Labs 12/25: glucose 392, Na 144, Cl 110, BUN 78, Alb 2.9, POC 304 -423 12/24: glucose 547, Na 134, Cl 97, BUN 69, Alb 3.0, POC 441- 485 Nutritional Hx/Data Height 5 ft 4 in Height (Calculated Centimeters) 162.6 Current Weight (lbs) 142 lb 9.6 oz Weight (Calculated Kilograms) 64.7 Weight (Calculated Grams) 95973.3 [place] Body Weight 120 lb Body Mass Index (BMI) 24.5 Weight Status Approriate GI Symptoms GI Symptoms Nausea Vomitting Last BM none noted Difficult in: None Food Allergies No Skin Integrity/Comment: pasquale lennon 13 Current %PO Negligible < 25% Estimated Nutritional Goals BEE in Kcals: Using Current wt Calories/Kcals/Kg 30-35 Kcals Calculated 1091-4939 Protein: Using Current wt Protein g/k.2-1.5 Protein Calculated 78-97 g Fluid: ml per MD Nutritional Problem 2. Problem Problem Altered nutrition related lab values Etiology dehydration, endocrine dysfunction Signs/Symptoms: Cl 110, BUN 78, glucose 392, POC 304-423 1. Problem Problem Increased nutrient needs Etiology metabolic stress Signs/Symptoms: dx of sepsis and pneumonia Malnutrition Related to Morbid Obesity Malnutrition related to morbid obesity No Intervention/Recommendation Comments 1. Monitor NPO status and advance diet when medically appropriate 2. Consider alternative nutrition route if pt unable to tolerate PO intake 3. Monitor wt, nutrition related labs, and skin integrity 4. F/U as high risk in 2-3 days, 12/27- Expected Outcomes/Goals Expected Outcomes/Goals 1. Pt to start oral intake or alternate nutrition route if necessary 2. Wt stability, skin to remain intact, nutrition related labs to approach normal limits Reveiwed by Yesenia Jennings RD
[2018-01-01] MEDS: Atorvastatin Calcium 10 MG TAB PO SCH (20:27)
[2018-01-02] MEDS: INSULIN ASPART SLIDING SCALE 100 UNITS/ML UNIT SUBQ SCH ×4 (00:23→17:28)
[2018-01-02] MEDS: Piperacillin/Tazobact 2.25 gm in 0.9% NS 50 ML IV SCH ×4 (02:27→20:03)
[2018-01-02] MEDS: Albuterol/Ipratropium Neb 3 ML AERS HHN SCH ×6 (03:05→22:11)
[2018-01-02 05:20] LABS: BASOPHILE ABSOLUTE 0.1 Th/cumm (0-0.2); MEAN PLATELET VOLUME 9.7 fl; RED CELL DISTRIBUTION WIDTH 13.6 % (11.5-20.0)
[2018-01-02 05:23] LABS: ANION GAP 15.2 (7.0-16.0); BUN - UREA NITROGEN 32 mg/dL (7-25); CALCIUM SERUM 8.2 mg/dL (8.6-10.3); CARBON DIOXIDE 26.1 mEq/L (21.0-31.0); CHLORIDE 109 mEq/L (98-107); CREATININE - SERUM 1.6 mg/dL (0.6-1.2); GLUCOSE 250 mg/dL (70-105); POTASSIUM SERUM 3.3 mEq/L (3.5-5.1); SODIUM SERUM 147 mEq/L (136-145)
[2018-01-02 05:25] LABS: % BASOPHILS 0.6 % (0.0-2.0); % EOSINOPHILS 6.1 % (0.0-5.0); % MONOCYTES 7.1 % (2.0-10.0); % NEUTROPHILS 70.2 % (40.0-80.0); EOSINOPHILE ABSOLUTE 0.7 Th/cmm (0.1-0.4); HEMATOCRIT 26.7 % (41.0-60); HEMOGLOBIN 8.8 gm/dL (12-16); LYMPHOCYTE ABSOLUTE 1.8 Th/cmm (1.5-3.0); MEAN CELL VOLUME 88.6 fl (81-100); MEAN CORPUSCULAR HEMOGLOBIN 29.3 pg (27.0-31.0); MONOCYTE ABSOLUTE 0.8 Th/cmm (0.3-1.0); NEUTROPHILE ABSOLUTE 7.9 Th/cmm (1.8-8.0); PLATELET COUNT 226 Th/cmm (150-400); RED BLOOD COUNT 3.02 Mil/cmm (3.80-5.20); WHITE BLOOD COUNT 11.3 Th/cmm (4.8-10.8)
[2018-01-02] MEDS: D5-0.45NS 1,000 ML IV SCH (08:28)
[2018-01-02] MEDS: POLYETHYLENE GLYCOL 3350 17 GM PACK PO SCH ×2 (08:29→16:28)
[2018-01-02] MEDS: Lactobacillus Rhamnosus GG 15 Billion CFU CAP.SPRINK PO SCH (08:29)
[2018-01-02] MEDS ORDERED: Potassium Chloride 20 mEq ER Tab PO ONE (08:59)
--- NOTE | 2018-01-02 14:33 | Internal Medicine Prog Note ---
Internal Medicine Subjective - Subjective Service Date: 01/02/18 Patient is:: awake, other Per staff patient has:: no adverse event, tolerating meds Internal Medicine Objective - Results Result Diagrams: 01/02/18 04:45 01/02/18 04:45 Recent Labs: Laboratory Last Values WBC 11.3 Th/cmm (4.8-10.8) H 01/02/18 04:45 RBC 3.02 Mil/cmm (3.80-5.20) L 01/02/18 04:45 Hgb 8.8 gm/dL (12-16) L 01/02/18 04:45 Hct 26.7 % (41.0-60) L 01/02/18 04:45 MCV 88.6 fl (81-100) 01/02/18 04:45 MCH 29.3 pg (27.0-31.0) 01/02/18 04:45 MCHC Differential 33.0 pg (28.0-36.0) 01/02/18 04:45 RDW 13.6 % (11.5-20.0) 01/02/18 04:45 Plt Count 226 Th/cmm (150-400) 01/02/18 04:45 MPV 9.7 fl 01/02/18 04:45 Add Manual Diff YES 12/27/17 06:10 Neutrophils % 70.2 % (40.0-80.0) 01/02/18 04:45 Band Neutrophils % 3 % (0-10) 12/31/17 04:45 Lymphocytes % 16.0 % (20.0-50.0) L 01/02/18 04:45 Monocytes % 7.1 % (2.0-10.0) 01/02/18 04:45 Eosinophils % 6.1 % (0.0-5.0) H 01/02/18 04:45 Basophils % 0.6 % (0.0-2.0) 01/02/18 04:45 Neutrophils (Manual) 75 % (40-80) 12/31/17 04:45 Lymphocytes 18 % (20-50) L 12/31/17 04:45 Monocytes 3 % (2-10) 12/31/17 04:45 Eosinophils 1 % (0-5) 12/31/17 04:45 Basophils 1 % (0-3) 12/26/17 04:45 Platelet Estimate ADEQUATE (NORMAL) 12/31/17 04:45 Anisocytosis 1+ 12/27/17 06:10 PT 10.6 SECONDS (9.5-11.5) 12/26/17 04:45 INR 1.02 (0.5-1.4) 12/26/17 04:45 PTT (Actin FS) 22.1 SECONDS (26.0-38.0) L 12/24/17 19:40 Specimen Source arterial 01/01/18 11:45 Sample Site rr 01/01/18 11:45 pH 7.46 (7.35-7.45) H 01/01/18 11:45 pCO2 43.0 mmHg (35.0-45.0) 01/01/18 11:45 pO2 81.0 mmHg (80.0-100.0) 01/01/18 11:45 HCO3 29.7 mEq/L (20.0-26.0) H 01/01/18 11:45 Base Excess 6.1 mEq/L (-3.0-3.0) H 01/01/18 11:45 O2 Saturation 96.0 % (92.0-100.0) 01/01/18 11:45 Pradeep Test pos 01/01/18 11:45 Vent Rate na 01/01/18 11:45 Inspired O2 40 01/01/18 11:45 Tidal Volume na 01/01/18 11:45 PEEP na 01/01/18 11:45 Pressure (ins/psv/peep) na 01/01/18 11:45 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 01/01/18 11:45 Sodium 147 mEq/L (136-145) H 01/02/18 04:45 Potassium 3.3 mEq/L (3.5-5.1) L 01/02/18 04:45 Chloride 109 mEq/L (98-107) H 01/02/18 04:45 Carbon Dioxide 26.1 mEq/L (21.0-31.0) 01/02/18 04:45 Anion Gap 15.2 (7.0-16.0) 01/02/18 04:45 BUN 32 mg/dL (7-25) H 01/02/18 04:45 Creatinine 1.6 mg/dL (0.6-1.2) H 01/02/18 04:45 Est GFR ( Amer) TNP 01/02/18 04:45 Est GFR (Non-Af Amer) TNP 01/02/18 04:45 BUN/Creatinine Ratio 20.0 01/02/18 04:45 Glucose 250 mg/dL (70-105) H 01/02/18 04:45 POC Glucose 282 MG/DL (70 - 105) H 01/02/18 11:42 Whole Bld Lactic Acid 2.46 mmol/L (0.60-1.99) H* 12/25/17 10:07 Calcium 8.2 mg/dL (8.6-10.3) L 01/02/18 04:45 Phosphorus 2.8 mg/dL (2.5-5.0) 12/29/17 04:35 Magnesium 2.2 mg/dL (1.9-2.7) 12/26/17 04:45 Total Bilirubin 0.4 mg/dL (0.3-1.0) 12/30/17 07:42 AST 11 U/L (13-39) L 12/30/17 07:42 ALT 9 U/L (7-52) 12/30/17 07:42 Alkaline Phosphatase 70 U/L (34-104) 12/30/17 07:42 B-Natriuretic Peptide 1920.0 pg/mL (5.0-100.0) H 01/01/18 04:20 Total Protein 4.4 gm/dL (6.0-8.3) L 12/30/17 07:42 Albumin 2.3 gm/dL (3.7-5.3) L 12/30/17 07:42 Globulin 2.1 gm/dL 12/30/17 07:42 Albumin/Globulin Ratio 1.1 (1.0-1.8) 12/30/17 07:42 Triglycerides 126 mg/dL (<150) 12/25/17 04:10 Cholesterol 124 mg/dL (<200) 12/25/17 04:10 LDL Cholesterol Direct 84 mg/dL (75-193) 12/25/17 04:10 HDL Cholesterol 30 mg/dL (23-92) 12/25/17 04:10 TSH 0.75 uIU/ml (0.34-5.60) 11/20/18 04:10 Vancomycin Trough 15.3 ug/mL (5-10) H 12/31/17 09:30 Helicobacter pylori Ab NEGATIVE (NEGATIVE) 12/26/17 08:35 Blood Type O POSITIVE 12/24/17 19:40 Antibody Screen NEGATIVE 12/24/17 19:40 Crossmatch See Detail 12/24/17 19:40 - Physical Exam Vitals and I&O: Vital Signs Temp 98.0 F 01/02/18 14:00 Pulse 74 01/02/18 14:00 Resp 22 01/02/18 14:00 BP 148/48 01/02/18 14:00 Pulse Ox 93 01/02/18 14:00 Intake & Output 01/01/18 01/02/18 01/02/18 18:59 06:59 18:59 Intake Total 470 645.333 451 Output Total 2500 2150 Balance -2030 645.333 -1699 Weight (lbs) 165 lb 162 lb 6.4 oz Intake: Intake, IV Amount 350 645.333 0 D5-0.45NS 1,000 ml @ 40 545.333 0 mls/hr IV .Q24H [facility] Rx#: [id number] Piperacillin Sodium/ 100 100 Tazobact 2.25 gm In Sodium Chloride 0.9% 50 ml @ 100 mls/hr IV Q6H [facility] Rx#:[id number] Vancomycin HCl 1.25 gm In 250 Sodium Chloride 0.9% 250 ml @ 165 mls/hr IV Q36H [facility] Rx#:[id number] Tube Feeding 451 Other 120 Output: Urine 2500 2150 Other: # Bowel Movements 3 1 Stool Characteristics Soft Liquid Soft Formed Black Liquid Green Green Weight Source Bedscale Bedscale Active Medications: Current Medications Acetaminophen (Tylenol) 650 mg PO Q4HR PRN PRN Reason: MILD PAIN 1-3 Stop: 02/23/18 17:58 Last Admin: 01/02/18 11:15 Dose: 650 mg Acetaminophen (Tylenol) 650 mg PO Q4HR PRN PRN Reason: TEMP >100.4 Stop: 02/23/18 17:58 Acetylcysteine (Mucomyst 20%) 3 ml HHN Q4HRT [facility] Stop: 02/25/18 14:59 Last Admin: 01/02/18 10:44 Dose: 3 ml Albuterol/Ipratropium (Duoneb Neb) 3 ml HHN Q4HRT [facility] Stop: 02/24/18 14:59 Last Admin: 01/02/18 10:44 Dose: 3 ml Amlodipine Besylate (Norvasc) 5 mg PO DAILY [facility] Stop: 02/24/18 08:59 Last Admin: 01/02/18 08:29 Dose: 5 mg Ascorbic Acid (Vitamin C) 500 mg PO DAILY [facility] Stop: 02/24/18 08:59 Last Admin: 01/02/18 08:29 Dose: 500 mg Atorvastatin Calcium (Lipitor) 10 mg PO HS [facility]; Protocol Stop: 03/01/18 20:59 Last Admin: 01/01/18 20:27 Dose: 10 mg Bisacodyl (Dulcolax 10 Mg Supp) 10 mg RC DAILY PRN PRN Reason: IF MOM INEFFECTIVE Stop: 02/23/18 17:58 Furosemide (Lasix) 40 mg IVP DAILY [facility] Stop: 03/02/18 08:59 Last Admin: 01/02/18 08:29 Dose: 40 mg Diltiazem HCl 125 mg/ Dextrose 100 mls @ 0 mls/hr IV Q8H PRN; Protocol PRN Reason: blood pressure Stop: 02/25/18 07:48 Last Admin: 12/27/17 09:00 Dose: 6.25 mg/hr, 5 mls/hr Piperacillin Sod/Tazobactam (Sod 2.25 gm/ Sodium Chloride) 50 mls @ 100 mls/hr IV Q6H [facility] Stop: 02/25/18 13:59 Last Admin: 01/02/18 07:57 Dose: 100 mls/hr Dextrose/Sodium Chloride (D5-0.45ns) 1,000 mls @ 40 mls/hr IV .Q24H [facility] Stop: 03/02/18 00:00 Last Admin: 01/02/18 08:28 Dose: 40 mls/hr Vancomycin HCl 1.25 gm/ Sodium (Chloride) 250 mls @ 165 mls/hr IV Q36H [facility] Stop: 03/02/18 08:59 Last Infusion: 01/01/18 11:50 Dose: Infused Insulin Aspart (Novolog Insulin Sliding Scale) 0 units SUBQ Q6HR [facility]; Protocol Stop: 02/23/18 01:14 Last Admin: 01/02/18 11:46 Dose: 7 units Lactobacillus Rhamnosus (Culturelle 15b) 1 each PO DAILY [facility] Stop: 02/24/18 08:59 Last Admin: 01/02/18 08:29 Dose: 1 each Lorazepam (Ativan) 1 mg IVP Q4HR PRN; Protocol PRN Reason: Agitation Stop: 02/25/18 07:12 Last Admin: 01/02/18 12:17 Dose: 1 mg Miscellaneous (Probiotic Screen) 1 ea PRN PRN PRN Reason: PROTOCOL Stop: 02/23/18 15:29 Miscellaneous (Vancomycin Iv Per Pharmacy) 1 ea PRN [facility]OVANNA Stop: 02/24/18 23:44 Miscellaneous (Zosyn Iv Per Pharmacy) 1 [facility] PRN PRN PRN Reason: PROTOCOL Stop: 02/25/18 12:03 Morphine Sulfate (Morphine) 1 mg IVP Q4HR PRN PRN Reason: Pain (Moderate) Stop: 02/23/18 10:04 Last Admin: 01/01/18 17:13 Dose: 1 mg Pantoprazole Sodium (Protonix) 40 mg IVP BID [facility] Stop: 02/26/18 08:59 Last Admin: 01/02/18 08:29 Dose: 40 mg Polyethylene Glycol (Miralax) 17 gm PO BID [facility] Stop: 02/26/18 08:59 Last Admin: 01/02/18 08:29 Dose: 17 gm General: weak HEENT: NC/AT Neck: Supple Lungs: CTAB Cardiovascular: Normal S1, Normal S2 Abdomen: non-tender Extremities: clear, edema Neurological: no change - Procedures Procedures: Procedures Procedure Code Date EXCISION OF STOMACH, PYLORUS, ENDO, DIAGN [id number] 12/24/17 INSERTION OF FEEDING DEVICE INTO STOMACH, ENDO [id number] 12/24/17 RESPIRATORY VENTILATION, GREATER THAN 96 CONSECUTIVE HOURS [id number] 12/24/17 Internal Medicine Assmt/Plan - Assessment Assessment: s/p extubation Severe sepsis. Pneumonia. Fecal impaction. Gallbladder stone at bladder neck. Diabetes mellitus type 2. Hypertension. Dementia. Anemia. Large hiatal hernia. - - Plan Plan: monitor respiratory effort follow up labs in am LTAC eval cpm Nutritional Asmnt/Malnutr-PDOC - Dietary Evaluation Malnutrition Findings (Please click <Entered> for more info): Nutritional Asmnt/Malnutrition Start: 12/25/17 15: 21 Text: Status: Complete Freq: Protocol: Document 12/25/17 15:22 ARSH (Rec: 12/25/17 15:44 ARSH [id number]) Nutritional Asmnt/Malnutrition Patient General Information Nutritional Screening High Risk Diagnosis sepsis, dehydration, pneumonia Pertinent Medical Hx/Surgical Hx HTN, DM, dyslipidemia, dementia, anemia, muscle weakness Subjective Information Pt receiving care from RN at time of visit. Per nurse notes , pt had coffee ground emesis, NGT was unable to be inserted d/t large retro cardiac hiatal hernia, and will have EGD tomorrow. Spoke w/ BELA Duran by phone who verfied the nurse notes and states pt will continue to be NPO. Current Diet Order/ Nutrition Support NPO Pertinent Medications D5-0.45ns, novolog, culturelle , pantoprazole Pertinent Labs 12/25: glucose 392, Na 144, Cl 110, BUN 78, Alb 2.9, POC 304 -423 12/24: glucose 547, Na 134, Cl 97, BUN 69, Alb 3.0, POC 441- 485 Nutritional Hx/Data Height 5 ft 4 in Height (Calculated Centimeters) 162.6 Current Weight (lbs) 142 lb 9.6 oz Weight (Calculated Kilograms) 64.7 Weight (Calculated Grams) 90142.3 [place] Body Weight 120 lb Body Mass Index (BMI) 24.5 Weight Status Approriate GI Symptoms GI Symptoms Nausea Vomitting Last BM none noted Difficult in: None Food Allergies No Skin Integrity/Comment: pasquale lennon 13 Current %PO Negligible < 25% Estimated Nutritional Goals BEE in Kcals: Using Current wt Calories/Kcals/Kg 30-35 Kcals Calculated 5404-2930 Protein: Using Current wt Protein g/k.2-1.5 Protein Calculated 78-97 g Fluid: ml per MD Nutritional Problem 2. Problem Problem Altered nutrition related lab values Etiology dehydration, endocrine dysfunction Signs/Symptoms: Cl 110, BUN 78, glucose 392, POC 304-423 1. Problem Problem Increased nutrient needs Etiology metabolic stress Signs/Symptoms: dx of sepsis and pneumonia Malnutrition Related to Morbid Obesity Malnutrition related to morbid obesity No Intervention/Recommendation Comments 1. Monitor NPO status and advance diet when medically appropriate 2. Consider alternative nutrition route if pt unable to tolerate PO intake 3. Monitor wt, nutrition related labs, and skin integrity 4. F/U as high risk in 2-3 days, 12/27- Expected Outcomes/Goals Expected Outcomes/Goals 1. Pt to start oral intake or alternate nutrition route if necessary 2. Wt stability, skin to remain intact, nutrition related labs to approach normal limits Reveiwed by Yesenia Jennings RD
--- NOTE | 2018-01-02 16:26 | GI Progress Note ---
Subjective - Review of Systems Service Date: 01/02/18 Subjective: Extubated, tolerating G tube feeding Objective - Results Result Diagrams: 01/02/18 04:45 01/02/18 04:45 Recent Labs: Laboratory Last Values WBC 11.3 Th/cmm (4.8-10.8) H 01/02/18 04:45 RBC 3.02 Mil/cmm (3.80-5.20) L 01/02/18 04:45 Hgb 8.8 gm/dL (12-16) L 01/02/18 04:45 Hct 26.7 % (41.0-60) L 01/02/18 04:45 MCV 88.6 fl (81-100) 01/02/18 04:45 MCH 29.3 pg (27.0-31.0) 01/02/18 04:45 MCHC Differential 33.0 pg (28.0-36.0) 01/02/18 04:45 RDW 13.6 % (11.5-20.0) 01/02/18 04:45 Plt Count 226 Th/cmm (150-400) 01/02/18 04:45 MPV 9.7 fl 01/02/18 04:45 Add Manual Diff YES 12/27/17 06:10 Neutrophils % 70.2 % (40.0-80.0) 01/02/18 04:45 Band Neutrophils % 3 % (0-10) 12/31/17 04:45 Lymphocytes % 16.0 % (20.0-50.0) L 01/02/18 04:45 Monocytes % 7.1 % (2.0-10.0) 01/02/18 04:45 Eosinophils % 6.1 % (0.0-5.0) H 01/02/18 04:45 Basophils % 0.6 % (0.0-2.0) 01/02/18 04:45 Neutrophils (Manual) 75 % (40-80) 12/31/17 04:45 Lymphocytes 18 % (20-50) L 12/31/17 04:45 Monocytes 3 % (2-10) 12/31/17 04:45 Eosinophils 1 % (0-5) 12/31/17 04:45 Basophils 1 % (0-3) 12/26/17 04:45 Platelet Estimate ADEQUATE (NORMAL) 12/31/17 04:45 Anisocytosis 1+ 12/27/17 06:10 PT 10.6 SECONDS (9.5-11.5) 12/26/17 04:45 INR 1.02 (0.5-1.4) 12/26/17 04:45 PTT (Actin FS) 22.1 SECONDS (26.0-38.0) L 12/24/17 19:40 Specimen Source arterial 01/01/18 11:45 Sample Site rr 01/01/18 11:45 pH 7.46 (7.35-7.45) H 01/01/18 11:45 pCO2 43.0 mmHg (35.0-45.0) 01/01/18 11:45 pO2 81.0 mmHg (80.0-100.0) 01/01/18 11:45 HCO3 29.7 mEq/L (20.0-26.0) H 01/01/18 11:45 Base Excess 6.1 mEq/L (-3.0-3.0) H 01/01/18 11:45 O2 Saturation 96.0 % (92.0-100.0) 01/01/18 11:45 Pradeep Test pos 01/01/18 11:45 Vent Rate na 01/01/18 11:45 Inspired O2 40 01/01/18 11:45 Tidal Volume na 01/01/18 11:45 PEEP na 01/01/18 11:45 Pressure (ins/psv/peep) na 01/01/18 11:45 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 01/01/18 11:45 Sodium 147 mEq/L (136-145) H 01/02/18 04:45 Potassium 3.3 mEq/L (3.5-5.1) L 01/02/18 04:45 Chloride 109 mEq/L (98-107) H 01/02/18 04:45 Carbon Dioxide 26.1 mEq/L (21.0-31.0) 01/02/18 04:45 Anion Gap 15.2 (7.0-16.0) 01/02/18 04:45 BUN 32 mg/dL (7-25) H 01/02/18 04:45 Creatinine 1.6 mg/dL (0.6-1.2) H 01/02/18 04:45 Est GFR ( Amer) TNP 01/02/18 04:45 Est GFR (Non-Af Amer) TNP 01/02/18 04:45 BUN/Creatinine Ratio 20.0 01/02/18 04:45 Glucose 250 mg/dL (70-105) H 01/02/18 04:45 POC Glucose 282 MG/DL (70 - 105) H 01/02/18 11:42 Whole Bld Lactic Acid 2.46 mmol/L (0.60-1.99) H* 12/25/17 10:07 Calcium 8.2 mg/dL (8.6-10.3) L 01/02/18 04:45 Phosphorus 2.8 mg/dL (2.5-5.0) 12/29/17 04:35 Magnesium 2.2 mg/dL (1.9-2.7) 12/26/17 04:45 Total Bilirubin 0.4 mg/dL (0.3-1.0) 12/30/17 07:42 AST 11 U/L (13-39) L 12/30/17 07:42 ALT 9 U/L (7-52) 12/30/17 07:42 Alkaline Phosphatase 70 U/L (34-104) 12/30/17 07:42 B-Natriuretic Peptide 1920.0 pg/mL (5.0-100.0) H 01/01/18 04:20 Total Protein 4.4 gm/dL (6.0-8.3) L 12/30/17 07:42 Albumin 2.3 gm/dL (3.7-5.3) L 12/30/17 07:42 Globulin 2.1 gm/dL 12/30/17 07:42 Albumin/Globulin Ratio 1.1 (1.0-1.8) 12/30/17 07:42 Triglycerides 126 mg/dL (<150) 12/25/17 04:10 Cholesterol 124 mg/dL (<200) 12/25/17 04:10 LDL Cholesterol Direct 84 mg/dL (75-193) 12/25/17 04:10 HDL Cholesterol 30 mg/dL (23-92) 12/25/17 04:10 TSH 0.75 uIU/ml (0.34-5.60) 12/25/17 04:10 Vancomycin Trough 15.3 ug/mL (5-10) H 12/31/17 09:30 Helicobacter pylori Ab NEGATIVE (NEGATIVE) 12/26/17 08:35 Blood Type O POSITIVE 12/24/17 19:40 Antibody Screen NEGATIVE 12/24/17 19:40 Crossmatch See Detail 12/24/17 19:40 - Physical Exam Vitals and I&O: Vital Signs Temp 98.0 F 01/02/18 14:00 Pulse 78 01/02/18 14:55 Resp 18 01/02/18 14:55 BP 148/48 01/02/18 14:00 Pulse Ox 97 01/02/18 14:55 Intake & Output 01/01/18 01/02/18 01/02/18 18:59 06:59 18:59 Intake Total 470 645.333 501 Output Total 2500 2150 Balance -2030 645.333 -1649 Weight (lbs) 74.843 kg 73.663 kg Intake: Intake, IV Amount 350 645.333 50 D5-0.45NS 1,000 ml @ 40 545.333 0 mls/hr IV .Q24H [facility] Rx#: [id number] Piperacillin Sodium/ 100 100 50 Tazobact 2.25 gm In Sodium Chloride 0.9% 50 ml @ 100 mls/hr IV Q6H [facility] Rx#:[id number] Vancomycin HCl 1.25 gm In 250 Sodium Chloride 0.9% 250 ml @ 165 mls/hr IV Q36H [facility] Rx#:[id number] Tube Feeding 451 Other 120 Output: Urine 2500 2150 Other: # Bowel Movements 3 1 Stool Characteristics Soft Liquid Soft Formed Black Liquid Green Green Weight Source Bedscale Bedscale Active Medications: Current Medications Acetaminophen (Tylenol) 650 mg PO Q4HR PRN PRN Reason: MILD PAIN 1-3 Stop: 02/23/18 17:58 Last Admin: 01/02/18 11:15 Dose: 650 mg Acetaminophen (Tylenol) 650 mg PO Q4HR PRN PRN Reason: TEMP >100.4 Stop: 02/23/18 17:58 Acetylcysteine (Mucomyst 20%) 3 ml HHN Q4HRT [facility] Stop: 02/25/18 14:59 Last Admin: 01/02/18 14:44 Dose: 3 ml Albuterol/Ipratropium (Duoneb Neb) 3 ml HHN Q4HRT [facility] Stop: 02/24/18 14:59 Last Admin: 01/02/18 14:44 Dose: 3 ml Amlodipine Besylate (Norvasc) 5 mg PO DAILY [facility] Stop: 02/24/18 08:59 Last Admin: 01/02/18 08:29 Dose: 5 mg Ascorbic Acid (Vitamin C) 500 mg PO DAILY [facility] Stop: 02/24/18 08:59 Last Admin: 01/02/18 08:29 Dose: 500 mg Atorvastatin Calcium (Lipitor) 10 mg PO HS [facility]; Protocol Stop: 03/01/18 20:59 Last Admin: 01/01/18 20:27 Dose: 10 mg Bisacodyl (Dulcolax 10 Mg Supp) 10 mg RC DAILY PRN PRN Reason: IF MOM INEFFECTIVE Stop: 02/23/18 17:58 Furosemide (Lasix) 40 mg IVP DAILY [facility] Stop: 03/02/18 08:59 Last Admin: 01/02/18 08:29 Dose: 40 mg Diltiazem HCl 125 mg/ Dextrose 100 mls @ 0 mls/hr IV Q8H PRN; Protocol PRN Reason: blood pressure Stop: 02/25/18 07:48 Last Admin: 12/27/17 09:00 Dose: 6.25 mg/hr, 5 mls/hr Piperacillin Sod/Tazobactam (Sod 2.25 gm/ Sodium Chloride) 50 mls @ 100 mls/hr IV Q6H [facility] Stop: 02/25/18 13:59 Last Admin: 01/02/18 15:31 Dose: 100 mls/hr Dextrose/Sodium Chloride (D5-0.45ns) 1,000 mls @ 40 mls/hr IV .Q24H [facility] Stop: 03/02/18 00:00 Last Admin: 01/02/18 08:28 Dose: 40 mls/hr Vancomycin HCl 1.25 gm/ Sodium (Chloride) 250 mls @ 165 mls/hr IV Q36H [facility] Stop: 03/02/18 08:59 Last Infusion: 01/01/18 11:50 Dose: Infused Insulin Aspart (Novolog Insulin Sliding Scale) 0 units SUBQ Q6HR [facility]; Protocol Stop: 02/23/18 01:14 Last Admin: 01/02/18 11:46 Dose: 7 units Lactobacillus Rhamnosus (Culturelle 15b) 1 each PO DAILY [facility] Stop: 02/24/18 08:59 Last Admin: 01/02/18 08:29 Dose: 1 each Lorazepam (Ativan) 1 mg IVP Q4HR PRN; Protocol PRN Reason: Agitation Stop: 02/25/18 07:12 Last Admin: 01/02/18 12:17 Dose: 1 mg Miscellaneous (Probiotic Screen) 1 ea PRN PRN PRN Reason: PROTOCOL Stop: 02/23/18 15:29 Miscellaneous (Vancomycin Iv Per Pharmacy) 1 ea PRN [facility] Stop: 02/24/18 23:44 Miscellaneous (Zosyn Iv Per Pharmacy) 1 ea PRN PRN PRN Reason: PROTOCOL Stop: 02/25/18 12:03 Morphine Sulfate (Morphine) 1 mg IVP Q4HR PRN PRN Reason: Pain (Moderate) Stop: 02/23/18 10:04 Last Admin: 01/01/18 17:13 Dose: 1 mg Pantoprazole Sodium (Protonix) 40 mg IVP BID [facility] Stop: 02/26/18 08:59 Last Admin: 01/02/18 08:29 Dose: 40 mg Polyethylene Glycol (Miralax) 17 gm PO BID [facility] Stop: 02/26/18 08:59 Last Admin: 01/02/18 08:29 Dose: 17 gm General: Alert HEENT: Atraumatic Neck: Supple Cardiovascular: no Regular rate Abdomen: Bowel sounds, Soft, no Tender, no Hepatomegaly, no Splenomegaly, no Distended, no Rebound - Procedures Procedures: Procedures Procedure Code Date EXCISION OF STOMACH, PYLORUS, ENDO, DIAGN [id number] 12/24/17 INSERTION OF FEEDING DEVICE INTO STOMACH, ENDO [id number] 12/24/17 RESPIRATORY VENTILATION, GREATER THAN 96 CONSECUTIVE HOURS [id number] 12/24/17 Assessment/Plan - Problem List Patient Problems: All Active Problems COFFEE GROUND EMESIS (Acute) - Assessment Assessment: # Coffee ground emesis # hiatal hernia # Pneumonia # Severe sepsis # Fecal impaction EGD on 12/26 showed 7cm hiatal hernia, with evidence of mucosal tear there from previous NG tube insertion attempts. 2 clips placed to this area. With some difficulty, an NG tube was endoscopically placed into the stomach. No stomach ulcer or mass. Now intubated, but no longer having GI bleed. Fecal impaction noted on KUB, but pt did have large stool on 12/29 with enema. G tube placed on 01/01 without issue. Plan: - swallow eval. If she passes, she can have oral gratification feeding. - cont ppi bid for 6 weeks, then daily - cont IVF - bowel regimen - cont tube feeding at goal - hold for residual > 100 cc - flush g tube with 100cc water every 6 hrs GI to see this pt as needed, please call with any questions
[2018-01-02] MEDS: Atorvastatin Calcium 10 MG TAB PO SCH (20:56)
[2018-01-02] MEDS: Morphine Sulfate 2 mg/mL 1mL Syr IVP PRN (23:01)
[2018-01-03] MEDS: INSULIN ASPART SLIDING SCALE 100 UNITS/ML UNIT SUBQ SCH ×4 (00:17→17:09)
[2018-01-03] MEDS: Piperacillin/Tazobact 2.25 gm in 0.9% NS 50 ML IV SCH ×4 (02:09→20:05)
[2018-01-03] MEDS: Albuterol/Ipratropium Neb 3 ML AERS HHN SCH ×6 (02:31→23:43)
[2018-01-03] MEDS: Morphine Sulfate 2 mg/mL 1mL Syr IVP PRN ×2 (03:49→10:13)
[2018-01-03 04:50] LABS: % LYMPHOCYTES 14.2 % (20.0-50.0); EOSINOPHILE ABSOLUTE 0.6 Th/cmm (0.1-0.4); LYMPHOCYTE ABSOLUTE 1.5 Th/cmm (1.5-3.0); MONOCYTE ABSOLUTE 0.8 Th/cmm (0.3-1.0); RED BLOOD COUNT 3.12 Mil/cmm (3.80-5.20); WHITE BLOOD COUNT 10.8 Th/cmm (4.8-10.8)
[2018-01-03 05:05] LABS: % BASOPHILS 0.4 % (0.0-2.0); % EOSINOPHILS 5.9 % (0.0-5.0); % MONOCYTES 7.6 % (2.0-10.0); % NEUTROPHILS 71.9 % (40.0-80.0); HEMATOCRIT 27.6 % (41.0-60); MEAN CELL VOLUME 88.5 fl (81-100); MEAN CORPUSCULAR HEMOGLOBIN 28.8 pg (27.0-31.0); MEAN CORPUSCULAR HGB CONC 32.6 pg (28.0-36.0); MEAN PLATELET VOLUME 9.7 fl; NEUTROPHILE ABSOLUTE 7.9 Th/cmm (1.8-8.0); PLATELET COUNT 271 Th/cmm (150-400); RED CELL DISTRIBUTION WIDTH 13.4 % (11.5-20.0)
[2018-01-03 05:33] LABS: ANION GAP 13.2 (7.0-16.0); BUN - UREA NITROGEN 32 mg/dL (7-25); CALCIUM SERUM 8.4 mg/dL (8.6-10.3); CARBON DIOXIDE 30.2 mEq/L (21.0-31.0); CHLORIDE 109 mEq/L (98-107); CREATININE - SERUM 1.7 mg/dL (0.6-1.2); GLUCOSE 212 mg/dL (70-105); POTASSIUM SERUM 3.4 mEq/L (3.5-5.1); SODIUM SERUM 149 mEq/L (136-145)
[2018-01-03] MEDS: D5-0.45NS 1,000 ML IV SCH (07:42)
--- NOTE | 2018-01-03 07:58 | Diagnostic Imaging Report ---
Portable chest x-ray HISTORY: Shortness of breath Compared with prior exam of 01/01/2018, there has developed infiltrate within the right lower lobe. Pneumonia cannot be excluded. Clinical correlation is needed. The heart remains enlarged. IMPRESSION: 1. New infiltrate right lower lobe. Pneumonia cannot be excluded. Clinical correlation is needed.
[2018-01-03] MEDS: Lactobacillus Rhamnosus GG 15 Billion CFU CAP.SPRINK PO SCH (08:58)
[2018-01-03] MEDS: POLYETHYLENE GLYCOL 3350 17 GM PACK PO SCH ×2 (09:02→16:19)
--- NOTE | 2018-01-03 10:19 | Infectious Disease Prog Note ---
Infectious Disease Subjective - Review of Systems Service Date: 01/03/18 Subjective: NO fever. Infectious Disease Objective - Results Result Diagrams: 01/04/18 04:51 01/04/18 04:51 Recent Labs: Laboratory Last Values WBC 10.8 Th/cmm (4.8-10.8) 01/03/18 04:35 RBC 3.12 Mil/cmm (3.80-5.20) L 01/03/18 04:35 Hgb 9.0 gm/dL (12-16) L 01/03/18 04:35 Hct 27.6 % (41.0-60) L 01/03/18 04:35 MCV 88.5 fl (81-100) 01/03/18 04:35 MCH 28.8 pg (27.0-31.0) 01/03/18 04:35 MCHC Differential 32.6 pg (28.0-36.0) 01/03/18 04:35 RDW 13.4 % (11.5-20.0) 01/03/18 04:35 Plt Count 271 Th/cmm (150-400) 01/03/18 04:35 MPV 9.7 fl 01/03/18 04:35 Add Manual Diff YES 12/27/17 06:10 Neutrophils % 71.9 % (40.0-80.0) 01/03/18 04:35 Band Neutrophils % 3 % (0-10) 12/31/17 04:45 Lymphocytes % 14.2 % (20.0-50.0) L 01/03/18 04:35 Monocytes % 7.6 % (2.0-10.0) 01/03/18 04:35 Eosinophils % 5.9 % (0.0-5.0) H 01/03/18 04:35 Basophils % 0.4 % (0.0-2.0) 01/03/18 04:35 Neutrophils (Manual) 75 % (40-80) 12/31/17 04:45 Lymphocytes 18 % (20-50) L 12/31/17 04:45 Monocytes 3 % (2-10) 12/31/17 04:45 Eosinophils 1 % (0-5) 12/31/17 04:45 Basophils 1 % (0-3) 12/26/17 04:45 Platelet Estimate ADEQUATE (NORMAL) 12/31/17 04:45 Anisocytosis 1+ 12/27/17 06:10 PT 10.6 SECONDS (9.5-11.5) 12/26/17 04:45 INR 1.02 (0.5-1.4) 12/26/17 04:45 PTT (Actin FS) 22.1 SECONDS (26.0-38.0) L 12/24/17 19:40 Specimen Source arterial 01/01/18 11:45 Sample Site rr 01/01/18 11:45 pH 7.46 (7.35-7.45) H 01/01/18 11:45 pCO2 43.0 mmHg (35.0-45.0) 01/01/18 11:45 pO2 81.0 mmHg (80.0-100.0) 01/01/18 11:45 HCO3 29.7 mEq/L (20.0-26.0) H 01/01/18 11:45 Base Excess 6.1 mEq/L (-3.0-3.0) H 01/01/18 11:45 O2 Saturation 96.0 % (92.0-100.0) 01/01/18 11:45 Pradeep Test pos 01/01/18 11:45 Vent Rate na 01/01/18 11:45 Inspired O2 40 01/01/18 11:45 Tidal Volume na 01/01/18 11:45 PEEP na 01/01/18 11:45 Pressure (ins/psv/peep) na 01/01/18 11:45 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/01/18 11:45 Sodium 149 mEq/L (136-145) H 01/03/18 04:35 Potassium 3.4 mEq/L (3.5-5.1) L 01/03/18 04:35 Chloride 109 mEq/L (98-107) H 01/03/18 04:35 Carbon Dioxide 30.2 mEq/L (21.0-31.0) 01/03/18 04:35 Anion Gap 13.2 (7.0-16.0) 01/03/18 04:35 BUN 32 mg/dL (7-25) H 01/03/18 04:35 Creatinine 1.7 mg/dL (0.6-1.2) H 01/03/18 04:35 Est GFR ( Amer) TNP 01/03/18 04:35 Est GFR (Non-Af Amer) TNP 01/03/18 04:35 BUN/Creatinine Ratio 18.8 01/03/18 04:35 Glucose 212 mg/dL (70-105) H 01/03/18 04:35 POC Glucose 221 MG/DL (70 - 105) H 01/03/18 06:23 Whole Bld Lactic Acid 2.46 mmol/L (0.60-1.99) H* 12/25/17 10:07 Calcium 8.4 mg/dL (8.6-10.3) L 01/03/18 04:35 Phosphorus 2.8 mg/dL (2.5-5.0) 12/29/17 04:35 Magnesium 2.2 mg/dL (1.9-2.7) 12/26/17 04:45 Total Bilirubin 0.4 mg/dL (0.3-1.0) 12/30/17 07:42 AST 11 U/L (13-39) L 12/30/17 07:42 ALT 9 U/L (7-52) 12/30/17 07:42 Alkaline Phosphatase 70 U/L (34-104) 12/30/17 07:42 B-Natriuretic Peptide 1920.0 pg/mL (5.0-100.0) H 01/01/18 04:20 Total Protein 4.4 gm/dL (6.0-8.3) L 12/30/17 07:42 Albumin 2.3 gm/dL (3.7-5.3) L 12/30/17 07:42 Globulin 2.1 gm/dL 12/30/17 07:42 Albumin/Globulin Ratio 1.1 (1.0-1.8) 12/30/17 07:42 Triglycerides 126 mg/dL (<150) 12/25/17 04:10 Cholesterol 124 mg/dL (<200) 12/25/17 04:10 LDL Cholesterol Direct 84 mg/dL (75-193) 12/25/17 04:10 HDL Cholesterol 30 mg/dL (23-92) 12/25/17 04:10 TSH 0.75 uIU/ml (0.34-5.60) 12/25/17 04:10 Vancomycin Trough 17.9 ug/mL (5-10) H 01/02/18 20:27 Helicobacter pylori Ab NEGATIVE (NEGATIVE) 12/26/17 08:35 Blood Type O POSITIVE 12/24/17 19:40 Antibody Screen NEGATIVE 12/24/17 19:40 Crossmatch See Detail 12/24/17 19:40 - Physical Exam Vitals and I&O: Vital Signs Temp 97.6 F 01/03/18 08:00 Pulse 81 01/03/18 10:13 Resp 21 01/03/18 10:13 BP 156/63 01/03/18 09:00 Pulse Ox 95 01/03/18 10:13 Intake & Output 01/02/18 01/03/18 01/03/18 18:59 06:59 18:59 Intake Total 1235 950 929.333 Output Total 3225 450 Balance -1990 500 929.333 Weight (lbs) 73.663 kg 74.389 kg Intake: Intake, IV Amount 100 350 929.333 D5-0.45NS 1,000 ml @ 40 0 929.333 mls/hr IV .Q24H [facility] Rx#: [id number] Piperacillin Sodium/ 100 100 Tazobact 2.25 gm In Sodium Chloride 0.9% 50 ml @ 100 mls/hr IV Q6H [facility] Rx#:[id number] Vancomycin HCl 1.25 gm In 250 Sodium Chloride 0.9% 250 ml @ 165 mls/hr IV Q36H [facility] Rx#:[id number] Oral 0 Tube Feeding 895 600 Other 240 Output: Urine 3225 450 Other: # Bowel Movements 2 1 Stool Characteristics Soft Liquid Green Weight Source Bedscale Bedscale Active Medications: Current Medications Acetaminophen (Tylenol) 650 mg PO Q4HR PRN PRN Reason: MILD PAIN 1-3 Stop: 02/23/18 17:58 Last Admin: 01/02/18 11:15 Dose: 650 mg Acetaminophen (Tylenol) 650 mg PO Q4HR PRN PRN Reason: TEMP >100.4 Stop: 02/23/18 17:58 Acetylcysteine (Mucomyst 20%) 3 ml HHN Q4HRT [facility] Stop: 02/25/18 14:59 Last Admin: 01/03/18 10:13 Dose: 3 ml Albuterol/Ipratropium (Duoneb Neb) 3 ml HHN Q4HRT [facility] Stop: 02/24/18 14:59 Last Admin: 01/03/18 10:13 Dose: 3 ml Amlodipine Besylate (Norvasc) 5 mg PO DAILY [facility] Stop: 02/24/18 08:59 Last Admin: 01/03/18 09:00 Dose: 5 mg Ascorbic Acid (Vitamin C) 500 mg PO DAILY [facility] Stop: 02/24/18 08:59 Last Admin: 01/03/18 08:58 Dose: 500 mg Atorvastatin Calcium (Lipitor) 10 mg PO HS [facility]; Protocol Stop: 03/01/18 20:59 Last Admin: 01/02/18 20:56 Dose: 10 mg Bisacodyl (Dulcolax 10 Mg Supp) 10 mg RC DAILY PRN PRN Reason: IF MOM INEFFECTIVE Stop: 02/23/18 17:58 Furosemide (Lasix) 40 mg IVP DAILY [facility] Stop: 03/02/18 08:59 Last Admin: 01/03/18 08:59 Dose: 40 mg Diltiazem HCl 125 mg/ Dextrose 100 mls @ 0 mls/hr IV Q8H [facility]; Protocol PRN Reason: blood pressure Stop: 02/25/18 07:48 Last Admin: 12/27/17 09:00 Dose: 6.25 mg/hr, 5 mls/hr Piperacillin Sod/Tazobactam (Sod 2.25 gm/ Sodium Chloride) 50 mls @ 100 mls/hr IV Q6H [facility] Stop: 02/25/18 13:59 Last Admin: 01/03/18 08:57 Dose: 100 mls/hr Dextrose/Sodium Chloride (D5-0.45ns) 1,000 mls @ 40 mls/hr IV .Q24H [facility] Stop: 03/02/18 00:00 Last Admin: 01/03/18 07:42 Dose: 40 mls/hr Vancomycin HCl 1.25 gm/ Sodium (Chloride) 250 mls @ 165 mls/hr IV Q36H [facility] Stop: 03/02/18 08:59 Last Infusion: 01/02/18 22:30 Dose: Infused Insulin Aspart (Novolog Insulin Sliding Scale) 0 units SUBQ Q6HR [facility]; Protocol Stop: 02/23/18 01:14 Last Admin: 01/03/18 06:34 Dose: 5 units Lactobacillus Rhamnosus (Culturelle 15b) 1 each PO DAILY [facility] Stop: 02/24/18 08:59 Last Admin: 01/03/18 08:58 Dose: 1 each Lorazepam (Ativan) 1 mg IVP Q4HR PRN; Protocol PRN Reason: Agitation Stop: 02/25/18 07:12 Last Admin: 01/02/18 12:17 Dose: 1 mg Miscellaneous (Probiotic Screen) 1 ea PRN PRN PRN Reason: PROTOCOL Stop: 02/23/18 15:29 Miscellaneous (Vancomycin Iv Per Pharmacy) 1 ea PRN [facility] Stop: 02/24/18 23:44 Miscellaneous (Zosyn Iv Per Pharmacy) 1 ea PRN PRN PRN Reason: PROTOCOL Stop: 02/25/18 12:03 Morphine Sulfate (Morphine) 1 mg IVP Q4HR PRN PRN Reason: Pain (Moderate) Stop: 02/23/18 10:04 Last Admin: 01/03/18 10:13 Dose: 1 mg Pantoprazole Sodium (Protonix) 40 mg IVP BID [facility] Stop: 02/26/18 08:59 Last Admin: 01/03/18 08:59 Dose: 40 mg Polyethylene Glycol (Miralax) 17 gm PO BID [facility] Stop: 02/26/18 08:59 Last Admin: 01/03/18 09:02 Dose: Not Given General: no acute distress, well developed, well nourished HEENT: atraumatic, normocephalic, PERRLA, EOMI Neck: supple, no thyromegaly, no lymphadenopathy Cardiovascular: S1S2, regular Lungs: clear to auscultation bilaterally, clear to percussion Abdomen: soft, no tender, no distended Extremities: no cyanosis, no clubbing, no edema Neurological: awake, alert, oriented Skin: intact - Procedures Procedures: Procedures Procedure Code Date EXCISION OF STOMACH, PYLORUS, ENDO, DIAGN [id number] 12/24/17 INSERTION OF FEEDING DEVICE INTO STOMACH, ENDO [id number] 12/24/17 RESPIRATORY VENTILATION, GREATER THAN 96 CONSECUTIVE HOURS [id number] 12/24/17 Infectious Disease Assmt/Plan - Problem List Patient Problems: All Active Problems COFFEE GROUND EMESIS (Acute) - Assessment Assessment: 1. Severe sepsis. 2. Pneumonia. 3. Fecal impaction. 4. Gallbladder stone at bladder neck. 5. Diabetes mellitus type 2. 6. Hypertension. 7. Dementia. 8. Anemia. 9. Large hiatal hernia. 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 11. GI bleed 2/2 PUD. 12. SVT 13. VDRF. 14. S/p PEG placement, POD #1. 15. Hypokalemia. - Plan Plan: Continue zosyn. Continue vancomycin IV Bactroban nasal ointment. K supplementaion. Will ask for LTAC eval. Nutritional Asmnt/Malnutr-PDOC - Dietary Evaluation Malnutrition Findings (Please click <Entered> for more info): Nutritional Asmnt/Malnutrition Start: 12/25/17 15: 21 Text: Status: Complete Freq: Protocol: Document 12/25/17 15:22 ESTIVENBRITANY (Rec: 12/25/17 15:44 [email or web address]) Nutritional Asmnt/Malnutrition Patient General Information Nutritional Screening High Risk Diagnosis sepsis, dehydration, pneumonia Pertinent Medical Hx/Surgical Hx HTN, DM, dyslipidemia, dementia, anemia, muscle weakness Subjective Information Pt receiving care from RN at time of visit. Per nurse notes , pt had coffee ground emesis, NGT was unable to be inserted d/t large retro cardiac hiatal hernia, and will have EGD tomorrow. Spoke w/ BELA Duran by phone who verfied the nurse notes and states pt will continue to be NPO. Current Diet Order/ Nutrition Support NPO Pertinent Medications D5-0.45ns, novolog, culturelle , pantoprazole Pertinent Labs 12/25: glucose 392, Na 144, Cl 110, BUN 78, Alb 2.9, POC 304 -423 12/24: glucose 547, Na 134, Cl 97, BUN 69, Alb 3.0, POC 441- 485 Nutritional Hx/Data Height 1.63 m Height (Calculated Centimeters) 162.6 Current Weight (lbs) 64.682 kg Weight (Calculated Kilograms) 64.7 Weight (Calculated Grams) 48497.3 [place] Body Weight 120 lb Body Mass Index (BMI) 24.5 Weight Status Approriate GI Symptoms GI Symptoms Nausea Vomitting Last BM none noted Difficult in: None Food Allergies No Skin Integrity/Comment: pasquale lennon 13 Current %PO Negligible < 25% Estimated Nutritional Goals BEE in Kcals: Using Current wt Calories/Kcals/Kg 30-35 Kcals Calculated 4799-3173 Protein: Using Current wt Protein g/k.2-1.5 Protein Calculated 78-97 g Fluid: ml per MD Nutritional Problem 2. Problem Problem Altered nutrition related lab values Etiology dehydration, endocrine dysfunction Signs/Symptoms: Cl 110, BUN 78, glucose 392, POC 304-423 1. Problem Problem Increased nutrient needs Etiology metabolic stress Signs/Symptoms: dx of sepsis and pneumonia Malnutrition Related to Morbid Obesity Malnutrition related to morbid obesity No Intervention/Recommendation Comments 1. Monitor NPO status and advance diet when medically appropriate 2. Consider alternative nutrition route if pt unable to tolerate PO intake 3. Monitor wt, nutrition related labs, and skin integrity 4. F/U as high risk in 2-3 days, 12/27- Expected Outcomes/Goals Expected Outcomes/Goals 1. Pt to start oral intake or alternate nutrition route if necessary 2. Wt stability, skin to remain intact, nutrition related labs to approach normal limits Reveiwed by Yesenia Jennings RD
[2018-01-03] MEDS ORDERED: Potassium Chloride 20 mEq ER Tab PO ONE (14:24)
[2018-01-03] MEDS ORDERED: Potassium Chloride Elixir 20 mEq /15 mL UDC GT ONE (14:30)
[2018-01-03] MEDS: Atorvastatin Calcium 10 MG TAB PO SCH (20:05)
[2018-01-04] MEDS: INSULIN ASPART SLIDING SCALE 100 UNITS/ML UNIT SUBQ SCH ×4 (00:55→17:31)
[2018-01-04] MEDS: Piperacillin/Tazobact 2.25 gm in 0.9% NS 50 ML IV SCH ×4 (01:02→21:00)
[2018-01-04] MEDS: Albuterol/Ipratropium Neb 3 ML AERS HHN SCH ×6 (02:06→23:33)
[2018-01-04] MEDS: Morphine Sulfate 2 mg/mL 1mL Syr IVP PRN ×4 (03:00→21:13)
[2018-01-04 07:28] LABS: % BASOPHILS 0.1 % (0.0-2.0); % LYMPHOCYTES 16.3 % (20.0-50.0); % MONOCYTES 8.6 % (2.0-10.0); EOSINOPHILE ABSOLUTE 0.5 Th/cmm (0.1-0.4); HEMATOCRIT 25.8 % (41.0-60); HEMOGLOBIN 8.2 gm/dL (12-16); LYMPHOCYTE ABSOLUTE 1.7 Th/cmm (1.5-3.0); MEAN CELL VOLUME 88.6 fl (81-100); MEAN CORPUSCULAR HEMOGLOBIN 28.1 pg (27.0-31.0); MEAN CORPUSCULAR HGB CONC 31.7 pg (28.0-36.0); MONOCYTE ABSOLUTE 0.9 Th/cmm (0.3-1.0); NEUTROPHILE ABSOLUTE 7.4 Th/cmm (1.8-8.0); PLATELET COUNT 286 Th/cmm (150-400); RED BLOOD COUNT 2.91 Mil/cmm (3.80-5.20); RED CELL DISTRIBUTION WIDTH 13.4 % (11.5-20.0); WHITE BLOOD COUNT 10.5 Th/cmm (4.8-10.8)
[2018-01-04 07:42] LABS: ALBUMIN 2.5 gm/dL (3.7-5.3); ALKALINE PHOSPHATASE 74 U/L (34-104); ANION GAP 10.7 (7.0-16.0); BILIRUBIN,TOTAL 0.3 mg/dL (0.3-1.0); BUN - UREA NITROGEN 33 mg/dL (7-25); CALCIUM SERUM 8.2 mg/dL (8.6-10.3); CARBON DIOXIDE 32.4 mEq/L (21.0-31.0); CHLORIDE 106 mEq/L (98-107); CREATININE - SERUM 1.7 mg/dL (0.6-1.2); GLUCOSE 238 mg/dL (70-105); POTASSIUM SERUM 4.1 mEq/L (3.5-5.1); SGOT 9 U/L (13-39); SGPT/ALT 6 U/L (7-52); SODIUM SERUM 145 mEq/L (136-145); TOTAL PROTEIN,SERUM 5.1 gm/dL (6.0-8.3)
[2018-01-04] MEDS: POLYETHYLENE GLYCOL 3350 17 GM PACK PO SCH ×2 (08:11→17:10)
[2018-01-04] MEDS: Lactobacillus Rhamnosus GG 15 Billion CFU CAP.SPRINK PO SCH (08:11)
--- NOTE | 2018-01-04 11:42 | Infectious Disease Prog Note ---
Infectious Disease Subjective - Review of Systems Service Date: 01/04/18 Subjective: NO fever. Infectious Disease Objective - Results Result Diagrams: 01/04/18 04:51 01/04/18 04:51 Recent Labs: Laboratory Last Values WBC 10.5 Th/cmm (4.8-10.8) 01/04/18 04:51 RBC 2.91 Mil/cmm (3.80-5.20) L 01/04/18 04:51 Hgb 8.2 gm/dL (12-16) L 01/04/18 04:51 Hct 25.8 % (41.0-60) L 01/04/18 04:51 MCV 88.6 fl (81-100) 01/04/18 04:51 MCH 28.1 pg (27.0-31.0) 01/04/18 04:51 MCHC Differential 31.7 pg (28.0-36.0) 01/04/18 04:51 RDW 13.4 % (11.5-20.0) 01/04/18 04:51 Plt Count 286 Th/cmm (150-400) 01/04/18 04:51 MPV 10.0 fl 01/04/18 04:51 Add Manual Diff YES 12/27/17 06:10 Neutrophils % 70.0 % (40.0-80.0) 01/04/18 04:51 Band Neutrophils % 3 % (0-10) 12/31/17 04:45 Lymphocytes % 16.3 % (20.0-50.0) L 01/04/18 04:51 Monocytes % 8.6 % (2.0-10.0) 01/04/18 04:51 Eosinophils % 5.0 % (0.0-5.0) 01/04/18 04:51 Basophils % 0.1 % (0.0-2.0) 01/04/18 04:51 Neutrophils (Manual) 75 % (40-80) 12/31/17 04:45 Lymphocytes 18 % (20-50) L 12/31/17 04:45 Monocytes 3 % (2-10) 12/31/17 04:45 Eosinophils 1 % (0-5) 12/31/17 04:45 Basophils 1 % (0-3) 12/26/17 04:45 Platelet Estimate ADEQUATE (NORMAL) 12/31/17 04:45 Anisocytosis 1+ 12/27/17 06:10 PT 10.6 SECONDS (9.5-11.5) 12/26/17 04:45 INR 1.02 (0.5-1.4) 12/26/17 04:45 PTT (Actin FS) 22.1 SECONDS (26.0-38.0) L 12/24/17 19:40 Specimen Source arterial 01/01/18 11:45 Sample Site rr 01/01/18 11:45 pH 7.46 (7.35-7.45) H 01/01/18 11:45 pCO2 43.0 mmHg (35.0-45.0) 01/01/18 11:45 pO2 81.0 mmHg (80.0-100.0) 01/01/18 11:45 HCO3 29.7 mEq/L (20.0-26.0) H 01/01/18 11:45 Base Excess 6.1 mEq/L (-3.0-3.0) H 01/01/18 11:45 O2 Saturation 96.0 % (92.0-100.0) 01/01/18 11:45 Pradeep Test pos 01/01/18 11:45 Vent Rate na 01/01/18 11:45 Inspired O2 40 01/01/18 11:45 Tidal Volume na 01/01/18 11:45 PEEP na 01/01/18 11:45 Pressure (ins/psv/peep) na 01/01/18 11:45 Critical Value 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 01/01/18 11:45 Sodium 145 mEq/L (136-145) 01/04/18 04:51 Potassium 4.1 mEq/L (3.5-5.1) 01/04/18 04:51 Chloride 106 mEq/L (98-107) 01/04/18 04:51 Carbon Dioxide 32.4 mEq/L (21.0-31.0) H 01/04/18 04:51 Anion Gap 10.7 (7.0-16.0) 01/04/18 04:51 BUN 33 mg/dL (7-25) H 01/04/18 04:51 Creatinine 1.7 mg/dL (0.6-1.2) H 01/04/18 04:51 Est GFR ( Amer) TNP 01/04/18 04:51 Est GFR (Non-Af Amer) TNP 01/04/18 04:51 BUN/Creatinine Ratio 19.4 01/04/18 04:51 Glucose 238 mg/dL (70-105) H 01/04/18 04:51 POC Glucose 237 MG/DL (70 - 105) H 01/04/18 05:41 Whole Bld Lactic Acid 2.46 mmol/L (0.60-1.99) H* 12/25/17 10:07 Calcium 8.2 mg/dL (8.6-10.3) L 01/04/18 04:51 Phosphorus 2.8 mg/dL (2.5-5.0) 12/29/17 04:35 Magnesium 2.2 mg/dL (1.9-2.7) 12/26/17 04:45 Total Bilirubin 0.3 mg/dL (0.3-1.0) 01/04/18 04:51 AST 9 U/L (13-39) L 01/04/18 04:51 ALT 6 U/L (7-52) L 01/04/18 04:51 Alkaline Phosphatase 74 U/L (34-104) 01/04/18 04:51 B-Natriuretic Peptide 1730.0 pg/mL (5.0-100.0) H 01/04/18 04:51 Total Protein 5.1 gm/dL (6.0-8.3) L 01/04/18 04:51 Albumin 2.5 gm/dL (3.7-5.3) L 01/04/18 04:51 Globulin 2.6 gm/dL 01/04/18 04:51 Albumin/Globulin Ratio 1.0 (1.0-1.8) 01/04/18 04:51 Triglycerides 126 mg/dL (<150) 12/25/17 04:10 Cholesterol 124 mg/dL (<200) 12/25/17 04:10 LDL Cholesterol Direct 84 mg/dL (75-193) 12/25/17 04:10 HDL Cholesterol 30 mg/dL (23-92) 12/25/17 04:10 TSH 0.75 uIU/ml (0.34-5.60) 12/25/17 04:10 Vancomycin Trough 17.9 ug/mL (5-10) H 01/02/18 20:27 Helicobacter pylori Ab NEGATIVE (NEGATIVE) 12/26/17 08:35 Blood Type O POSITIVE 12/24/17 19:40 Antibody Screen NEGATIVE 12/24/17 19:40 Crossmatch See Detail 12/24/17 19:40 - Physical Exam Vitals and I&O: Vital Signs Temp 97.7 F 01/04/18 08:00 Pulse 93 01/04/18 10:50 Resp 18 01/04/18 10:50 BP 164/99 01/04/18 10:00 Pulse Ox 94 01/04/18 10:50 Intake & Output 01/03/18 01/04/18 01/04/18 18:59 06:59 18:59 Intake Total 1879.333 900 Output Total 1250 650 Balance 629.333 250 Weight (lbs) 74.389 kg 69.989 kg Intake: Intake, IV Amount 1029.333 100 D5-0.45NS 1,000 ml @ 40 929.333 mls/hr IV .Q24H [facility] Rx#: [id number] Piperacillin Sodium/ 100 100 Tazobact 2.25 gm In Sodium Chloride 0.9% 50 ml @ 100 mls/hr IV Q6H [facility] Rx#:[id number] Tube Feeding 600 600 Other 250 200 Output: Urine 1250 650 Other: # Bowel Movements 2 1 Weight Source Bedscale Bedscale Active Medications: Current Medications Acetaminophen (Tylenol) 650 mg PO Q4HR PRN PRN Reason: MILD PAIN 1-3 Stop: 02/23/18 17:58 Last Admin: 01/02/18 11:15 Dose: 650 mg Acetaminophen (Tylenol) 650 mg PO Q4HR PRN PRN Reason: TEMP >100.4 Stop: 02/23/18 17:58 Acetylcysteine (Mucomyst 20%) 3 ml HHN Q4HRT [facility] Stop: 02/25/18 14:59 Last Admin: 01/04/18 10:50 Dose: 3 ml Albuterol/Ipratropium (Duoneb Neb) 3 ml HHN Q4HRT [facility] Stop: 02/24/18 14:59 Last Admin: 01/04/18 10:49 Dose: 3 ml Amlodipine Besylate (Norvasc) 5 mg PO DAILY [facility] Stop: 02/24/18 08:59 Last Admin: 01/04/18 08:11 Dose: 5 mg Ascorbic Acid (Vitamin C) 500 mg PO DAILY [facility] Stop: 02/24/18 08:59 Last Admin: 01/04/18 08:11 Dose: 500 mg Atorvastatin Calcium (Lipitor) 10 mg PO HS [facility]; Protocol Stop: 03/01/18 20:59 Last Admin: 01/03/18 20:05 Dose: 10 mg Bisacodyl (Dulcolax 10 Mg Supp) 10 mg RC DAILY PRN PRN Reason: IF MOM INEFFECTIVE Stop: 02/23/18 17:58 Furosemide (Lasix) 40 mg IVP DAILY [facility] Stop: 03/02/18 08:59 Last Admin: 01/04/18 08:11 Dose: 40 mg Diltiazem HCl 125 mg/ Dextrose 100 mls @ 0 mls/hr IV Q8H PRN; Protocol PRN Reason: blood pressure Stop: 02/25/18 07:48 Last Admin: 12/27/17 09:00 Dose: 6.25 mg/hr, 5 mls/hr Piperacillin Sod/Tazobactam (Sod 2.25 gm/ Sodium Chloride) 50 mls @ 100 mls/hr IV Q6H [facility] Stop: 02/25/18 13:59 Last Admin: 01/04/18 08:10 Dose: 100 mls/hr Dextrose/Sodium Chloride (D5-0.45ns) 1,000 mls @ 40 mls/hr IV .Q24H [facility] Stop: 03/02/18 00:00 Last Admin: 01/03/18 07:42 Dose: 40 mls/hr Vancomycin HCl 1.25 gm/ Sodium (Chloride) 250 mls @ 165 mls/hr IV Q36H [facility] Stop: 03/02/18 08:59 Last Admin: 01/04/18 09:42 Dose: 165 mls/hr Insulin Aspart (Novolog Insulin Sliding Scale) 0 units SUBQ Q6HR [facility]; Protocol Stop: 02/23/18 01:14 Last Admin: 01/04/18 06:37 Dose: 5 units Lactobacillus Rhamnosus (Culturelle 15b) 1 each PO DAILY [facility] Stop: 02/24/18 08:59 Last Admin: 01/04/18 08:11 Dose: 1 each Lorazepam (Ativan) 1 mg IVP Q4HR PRN; Protocol PRN Reason: Agitation Stop: 02/25/18 07:12 Last Admin: 01/03/18 20:15 Dose: 1 mg Miscellaneous (Probiotic Screen) 1 ea PRN PRN PRN Reason: PROTOCOL Stop: 02/23/18 15:29 Miscellaneous (Vancomycin Iv Per Pharmacy) 1 ea PRN GIOVANNA Stop: 02/24/18 23:44 Miscellaneous (Zosyn Iv Per Pharmacy) 1 [facility] PRN PRN PRN Reason: PROTOCOL Stop: 02/25/18 12:03 Morphine Sulfate (Morphine) 1 mg IVP Q4HR PRN PRN Reason: Pain (Moderate) Stop: 02/23/18 10:04 Last Admin: 01/04/18 03:00 Dose: 1 mg Pantoprazole Sodium (Protonix) 40 mg IVP BID [facility] Stop: 02/26/18 08:59 Last Admin: 01/04/18 08:11 Dose: 40 mg Polyethylene Glycol (Miralax) 17 gm PO BID [facility] Stop: 02/26/18 08:59 Last Admin: 01/04/18 08:11 Dose: 17 gm General: no acute distress, well developed, well nourished HEENT: atraumatic, normocephalic, PERRLA, EOMI Neck: supple, no thyromegaly Cardiovascular: S1S2, regular Lungs: clear to auscultation bilaterally, clear to percussion Abdomen: soft, no tender, no distended Extremities: no cyanosis, no clubbing, no edema Neurological: awake, alert, oriented Skin: intact - Procedures Procedures: Procedures Procedure Code Date EXCISION OF STOMACH, PYLORUS, ENDO, DIAGN [id number] 12/24/17 INSERTION OF FEEDING DEVICE INTO STOMACH, ENDO [id number] 12/24/17 RESPIRATORY VENTILATION, GREATER THAN 96 CONSECUTIVE HOURS [id number] 12/24/17 Infectious Disease Assmt/Plan - Problem List Patient Problems: All Active Problems COFFEE GROUND EMESIS (Acute) - Assessment Assessment: 1. Severe sepsis. 2. Pneumonia. 3. Fecal impaction. 4. Gallbladder stone at bladder neck. 5. Diabetes mellitus type 2. 6. Hypertension. 7. Dementia. 8. Anemia. 9. Large hiatal hernia. 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 11. GI bleed 2/2 PUD. 12. SVT 13. VDRF. 14. S/p PEG placement, POD #1. 15. Hypokalemia. - Plan Plan: Continue zosyn. Continue vancomycin IV Bactroban nasal ointment. K supplementaion. Will ask for LTAC eval. Nutritional Asmnt/Malnutr-PDOC - Dietary Evaluation Malnutrition Findings (Please click <Entered> for more info): Nutritional Asmnt/Malnutrition Start: 12/25/17 15: 21 Text: Status: Complete Freq: Protocol: Document 12/25/17 15:22 ARSH (Rec: 12/25/17 15:44 DYBRITANY [email or web address]) Nutritional Asmnt/Malnutrition Patient General Information Nutritional Screening High Risk Diagnosis sepsis, dehydration, pneumonia Pertinent Medical Hx/Surgical Hx HTN, DM, dyslipidemia, dementia, anemia, muscle weakness Subjective Information Pt receiving care from RN at time of visit. Per nurse notes , pt had coffee ground emesis, NGT was unable to be inserted d/t large retro cardiac hiatal hernia, and will have EGD tomorrow. Spoke w/ BELA Duran by phone who verfied the nurse notes and states pt will continue to be NPO. Current Diet Order/ Nutrition Support NPO Pertinent Medications D5-0.45ns, novolog, culturelle , pantoprazole Pertinent Labs 12/25: glucose 392, Na 144, Cl 110, BUN 78, Alb 2.9, POC 304 -423 12/24: glucose 547, Na 134, Cl 97, BUN 69, Alb 3.0, POC 441- 485 Nutritional Hx/Data Height 1.63 m Height (Calculated Centimeters) 162.6 Current Weight (lbs) 64.682 kg Weight (Calculated Kilograms) 64.7 Weight (Calculated Grams) 72406.3 [place] Body Weight 120 lb Body Mass Index (BMI) 24.5 Weight Status Approriate GI Symptoms GI Symptoms Nausea Vomitting Last BM none noted Difficult in: None Food Allergies No Skin Integrity/Comment: saji, pasquale 13 Current %PO Negligible < 25% Estimated Nutritional Goals BEE in Kcals: Using Current wt Calories/Kcals/Kg 30-35 Kcals Calculated 2051-7283 Protein: Using Current wt Protein g/k.2-1.5 Protein Calculated 78-97 g Fluid: ml per MD Nutritional Problem 2. Problem Problem Altered nutrition related lab values Etiology dehydration, endocrine dysfunction Signs/Symptoms: Cl 110, BUN 78, glucose 392, POC 304-423 1. Problem Problem Increased nutrient needs Etiology metabolic stress Signs/Symptoms: dx of sepsis and pneumonia Malnutrition Related to Morbid Obesity Malnutrition related to morbid obesity No Intervention/Recommendation Comments 1. Monitor NPO status and advance diet when medically appropriate 2. Consider alternative nutrition route if pt unable to tolerate PO intake 3. Monitor wt, nutrition related labs, and skin integrity 4. F/U as high risk in 2-3 days, 12/27- Expected Outcomes/Goals Expected Outcomes/Goals 1. Pt to start oral intake or alternate nutrition route if necessary 2. Wt stability, skin to remain intact, nutrition related labs to approach normal limits Reveiwed by Yesenia Jennings RD
[2018-01-04] MEDS: D5-0.45NS 1,000 ML IV SCH (12:18)
[2018-01-04] MEDS: Atorvastatin Calcium 10 MG TAB PO SCH (21:02)
[2018-01-05] MEDS: INSULIN ASPART SLIDING SCALE 100 UNITS/ML UNIT SUBQ SCH ×4 (00:10→17:49)
[2018-01-05] MEDS: Piperacillin/Tazobact 2.25 gm in 0.9% NS 50 ML IV SCH ×4 (01:09→19:33)
[2018-01-05] MEDS: Albuterol/Ipratropium Neb 3 ML AERS HHN SCH ×5 (04:41→22:16)
[2018-01-05] MEDS: Morphine Sulfate 2 mg/mL 1mL Syr IVP PRN (05:55)
[2018-01-05 07:49] LABS: % BASOPHILS 0.8 % (0.0-2.0); % EOSINOPHILS 4.8 % (0.0-5.0); % LYMPHOCYTES 13.5 % (20.0-50.0); % MONOCYTES 7.4 % (2.0-10.0); % NEUTROPHILS 73.5 % (40.0-80.0); BASOPHILE ABSOLUTE 0.1 Th/cumm (0-0.2); EOSINOPHILE ABSOLUTE 0.5 Th/cmm (0.1-0.4); HEMATOCRIT 26.9 % (41.0-60); HEMOGLOBIN 8.6 gm/dL (12-16); LYMPHOCYTE ABSOLUTE 1.5 Th/cmm (1.5-3.0); MEAN CELL VOLUME 88.2 fl (81-100); MEAN CORPUSCULAR HEMOGLOBIN 28.3 pg (27.0-31.0); MEAN CORPUSCULAR HGB CONC 32.1 pg (28.0-36.0); MEAN PLATELET VOLUME 9.5 fl; MONOCYTE ABSOLUTE 0.8 Th/cmm (0.3-1.0); NEUTROPHILE ABSOLUTE 8.1 Th/cmm (1.8-8.0); PLATELET COUNT 359 Th/cmm (150-400); RED BLOOD COUNT 3.05 Mil/cmm (3.80-5.20); RED CELL DISTRIBUTION WIDTH 13.6 % (11.5-20.0)
[2018-01-05] MEDS: POLYETHYLENE GLYCOL 3350 17 GM PACK PO SCH ×2 (08:15→17:36)
[2018-01-05] MEDS: Lactobacillus Rhamnosus GG 15 Billion CFU CAP.SPRINK PO SCH (08:16)
[2018-01-05 08:17] LABS: ALB/GLOB RATIO 0.8 (1.0-1.8); ALBUMIN 2.6 gm/dL (3.7-5.3); ALKALINE PHOSPHATASE 72 U/L (34-104); ANION GAP 12.7 (7.0-16.0); BILIRUBIN,TOTAL 0.3 mg/dL (0.3-1.0); BUN - UREA NITROGEN 35 mg/dL (7-25); CALCIUM SERUM 8.4 mg/dL (8.6-10.3); CARBON DIOXIDE 33.4 mEq/L (21.0-31.0); CHLORIDE 103 mEq/L (98-107); CREATININE - SERUM 1.6 mg/dL (0.6-1.2); GLUCOSE 313 mg/dL (70-105); POTASSIUM SERUM 4.1 mEq/L (3.5-5.1); SGOT 12 U/L (13-39); SGPT/ALT 8 U/L (7-52); SODIUM SERUM 145 mEq/L (136-145); TOTAL PROTEIN,SERUM 5.8 gm/dL (6.0-8.3)
[2018-01-05 11:14] LABS: pH 7.44 (7.35-7.45)
[2018-01-05 11:16] LABS: ALLEN TEST Positive
[2018-01-05] MEDS: methylPREDNISolone SS 40 mg Vial IVP SCH (17:36)
[2018-01-05] MEDS: D5-0.45NS 1,000 ML IV SCH (17:37)
[2018-01-05] MEDS: Atorvastatin Calcium 10 MG TAB PO SCH (21:01)
--- NOTE | 2018-01-05 23:42 | Infectious Disease Prog Note ---
Infectious Disease Subjective - Review of Systems Service Date: 01/05/18 Subjective: NO fever. On 100% NRB. Infectious Disease Objective - Results Result Diagrams: 01/05/18 07:39 01/05/18 07:39 Recent Labs: Laboratory Last Values WBC 11.0 Th/cmm (4.8-10.8) H 01/05/18 07:39 RBC 3.05 Mil/cmm (3.80-5.20) L 01/05/18 07:39 Hgb 8.6 gm/dL (12-16) L 01/05/18 07:39 Hct 26.9 % (41.0-60) L 01/05/18 07:39 MCV 88.2 fl (81-100) 01/05/18 07:39 MCH 28.3 pg (27.0-31.0) 01/05/18 07:39 MCHC Differential 32.1 pg (28.0-36.0) 01/05/18 07:39 RDW 13.6 % (11.5-20.0) 01/05/18 07:39 Plt Count 359 Th/cmm (150-400) 01/05/18 07:39 MPV 9.5 fl 01/05/18 07:39 Add Manual Diff YES 12/27/17 06:10 Neutrophils % 73.5 % (40.0-80.0) 01/05/18 07:39 Band Neutrophils % 3 % (0-10) 12/31/17 04:45 Lymphocytes % 13.5 % (20.0-50.0) L 01/05/18 07:39 Monocytes % 7.4 % (2.0-10.0) 01/05/18 07:39 Eosinophils % 4.8 % (0.0-5.0) 01/05/18 07:39 Basophils % 0.8 % (0.0-2.0) 01/05/18 07:39 Neutrophils (Manual) 75 % (40-80) 12/31/17 04:45 Lymphocytes 18 % (20-50) L 12/31/17 04:45 Monocytes 3 % (2-10) 12/31/17 04:45 Eosinophils 1 % (0-5) 12/31/17 04:45 Basophils 1 % (0-3) 12/26/17 04:45 Platelet Estimate ADEQUATE (NORMAL) 12/31/17 04:45 Anisocytosis 1+ 12/27/17 06:10 PT 10.6 SECONDS (9.5-11.5) 12/26/17 04:45 INR 1.02 (0.5-1.4) 12/26/17 04:45 PTT (Actin FS) 22.1 SECONDS (26.0-38.0) L 12/24/17 19:40 Specimen Source Arterial 01/05/18 10:54 Sample Site Right Radial 01/05/18 10:54 pH 7.44 (7.35-7.45) 01/05/18 10:54 pCO2 60.0 mmHg (35.0-45.0) H* 01/05/18 10:54 pO2 120.0 mmHg (80.0-100.0) H 01/05/18 10:54 HCO3 36.0 mEq/L (20.0-26.0) H 01/05/18 10:54 Base Excess 14.1 mEq/L (-3.0-3.0) H 01/05/18 10:54 O2 Saturation 99.0 % (92.0-100.0) 01/05/18 10:54 Pradeep Test Positive 01/05/18 10:54 Vent Rate NA 01/05/18 10:54 Inspired O2 100 01/05/18 10:54 Tidal Volume NA 01/05/18 10:54 PEEP NA 01/05/18 10:54 Pressure (ins/psv/peep) NA 01/05/18 10:54 Critical Value LZHANG 01/05/18 10:54 Sodium 145 mEq/L (136-145) 01/05/18 07:39 Potassium 4.1 mEq/L (3.5-5.1) 01/05/18 07:39 Chloride 103 mEq/L (98-107) 01/05/18 07:39 Carbon Dioxide 33.4 mEq/L (21.0-31.0) H 01/05/18 07:39 Anion Gap 12.7 (7.0-16.0) 01/05/18 07:39 BUN 35 mg/dL (7-25) H 01/05/18 07:39 Creatinine 1.6 mg/dL (0.6-1.2) H 01/05/18 07:39 Est GFR ( Amer) TNP 01/05/18 07:39 Est GFR (Non-Af Amer) TNP 01/05/18 07:39 BUN/Creatinine Ratio 21.9 01/05/18 07:39 Glucose 313 mg/dL (70-105) H 01/05/18 07:39 POC Glucose 229 MG/DL (70 - 105) H 01/05/18 17:45 Whole Bld Lactic Acid 2.46 mmol/L (0.60-1.99) H* 12/25/17 10:07 Calcium 8.4 mg/dL (8.6-10.3) L 01/05/18 07:39 Phosphorus 2.8 mg/dL (2.5-5.0) 12/29/17 04:35 Magnesium 2.2 mg/dL (1.9-2.7) 12/26/17 04:45 Total Bilirubin 0.3 mg/dL (0.3-1.0) 01/05/18 07:39 AST 12 U/L (13-39) L 01/05/18 07:39 ALT 8 U/L (7-52) 01/05/18 07:39 Alkaline Phosphatase 72 U/L (34-104) 01/05/18 07:39 B-Natriuretic Peptide 1730.0 pg/mL (5.0-100.0) H 01/04/18 04:51 Total Protein 5.8 gm/dL (6.0-8.3) L 01/05/18 07:39 Albumin 2.6 gm/dL (3.7-5.3) L 01/05/18 07:39 Globulin 3.2 gm/dL 01/05/18 07:39 Albumin/Globulin Ratio 0.8 (1.0-1.8) L 01/05/18 07:39 Triglycerides 126 mg/dL (<150) 12/25/17 04:10 Cholesterol 124 mg/dL (<200) 12/25/17 04:10 LDL Cholesterol Direct 84 mg/dL (75-193) 12/25/17 04:10 HDL Cholesterol 30 mg/dL (23-92) 12/25/17 04:10 TSH 0.75 uIU/ml (0.34-5.60) 12/25/17 04:10 Vancomycin Trough 22.4 ug/mL (5-10) H 01/05/18 20:00 Helicobacter pylori Ab NEGATIVE (NEGATIVE) 12/26/17 08:35 Blood Type O POSITIVE 12/24/17 19:40 Antibody Screen NEGATIVE 12/24/17 19:40 Crossmatch See Detail 12/24/17 19:40 - Physical Exam Vitals and I&O: Vital Signs Temp 98 F 01/05/18 20:00 Pulse 86 01/05/18 22:17 Resp 18 01/05/18 22:17 BP 154/88 01/05/18 20:00 Pulse Ox 95 01/05/18 22:17 Intake & Output 01/05/18 01/05/18 01/06/18 06:59 18:59 06:59 Intake Total 100 2212 50 Output Total 2625 Balance 100 -413 50 Weight (lbs) 69.853 kg Intake: Intake, IV Amount 100 1100 50 D5-0.45NS 1,000 ml @ 40 1000 mls/hr IV .Q24H [facility] Rx#: [id number] Piperacillin Sodium/ 100 100 50 Tazobact 2.25 gm In Sodium Chloride 0.9% 50 ml @ 100 mls/hr IV Q6H [facility] Rx#:[id number] Oral 0 Tube Feeding 702 Other 410 Output: Urine 2625 Other: # Bowel Movements 1 Stool Characteristics Liquid Green Weight Source Bedscale Active Medications: Current Medications Acetaminophen (Tylenol) 650 mg PO Q4HR PRN PRN Reason: MILD PAIN 1-3 Stop: 02/23/18 17:58 Last Admin: 01/05/18 17:36 Dose: 650 mg Acetaminophen (Tylenol) 650 mg PO Q4HR PRN PRN Reason: TEMP >100.4 Stop: 02/23/18 17:58 Acetylcysteine (Mucomyst 20%) 3 ml HHN Q4HRT [facility] Stop: 02/25/18 14:59 Last Admin: 01/05/18 22:17 Dose: 3 ml Albuterol/Ipratropium (Duoneb Neb) 3 ml HHN Q4HRT [facility] Stop: 02/24/18 14:59 Last Admin: 01/05/18 22:16 Dose: 3 ml Amlodipine Besylate (Norvasc) 5 mg PO DAILY [facility] Stop: 02/24/18 08:59 Last Admin: 12/01/18 08:15 Dose: 5 mg Ascorbic Acid (Vitamin C) 500 mg PO DAILY [facility] Stop: 02/24/18 08:59 Last Admin: 01/05/18 08:16 Dose: 500 mg Atorvastatin Calcium (Lipitor) 10 mg PO HS [facility]; Protocol Stop: 03/01/18 20:59 Last Admin: 01/05/18 21:01 Dose: 10 mg Bisacodyl (Dulcolax 10 Mg Supp) 10 mg RC DAILY PRN PRN Reason: IF MOM INEFFECTIVE Stop: 02/23/18 17:58 Furosemide (Lasix) 40 mg IVP DAILY [facility] Stop: 03/02/18 08:59 Last Admin: 01/05/18 08:15 Dose: 40 mg Diltiazem HCl 125 mg/ Dextrose 100 mls @ 0 mls/hr IV Q8H PRN; Protocol PRN Reason: blood pressure Stop: 02/25/18 07:48 Last Admin: 12/27/17 09:00 Dose: 6.25 mg/hr, 5 mls/hr Piperacillin Sod/Tazobactam (Sod 2.25 gm/ Sodium Chloride) 50 mls @ 100 mls/hr IV Q6H [facility] Stop: 02/25/18 13:59 Last Infusion: 01/05/18 20:03 Dose: Infused Dextrose/Sodium Chloride (D5-0.45ns) 1,000 mls @ 40 mls/hr IV .Q24H [facility] Stop: 03/02/18 00:00 Last Admin: 01/05/18 17:37 Dose: 40 mls/hr Vancomycin HCl 1.25 gm/ Sodium (Chloride) 250 mls @ 165 mls/hr IV Q36H [facility] Stop: 03/02/18 08:59 Last Admin: 01/05/18 21:11 Dose: Not Given Insulin Aspart (Novolog Insulin Sliding Scale) 0 units SUBQ Q6HR [facility]; Protocol Stop: 02/23/18 01:14 Last Admin: 01/05/18 17:49 Dose: 5 units Lactobacillus Rhamnosus (Culturelle 15b) 1 each PO DAILY [facility] Stop: 02/24/18 08:59 Last Admin: 01/05/18 08:16 Dose: 1 each Lorazepam (Ativan) 1 mg IVP Q4HR PRN; Protocol PRN Reason: Agitation Stop: 02/25/18 07:12 Last Admin: 01/05/18 00:04 Dose: 1 mg Methylprednisolone Sodium Succinate (Solu-Medrol) 40 mg IVP Q6HR [facility] Stop: 03/06/18 17:59 Last Admin: 01/05/18 17:36 Dose: 40 mg Miscellaneous (Probiotic Screen) 1 [facility] PRN PRN PRN Reason: PROTOCOL Stop: 02/23/18 15:29 Miscellaneous (Vancomycin Iv Per Pharmacy) 1 [facility] PRN GIOVANNA Stop: 02/24/18 23:44 Miscellaneous (Zosyn Iv Per Pharmacy) 1 [facility] PRN PRN PRN Reason: PROTOCOL Stop: 02/25/18 12:03 Morphine Sulfate (Morphine) 1 mg IVP Q4HR PRN PRN Reason: Pain (Moderate) Stop: 02/23/18 10:04 Last Admin: 01/05/18 05:55 Dose: 1 mg Pantoprazole Sodium (Protonix) 40 mg IVP BID [facility] Stop: 02/26/18 08:59 Last Admin: 01/05/18 17:36 Dose: 40 mg Polyethylene Glycol (Miralax) 17 gm PO BID [facility] Stop: 02/26/18 08:59 Last Admin: 01/05/18 17:36 Dose: 17 gm General: no acute distress, well developed, well nourished HEENT: atraumatic, normocephalic, PERRLA Neck: supple, no thyromegaly, no lymphadenopathy Cardiovascular: S1S2, regular Lungs: clear to percussion, crackles Abdomen: soft, no tender, no distended, no mass Extremities: no cyanosis, no clubbing, no edema Neurological: awake, alert Skin: intact - Procedures Procedures: Procedures Procedure Code Date EXCISION OF STOMACH, PYLORUS, ENDO, DIAGN [id number] 12/24/17 INSERTION OF FEEDING DEVICE INTO STOMACH, ENDO [id number] 12/24/17 RESPIRATORY VENTILATION, GREATER THAN 96 CONSECUTIVE HOURS [id number] 12/24/17 Infectious Disease Assmt/Plan - Problem List Patient Problems: All Active Problems COFFEE GROUND EMESIS (Acute) - Assessment Assessment: 1. Severe sepsis. 2. Pneumonia. 3. Fecal impaction. 4. Gallbladder stone at bladder neck. 5. Diabetes mellitus type 2. 6. Hypertension. 7. Dementia. 8. Anemia. 9. Large hiatal hernia. 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 11. GI bleed 2/2 PUD. 12. SVT 13. VDRF. 14. S/p PEG placement, POD #1. 15. Hypokalemia. - Plan Plan: Continue zosyn. Continue vancomycin IV Will ask for LTAC eval. Nutritional Asmnt/Malnutr-PDOC - Dietary Evaluation Malnutrition Findings (Please click <Entered> for more info): Nutritional Asmnt/Malnutrition Start: 12/25/17 15: 21 Text: Status: Complete Freq: Protocol: Document 12/25/17 15:22 ARSH (Rec: 12/25/17 15:44 ESTIVENBRITANY [email or web address]) Nutritional Asmnt/Malnutrition Patient General Information Nutritional Screening High Risk Diagnosis sepsis, dehydration, pneumonia Pertinent Medical Hx/Surgical Hx HTN, DM, dyslipidemia, dementia, anemia, muscle weakness Subjective Information Pt receiving care from RN at time of visit. Per nurse notes , pt had coffee ground emesis, NGT was unable to be inserted d/t large retro cardiac hiatal hernia, and will have EGD tomorrow. Spoke w/ BELA Duran by phone who verfied the nurse notes and states pt will continue to be NPO. Current Diet Order/ Nutrition Support NPO Pertinent Medications D5-0.45ns, novolog, culturelle , pantoprazole Pertinent Labs 12/25: glucose 392, Na 144, Cl 110, BUN 78, Alb 2.9, POC 304 -423 12/24: glucose 547, Na 134, Cl 97, BUN 69, Alb 3.0, POC 441- 485 Nutritional Hx/Data Height 1.63 m Height (Calculated Centimeters) 162.6 Current Weight (lbs) 64.682 kg Weight (Calculated Kilograms) 64.7 Weight (Calculated Grams) 38472.3 Grace Body Weight 120 lb Body Mass Index (BMI) 24.5 Weight Status Approriate GI Symptoms GI Symptoms Nausea Vomitting Last BM none noted Difficult in: None Food Allergies No Skin Integrity/Comment: pasquale lennon 13 Current %PO Negligible < 25% Estimated Nutritional Goals BEE in Kcals: Using Current wt Calories/Kcals/Kg 30-35 Kcals Calculated 7215-0623 Protein: Using Current wt Protein g/k.2-1.5 Protein Calculated 78-97 g Fluid: ml per MD Nutritional Problem 2. Problem Problem Altered nutrition related lab values Etiology dehydration, endocrine dysfunction Signs/Symptoms: Cl 110, BUN 78, glucose 392, POC 304-423 1. Problem Problem Increased nutrient needs Etiology metabolic stress Signs/Symptoms: dx of sepsis and pneumonia Malnutrition Related to Morbid Obesity Malnutrition related to morbid obesity No Intervention/Recommendation Comments 1. Monitor NPO status and advance diet when medically appropriate 2. Consider alternative nutrition route if pt unable to tolerate PO intake 3. Monitor wt, nutrition related labs, and skin integrity 4. F/U as high risk in 2-3 days, 12/27- Expected Outcomes/Goals Expected Outcomes/Goals 1. Pt to start oral intake or alternate nutrition route if necessary 2. Wt stability, skin to remain intact, nutrition related labs to approach normal limits Reveiwed by Yesenia Jennings RD
[2018-01-06] MEDS: methylPREDNISolone SS 40 mg Vial IVP SCH ×4 (00:32→17:09)
[2018-01-06] MEDS: INSULIN ASPART SLIDING SCALE 100 UNITS/ML UNIT SUBQ SCH ×4 (00:32→17:07)
[2018-01-06] MEDS ORDERED: Sodium Bicarbonate 8.4% 50mEq PFS IVP ONE (00:41)
[2018-01-06] MEDS: Piperacillin/Tazobact 2.25 gm in 0.9% NS 50 ML IV SCH ×4 (01:35→20:05)
[2018-01-06] MEDS: Albuterol/Ipratropium Neb 3 ML AERS HHN SCH ×6 (02:35→23:06)
[2018-01-06] MEDS: POLYETHYLENE GLYCOL 3350 17 GM PACK PO SCH ×2 (08:08→16:21)
[2018-01-06] MEDS: Lactobacillus Rhamnosus GG 15 Billion CFU CAP.SPRINK PO SCH (08:09)
[2018-01-06 09:37] LABS: pH 7.54 (7.35-7.45)
--- NOTE | 2018-01-06 09:50 | Diagnostic Imaging Report ---
CHEST X-RAY: AP view INDICATION: Pneumonia COMPARISON: 01/03/2018 FINDINGS: Findings of CHF are seen with small bilateral effusions and bilateral infiltrates. Cardiomegaly is noted with atherosclerosis. IMPRESSION: CHF with bilateral small effusions and bilateral infiltrates Cardiomegaly and atherosclerotic vascular disease.
--- NOTE | 2018-01-06 09:56 | Diagnostic Imaging Report ---
CHEST X-RAY: AP view INDICATION: Pneumonia COMPARISON: 01/05/2018 FINDINGS: Mild congestive changes are noted with right basal density. Cardiomegaly is noted with atherosclerosis. IMPRESSION: Mild congestive changes and right basal density likely due to a pleural effusion. There may be a consolidative changes of the right lung base. Left basal infiltrates are also suspected Cardiomegaly and atherosclerotic vascular disease.
[2018-01-06] MEDS: D5-0.45NS 1,000 ML IV SCH (14:15)
[2018-01-06] MEDS: Atorvastatin Calcium 10 MG TAB PO SCH (20:06)
[2018-01-06] MEDS: Morphine Sulfate 2 mg/mL 1mL Syr IVP PRN (22:30)
[2018-01-07] MEDS: methylPREDNISolone SS 40 mg Vial IVP SCH ×5 (01:00→23:45)
[2018-01-07] MEDS: Piperacillin/Tazobact 2.25 gm in 0.9% NS 50 ML IV SCH ×4 (01:00→20:54)
[2018-01-07] MEDS: INSULIN ASPART SLIDING SCALE 100 UNITS/ML UNIT SUBQ SCH ×4 (02:27→17:38)
[2018-01-07] MEDS: Albuterol/Ipratropium Neb 3 ML AERS HHN SCH ×6 (02:59→22:58)
[2018-01-07 04:54] LABS: HEMATOCRIT 28.2 % (41.0-60); MEAN CELL VOLUME 86.7 fl (81-100); MEAN CORPUSCULAR HEMOGLOBIN 27.6 pg (27.0-31.0); MEAN CORPUSCULAR HGB CONC 31.9 pg (28.0-36.0); MEAN PLATELET VOLUME 9.2 fl; PLATELET COUNT 525 Th/cmm (150-400); RED BLOOD COUNT 3.26 Mil/cmm (3.80-5.20); RED CELL DISTRIBUTION WIDTH 13.6 % (11.5-20.0); WHITE BLOOD COUNT 12.7 Th/cmm (4.8-10.8)
[2018-01-07 05:32] LABS: ALB/GLOB RATIO 0.8 (1.0-1.8); ALKALINE PHOSPHATASE 65 U/L (34-104); ANION GAP 19.5 (7.0-16.0); BILIRUBIN,TOTAL 0.3 mg/dL (0.3-1.0); BUN - UREA NITROGEN 40 mg/dL (7-25); CALCIUM SERUM 9.5 mg/dL (8.6-10.3); CARBON DIOXIDE 31.3 mEq/L (21.0-31.0); CHLORIDE 99 mEq/L (98-107); CREATININE - SERUM 1.9 mg/dL (0.6-1.2); SGOT 14 U/L (13-39); SGPT/ALT 13 U/L (7-52); SODIUM SERUM 147 mEq/L (136-145); TOTAL PROTEIN,SERUM 6.8 gm/dL (6.0-8.3)
[2018-01-07 05:35] LABS: POTASSIUM SERUM 2.8 mEq/L (3.5-5.1)
[2018-01-07 05:38] LABS: GLUCOSE 366 mg/dL (70-105)
--- NOTE | 2018-01-07 05:39 | Progress Notes ---
DATE: 01/06/2018 INFECTIOUS DISEASE AND INTERNAL MEDICINE NOTE SUBJECTIVE: The patient is lying in bed, not in acute distress or agitated. Restless. On Ventimask. No fever. Remains short of breath. OBJECTIVE: VITAL SIGNS: Current vital signs show temperature 97.8 degrees Fahrenheit, pulse 86, respirations 16, blood pressure 124/49. GENERAL: The patient is comfortable lying in the bed, not in acute distress. HEENT: Head is normocephalic and atraumatic. Oral cavity moist, pink tongue. NECK: Trachea in midline. CHEST: Bilaterally breath sounds. Crackles present. HEART: S1, S2 within normal limits. Regular rhythm. No murmur, no gallop. ABDOMEN: Soft, nontender, nondistended. Bowel sounds present. EXTREMITIES: No cyanosis, no clubbing, no edema. NEUROLOGIC: The patient is lethargic. LABORATORY DATA: WBC count 11,000, hemoglobin 8.6, platelets are 359,000. Sodium 145, potassium 4.1, chloride 103, bicarbonate is 35, creatinine 1.6 and glucose is 313. IMPRESSION: 1. Sepsis, improving. 2. Pneumonia with a new right-sided pneumonia and infiltrate. 3. Reciprocal infection. 4. Gallstone in the gallbladder neck. 5. History of diabetes mellitus type 2. 6. Hypertension. 7. Dementia. 8. Anemia. 9. Large hiatal hernia. 10. MRSA colonization. 11. GI bleed secondary to peptic ulcer disease. 12. ____. 13. Respiratory insufficiency, on Ventimask. 14. Status post PEG placement. 15. Hypokalemia, replaced. RECOMMENDATION: Continue vancomycin IV and Zosyn. Awaiting for the transfer to LT[facility]. JOB# [id number] [facility]
[2018-01-07 06:15] LABS: BAND NEUTROPHILE 0 % (0-10); EOSINOPHIL 1 % (0-5); LYMPHOCYTE 7 % (20-50); MONOCYTE 6 % (2-10); NEUTROPHILS 86 % (40-80)
[2018-01-07] MEDS ORDERED: KCL 20mEq/100mL Premix 20 MEQ/100 ML PIGGYBACK IV SCH (06:17)
[2018-01-07] MEDS ORDERED: KCL 20mEq/100mL Premix 40 MEQ/200 ML PIGGYBACK IV ONE (06:44)
[2018-01-07] MEDS ORDERED: Potassium Chloride 40 MEQ, Lidocaine 1% 20mL Vial 25 MG in Sodium Chloride 0.9% 250 ML IV ONE (06:45)
[2018-01-07] MEDS ORDERED: KCL 20mEq/100mL Premix 20 MEQ/100 ML PIGGYBACK IV ONE ×2 (07:05→10:30)
[2018-01-07] MEDS ORDERED: [UNRECOGNIZED DRUG - OTHER] IV ONE (08:00)
[2018-01-07] MEDS ORDERED: POTASSIUM CHLORIDE IV ONE ×2 (08:00→08:30)
[2018-01-07] MEDS ORDERED: LIDOCAINE IV ONE ×2 (08:00→08:30)
[2018-01-07] MEDS ORDERED: [UNRECOGNIZED DRUG - OTHER] IV ONE (08:30)
--- NOTE | 2018-01-07 08:30 | Diagnostic Imaging Report ---
Exam: Portable chest x-ray HISTORY: Shortness of breath. COMPARISON: 01/06/2018. Findings: Portable summation of chest reviewed the study demonstrates significant rotation of patient. There is evidence for cardiomegaly and congestion. There is evidence for left-sided pneumonia most likely effusion. The visualized right lung parenchyma is well aerated. Bony thorax is intact. IMPRESSION: Limited study due to severe rotation of patient due to positioning. Cardiomegaly mild congestion Left-sided pneumonia question of effusion. Follow-up examination recommended
[2018-01-07] MEDS: Lactobacillus Rhamnosus GG 15 Billion CFU CAP.SPRINK PO SCH (08:38)
[2018-01-07] MEDS: POLYETHYLENE GLYCOL 3350 17 GM PACK PO SCH ×2 (08:38→17:42)
[2018-01-07] MEDS: Morphine Sulfate 2 mg/mL 1mL Syr IVP PRN (09:14)
[2018-01-07 14:17] LABS: pH 7.44 (7.35-7.45)
[2018-01-07 14:18] LABS: ALLEN TEST positive
--- NOTE | 2018-01-07 14:30 | Infectious Disease Prog Note ---
Infectious Disease Subjective - Review of Systems Service Date: 01/07/18 Subjective: Patient is very lethargic and in SOB. No fever. Infectious Disease Objective - Results Result Diagrams: 01/07/18 04:45 01/07/18 04:45 Recent Labs: Laboratory Last Values WBC 12.7 Th/cmm (4.8-10.8) H 01/07/18 04:45 RBC 3.26 Mil/cmm (3.80-5.20) L 01/07/18 04:45 Hgb 9.0 gm/dL (12-16) L 01/07/18 04:45 Hct 28.2 % (41.0-60) L 01/07/18 04:45 MCV 86.7 fl (81-100) 01/07/18 04:45 MCH 27.6 pg (27.0-31.0) 01/07/18 04:45 MCHC Differential 31.9 pg (28.0-36.0) 01/07/18 04:45 RDW 13.6 % (11.5-20.0) 01/07/18 04:45 Plt Count 525 Th/cmm (150-400) H 01/07/18 04:45 MPV 9.2 fl 01/07/18 04:45 Add Manual Diff YES 01/07/18 04:45 Neutrophils % 73.5 % (40.0-80.0) 01/05/18 07:39 Band Neutrophils % 0 % (0-10) 01/07/18 04:45 Lymphocytes % 13.5 % (20.0-50.0) L 01/05/18 07:39 Monocytes % 7.4 % (2.0-10.0) 01/05/18 07:39 Eosinophils % 4.8 % (0.0-5.0) 01/05/18 07:39 Basophils % 0.8 % (0.0-2.0) 01/05/18 07:39 Neutrophils (Manual) 86 % (40-80) H 01/07/18 04:45 Lymphocytes 7 % (20-50) L 01/07/18 04:45 Monocytes 6 % (2-10) 01/07/18 04:45 Eosinophils 1 % (0-5) 01/07/18 04:45 Basophils 1 % (0-3) 12/26/17 04:45 Platelet Estimate ADEQUATE (NORMAL) 12/31/17 04:45 Anisocytosis 1+ 12/27/17 06:10 PT 10.6 SECONDS (9.5-11.5) 12/26/17 04:45 INR 1.02 (0.5-1.4) 12/26/17 04:45 PTT (Actin FS) 22.1 SECONDS (26.0-38.0) L 12/24/17 19:40 Specimen Source ARTIAL 01/07/18 14:01 Sample Site Right Radial 01/07/18 14:01 pH 7.44 (7.35-7.45) 01/07/18 14:01 pCO2 60.0 mmHg (35.0-45.0) H* 01/07/18 14:01 pO2 68.0 mmHg (80.0-100.0) L 01/07/18 14:01 HCO3 35.8 mEq/L (20.0-26.0) H 01/07/18 14:01 Base Excess 14.1 mEq/L (-3.0-3.0) H 01/07/18 14:01 O2 Saturation 94.0 % (92.0-100.0) 01/07/18 14:01 Pradeep Test positive 01/07/18 14:01 Vent Rate n/a 01/07/18 14:01 Inspired O2 32 01/07/18 14:01 Tidal Volume n/a 01/07/18 14:01 PEEP n/a 01/07/18 14:01 Pressure (ins/psv/peep) n/a 01/07/18 14:01 Critical Value CJ 01/07/18 14:01 Sodium 147 mEq/L (136-145) H 01/07/18 04:45 Potassium 2.8 mEq/L (3.5-5.1) L* D 01/07/18 04:45 Chloride 99 mEq/L (98-107) 01/07/18 04:45 Carbon Dioxide 31.3 mEq/L (21.0-31.0) H 01/07/18 04:45 Anion Gap 19.5 (7.0-16.0) H 01/07/18 04:45 BUN 40 mg/dL (7-25) H 01/07/18 04:45 Creatinine 1.9 mg/dL (0.6-1.2) H 01/07/18 04:45 Est GFR ( Amer) TNP 01/07/18 04:45 Est GFR (Non-Af Amer) TNP 01/07/18 04:45 BUN/Creatinine Ratio 21.1 01/07/18 04:45 Glucose 366 mg/dL (70-105) H D 01/07/18 04:45 POC Glucose 197 MG/DL (70 - 105) H 01/07/18 11:35 Whole Bld Lactic Acid 2.46 mmol/L (0.60-1.99) H* 12/25/17 10:07 Calcium 9.5 mg/dL (8.6-10.3) 01/07/18 04:45 Phosphorus 2.8 mg/dL (2.5-5.0) 12/29/17 04:35 Magnesium 2.2 mg/dL (1.9-2.7) 12/26/17 04:45 Total Bilirubin 0.3 mg/dL (0.3-1.0) 01/07/18 04:45 AST 14 U/L (13-39) 01/07/18 04:45 ALT 13 U/L (7-52) 01/07/18 04:45 Alkaline Phosphatase 65 U/L (34-104) 01/07/18 04:45 B-Natriuretic Peptide 3040.0 pg/mL (5.0-100.0) H 01/07/18 04:45 Total Protein 6.8 gm/dL (6.0-8.3) 01/07/18 04:45 Albumin 3.0 gm/dL (3.7-5.3) L 01/07/18 04:45 Globulin 3.8 gm/dL 01/07/18 04:45 Albumin/Globulin Ratio 0.8 (1.0-1.8) L 01/07/18 04:45 Triglycerides 126 mg/dL (<150) 12/25/17 04:10 Cholesterol 124 mg/dL (<200) 12/25/17 04:10 LDL Cholesterol Direct 84 mg/dL (75-193) 12/25/17 04:10 HDL Cholesterol 30 mg/dL (23-92) 12/25/17 04:10 TSH 0.75 uIU/ml (0.34-5.60) 12/25/17 04:10 Vancomycin Trough 20.2 ug/mL (5-10) H 01/07/18 08:55 Helicobacter pylori Ab NEGATIVE (NEGATIVE) 12/26/17 08:35 Blood Type O POSITIVE 12/24/17 19:40 Antibody Screen NEGATIVE 12/24/17 19:40 Crossmatch See Detail 12/24/17 19:40 - Physical Exam Vitals and I&O: Vital Signs Temp 98 F 01/07/18 12:00 Pulse 72 01/07/18 12:00 Resp 14 01/07/18 12:00 BP 139/48 01/07/18 12:00 Pulse Ox 96 01/07/18 12:00 Intake & Output 01/06/18 01/07/18 01/07/18 18:59 06:59 18:59 Intake Total 1950.666 920 50 Output Total 900 700 Balance 1050.666 220 50 Weight (lbs) 69.899 kg 69.899 kg Intake: Intake, IV Amount 1320.666 100 50 D5-0.45NS 1,000 ml @ 40 970.666 mls/hr IV .Q24H [facility] Rx#: [id number] Piperacillin Sodium/ 100 100 50 Tazobact 2.25 gm In Sodium Chloride 0.9% 50 ml @ 100 mls/hr IV Q6H [facility] Rx#:[id number] Vancomycin HCl 0.75 gm In 250 Sodium Chloride 0.9% 250 ml @ 165 mls/hr IV Q24HR [facility] Rx#:[id number] Oral 0 Tube Feeding 250 600 Other 380 220 Output: Urine 900 700 Other: # Bowel Movements 3 2 Stool Characteristics Liquid Liquid Liquid Green Brown Brown Green Green Weight Source Bedscale Bedscale Active Medications: Current Medications Acetaminophen (Tylenol) 650 mg PO Q4HR PRN PRN Reason: MILD PAIN 1-3 Stop: 02/23/18 17:58 Last Admin: 01/07/18 03:33 Dose: 650 mg Acetaminophen (Tylenol) 650 mg PO Q4HR PRN PRN Reason: TEMP >100.4 Stop: 02/23/18 17:58 Acetylcysteine (Mucomyst 20%) 3 ml HHN Q4HRT [facility] Stop: 02/25/18 14:59 Last Admin: 01/07/18 11:01 Dose: 3 ml Albuterol/Ipratropium (Duoneb Neb) 3 ml HHN Q4HRT [facility] Stop: 02/24/18 14:59 Last Admin: 01/07/18 11:01 Dose: 3 ml Amlodipine Besylate (Norvasc) 5 mg PO DAILY [facility] Stop: 02/24/18 08:59 Last Admin: 01/07/18 08:38 Dose: 5 mg Ascorbic Acid (Vitamin C) 500 mg PO DAILY [facility] Stop: 02/24/18 08:59 Last Admin: 01/07/18 08:38 Dose: 500 mg Atorvastatin Calcium (Lipitor) 10 mg PO HS [facility]; Protocol Stop: 03/01/18 20:59 Last Admin: 01/06/18 20:06 Dose: 10 mg Bisacodyl (Dulcolax 10 Mg Supp) 10 mg RC DAILY PRN PRN Reason: IF MOM INEFFECTIVE Stop: 02/23/18 17:58 Furosemide (Lasix) 40 mg IVP BID [facility] Stop: 03/07/18 16:59 Last Admin: 01/07/18 08:37 Dose: 40 mg Diltiazem HCl 125 mg/ Dextrose 100 mls @ 0 mls/hr IV Q8H PRN; Protocol PRN Reason: blood pressure Stop: 02/25/18 07:48 Last Admin: 12/27/17 09:00 Dose: 6.25 mg/hr, 5 mls/hr Piperacillin Sod/Tazobactam (Sod 2.25 gm/ Sodium Chloride) 50 mls @ 100 mls/hr IV Q6H [facility] Stop: 02/25/18 13:59 Last Infusion: 01/07/18 09:06 Dose: Infused Vancomycin HCl 1.25 gm/ Sodium (Chloride) 250 mls @ 165 mls/hr IV Q48HR@0900 [facility] Stop: 03/08/18 09:59 Last Admin: 01/07/18 11:11 Dose: 165 mls/hr Insulin Aspart (Novolog Insulin Sliding Scale) 0 units SUBQ Q6HR [facility]; Protocol Stop: 02/23/18 01:14 Last Admin: 01/07/18 11:48 Dose: 3 units Lactobacillus Rhamnosus (Culturelle 15b) 1 each PO DAILY [facility] Stop: 02/24/18 08:59 Last Admin: 01/07/18 08:38 Dose: 1 each Lorazepam (Ativan) 1 mg IVP Q4HR PRN; Protocol PRN Reason: Agitation Stop: 02/25/18 07:12 Last Admin: 01/07/18 10:46 Dose: 1 mg Methylprednisolone Sodium Succinate (Solu-Medrol) 40 mg IVP Q6HR [facility] Stop: 03/06/18 17:59 Last Admin: 01/07/18 06:49 Dose: 40 mg Miscellaneous (Probiotic Screen) 1 [facility] PRN PRN PRN Reason: PROTOCOL Stop: 02/23/18 15:29 Miscellaneous (Vancomycin Iv Per Pharmacy) 1 [facility] PRN GIOVANNA Stop: 02/24/18 23:44 Miscellaneous (Zosyn Iv Per Pharmacy) 1 [facility] PRN PRN PRN Reason: PROTOCOL Stop: 02/25/18 12:03 Morphine Sulfate (Morphine) 1 mg IVP Q4HR PRN PRN Reason: Pain (Moderate) Stop: 02/23/18 10:04 Last Admin: 01/07/18 09:14 Dose: 1 mg Pantoprazole Sodium (Protonix) 40 mg IVP BID [facility] Stop: 02/26/18 08:59 Last Admin: 01/07/18 08:37 Dose: 40 mg Polyethylene Glycol (Miralax) 17 gm PO BID [facility] Stop: 02/26/18 08:59 Last Admin: 01/07/18 08:38 Dose: 17 gm General: no acute distress, well developed, well nourished HEENT: atraumatic, normocephalic, PERRLA, EOMI Neck: supple, no thyromegaly Cardiovascular: S1S2, regular Lungs: clear to percussion, crackles, rhonchi Abdomen: soft, no tender, no distended, no mass Extremities: no cyanosis, no clubbing, no edema Neurological: other (lethargic) Skin: intact - Procedures Procedures: Procedures Procedure Code Date EXCISION OF STOMACH, PYLORUS, ENDO, DIAGN [id number] 12/24/17 INSERTION OF FEEDING DEVICE INTO STOMACH, ENDO [id number] 12/24/17 RESPIRATORY VENTILATION, GREATER THAN 96 CONSECUTIVE HOURS [id number] 12/24/17 Infectious Disease Assmt/Plan - Problem List Patient Problems: All Active Problems COFFEE GROUND EMESIS (Acute) - Assessment Assessment: 1. Severe sepsis. 2. Pneumonia. 3. Fecal impaction. 4. Gallbladder stone at bladder neck. 5. Diabetes mellitus type 2. 6. Hypertension. 7. Dementia. 8. Anemia. 9. Large hiatal hernia. 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 11. GI bleed 2/2 PUD. 12. SVT 13. Respiratory insufficiency. 14. S/p PEG placement, POD #1. 15. Altered mental status, metabolic encephalopathy. - Plan Plan: Continue zosyn. Continue vancomycin IV. Order ABG stat. Further care per Dr Estevez. Patient is not ready for discharge at this time. Nutritional Asmnt/Malnutr-PDOC - Dietary Evaluation Malnutrition Findings (Please click <Entered> for more info): Nutritional Asmnt/Malnutrition Start: 12/25/17 15: 21 Text: Status: Complete Freq: Protocol: Document 12/25/17 15:22 DYBRITANY (Rec: 12/25/17 15:44 DYBRITANY [email or web address]) Nutritional Asmnt/Malnutrition Patient General Information Nutritional Screening High Risk Diagnosis sepsis, dehydration, pneumonia Pertinent Medical Hx/Surgical Hx HTN, DM, dyslipidemia, dementia, anemia, muscle weakness Subjective Information Pt receiving care from RN at time of visit. Per nurse notes , pt had coffee ground emesis, NGT was unable to be inserted d/t large retro cardiac hiatal hernia, and will have EGD tomorrow. Spoke w/ BELA Duran by phone who verfied the nurse notes and states pt will continue to be NPO. Current Diet Order/ Nutrition Support NPO Pertinent Medications D5-0.45ns, novolog, culturelle , pantoprazole Pertinent Labs 12/25: glucose 392, Na 144, Cl 110, BUN 78, Alb 2.9, POC 304 -423 12/24: glucose 547, Na 134, Cl 97, BUN 69, Alb 3.0, POC 441- 485 Nutritional Hx/Data Height 1.63 m Height (Calculated Centimeters) 162.6 Current Weight (lbs) 64.682 kg Weight (Calculated Kilograms) 64.7 Weight (Calculated Grams) 49220.3 [place] Body Weight 120 lb Body Mass Index (BMI) 24.5 Weight Status Approriate GI Symptoms GI Symptoms Nausea Vomitting Last BM none noted Difficult in: None Food Allergies No Skin Integrity/Comment: intact, pasquale 13 Current %PO Negligible < 25% Estimated Nutritional Goals BEE in Kcals: Using Current wt Calories/Kcals/Kg 30-35 Kcals Calculated 9255-2206 Protein: Using Current wt Protein g/k.2-1.5 Protein Calculated 78-97 g Fluid: ml per MD Nutritional Problem 2. Problem Problem Altered nutrition related lab values Etiology dehydration, endocrine dysfunction Signs/Symptoms: Cl 110, BUN 78, glucose 392, POC 304-423 1. Problem Problem Increased nutrient needs Etiology metabolic stress Signs/Symptoms: dx of sepsis and pneumonia Malnutrition Related to Morbid Obesity Malnutrition related to morbid obesity No Intervention/Recommendation Comments 1. Monitor NPO status and advance diet when medically appropriate 2. Consider alternative nutrition route if pt unable to tolerate PO intake 3. Monitor wt, nutrition related labs, and skin integrity 4. F/U as high risk in 2-3 days, 12/27- Expected Outcomes/Goals Expected Outcomes/Goals 1. Pt to start oral intake or alternate nutrition route if necessary 2. Wt stability, skin to remain intact, nutrition related labs to approach normal limits Reveiwed by Yesenia Jennings RD
[2018-01-07] MEDS: Atorvastatin Calcium 10 MG TAB PO SCH (20:55)
[2018-01-08] MEDS: INSULIN ASPART SLIDING SCALE 100 UNITS/ML UNIT SUBQ SCH ×4 (01:35→17:26)
[2018-01-08] MEDS: Albuterol/Ipratropium Neb 3 ML AERS HHN SCH ×6 (02:00→22:13)
[2018-01-08] MEDS: Piperacillin/Tazobact 2.25 gm in 0.9% NS 50 ML IV SCH ×4 (02:43→20:32)
[2018-01-08 04:47] LABS: HEMATOCRIT 26.1 % (41.0-60); HEMOGLOBIN 8.5 gm/dL (12-16); MEAN CELL VOLUME 87.2 fl (81-100); MEAN CORPUSCULAR HEMOGLOBIN 28.5 pg (27.0-31.0); MEAN CORPUSCULAR HGB CONC 32.7 pg (28.0-36.0); MEAN PLATELET VOLUME 9.2 fl; PLATELET COUNT 445 Th/cmm (150-400); RED BLOOD COUNT 2.99 Mil/cmm (3.80-5.20); RED CELL DISTRIBUTION WIDTH 13.3 % (11.5-20.0)
[2018-01-08] MEDS: methylPREDNISolone SS 40 mg Vial IVP SCH ×3 (05:32→17:25)
[2018-01-08 05:47] LABS: ALB/GLOB RATIO 0.9 (1.0-1.8); ALBUMIN 2.8 gm/dL (3.7-5.3); ALKALINE PHOSPHATASE 63 U/L (34-104); ANION GAP 16.3 (7.0-16.0); BILIRUBIN,TOTAL 0.3 mg/dL (0.3-1.0); BUN - UREA NITROGEN 50 mg/dL (7-25); CHLORIDE 102 mEq/L (98-107); CREATININE - SERUM 1.9 mg/dL (0.6-1.2); POTASSIUM SERUM 3.3 mEq/L (3.5-5.1); SGOT 11 U/L (13-39); SGPT/ALT 11 U/L (7-52); SODIUM SERUM 147 mEq/L (136-145)
[2018-01-08 06:02] LABS: GLUCOSE 469 mg/dL (70-105)
[2018-01-08 07:04] LABS: BAND NEUTROPHILE 0 % (0-10); NEUTROPHILS 87 % (40-80)
[2018-01-08 07:05] LABS: BASOPHIL 0 % (0-3); EOSINOPHIL 0 % (0-5); LYMPHOCYTE 9 % (20-50); MONOCYTE 4 % (2-10)
[2018-01-08] MEDS: Lactobacillus Rhamnosus GG 15 Billion CFU CAP.SPRINK PO SCH (08:58)
[2018-01-08] MEDS: POLYETHYLENE GLYCOL 3350 17 GM PACK PO SCH ×2 (08:58→16:57)
[2018-01-08] MEDS ORDERED: Potassium Chloride Elixir 20 mEq /15 mL UDC GT ONE (12:00)
--- NOTE | 2018-01-08 13:49 | Infectious Disease Prog Note ---
Infectious Disease Subjective - Review of Systems Service Date: 01/08/18 Subjective: Patient is very lethargic and in SOB. No fever. Infectious Disease Objective - Results Result Diagrams: 01/08/18 04:30 01/08/18 04:30 Recent Labs: Laboratory Last Values WBC 10.0 Th/cmm (4.8-10.8) D 01/08/18 04:30 RBC 2.99 Mil/cmm (3.80-5.20) L 01/08/18 04:30 Hgb 8.5 gm/dL (12-16) L 01/08/18 04:30 Hct 26.1 % (41.0-60) L 01/08/18 04:30 MCV 87.2 fl (81-100) 01/08/18 04:30 MCH 28.5 pg (27.0-31.0) 01/08/18 04:30 MCHC Differential 32.7 pg (28.0-36.0) 01/08/18 04:30 RDW 13.3 % (11.5-20.0) 01/08/18 04:30 Plt Count 445 Th/cmm (150-400) H 01/08/18 04:30 MPV 9.2 fl 01/08/18 04:30 Add Manual Diff YES 01/08/18 04:30 Neutrophils % 73.5 % (40.0-80.0) 01/05/18 07:39 Band Neutrophils % 0 % (0-10) 01/08/18 04:30 Lymphocytes % 13.5 % (20.0-50.0) L 01/05/18 07:39 Monocytes % 7.4 % (2.0-10.0) 01/05/18 07:39 Eosinophils % 4.8 % (0.0-5.0) 01/05/18 07:39 Basophils % 0.8 % (0.0-2.0) 01/05/18 07:39 Neutrophils (Manual) 87 % (40-80) H 01/08/18 04:30 Lymphocytes 9 % (20-50) L 01/08/18 04:30 Monocytes 4 % (2-10) 01/08/18 04:30 Eosinophils 0 % (0-5) 01/08/18 04:30 Basophils 0 % (0-3) 01/08/18 04:30 Platelet Estimate ADEQUATE (NORMAL) 12/31/17 04:45 Anisocytosis 1+ 12/27/17 06:10 PT 10.6 SECONDS (9.5-11.5) 12/26/17 04:45 INR 1.02 (0.5-1.4) 12/26/17 04:45 PTT (Actin FS) 22.1 SECONDS (26.0-38.0) L 12/24/17 19:40 Specimen Source ARTIAL 01/07/18 14:01 Sample Site Right Radial 01/07/18 14:01 pH 7.44 (7.35-7.45) 01/07/18 14:01 pCO2 60.0 mmHg (35.0-45.0) H* 01/07/18 14:01 pO2 68.0 mmHg (80.0-100.0) L 01/07/18 14:01 HCO3 35.8 mEq/L (20.0-26.0) H 01/07/18 14:01 Base Excess 14.1 mEq/L (-3.0-3.0) H 01/07/18 14:01 O2 Saturation 94.0 % (92.0-100.0) 01/07/18 14:01 Pradeep Test positive 01/07/18 14:01 Vent Rate n/a 01/07/18 14:01 Inspired O2 32 01/07/18 14:01 Tidal Volume n/a 01/07/18 14:01 PEEP n/a 01/07/18 14:01 Pressure (ins/psv/peep) n/a 01/07/18 14:01 Critical Value CJ 01/07/18 14:01 Sodium 147 mEq/L (136-145) H 01/08/18 04:30 Potassium 3.3 mEq/L (3.5-5.1) L 01/08/18 04:30 Chloride 102 mEq/L (98-107) 01/08/18 04:30 Carbon Dioxide 32.0 mEq/L (21.0-31.0) H 01/08/18 04:30 Anion Gap 16.3 (7.0-16.0) H 01/08/18 04:30 BUN 50 mg/dL (7-25) H 01/08/18 04:30 Creatinine 1.9 mg/dL (0.6-1.2) H 01/08/18 04:30 Est GFR ( Amer) TNP 01/08/18 04:30 Est GFR (Non-Af Amer) TNP 01/08/18 04:30 BUN/Creatinine Ratio 26.3 01/08/18 04:30 Glucose 469 mg/dL (70-105) H* 01/08/18 04:30 POC Glucose 373 MG/DL (70 - 105) H 01/08/18 11:59 Whole Bld Lactic Acid 2.46 mmol/L (0.60-1.99) H* 12/25/17 10:07 Calcium 9.0 mg/dL (8.6-10.3) 01/08/18 04:30 Phosphorus 2.8 mg/dL (2.5-5.0) 12/29/17 04:35 Magnesium 2.2 mg/dL (1.9-2.7) 12/26/17 04:45 Total Bilirubin 0.3 mg/dL (0.3-1.0) 01/08/18 04:30 AST 11 U/L (13-39) L 01/08/18 04:30 ALT 11 U/L (7-52) 01/08/18 04:30 Alkaline Phosphatase 63 U/L (34-104) 01/08/18 04:30 B-Natriuretic Peptide 3040.0 pg/mL (5.0-100.0) H 01/07/18 04:45 Total Protein 6.0 gm/dL (6.0-8.3) 01/08/18 04:30 Albumin 2.8 gm/dL (3.7-5.3) L 01/08/18 04:30 Globulin 3.2 gm/dL 01/08/18 04:30 Albumin/Globulin Ratio 0.9 (1.0-1.8) L 01/08/18 04:30 Triglycerides 126 mg/dL (<150) 12/25/17 04:10 Cholesterol 124 mg/dL (<200) 12/25/17 04:10 LDL Cholesterol Direct 84 mg/dL (75-193) 12/25/17 04:10 HDL Cholesterol 30 mg/dL (23-92) 12/25/17 04:10 TSH 0.75 uIU/ml (0.34-5.60) 12/25/17 04:10 Vancomycin Trough 20.2 ug/mL (5-10) H 01/07/18 08:55 Helicobacter pylori Ab NEGATIVE (NEGATIVE) 12/26/17 08:35 Blood Type O POSITIVE 12/24/17 19:40 Antibody Screen NEGATIVE 12/24/17 19:40 Crossmatch See Detail 12/24/17 19:40 - Physical Exam Vitals and I&O: Vital Signs Temp 97.7 F 01/08/18 11:39 Pulse 98 01/08/18 12:23 Resp 18 01/08/18 11:39 BP 150/80 01/08/18 12:23 Pulse Ox 96 01/08/18 11:39 Intake & Output 01/07/18 01/08/18 01/08/18 18:59 06:59 18:59 Intake Total 100 700 Output Total 600 Balance 100 100 Weight (lbs) 72.575 kg Intake: Intake, IV Amount 100 100 Piperacillin Sodium/ 100 100 Tazobact 2.25 gm In Sodium Chloride 0.9% 50 ml @ 100 mls/hr IV Q6H [facility] Rx#:[id number] Tube Feeding 600 Output: Urine 600 Other: # Bowel Movements 1 Stool Characteristics Soft Soft Soft Weight Source Bedscale Active Medications: Current Medications Acetaminophen (Tylenol) 650 mg PO Q4HR PRN PRN Reason: MILD PAIN 1-3 Stop: 02/23/18 17:58 Last Admin: 01/07/18 23:46 Dose: 650 mg Acetaminophen (Tylenol) 650 mg PO Q4HR PRN PRN Reason: TEMP >100.4 Stop: 02/23/18 17:58 Acetylcysteine (Mucomyst 20%) 3 ml HHN Q4HRT [facility] Stop: 02/25/18 14:59 Last Admin: 01/08/18 11:21 Dose: 3 ml Albuterol/Ipratropium (Duoneb Neb) 3 ml HHN Q4HRT [facility] Stop: 02/24/18 14:59 Last Admin: 01/08/18 11:21 Dose: 3 ml Amlodipine Besylate (Norvasc) 5 mg PO DAILY [facility] Stop: 02/24/18 08:59 Last Admin: 01/08/18 09:04 Dose: 5 mg Ascorbic Acid (Vitamin C) 500 mg PO DAILY [facility] Stop: 02/24/18 08:59 Last Admin: 01/08/18 08:58 Dose: 500 mg Atorvastatin Calcium (Lipitor) 10 mg PO HS [facility]; Protocol Stop: 03/01/18 20:59 Last Admin: 01/07/18 20:55 Dose: 10 mg Bisacodyl (Dulcolax 10 Mg Supp) 10 mg RC DAILY PRN PRN Reason: IF MOM INEFFECTIVE Stop: 02/23/18 17:58 Furosemide (Lasix) 40 mg IVP BID [facility] Stop: 03/07/18 16:59 Last Admin: 01/08/18 09:05 Dose: 40 mg Diltiazem HCl 125 mg/ Dextrose 100 mls @ 0 mls/hr IV Q8H PRN; Protocol PRN Reason: blood pressure Stop: 02/25/18 07:48 Last Admin: 12/27/17 09:00 Dose: 6.25 mg/hr, 5 mls/hr Piperacillin Sod/Tazobactam (Sod 2.25 gm/ Sodium Chloride) 50 mls @ 100 mls/hr IV Q6H [facility] Stop: 02/25/18 13:59 Last Admin: 01/08/18 09:18 Dose: 100 mls/hr Vancomycin HCl 1.25 gm/ Sodium (Chloride) 250 mls @ 165 mls/hr IV Q48HR@0900 [facility] Stop: 03/08/18 09:59 Last Admin: 01/07/18 11:11 Dose: 165 mls/hr Insulin Aspart (Novolog Insulin Sliding Scale) 0 units SUBQ Q6HR [facility]; Protocol Stop: 02/23/18 01:14 Last Admin: 01/08/18 12:06 Dose: 11 units Lactobacillus Rhamnosus (Culturelle 15b) 1 each PO DAILY [facility] Stop: 02/24/18 08:59 Last Admin: 01/08/18 08:58 Dose: 1 each Lorazepam (Ativan) 1 mg IVP Q4HR PRN; Protocol PRN Reason: Agitation Stop: 02/25/18 07:12 Last Admin: 01/07/18 23:45 Dose: 1 mg Methylprednisolone Sodium Succinate (Solu-Medrol) 40 mg IVP Q6HR [facility] Stop: 03/06/18 17:59 Last Admin: 01/08/18 12:03 Dose: 40 mg Miscellaneous (Probiotic Screen) 1 ea MC PRN PRN PRN Reason: PROTOCOL Stop: 02/23/18 15:29 Miscellaneous (Vancomycin Iv Per Pharmacy) 1 ea MC PRN [facility] Stop: 02/24/18 23:44 Miscellaneous (Zosyn Iv Per Pharmacy) 1 ea PRN PRN PRN Reason: PROTOCOL Stop: 02/25/18 12:03 Morphine Sulfate (Morphine) 1 mg IVP Q4HR PRN PRN Reason: Pain (Moderate) Stop: 02/23/18 10:04 Last Admin: 01/07/18 09:14 Dose: 1 mg Pantoprazole Sodium (Protonix) 40 mg IVP BID [facility] Stop: 02/26/18 08:59 Last Admin: 01/08/18 08:58 Dose: 40 mg Polyethylene Glycol (Miralax) 17 gm PO BID [facility] Stop: 02/26/18 08:59 Last Admin: 01/08/18 08:58 Dose: 17 gm General: no acute distress, well developed, well nourished HEENT: atraumatic, normocephalic, PERRLA, EOMI Neck: supple, no thyromegaly Cardiovascular: S1S2, regular Lungs: clear to percussion, crackles, rhonchi Abdomen: soft, no tender, no distended, no mass, no hepatomegaly Extremities: no cyanosis, no clubbing, no edema Neurological: awake, other (lethargic) - Procedures Procedures: Procedures Procedure Code Date EXCISION OF STOMACH, PYLORUS, ENDO, DIAGN [id number] 12/24/17 INSERTION OF FEEDING DEVICE INTO STOMACH, ENDO [id number] 12/24/17 RESPIRATORY VENTILATION, GREATER THAN 96 CONSECUTIVE HOURS [id number] 12/24/17 Infectious Disease Assmt/Plan - Problem List Patient Problems: All Active Problems COFFEE GROUND EMESIS (Acute) - Assessment Assessment: 1. Severe sepsis. improved 2. Pneumonia. the RLL infiltrate improved. 3. Fecal impaction. 4. Gallbladder stone at bladder neck. 5. Diabetes mellitus type 2. 6. Hypertension. 7. Dementia. 8. Anemia. 9. Large hiatal hernia. 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 11. GI bleed 2/2 PUD. 12. SVT 13. Respiratory insufficiency. 14. S/p PEG placement, 15. Altered mental status, metabolic encephalopathy. - Plan Plan: Continue zosyn. Continue vancomycin IV. May transfer to the contracted facility. Nutritional Asmnt/Malnutr-PDOC - Dietary Evaluation Malnutrition Findings (Please click <Entered> for more info): Nutritional Asmnt/Malnutrition Start: 12/25/17 15: 21 Text: Status: Complete Freq: Protocol: Document 12/25/17 15:22 ARSH (Rec: 12/25/17 15:44 [email or web address] [email or web address]) Nutritional Asmnt/Malnutrition Patient General Information Nutritional Screening High Risk Diagnosis sepsis, dehydration, pneumonia Pertinent Medical Hx/Surgical Hx HTN, DM, dyslipidemia, dementia, anemia, muscle weakness Subjective Information Pt receiving care from RN at time of visit. Per nurse notes , pt had coffee ground emesis, NGT was unable to be inserted d/t large retro cardiac hiatal hernia, and will have EGD tomorrow. Spoke w/ BELA Duran by phone who verfied the nurse notes and states pt will continue to be NPO. Current Diet Order/ Nutrition Support NPO Pertinent Medications D5-0.45ns, novolog, culturelle , pantoprazole Pertinent Labs 12/25: glucose 392, Na 144, Cl 110, BUN 78, Alb 2.9, POC 304 -423 12/24: glucose 547, Na 134, Cl 97, BUN 69, Alb 3.0, POC 441- 485 Nutritional Hx/Data Height 1.63 m Height (Calculated Centimeters) 162.6 Current Weight (lbs) 64.682 kg Weight (Calculated Kilograms) 64.7 Weight (Calculated Grams) 18332.3 [place] Body Weight 120 lb Body Mass Index (BMI) 24.5 Weight Status Approriate GI Symptoms GI Symptoms Nausea Vomitting Last BM none noted Difficult in: None Food Allergies No Skin Integrity/Comment: pasquale lennon 13 Current %PO Negligible < 25% Estimated Nutritional Goals BEE in Kcals: Using Current wt Calories/Kcals/Kg 30-35 Kcals Calculated 1732-0915 Protein: Using Current wt Protein g/k.2-1.5 Protein Calculated 78-97 g Fluid: ml per MD Nutritional Problem 2. Problem Problem Altered nutrition related lab values Etiology dehydration, endocrine dysfunction Signs/Symptoms: Cl 110, BUN 78, glucose 392, POC 304-423 1. Problem Problem Increased nutrient needs Etiology metabolic stress Signs/Symptoms: dx of sepsis and pneumonia Malnutrition Related to Morbid Obesity Malnutrition related to morbid obesity No Intervention/Recommendation Comments 1. Monitor NPO status and advance diet when medically appropriate 2. Consider alternative nutrition route if pt unable to tolerate PO intake 3. Monitor wt, nutrition related labs, and skin integrity 4. F/U as high risk in 2-3 days, 12/27- Expected Outcomes/Goals Expected Outcomes/Goals 1. Pt to start oral intake or alternate nutrition route if necessary 2. Wt stability, skin to remain intact, nutrition related labs to approach normal limits Reveiwed by Yesenia Jennings RD
[2018-01-08] MEDS: Morphine Sulfate 2 mg/mL 1mL Syr IVP PRN (14:44)
[2018-01-08] MEDS: Atorvastatin Calcium 10 MG TAB PO SCH (20:33)
[2018-01-09] MEDS: INSULIN ASPART SLIDING SCALE 100 UNITS/ML UNIT SUBQ SCH ×4 (00:33→17:53)
[2018-01-09] MEDS: Piperacillin/Tazobact 2.25 gm in 0.9% NS 50 ML IV SCH ×4 (02:36→20:21)
[2018-01-09] MEDS: Albuterol/Ipratropium Neb 3 ML AERS HHN SCH ×5 (04:01→19:51)
[2018-01-09 07:51] LABS: MEAN PLATELET VOLUME 8.8 fl
[2018-01-09 07:54] LABS: HEMATOCRIT 28.7 % (41.0-60); HEMOGLOBIN 9.6 gm/dL (12-16); MEAN CELL VOLUME 86.9 fl (81-100); MEAN CORPUSCULAR HEMOGLOBIN 29.1 pg (27.0-31.0); MEAN CORPUSCULAR HGB CONC 33.4 pg (28.0-36.0); PLATELET COUNT 487 Th/cmm (150-400); RED BLOOD COUNT 3.31 Mil/cmm (3.80-5.20); RED CELL DISTRIBUTION WIDTH 13.4 % (11.5-20.0); WHITE BLOOD COUNT 14.9 Th/cmm (4.8-10.8)
[2018-01-09 08:06] LABS: BAND NEUTROPHILE 2 % (0-10); BASOPHIL 0 % (0-3); EOSINOPHIL 0 % (0-5); LYMPHOCYTE 5 % (20-50); MONOCYTE 5 % (2-10); NEUTROPHILS 88 % (40-80)
[2018-01-09 08:07] LABS: ALB/GLOB RATIO 0.9 (1.0-1.8); ALKALINE PHOSPHATASE 71 U/L (34-104); ANION GAP 14.2 (7.0-16.0); BILIRUBIN,TOTAL 0.3 mg/dL (0.3-1.0); BUN - UREA NITROGEN 63 mg/dL (7-25); CALCIUM SERUM 9.3 mg/dL (8.6-10.3); CARBON DIOXIDE 35.4 mEq/L (21.0-31.0); CHLORIDE 105 mEq/L (98-107); CREATININE - SERUM 1.9 mg/dL (0.6-1.2); GLUCOSE 308 mg/dL (70-105); POTASSIUM SERUM 3.6 mEq/L (3.5-5.1); SGOT 8 U/L (13-39); SGPT/ALT 11 U/L (7-52); SODIUM SERUM 151 mEq/L (136-145); TOTAL PROTEIN,SERUM 6.2 gm/dL (6.0-8.3)
[2018-01-09] MEDS: methylPREDNISolone SS 40 mg Vial IVP SCH ×2 (09:01→22:30)
[2018-01-09] MEDS: POLYETHYLENE GLYCOL 3350 17 GM PACK PO SCH ×2 (09:01→17:31)
[2018-01-09] MEDS: Lactobacillus Rhamnosus GG 15 Billion CFU CAP.SPRINK PO SCH (09:02)
--- NOTE | 2018-01-09 09:07 | Diagnostic Imaging Report ---
CHEST X-RAY: AP view INDICATION: Shortness of breath COMPARISON: 01/07/2018 FINDINGS: Worsening CHF are seen with developing right lung infiltrates and right effusion. Cardiomegaly is noted with atherosclerosis. IMPRESSION: Worsening CHF with developing right lung infiltrates and right effusion. Cardiomegaly and atherosclerotic vascular disease.
[2018-01-09] MEDS: Atorvastatin Calcium 10 MG TAB PO SCH (22:30)
[2018-01-10] MEDS: INSULIN ASPART SLIDING SCALE 100 UNITS/ML UNIT SUBQ SCH ×4 (00:39→17:18)
[2018-01-10] MEDS: Albuterol/Ipratropium Neb 3 ML AERS HHN SCH ×6 (01:20→19:34)
[2018-01-10] MEDS: Piperacillin/Tazobact 2.25 gm in 0.9% NS 50 ML IV SCH (01:53)
[2018-01-10] MEDS: Meropenem 500 MG in Sodium Chloride 0.9% 100 ML IV SCH ×3 (03:45→17:02)
[2018-01-10 05:38] LABS: HEMATOCRIT 29.7 % (41.0-60); HEMOGLOBIN 9.4 gm/dL (12-16); MEAN CELL VOLUME 87.5 fl (81-100); MEAN CORPUSCULAR HEMOGLOBIN 27.6 pg (27.0-31.0); MEAN CORPUSCULAR HGB CONC 31.5 pg (28.0-36.0); MEAN PLATELET VOLUME 9.1 fl; PLATELET COUNT 470 Th/cmm (150-400); RED CELL DISTRIBUTION WIDTH 13.8 % (11.5-20.0); WHITE BLOOD COUNT 12.8 Th/cmm (4.8-10.8)
[2018-01-10 05:56] LABS: ALB/GLOB RATIO 0.9 (1.0-1.8); ALBUMIN 2.7 gm/dL (3.7-5.3); ALKALINE PHOSPHATASE 89 U/L (34-104); ANION GAP 11.9 (7.0-16.0); BILIRUBIN,TOTAL 0.3 mg/dL (0.3-1.0); BUN - UREA NITROGEN 71 mg/dL (7-25); CHLORIDE 106 mEq/L (98-107); CREATININE - SERUM 1.9 mg/dL (0.6-1.2); GLUCOSE 307 mg/dL (70-105); SGOT 7 U/L (13-39); SGPT/ALT 9 U/L (7-52); SODIUM SERUM 154 mEq/L (136-145); TOTAL PROTEIN,SERUM 5.6 gm/dL (6.0-8.3)
[2018-01-10 06:06] LABS: CARBON DIOXIDE 40.1 mEq/L (21.0-31.0)
--- NOTE | 2018-01-10 06:13 | Progress Notes ---
DATE: 01/09/2018 INFECTIOUS DISEASE AND INTERNAL MEDICINE NOTE SUBJECTIVE: The patient lying in the bed, not in acute distress. No fever, no chills. The patient was hypoxic and the patient's mentation altered and deteriorated. BiPAP was put in and she is still lethargic. OBJECTIVE: VITAL SIGNS: Current vital signs shows temperature is 97.8, pulse 70, respiration 26, blood pressure 155/69. GENERAL: The patient is comfortable, obese, not in acute distress, obtunded, on BiPAP. HEENT: Head is normocephalic, atraumatic. Oral cavity moist, pink. Eyes: Pallor is present, no icterus. PERRLA, EOMI. NECK: Supple. No JVD. No carotid bruit. Trachea in midline. CHEST: Bilateral breath sounds. No crackles present. HEART: S1, S2 within normal limits. Regular rhythm. No murmur, no gallop. ABDOMEN: Soft, nontender, nondistended. Bowel sounds present. EXTREMITIES: No cyanosis, no clubbing, no edema. NEUROLOGIC: Obtunded. LABORATORY DATA: Shows WBC count is 40,900, hemoglobin 9.6, hematocrit 28.7, platelets are 487,000, neutrophils 88%. Sodium 151, potassium 3.6, chloride 105, bicarbonate is 35, BUN is 63, creatinine 1.9 and glucose is 308. Chest x-ray showed worsening CHF with a developing right lung infiltrate and right effusion. Cardiomegaly and atherosclerosis. ASSESSMENT: 1. Worsening of respiratory status, respiratory failure. 2. Pneumonia. The patient had developed a rash and a new pneumonia and effusion. 3. Altered mental status secondary to metabolic encephalopathy. 4. Fecal impaction. 5. Gallstones, gallbladder stone at neck. 6. Diabetes mellitus type 2. 7. Hypertension. 8. Dementia. 9. Anemia. 10. ____ 11. Respiratory insufficiency. RECOMMENDATION AND PLAN: We will continue vancomycin and change Zosyn to meropenem. The patient's condition is critical. He is not ready for discharge at this time, I have spoken to ____ [employer] Engineer for ____ and have given an update on the patient. JOB# [id number]
[2018-01-10 06:49] LABS: BAND NEUTROPHILE 2 % (0-10); LYMPHOCYTE 2 % (20-50); MONOCYTE 2 % (2-10); NEUTROPHILS 94 % (40-80)
[2018-01-10 06:50] LABS: PLATELET ESTIMATE INCREASED PLATELETS (NORMAL)
--- NOTE | 2018-01-10 08:32 | Diagnostic Imaging Report ---
Portable chest x-ray HISTORY: Shortness of breath Compared with prior exam of January 09, 2018, the heart remains enlarged. Density is noted in the right lower hemithorax consistent with a pleural effusion. Underlying infiltrate/pneumonia cannot be excluded. Poor visualization of the left lower lobe. IMPRESSION: 1. Limited exam due to difficulty in patient positioning 2. Cardiomegaly with atherosclerotic vascular changes 3. Persistent density right lower hemithorax consistent with a pleural effusion. Underlying infiltrate including pneumonia cannot be excluded. Additional increased density noted in the left lower hemithorax. Again, consolidation and/or atelectasis cannot be ruled out.
[2018-01-10 09:02] LABS: pH 7.54 (7.35-7.45)
[2018-01-10] MEDS: methylPREDNISolone SS 40 mg Vial IVP SCH (09:03)
[2018-01-10] MEDS: Lactobacillus Rhamnosus GG 15 Billion CFU CAP.SPRINK PO SCH (09:06)
[2018-01-10] MEDS: POLYETHYLENE GLYCOL 3350 17 GM PACK PO SCH ×2 (09:07→17:06)
[2018-01-10] MEDS ORDERED: Sodium Chloride 0.45% 1,000 ML IV SCH (09:56)
--- NOTE | 2018-01-10 17:17 | Infectious Disease Prog Note ---
Infectious Disease Subjective - Review of Systems Service Date: 01/10/18 Subjective: Patient is very lethargic and in SOB. No fever. On bipap. Infectious Disease Objective - Results Result Diagrams: 01/10/18 05:20 01/10/18 05:20 Recent Labs: Laboratory Last Values WBC 12.8 Th/cmm (4.8-10.8) H 01/10/18 05:20 RBC 3.40 Mil/cmm (3.80-5.20) L 01/10/18 05:20 Hgb 9.4 gm/dL (12-16) L 01/10/18 05:20 Hct 29.7 % (41.0-60) L 01/10/18 05:20 MCV 87.5 fl (81-100) 01/10/18 05:20 MCH 27.6 pg (27.0-31.0) 01/10/18 05:20 MCHC Differential 31.5 pg (28.0-36.0) 01/10/18 05:20 RDW 13.8 % (11.5-20.0) 01/10/18 05:20 Plt Count 470 Th/cmm (150-400) H 01/10/18 05:20 MPV 9.1 fl 01/10/18 05:20 Add Manual Diff YES 01/10/18 05:20 Neutrophils % 73.5 % (40.0-80.0) 01/05/18 07:39 Band Neutrophils % 2 % (0-10) 01/10/18 05:20 Lymphocytes % 13.5 % (20.0-50.0) L 01/05/18 07:39 Monocytes % 7.4 % (2.0-10.0) 01/05/18 07:39 Eosinophils % 4.8 % (0.0-5.0) 01/05/18 07:39 Basophils % 0.8 % (0.0-2.0) 01/05/18 07:39 Neutrophils (Manual) 94 % (40-80) H 01/10/18 05:20 Lymphocytes 2 % (20-50) L 01/10/18 05:20 Monocytes 2 % (2-10) 01/10/18 05:20 Eosinophils 0 % (0-5) 01/09/18 07:40 Basophils 0 % (0-3) 01/09/18 07:40 Platelet Estimate INCREASED PLATELETS (NORMAL) 01/10/18 05:20 Anisocytosis 1+ 12/27/17 06:10 PT 10.6 SECONDS (9.5-11.5) 12/26/17 04:45 INR 1.02 (0.5-1.4) 12/26/17 04:45 PTT (Actin FS) 22.1 SECONDS (26.0-38.0) L 12/24/17 19:40 Specimen Source Arterial 01/10/18 08:45 Sample Site RB 01/10/18 08:45 pH 7.54 (7.35-7.45) H 01/10/18 08:45 pCO2 52.0 mmHg (35.0-45.0) H 01/10/18 08:45 pO2 76.0 mmHg (80.0-100.0) L 01/10/18 08:45 HCO3 39.9 mEq/L (20.0-26.0) H 01/10/18 08:45 Base Excess 19.2 mEq/L (-3.0-3.0) H 01/10/18 08:45 O2 Saturation 97.0 % (92.0-100.0) 01/10/18 08:45 Pradeep Test NA 01/10/18 08:45 Vent Rate NA 01/10/18 08:45 Inspired O2 50 01/10/18 08:45 Tidal Volume NA 01/10/18 08:45 PEEP NA 01/10/18 08:45 Pressure (ins/psv/peep) NA 01/10/18 08:45 Critical Value E.HART 01/10/18 08:45 Sodium 154 mEq/L (136-145) H 01/10/18 05:20 Potassium 4.0 mEq/L (3.5-5.1) 01/10/18 05:20 Chloride 106 mEq/L (98-107) 01/10/18 05:20 Carbon Dioxide 40.1 mEq/L (21.0-31.0) H 01/10/18 05:20 Anion Gap 11.9 (7.0-16.0) 01/10/18 05:20 BUN 71 mg/dL (7-25) H 01/10/18 05:20 Creatinine 1.9 mg/dL (0.6-1.2) H 01/10/18 05:20 Est GFR ( Amer) TNP 01/10/18 05:20 Est GFR (Non-Af Amer) TNP 01/10/18 05:20 BUN/Creatinine Ratio 37.4 01/10/18 05:20 Glucose 307 mg/dL (70-105) H 01/10/18 05:20 POC Glucose 315 MG/DL (70 - 105) H 01/10/18 11:48 Whole Bld Lactic Acid 2.46 mmol/L (0.60-1.99) H* 12/25/17 10:07 Calcium 9.0 mg/dL (8.6-10.3) 01/10/18 05:20 Phosphorus 2.8 mg/dL (2.5-5.0) 12/29/17 04:35 Magnesium 2.2 mg/dL (1.9-2.7) 12/26/17 04:45 Total Bilirubin 0.3 mg/dL (0.3-1.0) 01/10/18 05:20 AST 7 U/L (13-39) L 01/10/18 05:20 ALT 9 U/L (7-52) 01/10/18 05:20 Alkaline Phosphatase 89 U/L (34-104) 01/10/18 05:20 B-Natriuretic Peptide 3040.0 pg/mL (5.0-100.0) H 01/07/18 04:45 Total Protein 5.6 gm/dL (6.0-8.3) L 01/10/18 05:20 Albumin 2.7 gm/dL (3.7-5.3) L 01/10/18 05:20 Globulin 2.9 gm/dL 01/10/18 05:20 Albumin/Globulin Ratio 0.9 (1.0-1.8) L 01/10/18 05:20 Triglycerides 126 mg/dL (<150) 12/25/17 04:10 Cholesterol 124 mg/dL (<200) 12/25/17 04:10 LDL Cholesterol Direct 84 mg/dL (75-193) 12/25/17 04:10 HDL Cholesterol 30 mg/dL (23-92) 12/25/17 04:10 TSH 0.75 uIU/ml (0.34-5.60) 11/20/18 04:10 Vancomycin Trough 22.3 ug/mL (5-10) H 01/09/18 07:40 Helicobacter pylori Ab NEGATIVE (NEGATIVE) 12/26/17 08:35 Blood Type O POSITIVE 12/24/17 19:40 Antibody Screen NEGATIVE 12/24/17 19:40 Crossmatch See Detail 12/24/17 19:40 - Physical Exam Vitals and I&O: Vital Signs Temp 98.8 F 01/10/18 16:09 Pulse 105 01/10/18 16:09 Resp 28 01/10/18 16:09 BP 137/87 01/10/18 17:05 Pulse Ox 99 01/10/18 16:09 Intake & Output 01/09/18 01/10/18 01/10/18 18:59 06:59 18:59 Intake Total 350 150 220 Output Total 2650 Balance 350 150 -2430 Weight (lbs) 67.132 kg Intake: Intake, IV Amount 350 150 100 Meropenem 500 mg In 100 100 Sodium Chloride 0.9% 100 ml @ 100 mls/hr IV Q8H [facility] Rx#:[id number] Piperacillin Sodium/ 100 50 Tazobact 2.25 gm In Sodium Chloride 0.9% 50 ml @ 100 mls/hr IV Q6H [facility] Rx#:[id number] Vancomycin HCl 1.25 gm In 250 Sodium Chloride 0.9% 250 ml @ 165 mls/hr IV Q48HR @0900 [facility] Rx#:[id number] Other 120 Output: Urine 2650 Other: # Bowel Movements 1 Weight Source Bedscale Active Medications: Current Medications Acetaminophen (Tylenol) 650 mg PO Q4HR PRN PRN Reason: MILD PAIN 1-3 Stop: 02/23/18 17:58 Last Admin: 01/08/18 17:25 Dose: 650 mg Acetaminophen (Tylenol) 650 mg PO Q4HR PRN PRN Reason: TEMP >100.4 Stop: 02/23/18 17:58 Acetylcysteine (Mucomyst 20%) 3 ml HHN Q4HRT [facility] Stop: 02/25/18 14:59 Last Admin: 01/10/18 14:21 Dose: 3 ml Albuterol/Ipratropium (Duoneb Neb) 3 ml HHN Q4HRT [facility] Stop: 02/24/18 14:59 Last Admin: 01/10/18 14:21 Dose: 3 ml Amlodipine Besylate (Norvasc) 5 mg PO DAILY [facility] Stop: 02/24/18 08:59 Last Admin: 01/10/18 09:07 Dose: Not Given Ascorbic Acid (Vitamin C) 500 mg PO DAILY [facility] Stop: 02/24/18 08:59 Last Admin: 01/10/18 09:06 Dose: 500 mg Atorvastatin Calcium (Lipitor) 10 mg PO HS [facility]; Protocol Stop: 03/01/18 20:59 Last Admin: 01/09/18 22:30 Dose: 10 mg Bisacodyl (Dulcolax 10 Mg Supp) 10 mg RC DAILY PRN PRN Reason: IF MOM INEFFECTIVE Stop: 02/23/18 17:58 Furosemide (Lasix) 40 mg IVP BID [facility] Stop: 03/07/18 16:59 Last Admin: 01/10/18 17:05 Dose: 40 mg Diltiazem HCl 125 mg/ Dextrose 100 mls @ 0 mls/hr IV Q8H PRN; Protocol PRN Reason: blood pressure Stop: 02/25/18 07:48 Last Admin: 12/27/17 09:00 Dose: 6.25 mg/hr, 5 mls/hr Vancomycin HCl 1.25 gm/ Sodium (Chloride) 250 mls @ 165 mls/hr IV Q48HR@0900 [facility] Stop: 03/08/18 09:59 Last Infusion: 01/09/18 11:28 Dose: Infused Meropenem 500 mg/ Sodium (Chloride) 100 mls @ 100 mls/hr IV Q8H [facility] Stop: 03/11/18 00:59 Last Admin: 01/10/18 17:02 Dose: 100 mls/hr Sodium Chloride (Nacl 0.45%) 1,000 mls @ 30 mls/hr IV .Q24H [facility] Stop: 03/11/18 09:55 Last Admin: 01/10/18 11:44 Dose: 30 mls/hr Insulin Aspart (Novolog Insulin Sliding Scale) 0 units SUBQ Q6HR [facility]; Protocol Stop: 02/23/18 01:14 Last Admin: 01/10/18 11:53 Dose: 12 units Lactobacillus Rhamnosus (Culturelle 15b) 1 each PO DAILY [facility] Stop: 02/24/18 08:59 Last Admin: 01/10/18 09:06 Dose: 1 each Lorazepam (Ativan) 1 mg IVP Q4HR PRN; Protocol PRN Reason: Agitation Stop: 02/25/18 07:12 Last Admin: 01/07/18 23:45 Dose: 1 mg Methylprednisolone Sodium Succinate (Solu-Medrol) 40 mg IVP Q12HR [facility] Stop: 03/10/18 08:59 Last Admin: 01/10/18 09:03 Dose: 40 mg Miscellaneous (Probiotic Screen) 1 [facility] PRN PRN PRN Reason: PROTOCOL Stop: 02/23/18 15:29 Miscellaneous (Vancomycin Iv Per Pharmacy) 1 [facility] PRN GIOVANNA Stop: 02/24/18 23:44 Miscellaneous (Zosyn Iv Per Pharmacy) 1 [facility] PRN PRN PRN Reason: PROTOCOL Stop: 02/25/18 12:03 Pantoprazole Sodium (Protonix) 40 mg IVP BID [facility] Stop: 02/26/18 08:59 Last Admin: 01/10/18 17:01 Dose: 40 mg Polyethylene Glycol (Miralax) 17 gm PO BID [facility] Stop: 02/26/18 08:59 Last Admin: 01/10/18 17:06 Dose: Not Given General: no acute distress, well developed, well nourished HEENT: atraumatic, normocephalic, PERRLA, EOMI Neck: supple, no thyromegaly Cardiovascular: S1S2, regular Lungs: clear to auscultation bilaterally, clear to percussion Abdomen: soft, no tender, no distended, no hepatomegaly Extremities: no cyanosis, no clubbing, no edema Neurological: awake, alert, other (lethargic) Skin: intact - Procedures Procedures: Procedures Procedure Code Date EXCISION OF STOMACH, PYLORUS, ENDO, DIAGN [id number] 12/24/17 INSERTION OF FEEDING DEVICE INTO STOMACH, ENDO [id number] 12/24/17 RESPIRATORY VENTILATION, GREATER THAN 96 CONSECUTIVE HOURS [id number] 12/24/17 Infectious Disease Assmt/Plan - Problem List Patient Problems: All Active Problems COFFEE GROUND EMESIS (Acute) - Assessment Assessment: 1. Severe sepsis. improved 2. Pneumonia. the RLL infiltrate improved. 3. Fecal impaction. 4. Gallbladder stone at bladder neck. 5. Diabetes mellitus type 2. 6. Hypertension. 7. Dementia. 8. Anemia. 9. Large hiatal hernia. 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 11. GI bleed 2/2 PUD. 12. SVT 13. Respiratory insufficiency. 14. S/p PEG placement, 15. Altered mental status, metabolic encephalopathy. - Plan Plan: Continue zosyn. Continue vancomycin IV. May transfer patient to [facility] as per insurance. Nutritional Asmnt/Malnutr-PDOC - Dietary Evaluation Malnutrition Findings (Please click <Entered> for more info): Nutritional Asmnt/Malnutrition Start: 12/25/17 15: 21 Text: Status: Complete Freq: Protocol: Document 12/25/17 15:22 ARSH (Rec: 12/25/17 15:44 [email or web address]) Nutritional Asmnt/Malnutrition Patient General Information Nutritional Screening High Risk Diagnosis sepsis, dehydration, pneumonia Pertinent Medical Hx/Surgical Hx HTN, DM, dyslipidemia, dementia, anemia, muscle weakness Subjective Information Pt receiving care from RN at time of visit. Per nurse notes , pt had coffee ground emesis, NGT was unable to be inserted d/t large retro cardiac hiatal hernia, and will have EGD tomorrow. Spoke w/ BELA Duran by phone who verfied the nurse notes and states pt will continue to be NPO. Current Diet Order/ Nutrition Support NPO Pertinent Medications D5-0.45ns, novolog, culturelle , pantoprazole Pertinent Labs 12/25: glucose 392, Na 144, Cl 110, BUN 78, Alb 2.9, POC 304 -423 12/24: glucose 547, Na 134, Cl 97, BUN 69, Alb 3.0, POC 441- 485 Nutritional Hx/Data Height 1.63 m Height (Calculated Centimeters) 162.6 Current Weight (lbs) 64.682 kg Weight (Calculated Kilograms) 64.7 Weight (Calculated Grams) 42030.3 [place] Body Weight 120 lb Body Mass Index (BMI) 24.5 Weight Status Approriate GI Symptoms GI Symptoms Nausea Vomitting Last BM none noted Difficult in: None Food Allergies No Skin Integrity/Comment: pasquale lennon 13 Current %PO Negligible < 25% Estimated Nutritional Goals BEE in Kcals: Using Current wt Calories/Kcals/Kg 30-35 Kcals Calculated [id number] Protein: Using Current wt Protein g/k.2-1.5 Protein Calculated 78-97 g Fluid: ml per MD Nutritional Problem 2. Problem Problem Altered nutrition related lab values Etiology dehydration, endocrine dysfunction Signs/Symptoms: Cl 110, BUN 78, glucose 392, POC 304-423 1. Problem Problem Increased nutrient needs Etiology metabolic stress Signs/Symptoms: dx of sepsis and pneumonia Malnutrition Related to Morbid Obesity Malnutrition related to morbid obesity No Intervention/Recommendation Comments 1. Monitor NPO status and advance diet when medically appropriate 2. Consider alternative nutrition route if pt unable to tolerate PO intake 3. Monitor wt, nutrition related labs, and skin integrity 4. F/U as high risk in 2-3 days, 12/27- Expected Outcomes/Goals Expected Outcomes/Goals 1. Pt to start oral intake or alternate nutrition route if necessary 2. Wt stability, skin to remain intact, nutrition related labs to approach normal limits Reveiwed by Yesenia Jennings RD
== END 2018-01-10 21:40 | disposition short-term general hospital (02) | DRG 870 ==
LOC: ER 19:10 → OBSVTOIN 21:25 → INTOOBSV 21:25 → ICU 21:25 → MSI 01-07 13:56 → TELE 01-07 13:57
PROVIDERS: ADMIT Internal Medicine; ATTEND Internal Medicine
PROC: 0DB78ZX Excision of Stomach, Pylorus, Via Natural or Artificial Opening Endoscopic, Diagnostic (ICD-10-PCS; 2017-12-26)
PROC: 0W3P8ZZ Control Bleeding in Gastrointestinal Tract, Via Natural or Artificial Opening Endoscopic (ICD-10-PCS; 2017-12-26)
PROC: 5A1955Z Respiratory Ventilation, Greater than 96 Consecutive Hours (ICD-10-PCS; principal; 2017-12-27)
PROC: 30233N1 Transfusion of Nonautologous Red Blood Cells into Peripheral Vein, Percutaneous Approach (ICD-10-PCS; 2017-12-27)
PROC: 0DH68UZ Insertion of Feeding Device into Stomach, Via Natural or Artificial Opening Endoscopic (ICD-10-PCS; 2018-01-01)
PROC: 5A09357 Assistance with Respiratory Ventilation, Less than 24 Consecutive Hours, Continuous Positive Airway Pressure (ICD-10-PCS; 2018-01-07)
PROC: 5A09357 Assistance with Respiratory Ventilation, Less than 24 Consecutive Hours, Continuous Positive Airway Pressure (ICD-10-PCS; 2018-01-08)
PROC: 5A09357 Assistance with Respiratory Ventilation, Less than 24 Consecutive Hours, Continuous Positive Airway Pressure (ICD-10-PCS; 2018-01-09)
PROC: 5A09357 Assistance with Respiratory Ventilation, Less than 24 Consecutive Hours, Continuous Positive Airway Pressure (ICD-10-PCS; 2018-01-10)
DX: A41.9 Sepsis, unspecified organism (principal); J69.0 Pneumonitis due to inhalation of food and vomit; K27.4 Chronic or unspecified peptic ulcer, site unspecified, with hemorrhage; G93.41 Metabolic encephalopathy; J96.01 Acute respiratory failure with hypoxia; I50.31 Acute diastolic (congestive) heart failure; I47.1 Supraventricular tachycardia; N39.0 Urinary tract infection, site not specified; Z99.11 Dependence on respirator [ventilator] status; I13.0 Hypertensive heart and chronic kidney disease with heart failure and stage 1 through stage 4 chronic kidney disease, or unspecified chronic kidney disease; E78.5 Hyperlipidemia, unspecified; F03.90 Unspecified dementia, unspecified severity, without behavioral disturbance, psychotic disturbance, mood disturbance, and anxiety; K44.9 Diaphragmatic hernia without obstruction or gangrene; K56.41 Fecal impaction; K80.80 Other cholelithiasis without obstruction; D64.9 Anemia, unspecified; R13.10 Dysphagia, unspecified; J98.01 Acute bronchospasm; R65.20 Severe sepsis without septic shock; N18.9 Chronic kidney disease, unspecified; E11.22 Type 2 diabetes mellitus with diabetic chronic kidney disease; E87.6 Hypokalemia; I27.20 Pulmonary hypertension, unspecified; Z79.4 Long term (current) use of insulin; Z22.322 Carrier or suspected carrier of Methicillin resistant Staphylococcus aureus
CPT/HCPCS: 36415-UA; 36600-90; 71045-TC; 71250-TC; 74000-TC; 80048-TC; 80053-TC; 80061-TC; 80202-TC; 82803-TC; 82947-TC; 82948-90; 83036-90; 83605; 83735-TC; 83880-TC; 84100-TC; 84443-TC; 85007-TC; 85025-TC; 85610-TC; 86850-TC; 86900-TC; 86901-TC; 86922-TC; 87070; 87338-TC; 90779; 90799; 93005; 94002; 94003; 94660; 94760; 96375; 96379; 99201; C9113; J0456; J0696; J1815; J1940; J2001; J2060; J2185; J2270; J2543; J2704; J2920; J3370; J3480; J7030; J7040; J7042; P9016; X3401; X6026; Z7506; Z7508; Z7610